=== PATIENT | female | born 1955 | race Caucasian/White ===

== ENCOUNTER 2017-07-19 15:47 | Emergency (ER) | payer MEDICAID, SELFPAY ==
[2017-07-19 15:48] VITALS: BP 143/95; PULSE 117; RESP 24; TEMP 36.4; O2SAT 97; BMI 37.5
--- NOTE | 2017-07-19 16:24 | ED.VISSUMM ---
- ER Visit Summary Date of Service: 07/19/17 Chief Complaint: Nausea and vomiting History of Present Illness: The patient is a 62 F patient presents with nausea vomiting ?1 while visiting a friend upstairs in the hospital. Denies abdominal pain. No chest pains. Symptoms of nausea is resolved. No urinary symptoms. Normal bowel movements. No fever, chills, sweats. Nursing report notes for times of vomiting however she only states once. Nurse reports that she is short of breath for 2 weeks, she states she is only at times short of breath however not currently. States she called her PCP, was told to go ED for evaluation of dehydration versus strokes symptoms. Patient does not present with any stroke symptoms. History of TIA, she feels herself. Physical Examination: General: Alert and oriented ?3, no acute distress. Mild slowness on speech however normal per patient. HEENT: Normocephalic, atraumatic. Moist mucosa membranes Neck: supple, nontender. Cardiovascular: Regular rate 84 and rhythm, no murmurs Respiratory: Normal breath sounds, symmetric, no distress Abdomen: Soft, nontender, nondistended Extremities: Nontender, no edema, pulses intact ?4 Neuro: no focal neurological deficits. Test Results: [] Emergency Department Course and Treatment: Patient with no current complaints. Heart rate in triage 117, is 118 on my evaluation. She has no clinical signs of dehydration. She has no clinical new stroke symptoms. Patient oral challenge and no difficulties. Discharge with outpatient follow-up. Treatment Plan: [] Disposition: Discharge Impression: 1. Nausea vomiting resolved This note was generated with [employer] dictation software. It may contain incorrect words, spelling, and punctuation that were not noted in review of the chart prior to signing ED Disposition - Plan for ED Patient: Disposition: Home or Assisted Living Chief Complaint: Weakness Diagnosis: Nausea and vomiting in adult Referrals: Cedric Mcnally DO [Primary Care Provider] - 3-5 Days
[2017-07-19 16:39] VITALS: BP 156/74; PULSE 103; RESP 18; O2SAT 98
== END 2017-07-19 16:43 | disposition home or self-care (01) ==
PROVIDERS: Emergency Provider Emergency Medicine; Family Provider Family Medicine; PCP Family Medicine
DX: R11.2 Nausea with vomiting, unspecified (principal); Z86.73 Personal history of transient ischemic attack (TIA), and cerebral infarction without residual deficits; Z79.82 Long term (current) use of aspirin; Z79.899 Other long term (current) drug therapy
CPT/HCPCS: 99282

== ENCOUNTER 2017-12-20 22:42 | Observation (INO) | payer MEDICAID, SELFPAY ==
[2017-12-20 22:49] VITALS: BP 130/54; PULSE 59; RESP 18; TEMP 36.8; BMI 31.4
[2017-12-20 22:56] VITALS: BP 130/54; PULSE 60; RESP 22; O2SAT 95
--- NOTE | 2017-12-20 23:06 | EKG12_ITS ---
Test Reason : CONFUSION Blood Pressure : / mmHG Vent. Rate : 055 BPM Atrial Rate : 055 BPM P-R Int : 156 ms QRS Dur : 084 ms QT Int : 404 ms P-R-T Axes : 040 001 -18 degrees QTc Int : 386 ms Sinus bradycardia Nonspecific T wave abnormality Abnormal ECG Confirmed by MORGAN DOUGLAS, REGINE ([id number]), editor managing newspaper SCOOTER MANZANARES ([id number]) on 12/24/2017 2:28:01 PM Referred By: LAY Confirmed By:REGINE MORA MD
--- NOTE | 2017-12-20 23:08 | ED.VISSUMM ---
- ER Visit Summary Date of Service: 12/20/17 Chief Complaint: [] Nausea and vomiting History of Present Illness: The patient is a 62 F planing of nausea vomiting since yesterday. Gradual onset. She had 5 episodes of nonbloody emesis yesterday and twice today. She is decreased oral intake today. She is here with her neighbor. Patient states she has been feeling disoriented at times especially over the last couple days since the vomiting started. She says sometimes it is hard to think. She did bowel prep yesterday for colonoscopy but only took 2 small sips before the vomiting started. She has been getting intermittent headaches for last few days. Frontal aching in nature. Denies any other symptoms. No headache currently. EMS called. Blood sugar was normal. She does have a history of reported stroke and TIA. Physical Examination: [] Vital signs reviewed General: Well-nourished well-developed and slow to respond but answers appropriately. Head: Normocephalic atraumatic Eyes: Pupils equal round and reactive to light extraocular movements intact ENT: TMs clear no hemotympanum no trauma Neck: Nontender full range of motion Cardiovascular: Regular rate rhythm no murmurs normal S1-S2 Respiratory: No distress clear to auscultation bilaterally chest nontender Abdomen: Soft nontender nondistended normal bowel sounds no masses Back: Nontender no CVA tenderness Extremities: Nontender active range of motion ?4 extremities no trauma Skin: Normal color no trauma Neuro alert oriented cranial nerves II through XII intact normal strength sensation reflexes. NIH 0. Test Results: [] Emergency Department Course and Treatment: [] She given IV fluids and Zofran. Lab work and EKG obtained. CT head obtained. CT head showed nothing acute. Lab work shows a complicated urinary tract infection. Troponins negative. [place] better after treatment. Ambulated to the restroom. Given IV ceftriaxone for her UTI. EKG showed nothing acute. Patient will be admitted Treatment Plan: [] Disposition: [] Impression: [] Complicated urinary tract infection Nausea and vomiting This note was generated with [employer] dictation software. It may contain incorrect words, spelling, and punctuation that were not noted in review of the chart prior to signing ED Disposition - Plan for ED Patient: Chief Complaint: Confusion Referrals: Cedric Mcnally DO [Primary Care Provider] -
--- NOTE | 2017-12-20 23:09 | ED.RN ---
NO OLD EKG'S IN MUSE
[2017-12-21 00:03] LABS: ALB/GLOB Ratio 1.2 RATIO (0.9-2.4); AST(SGOT) 12 U/L (15-37); Alanine Aminotransfer ALT/SGPT 16 U/L (13-56); Albumin, Serum 3.6 g/dL (3.2-5.0); Alkaline Phosphatase 74 U/L (45-117); Anion Gap 6 (5-15); BUN 11 mg/dL (7-18); BUN/Creat Ratio 13.8 RATIO (10-20); Calcium,Total 8.9 mg/dL (8.5-10.1); Chloride 113 mmol/L (98-107); EST Glomerular Filtration Rate 78 mL/min (>60); Est Glom Filt Rate - Afr Amer 95 mL/min (>60); Estimated Creatinine Clearance 72.72 ml/min; Glucose 106 mg/dL (74-106); Potassium 3.4 mmol/L (3.5-5.1); Protein, Total 6.6 g/dL (6.4-8.2); Sodium Level 144 mmol/L (136-145)
[2017-12-21] MEDS: Ondansetron 4 MG/2 ML Vial IV (00:10)
[2017-12-21] MEDS: 0.9% Normal Saline 1,000 ML 1000 ML IV (00:10)
[2017-12-21 00:28] LABS: Absolute Lymphocyte Count 2.34 X10^3/ul (0.83-4.51); Absolute Neutrophil Count 5.4 X10^3/uL (2.0-7.7); Basophil# 0.02 X10^3/uL; Basophil% 0.2 % (0-1); Eosinophil# 0.02 X10^3/uL; Eosinophils% 0.2 % (0-5); Hematocrit 38.5 % (37-47); Hemoglobin 12.4 g/dl (12.0-15.0); Lymphocyte # 2.34 X10^3/ul (4.0); Lymphocyte % 28.2 % (19-41); Mean Corp Hgb Conc 32.2 g/gl (32-36); Mean Corpuscular Hgb 28.9 pg (27.0-32.0); Mean Corpuscular Volume 89.7 fL (81-99); Mean Platelet Vol. 10.7 fl (6.2-12.0); Monocyte# 0.56 X10^3/uL; Monocyte% 6.7 % (0-10); Neutrophil # 5.35 X10^3/uL (2.7-7.7); Neutrophil % 64.5 % (47-70); Platelet Count 217 K/mm3 (150-450); RBC Distribution Width CV 13.2 % (11.6-14.6); RBC Distribution Width SD 42.9 fl (35.1-43.9); Red Blood Count 4.29 M/mm3 (4.2-5.4); White Blood Count 8.3 K/mm3 (4.4-11.0)
[2017-12-21 00:29] LABS: POSITIVE COUNT NO; POSITIVE DIFFERENTIAL NO; POSITIVE MORPHOLOGY NO
[2017-12-21 00:54] LABS: Mucous, Urine 0 SEEN /hpf (<or=2+)
[2017-12-21 00:57] LABS: Color, Urine Yellow (Yellow); Glucose, Dipstick Normal (Normal); Ketone-Dipstick Negative (Negative); Leukocyte Esterase-Dipstick 500 /ul (Negative); Nitrite-Dipstick Negative (Negative); Occult Blood-Urine 10 /ul (Negative); Protein-Dipstick 15 mg/dl (Negative); Urine Bilirubin Dipstick Negative (Negative); Urine Clarity Sl. Cloudy (Clear); Urine Urobilinogen Normal (Normal); Urine pH 6.5 (5.0 - 8.0)
[2017-12-21 01:04] LABS: Bacteria 3+ /hpf (None Seen); Red Blood Cells-Urine 0-5 SEEN /hpf (0-5); Squamous Epithelial Cells - UA 0-5 SEEN /hpf (5-10); White Blood Cells 50-100 SEEN /hpf (0-5)
[2017-12-21 02:00] VITALS: BP 115/58; PULSE 64; RESP 20; O2SAT 91
--- NOTE | 2017-12-21 02:03 | PCM.HP.STD ---
Problem List (1) Encephalopathy Status: Acute (2) UTI (urinary tract infection) Status: Acute Qualifiers: Urinary tract infection type: site unspecified Hematuria presence: without hematuria Qualified Code(s): N39.0 - Urinary tract infection, site not specified (3) GERD (gastroesophageal reflux disease) Status: Chronic Qualifiers: Esophagitis presence: esophagitis presence not specified Qualified Code(s): K21.9 - Gastro-esophageal reflux disease without esophagitis (4) HLD (hyperlipidemia) Status: Chronic Qualifiers: Hyperlipidemia type: unspecified Qualified Code(s): E78.5 - Hyperlipidemia, unspecified (5) Anxiety and depression Status: Chronic (6) Obesity (BMI 30.0-34.9) Status: Chronic (7) History of CVA (cerebrovascular accident) Status: Chronic History of Present Illness Date of Admission: 12/21/17 Chief Complaint: Nausea, emesis, confusion The patient is a 62 y/o F w/ PMHx: Hx CVA although Suspect TIA, Migraines including Complex history, HLD, GERD, HLD, Anxiety and Depression, Obesity who presents to the [facility] ED on 12/21/17 with history of onset nausea and emesis over the last 24 hours with progressively worsened weakness, malaise and onset confusion per her neighbors report as well as fontal headache intermittently but this is noted to have currently resolved. In the ED work-up included T 98.2, heart rate 64, BP 150/58, respiratory rate 20, 95% on room air, unremarkable CBC, CMP with potassium 3.4 chloride 113, troponin less than 0.015, urinalysis concerning for UTI pending urine culture per ED, CT head with no acute findings. In the ED patient administered normal saline, Zofran and requested patient to be administered IV Rocephin prior to admission. Past Medical History Past Medical History (Chronic Problems): Chronic Problems GERD (gastroesophageal reflux disease) (Chronic) HLD (hyperlipidemia) (Chronic) Anxiety and depression (Chronic) Obesity (BMI 30.0-34.9) (Chronic) History of CVA (cerebrovascular accident) (Chronic) Allergies No Known Allergies Allergy (Verified 12/20/17 23:25) Home Medications: Ambulatory Orders Medication Instructions Recorded Aspirin 1 tab PO DAILY 07/19/17 Atorvastatin Calcium 80 mg PO QHS 07/19/17 Escitalopram Oxalate [Lexapro] 10 mg PO DAILY 07/19/17 Topiramate [Topamax] 50 mg PO BID 07/19/17 Ergocalciferol [Vitamin D] 50,000 unit PO QWEEK 12/20/17 Omeprazole [Omeprazole] 40 mg PO DAILY 12/20/17 Surgical History: - - Right ankle surgery. 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 Denies: Chills, Fever, Weight Change HEENT: Reports: Head Aches. Denies: Sinus Congestion, Sinus Drainage Cardiovascular: Denies: Chest Pain, Palpitations Respiratory: Denies: Cough, Shortness of breath at rest, Sputum production Gastrointestinal: Reports: Nausea. Denies: Abdominal Pain, Vomiting Genitourinary: Reports: Dysuria Musculoskeletal: Denies: Joint Pain, Joint Tenderness Skin: Denies: Rash, Wounds Neurological: Reports: Confusion. Denies: Focal weakness, Numbness, Tingling Psychiatric: Reports: Anxiety, Depression. Denies: Homicidal Ideations, Suicidal Ideations Hematologic/ Lymphatic: Denies: Easy Bruising, Easy Bleeding VTE Information - Inpt Only VTE Present on Admission: No VTE Mechan Device Prophylaxis: SCD's VTE Pharm Prophylaxis ordered?: Yes Patient Problems: Active and Suspected Problems Encephalopathy (Acute) UTI (urinary tract infection) (Acute) Subjective: Patient seated upright in the ED bed, no acute distress, mildly odd affect in discussion which neighbors note is baseline. Objective: Physical Examination: General: awake, alert, oriented x 3 including person, place, recent events, cooperative, seated upright in the ED bed in no apparent distress. Skin: normal color, turgor, no icterus, cyanosis. HEENT: AT/NC, EOMI, PERRLA, dry MM, no carotid bruits or JVD noted. Lungs: CTA bilaterally, moderate effort, mild decrease BL bases, no rales, ronchi or wheezing. Heart: Regular rate and rhythm; no gallop, rub audible. Abdomen: soft, obese, mild suprapubic TTP otherwise NTTP, ND, normal BS, no HSM; although difficult given habitus. Extremities: no cyanosis, clubbing, or edema. Neurological: patient awake, alert, oriented x 3; cognitive function decreased from baseline, odd affect which is baseline; pupils equally reactive to light and accomodation; cranial nerves II-XII grossly normal, moving all 4 extremities, strength moderately globally decreased. Psychiatric: affect appears flat, slow responses, no acute evidence of depressive or anxiety feelings. - Physical Exam Vital Signs Temp Pulse Resp BP Pulse Ox 98.2 F 64 20 H 115/58 L 91 12/20/17 22:49 12/21/17 02:00 12/21/17 02:00 12/21/17 02:00 12/21/17 02:00 Oxygen Delivery Method Room Air Weight: 200 lb 6.403 oz Body Mass Index (BMI) 31.4 Laboratory Tests Past 24 Hrs 12/20/17 12/20/17 12/21/17 23:38 23:38 00:43 WBC 8.3 RBC 4.29 Hgb 12.4 Hct 38.5 MCV 89.7 MCH 28.9 MCHC 32.2 RDW 13.2 RDW Differential 42.9 Plt Count 217 MPV 10.7 Immature Gran % (Auto) 0.200 Neut % (Auto) 64.5 Lymph % (Auto) 28.2 [place] % (Auto) 6.7 Eos % (Auto) 0.2 Baso % (Auto) 0.2 Absolute Neuts (auto) 5.4 Absolute Lymphs (auto) 2.34 Total Counted Not Reportable Sodium 144 Potassium 3.4 L Chloride 113 H Carbon Dioxide 25.0 Anion Gap 6 BUN 11 Creatinine 0.80 Estim Creat Clear Calc 72.72 Est GFR (MDRD) Af Amer 95 Est GFR (MDRD) Non-Af 78 BUN/Creatinine Ratio 13.8 Glucose 106 Calcium 8.9 Total Bilirubin 0.50 AST 12 L ALT 16 Alkaline Phosphatase 74 Troponin I < 0.015 Total Protein 6.6 Albumin 3.6 Globulin 3.0 Albumin/Globulin Ratio 1.2 Urine Color Yellow Urine Clarity Sl. Cloudy Urine pH 6.5 Ur Specific [place] 1.010 Urine Protein 15 H Urine Glucose (UA) Normal Urine Ketones Negative Urine Occult Blood 10 H Urine Nitrite Negative Urine Bilirubin Negative Urine Urobilinogen Normal Ur Leukocyte Esterase 500 H Urine RBC 0-5 SEEN Urine WBC 50-100 SEEN Ur Squamous Epith Cells 0-5 SEEN Urine Bacteria 3+ Urine Mucus 0 SEEN Assessment/Plan All Active Problems Encephalopathy (Acute) UTI (urinary tract infection) (Acute) The patient is a 62 y/o F w/ PMHx: Hx CVA although Suspect TIA, Migraines including Complex history, HLD, GERD, HLD, Anxiety and Depression, Obesity who presents to the [facility] ED on 12/21/17 with history of onset nausea and emesis over the last 24 hours with progressively worsened weakness, malaise and onset confusion per her neighbors report as well as fontal headache intermittently but this is noted to have currently resolved. (1) Acute Encephalopathy secondary to Acute urinary Tract Infection: Will admit to [facility] upon ED evaluation remarkable, continue IVFs, monitor I/Os, continue IV Rocephin w/ transition as able pending sensitivities and speciation. Bld cx x 2 obtained in the ED. (2) Hypokalemia: Admission K+ 3.4, supplementation given, repeat level in AM. (3) Hx CVA: Maintain on asa, statin, not on BP regimen, BP appropriate upon ED presentation. (4) Hyperlipidemia: Continue home statin regimen. (5) Anxiety and depression: Continue home lexapro regimen. (6) Obesity: Weight loss and lifestyle changes encouraged. (7) Migraine Headaches: Noted chronic history of migraines, per her report history of complex as well noted during admission for CVA evaluation, maintain on home topamax regimen. (8) GERD: Famotidine. (9) DVT Prophylaxis: SCDs, lovenox. Code Visit Inpatient E&M: 59163 Init Hosp L3
--- NOTE | 2017-12-21 02:19 | HP.PCM_ITS ---
Problem List (1) Encephalopathy Status: Acute (2) UTI (urinary tract infection) Status: Acute Qualifiers: Urinary tract infection type: site unspecified Hematuria presence: without hematuria Qualified Code(s): N39.0 - Urinary tract infection, site not specified (3) GERD (gastroesophageal reflux disease) Status: Chronic Qualifiers: Esophagitis presence: esophagitis presence not specified Qualified Code(s) : K21.9 - Gastro-esophageal reflux disease without esophagitis (4) HLD (hyperlipidemia) Status: Chronic Qualifiers: Hyperlipidemia type: unspecified Qualified Code(s): E78.5 - Hyperlipidemia , unspecified (5) Anxiety and depression Status: Chronic (6) Obesity (BMI 30.0-34.9) Status: Chronic (7) History of CVA (cerebrovascular accident) Status: Chronic History of Present Illness Date of Admission: 12/21/17 Chief Complaint: Nausea, emesis, confusion The patient is a 62 y/o F w/ PMHx: Hx CVA although Suspect TIA, Migraines including Complex history, HLD, GERD, HLD, Anxiety and Depression, Obesity who presents to the [facility] ED on 12/21/17 with history of onset nausea and emesis over the last 24 hours with progressively worsened weakness, malaise and onset confusion per her neighbors report as well as fontal headache intermittently but this is noted to have currently resolved. In the ED work-up included T 98.2 , heart rate 64, BP 150/58, respiratory rate 20, 95% on room air, unremarkable CBC, CMP with potassium 3.4 chloride 113, troponin less than 0.015, urinalysis concerning for UTI pending urine culture per ED, CT head with no acute findings. In the ED patient administered normal saline, Zofran and requested patient to be administered IV Rocephin prior to admission. Past Medical History Past Medical History (Chronic Problems): Chronic Problems GERD (gastroesophageal reflux disease) (Chronic) HLD (hyperlipidemia) (Chronic) Anxiety and depression (Chronic) Obesity (BMI 30.0-34.9) (Chronic) History of CVA (cerebrovascular accident) (Chronic) Allergies No Known Allergies Allergy (Verified 12/20/17 23:25) Home Medications: Ambulatory Orders Medication Instructions Recorded Aspirin 1 tab PO DAILY 07/19/17 Atorvastatin Calcium 80 mg PO QHS 07/19/17 Escitalopram Oxalate [Lexapro] 10 mg PO DAILY 07/19/17 Topiramate [Topamax] 50 mg PO BID 07/19/17 Ergocalciferol [Vitamin D] 50,000 unit PO QWEEK 12/20/17 Omeprazole [Omeprazole] 40 mg PO DAILY 12/20/17 Surgical History: - - Right ankle surgery. 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 Denies: Chills, Fever, Weight Change HEENT: Reports: Head Aches. Denies: Sinus Congestion, Sinus Drainage Cardiovascular: Denies: Chest Pain, Palpitations Respiratory: Denies: Cough, Shortness of breath at rest, Sputum production Gastrointestinal: Reports: Nausea. Denies: Abdominal Pain, Vomiting Genitourinary: Reports: Dysuria Musculoskeletal: Denies: Joint Pain, Joint Tenderness Skin: Denies: Rash, Wounds Neurological: Reports: Confusion. Denies: Focal weakness, Numbness, Tingling Psychiatric: Reports: Anxiety, Depression. Denies: Homicidal Ideations, Suicidal Ideations Hematologic/ Lymphatic: Denies: Easy Bruising, Easy Bleeding VTE Information - Inpt Only VTE Present on Admission: No VTE Mechan Device Prophylaxis: SCD's VTE Pharm Prophylaxis ordered?: Yes Patient Problems: Active and Suspected Problems Encephalopathy (Acute) UTI (urinary tract infection) (Acute) Subjective: Patient seated upright in the ED bed, no acute distress, mildly odd affect in discussion which neighbors note is baseline. Objective: Physical Examination: General: awake, alert, oriented x 3 including person, place, recent events, cooperative, seated upright in the ED bed in no apparent distress. Skin: normal color, turgor, no icterus, cyanosis. HEENT: AT/NC, EOMI, PERRLA, dry MM, no carotid bruits or JVD noted. Lungs: CTA bilaterally, moderate effort, mild decrease BL bases, no rales, ronchi or wheezing. Heart: Regular rate and rhythm; no gallop, rub audible. Abdomen: soft, obese, mild suprapubic TTP otherwise NTTP, ND, normal BS, no HSM ; although difficult given habitus. Extremities: no cyanosis, clubbing, or edema. Neurological: patient awake, alert, oriented x 3; cognitive function decreased from baseline, odd affect which is baseline; pupils equally reactive to light and accomodation; cranial nerves II-XII grossly normal, moving all 4 extremities , strength moderately globally decreased. Psychiatric: affect appears flat, slow responses, no acute evidence of depressive or anxiety feelings. - Physical Exam Vital Signs Temp Pulse Resp BP Pulse Ox 98.2 F 64 20 H 115/58 L 91 12/20/17 22:49 12/21/17 02:00 12/21/17 02:00 12/21/17 02:00 12/21/17 02:00 Oxygen Delivery Method Room Air Weight: 200 lb 6.403 oz Body Mass Index (BMI) 31.4 Laboratory Tests Past 24 Hrs 12/20/17 12/20/17 12/21/17 23:38 23:38 00:43 WBC 8.3 RBC 4.29 Hgb 12.4 Hct 38.5 MCV 89.7 MCH 28.9 MCHC 32.2 RDW 13.2 RDW Differential 42.9 Plt Count 217 MPV 10.7 Immature Gran % (Auto) 0.200 Neut % (Auto) 64.5 Lymph % (Auto) 28.2 [place] % (Auto) 6.7 Eos % (Auto) 0.2 Baso % (Auto) 0.2 Absolute Neuts (auto) 5.4 Absolute Lymphs (auto) 2.34 Total Counted Not Reportable Sodium 144 Potassium 3.4 L Chloride 113 H Carbon Dioxide 25.0 Anion Gap 6 BUN 11 Creatinine 0.80 Estim Creat Clear Calc 72.72 Est GFR (MDRD) Af Amer 95 Est GFR (MDRD) Non-Af 78 BUN/Creatinine Ratio 13.8 Glucose 106 Calcium 8.9 Total Bilirubin 0.50 AST 12 L ALT 16 Alkaline Phosphatase 74 Troponin I < 0.015 Total Protein 6.6 Albumin 3.6 Globulin 3.0 Albumin/Globulin Ratio 1.2 Urine Color Yellow Urine Clarity Sl. Cloudy Urine pH 6.5 Ur Specific [place] 1.010 Urine Protein 15 H Urine Glucose (UA) Normal Urine Ketones Negative Urine Occult Blood 10 H Urine Nitrite Negative Urine Bilirubin Negative Urine Urobilinogen Normal Ur Leukocyte Esterase 500 H Urine RBC 0-5 SEEN Urine WBC 50-100 SEEN Ur Squamous Epith Cells 0-5 SEEN Urine Bacteria 3+ Urine Mucus 0 SEEN Assessment/Plan All Active Problems Encephalopathy (Acute) UTI (urinary tract infection) (Acute) The patient is a 62 y/o F w/ PMHx: Hx CVA although Suspect TIA, Migraines including Complex history, HLD, GERD, HLD, Anxiety and Depression, Obesity who presents to the [facility] ED on 12/21/17 with history of onset nausea and emesis over the last 24 hours with progressively worsened weakness, malaise and onset confusion per her neighbors report as well as fontal headache intermittently but this is noted to have currently resolved. (1) Acute Encephalopathy secondary to Acute urinary Tract Infection: Will admit to [facility] upon ED evaluation remarkable, continue IVFs, monitor I/Os, continue IV Rocephin w/ transition as able pending sensitivities and speciation. Bld cx x 2 obtained in the ED. (2) Hypokalemia: Admission K+ 3.4, supplementation given, repeat level in AM. (3) Hx CVA: Maintain on asa, statin, not on BP regimen, BP appropriate upon ED presentation. (4) Hyperlipidemia: Continue home statin regimen. (5) Anxiety and depression: Continue home lexapro regimen. (6) Obesity: Weight loss and lifestyle changes encouraged. (7) Migraine Headaches: Noted chronic history of migraines, per her report history of complex as well noted during admission for CVA evaluation, maintain on home topamax regimen. (8) GERD: Famotidine. (9) DVT Prophylaxis: SCDs, lovenox. Code Visit Inpatient E&M: 86829 Init Hosp L3
[2017-12-21] MEDS: Ceftriaxone 1 GM/50 ML BAG IV (02:40)
[2017-12-21 03:03] VITALS: BP 120/58; PULSE 68; RESP 20; TEMP 36.9; O2SAT 95
[2017-12-21 03:04] VITALS: BMI 31.1
[2017-12-21 03:16] VITALS: BMI 31.1
[2017-12-21] MEDS: 0.9% Normal Saline 1,000 ML 100 ML IV ×2 (03:20→14:14)
[2017-12-21 04:15] LABS: Magnesium 2.1 mg/dL (1.6-2.6)
[2017-12-21 06:07] LABS: Absolute Lymphocyte Count 1.99 X10^3/ul (0.83-4.51); Absolute Neutrophil Count 4.4 X10^3/uL (2.0-7.7); Basophil# 0.02 X10^3/uL; Basophil% 0.3 % (0-1); Eosinophil# 0.02 X10^3/uL; Eosinophils% 0.3 % (0-5); Hematocrit 37.2 % (37-47); Hemoglobin 11.7 g/dl (12.0-15.0); Lymphocyte # 1.99 X10^3/ul (4.0); Lymphocyte % 28.5 % (19-41); Mean Corp Hgb Conc 31.5 g/gl (32-36); Mean Corpuscular Hgb 28.7 pg (27.0-32.0); Mean Corpuscular Volume 91.2 fL (81-99); Mean Platelet Vol. 10.5 fl (6.2-12.0); Monocyte# 0.53 X10^3/uL; Monocyte% 7.6 % (0-10); Neutrophil # 4.41 X10^3/uL (2.7-7.7); Neutrophil % 63.2 % (47-70); Platelet Count 200 K/mm3 (150-450); RBC Distribution Width CV 13.3 % (11.6-14.6); Red Blood Count 4.08 M/mm3 (4.2-5.4)
[2017-12-21 06:08] LABS: POSITIVE COUNT NO; POSITIVE DIFFERENTIAL NO; POSITIVE MORPHOLOGY NO
[2017-12-21 06:31] LABS: Anion Gap 9 (5-15); BUN 11 mg/dL (7-18); BUN/Creat Ratio 14.7 RATIO (10-20); Calcium,Total 8.6 mg/dL (8.5-10.1); Chloride 115 mmol/L (98-107); Creatinine, Serum 0.75 mg/dL (0.55-1.02); EST Glomerular Filtration Rate 84 mL/min (>60); Est Glom Filt Rate - Afr Amer 101 mL/min (>60); Estimated Creatinine Clearance 77.57 ml/min; Glucose 103 mg/dL (74-106); Potassium 3.7 mmol/L (3.5-5.1); Sodium Level 149 mmol/L (136-145)
[2017-12-21 07:20] VITALS: O2SAT 96
[2017-12-21 07:42] VITALS: BP 122/56; PULSE 68; RESP 16; TEMP 36.9; O2SAT 95
[2017-12-21] MEDS: Escitalopram Oxalate 10 MG Tablet PO (09:42)
[2017-12-21] MEDS: Aspirin 81 MG TAB.CHEW PO (09:42)
[2017-12-21] MEDS: Enoxaparin 40 MG/0.4 ML Syringe SC (09:42)
[2017-12-21] MEDS: Famotidine 20 MG Tablet PO ×2 (09:42→20:48)
[2017-12-21] MEDS: Topiramate 25 MG Tablet 50 MG PO ×2 (09:42→20:48)
--- NOTE | 2017-12-21 11:27 | CASEMGMT ---
TALAT CASH Face to Face with patient for initial transition planning/care coordination assessment. TALAT CASH introduced self and role at [facility]. Patient lying in bed, alert and oriented. Patient willing to participate in assessment and is able to answer all questions appropriately. Care providers, pharmacy, and demographics verified. See link attached. Patient wishes to discharge home, denies need for home health at this time. TALAT CASH advised patient that should she reconsider HHC after discharge, she can follow-up with PCP. Patient states she has no further needs or concerns at this time. CM to follow for discharge planning needs that may arise. Disposition Plan: Patient to discharge home with follow-up plans in place.
[2017-12-21 13:45] VITALS: BP 135/74; PULSE 72; RESP 18; TEMP 36.8; O2SAT 94
--- NOTE | 2017-12-21 19:05 | PCM.HOSP.N ---
Hospitalist Note Patient seen and examined today briefly, she does not appear to be unwell, she appears to be alert and responds appropriately to questions. I will stop her IV fluids, I will leave her on Rocephin for now, it appears she is medically stable, if this is the case tomorrow, I feel she may be discharged home.
[2017-12-21 20:00] VITALS: BP 129/47; PULSE 74; RESP 18; TEMP 37.2; O2SAT 95
[2017-12-21] MEDS: Atorvastatin Calcium 80 MG Tablet PO (20:48)
--- NOTE | 2017-12-21 23:05 | CT_ITS ---
STUDY: CT BRAIN WITHOUT CONTRAST REASON FOR EXAM: Female, 62 years old. [place] X 2 DAYS, CONFUSION PER NEIGHBORS RADIATION DOSAGE (If Supplied By Facility): CTDIvol = ( 44.99 ) mGy, DLP = ( 796.11 ) mGycm TECHNIQUE: Transaxial CT imaging of the brain was performed without administration of intravenous contrast material. Individualized dose optimization techniques were used for this CT. COMPARISON: None. FINDINGS: Normal soft tissue structures. Normal calvarium. Normal size ventricles and extra-axial spaces for the patient's age. Normal white matter tracts of the cerebral hemispheres. Normal basal ganglia and thalami. Normal brainstem. Normal cerebellum. There is no intracranial hemorrhage. There are no findings of an acute ischemic infarction. Normal visualized paranasal sinuses. CT/Brain/Head without Contrast IMPRESSION: Normal unenhanced CT scan of the brain. Electronically Signed: Saira Iverson MD at 0:35 EDT Tel , Service support ,
[2017-12-22 02:00] VITALS: BP 126/72; PULSE 70; RESP 16; TEMP 37; O2SAT 96
[2017-12-22] MEDS: Acetaminophen 325 MG Tablet 650 MG PO (02:44)
[2017-12-22] MEDS: Ceftriaxone 1 GM/50 ML BAG IV (06:22)
[2017-12-22 06:55] VITALS: O2SAT 96
[2017-12-22 07:26] LABS: Anion Gap 7 (5-15); BUN 9 mg/dL (7-18); BUN/Creat Ratio 12.6 RATIO (10-20); Calcium,Total 8.5 mg/dL (8.5-10.1); Chloride 114 mmol/L (98-107); Creatinine, Serum 0.71 mg/dL (0.55-1.02); EST Glomerular Filtration Rate 89 mL/min (>60); Est Glom Filt Rate - Afr Amer 107 mL/min (>60); Estimated Creatinine Clearance 81.94 ml/min; Glucose 97 mg/dL (74-106); Potassium 3.7 mmol/L (3.5-5.1); Sodium Level 148 mmol/L (136-145)
[2017-12-22 07:51] VITALS: BP 157/84; PULSE 68; RESP 16; TEMP 36.8; O2SAT 95
[2017-12-22] MEDS: Aspirin 81 MG TAB.CHEW PO (08:00)
[2017-12-22] MEDS: Escitalopram Oxalate 10 MG Tablet PO (09:46)
[2017-12-22] MEDS: Topiramate 25 MG Tablet 50 MG PO (09:46)
[2017-12-22] MEDS: Famotidine 20 MG Tablet PO (09:46)
[2017-12-22] MEDS: Enoxaparin 40 MG/0.4 ML Syringe SC (09:46)
--- NOTE | 2017-12-22 09:48 | PN_ITS ---
Patient Problems: Active and Suspected Problems Encephalopathy (Acute) UTI (urinary tract infection) (Acute) Subjective: feeling good. no complaints. Vitals/I&O's: Vital Signs Temp Pulse Resp BP Pulse Ox 36.8 C 68 16 157/84 H 95 12/22/17 07:51 12/22/17 07:51 12/22/17 07:51 12/22/17 07:51 12/22/17 07:51 Oxygen Delivery Method Room Air Weight: 90 kg Body Mass Index (BMI) 31.1 Intake and Output for Last 24 Hours 12/20/17 12/21/17 12/22/17 23:59 23:59 23:59 Intake Total 2069 / 2069 1000 / 1000 Output Total 850 / 850 1000 / 1000 Balance 1219 / 1219 0 / 0 General: Alert, Oriented x3, Cooperative, No apparent distress HEENT: Atraumatic, Normocephalic Oral: Moist Mucosa, No Gingival or Mucosal Lesions/ Ulcerations Laboratory Results 12/22/17 06:11: Sodium 148 H, Potassium 3.7, Chloride 114 H, Carbon Dioxide 27.0 , Anion Gap 7, BUN 9, Creatinine 0.71, Estim Creat Clear Calc 81.94, Est GFR ( MDRD) Af Amer 107, Est GFR (MDRD) Non-Af 89, BUN/Creatinine Ratio 12.6, Glucose 97, Calcium 8.5 Current Medications Acetaminophen (Tylenol) 650 mg PO Q6H PRN PRN PRN Reason: Mild Pain (scale 0-3)/T>100.7 Last Admin: 12/22/17 02:44 Dose: 650 mg Al Hydroxide/Mg Hydroxide (Mylanta Ii) 30 ml PO Q6H PRN PRN PRN Reason: Gastric burning [facility] Last Admin: 12/22/17 08:00 Dose: 81 mg Atorvastatin Calcium (Lipitor) 80 mg PO QHS [facility] Last Admin: 12/21/17 20:48 Dose: 80 mg Enoxaparin Sodium (Lovenox) 40 mg SC DAILY@1000 [facility] Last Admin: 12/21/17 09:42 Dose: 40 mg Escitalopram Oxalate (Lexapro) 10 mg PO DAILY [facility] Last Admin: 12/21/17 09:42 Dose: 10 mg Famotidine (Pepcid) 20 mg PO BID [facility] Last Admin: 12/21/17 20:48 Dose: 20 mg Ceftriaxone Sodium (Rocephin) 1 gm in 50 mls @ 100 mls/hr IV Q24 [facility] Last Admin: 12/22/17 06:22 Dose: 100 mls/hr Sodium Chloride () 250 mls @ 15 mls/hr IV .[id number] PRN PRN Reason: SALINE FLUSH Magnesium Hydroxide (Milk Of Magnesia) 30 ml PO DAILY PRN PRN PRN Reason: Constipation Ondansetron HCl (Zofran) 4 mg IV Q8H PRN PRN PRN Reason: NAUSEA Promethazine HCl (Phenergan) 12.5 mg IV Q6H PRN PRN PRN Reason: NAUSEA/VOMITING Sodium Chloride () 5 - 30 ml IV UD PRN PRN Reason: SALINE FLUSH Topiramate (Topamax) 50 mg PO BID [facility] Last Admin: 12/21/17 20:48 Dose: 50 mg Medical Necessity - Tobacco Use Smoking Status: Never smoker Tobacco Use: Non-smoker Assessment/Plan All Active Problems Encephalopathy (Acute) UTI (urinary tract infection) (Acute) 1. UTI: * on CTX, change to Cipro and treat through 12/28 * UCx has no results so far 2. Metabolic encephalopathy * 2/2 UTI * resolved 3. Lactic acidosis * Severe sepsis ruled out. * resolved. 4. Disposition: to home.
--- NOTE | 2017-12-22 09:51 | DCINST_ITS ---
- Discharge Diagnoses Current Active Problems: Current Active and Chronic Problems Encephalopathy (Acute) UTI (urinary tract infection) (Acute) GERD (gastroesophageal reflux disease) (Chronic) HLD (hyperlipidemia) (Chronic) Anxiety and depression (Chronic) Obesity (BMI 30.0-34.9) (Chronic) History of CVA (cerebrovascular accident) (Chronic) You will use the following diet at home:: No restrictions Your food should be the consistency of: Regular Your liquids should be the consistency of: Regular/Thin Discharge Activity: Return to Normal Activity Call your doctor if you observe: Fever of 101 or Higher, Inability to urinate Allergies/Adverse Reactions: Allergies No Known Allergies Allergy (Verified 12/20/17 23:25) Medications to take at Discharge Aspirin 1 tab PO QHS 07/19/17 Atorvastatin Calcium 80 mg PO QHS 07/19/17 Escitalopram Oxalate [Lexapro] 10 mg PO QHS 07/19/17 Topiramate [Topamax] 50 mg PO BID 07/19/17 Ergocalciferol [Vitamin D] 50,000 unit PO QWEEK 12/20/17 Omeprazole 40 mg PO QHS 12/20/17 Ciprofloxacin [Cipro] 500 mg PO BID #12 tab 12/22/17 The following prescriptions were given: Ciprofloxacin [Cipro] 500 mg PO BID #12 tab Primary Care Physician: Cedric Mcnally DO [Primary Care Provider] - Within 2 Weeks Test Results: Test results from this visit will be discussed in further detail at your follow- up appointment, if applicable. Proposed Discharge Date: 12/22/17
--- NOTE | 2017-12-22 09:54 | DS.PCM_ITS ---
Discharge Date and Diagnosis - Problem List Patient Problems: Active and Suspected Problems Encephalopathy (Acute) UTI (urinary tract infection) (Acute) Date of Admission: 12/21/17 Date of Discharge: 12/22/17 - Primary Discharge Diagnosis Active and Suspected Problems Encephalopathy (Acute) UTI (urinary tract infection) (Acute) - Secondary Discharge Diagnosis Chronic Problems GERD (gastroesophageal reflux disease) (Chronic) HLD (hyperlipidemia) (Chronic) Anxiety and depression (Chronic) Obesity (BMI 30.0-34.9) (Chronic) History of CVA (cerebrovascular accident) (Chronic) Hospital Course and Treatment Imaging Results: Clinical Impression(s) from Imaging Studies Brain CT 12/21/17 23:05 IMPRESSION: Normal unenhanced CT scan of the brain. Electronically Signed: Saira Iverson MD at 0:35 EDT Tel , Service support , Operations: None Procedures: None Summary of Care Provided: The patient is a 62 year old F presents with confusion. Patient was found to have a urinary tract infection. Patient encephalopathy was metabolic encephalopathy due to the urinary tract infection and has since resolved. Patient did have elevated lactic acid of 2.2 upon arrival. Patient was never clinically septic so severe sepsis was ruled out. Patient is otherwise doing well and will be discharged with course of ciprofloxacin to complete a seven- day course of antibiotics. Urine culture is still pending at the time of this dictation. Patient will be discharged to home. [] Discharge Diet: No Restrictions Discharge Activity: Return to Normal Activity Call your doctor if you observe: Fever of 101 or Higher, Inability to urinate Home Medications: Medications to take at Discharge Aspirin 1 tab PO QHS 07/19/17 Atorvastatin Calcium 80 mg PO QHS 07/19/17 Escitalopram Oxalate [Lexapro] 10 mg PO QHS 07/19/17 Topiramate [Topamax] 50 mg PO BID 07/19/17 Ergocalciferol [Vitamin D] 50,000 unit PO QWEEK 12/20/17 Omeprazole 40 mg PO QHS 12/20/17 Ciprofloxacin [Cipro] 500 mg PO BID #12 tab 12/22/17 Following Prescrptions Were Given to Patient: Ciprofloxacin [Cipro] 500 mg PO BID #12 tab Primary Care Physician: Cedric Mcnally DO [Primary Care Provider] - Within 2 Weeks Disposition: Home Minutes spent on discharge:: 32 Patient Condition:: Good Medical Necessity - Tobacco Use Smoking Status: Never smoker Tobacco Use: Non-smoker Meaningful Use Info Meaningful Use Diagnoses (Choose all that apply): None applicable Code Visit Inpatient E&M: 11052 Disch Hosp
== END 2017-12-22 12:15 | disposition home or self-care (01) | DRG 320 ==
LOC: ED 23:17 → MS3 12-21 02:34
PROVIDERS: Internal Medicine; Admitting Provider Family Medicine; Emergency Provider Emergency Medicine; Family Provider Family Medicine; PCP Family Medicine
DX: N39.0 Urinary tract infection, site not specified (principal); G93.41 Metabolic encephalopathy; E78.5 Hyperlipidemia, unspecified; E87.2 Acidosis; F41.9 Anxiety disorder, unspecified; F32.9 Major depressive disorder, single episode, unspecified; K21.9 Gastro-esophageal reflux disease without esophagitis; E87.6 Hypokalemia; G43.909 Migraine, unspecified, not intractable, without status migrainosus; E66.9 Obesity, unspecified; Z68.31 Body mass index [BMI] 31.0-31.9, adult; Z86.73 Personal history of transient ischemic attack (TIA), and cerebral infarction without residual deficits; Z79.82 Long term (current) use of aspirin; Z79.899 Other long term (current) drug therapy
CPT/HCPCS: 36415; 70450; 80048; 80053; 81001; 83735; 84484; 85025; 87086; 87088; 87186; 93005; 97802; 99218; 99285; J7030; A4216; G0378; J2405

== ENCOUNTER 2018-01-16 16:55 | Observation (INO) | payer MEDICAID, SELFPAY ==
[2018-01-16] VITALS (7 sets, daily range): BP systolic 97–125; BP diastolic 52–80; PULSE 55–74; RESP 14–18; TEMP 36.7–36.9; O2SAT 96–98; BMI 33.7; BMI 30.9
[2018-01-16 18:02] LABS: Absolute Lymphocyte Count 1.99 X10^3/ul (0.83-4.51); Absolute Neutrophil Count 3.7 X10^3/uL (2.0-7.7); Basophil# 0.03 X10^3/uL; Basophil% 0.5 % (0-1); Eosinophil# 0.06 X10^3/uL; Hematocrit 38.1 % (37-47); Hemoglobin 12.1 g/dl (12.0-15.0); Lymphocyte # 1.99 X10^3/ul (4.0); Lymphocyte % 31.9 % (19-41); Mean Corp Hgb Conc 31.8 g/gl (32-36); Mean Corpuscular Hgb 28.9 pg (27.0-32.0); Mean Corpuscular Volume 90.9 fL (81-99); Mean Platelet Vol. 10.4 fl (6.2-12.0); Monocyte# 0.41 X10^3/uL; Monocyte% 6.6 % (0-10); Neutrophil # 3.74 X10^3/uL (2.7-7.7); Neutrophil % 59.8 % (47-70); Platelet Count 210 K/mm3 (150-450); RBC Distribution Width CV 13.1 % (11.6-14.6); RBC Distribution Width SD 43.2 fl (35.1-43.9); Red Blood Count 4.19 M/mm3 (4.2-5.4); White Blood Count 6.2 K/mm3 (4.4-11.0)
[2018-01-16 18:03] LABS: POSITIVE COUNT NO; POSITIVE DIFFERENTIAL NO; POSITIVE MORPHOLOGY NO
[2018-01-16 18:18] LABS: Anion Gap 8 (5-15); BUN 13 mg/dL (7-18); BUN/Creat Ratio 14.7 RATIO (10-20); Calcium,Total 8.7 mg/dL (8.5-10.1); Chloride 113 mmol/L (98-107); Creatinine, Serum 0.89 mg/dL (0.55-1.02); EST Glomerular Filtration Rate 69 mL/min (>60); Est Glom Filt Rate - Afr Amer 83 mL/min (>60); Estimated Creatinine Clearance 60.49 ml/min; Glucose 96 mg/dL (74-106); Potassium 3.8 mmol/L (3.5-5.1); Sodium Level 147 mmol/L (136-145)
[2018-01-16 18:20] LABS: Bacteria 0 SEEN /hpf (None Seen); Mucous, Urine 0 SEEN /hpf (<or=2+); Red Blood Cells-Urine 0 SEEN /hpf (0-5); Squamous Epithelial Cells - UA 0 SEEN /hpf (5-10)
[2018-01-16 18:21] LABS: Lactic Acid 1.3 mmol/L (0.4-2.0)
[2018-01-16 18:30] LABS: Color, Urine Yellow (Yellow); Glucose, Dipstick Normal (Normal); Ketone-Dipstick Negative (Negative); Nitrite-Dipstick Negative (Negative); Occult Blood-Urine Negative /ul (Negative); Protein-Dipstick Negative (Negative); Specific Gravity, Urine 1.005 (1.002-1.030); Urine Bilirubin Dipstick Negative (Negative); Urine Clarity Clear (Clear); Urine Urobilinogen Normal (Normal)
[2018-01-16 18:51] LABS: Leukocyte Esterase-Dipstick 500 /ul (Negative)
[2018-01-16 19:03] LABS: White Blood Cells 0-5 SEEN /hpf (0-5)
--- NOTE | 2018-01-16 20:25 | PCM.HP.STD ---
Problem List (1) TIA (transient ischemic attack) Status: Acute (2) Encephalopathy Status: Acute (3) GERD (gastroesophageal reflux disease) Status: Chronic Qualifiers: Esophagitis presence: esophagitis presence not specified Qualified Code(s): K21.9 - Gastro-esophageal reflux disease without esophagitis (4) HLD (hyperlipidemia) Status: Chronic Qualifiers: Hyperlipidemia type: unspecified Qualified Code(s): E78.5 - Hyperlipidemia, unspecified (5) Anxiety and depression Status: Chronic (6) Obesity (BMI 30.0-34.9) Status: Chronic (7) History of CVA (cerebrovascular accident) Status: Chronic History of Present Illness Date of Admission: 01/16/18 Chief Complaint: Ongoing confusion noted per neighbors 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 Only currently complaint per patient is frontal mild occasional throbbing headache BL with no associated photophobia or phonophobia. She is slow to respond which family notes is nearly baseline, perhaps mild worse than normal. In the ED work-up includes T 98.0, heart rate 55, BP 121/70, respiratory rate 14, 96% on room air, remarkable CBC, unremarkable BMP aside sodium 147, chloride 113, normal lactic acid 1.3, unremarkable urinalysis, EKG with no acute evidence of ischemia, CT head with no acute findings, chest x-ray unremarkable. Past Medical History Past Medical History (Chronic Problems): Chronic Problems GERD (gastroesophageal reflux disease) (Chronic) HLD (hyperlipidemia) (Chronic) Anxiety and depression (Chronic) Obesity (BMI 30.0-34.9) (Chronic) History of CVA (cerebrovascular accident) (Chronic) Allergies No Known Allergies Allergy (Verified 12/20/17 23:25) Home Medications: Ambulatory Orders Medication Instructions Recorded Aspirin 1 tab PO QHS 07/19/17 Atorvastatin Calcium 80 mg PO QHS 07/19/17 Escitalopram Oxalate [Lexapro] 10 mg PO QHS 07/19/17 Topiramate [Topamax] 50 mg PO BID 07/19/17 Ergocalciferol [Vitamin D] 50,000 unit PO QWEEK 12/20/17 Omeprazole 40 mg PO QHS 12/20/17 Surgical History: - - Right ankle surgery. Psychiatric History: Anxiety, Depression [employer] History: No pertinent [employer] history Lives: Alone Smoking Status: Never smoker Tobacco Use: Non-smoker Alcohol: None Drugs: None - *Family History Maternal History Items: Stroke Paternal History Items: Stroke Review of Systems Constitutional: Reports: Fatigue. Denies: Chills, Fever, Weight Change HEENT: Reports: Head Aches. Denies: Sinus Congestion, Sinus Drainage Cardiovascular: Denies: Chest Pain, Palpitations Respiratory: Denies: Cough, Shortness of breath at rest, Sputum production Gastrointestinal: Denies: Abdominal Pain, Nausea, Vomiting Genitourinary: Denies: Dysuria Musculoskeletal: Reports: Back Pain. Denies: Joint Pain, Joint Tenderness Skin: Denies: Rash, Wounds Neurological: Reports: Confusion. Denies: Focal weakness, Numbness, Tingling Psychiatric: Reports: Anxiety, Depression. Denies: Homicidal Ideations, Suicidal Ideations Hematologic/ Lymphatic: Denies: Easy Bruising, Easy Bleeding VTE Information - Inpt Only VTE Present on Admission: No VTE Mechan Device Prophylaxis: SCD's VTE Pharm Prophylaxis ordered?: Yes Patient Problems: Active and Suspected Problems TIA (transient ischemic attack) (Acute) Subjective: Patient seated upright in the ED bed, similar to prior presentation with mildly odd affect but appropriate otherwise. Family and neighbor state that she is near her baseline. Objective: Physical Examination: General: awake, alert, oriented x 3 including person, place, recent events, but notes year as 1986 instead of correct date, cooperative, seated upright in the ED bed in no apparent distress. Skin: normal color, turgor, no icterus, cyanosis. HEENT: AT/NC, EOMI, PERRLA, MMM, no carotid bruits or JVD noted. Lungs: CTA bilaterally, moderate effort, mild decrease BL bases, no rales, ronchi or wheezing. Heart: Regular rate and rhythm; no gallop, rub audible. Abdomen: soft, obese, NTTP, ND, normal BS, no HSM; although difficult given habitus. Extremities: no cyanosis, clubbing, or edema. Neurological: patient awake, alert, oriented x 3; cognitive function decreased from baseline, odd affect which is baseline; pupils equally reactive to light and accomodation; cranial nerves II-XII grossly normal, moving all 4 extremities, strength mildly globally decreased. Psychiatric: affect appears flat, slow responses which family confirms as near baseline, no acute evidence of depressive or anxiety feelings. - Physical Exam Vital Signs Temp Pulse Resp BP Pulse Ox 98.0 F 59 L 14 125/52 H 98 01/16/18 16:57 01/16/18 19:57 01/16/18 16:57 01/16/18 19:57 01/16/18 16:57 Oxygen Delivery Method Room Air Weight: 202 lb 9.677 oz Body Mass Index (BMI) 33.7 Laboratory Tests Past 24 Hrs 01/16/18 01/16/18 01/16/18 17:36 17:36 17:36 WBC 6.2 RBC 4.19 L Hgb 12.1 Hct 38.1 MCV 90.9 MCH 28.9 MCHC 31.8 L RDW 13.1 RDW Differential 43.2 Plt Count 210 MPV 10.4 Immature Gran % (Auto) 0.200 Neut % (Auto) 59.8 Lymph % (Auto) 31.9 [place] % (Auto) 6.6 Eos % (Auto) 1.0 Baso % (Auto) 0.5 Absolute Neuts (auto) 3.7 Absolute Lymphs (auto) 1.99 Total Counted Not Reportable Sodium 147 H Potassium 3.8 Chloride 113 H Carbon Dioxide 26.0 Anion Gap 8 BUN 13 Creatinine 0.89 Estim Creat Clear Calc 60.49 Est GFR (MDRD) Af Amer 83 Est GFR (MDRD) Non-Af 69 BUN/Creatinine Ratio 14.7 Glucose 96 Lactic Acid 1.3 Calcium 8.7 Urine Color Urine Clarity Urine pH Ur Specific [place] Urine Protein Urine Glucose (UA) Urine Ketones Urine Occult Blood Urine Nitrite Urine Bilirubin Urine Urobilinogen Ur Leukocyte Esterase Urine RBC Urine WBC Ur Squamous Epith Cells Urine Bacteria Urine Mucus 01/16/18 18:15 WBC RBC Hgb Hct MCV MCH MCHC RDW RDW Differential Plt Count MPV Immature Gran % (Auto) Neut % (Auto) Lymph % (Auto) [place] % (Auto) Eos % (Auto) Baso % (Auto) Absolute Neuts (auto) Absolute Lymphs (auto) Total Counted Sodium Potassium Chloride Carbon Dioxide Anion Gap BUN Creatinine Estim Creat Clear Calc Est GFR (MDRD) Af Amer Est GFR (MDRD) Non-Af BUN/Creatinine Ratio Glucose Lactic Acid Calcium Urine Color Yellow Urine Clarity Clear Urine pH 7.0 Ur Specific [place] 1.005 Urine Protein Negative Urine Glucose (UA) Normal Urine Ketones Negative Urine Occult Blood Negative Urine Nitrite Negative Urine Bilirubin Negative Urine Urobilinogen Normal Ur Leukocyte Esterase 500 H Urine RBC 0 SEEN Urine WBC 0-5 SEEN Ur Squamous Epith Cells 0 SEEN Urine Bacteria 0 SEEN Urine Mucus 0 SEEN Assessment/Plan All Active Problems Encephalopathy (Acute) UTI (urinary tract infection) (Acute) TIA (transient ischemic attack) (Acute) 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 (1) ? Acute Encephalopathy versus Progressive Decline secondary to Dementia, Unclear Type versus TIA/CVA: Suspect given history and noted ongoing progressive confusion with slow decline, worse after recent illness and admission that patient has underlying dementia. In the ED work-up includes T 98.0, heart rate 55, BP 121/70, respiratory rate 14, 96% on room air, remarkable CBC, unremarkable BMP aside sodium 147, chloride 113, normal lactic acid 1.3, unremarkable urinalysis, EKG with no acute evidence of ischemia, CT head with no acute findings, chest x-ray unremarkable. Will admit to PCU, will obtain MRI Brain, MRA Head and Neck, ECHO, PT/OT/Speech/Nutrition evaluation per protocol. Will consult Neurology for evaluation. Will maintain on asa, add plavix, continue home statin w/ AM FLP, fall precautions. Pending Mag, TSH, Vitamin B12 , folic acid, vitamin Dlevels. (2) Hx TIA, ? Prior CVA: Maintain on asa, addition plavix for presentation #1 as noted, continue home statin, not on BP regimen, BP appropriate upon ED presentation. (3) Hyperlipidemia: Continue home statin regimen, FLP in AM. (4) Anxiety and depression: Continue home lexapro regimen. Possibly contributing to her presentation. (5) Obesity: Weight loss and lifestyle changes encouraged. (6) Migraine Headaches: Noted chronic history of migraines, per her report history of complex as well noted during admission for CVA evaluation, maintain on home topamax regimen. Current presentation with headache not consistent with migraine, continue work-up as noted #1. (7) GERD: Famotidine. (8) DVT Prophylaxis: SCDs, lovenox. (9) CODE status: Discussed status with family, brother present. They do not live near the patient per their report. She lives alone. Discussed need especially given possible Dx Dementia with decline and need for assisted living, set-up of living will and HCPOA. Family understands this need and agrees. Patient currently will remain FULL code following discussions. Advanced Care Planning Face to Face Time: 18 minutes. Code Visit OBSV E&M: 68552 Initial observation care L3 Procedures: 18981 Advncd Care Plan 30 Min
--- NOTE | 2018-01-16 20:36 | ED.VISSUMM ---
- ER Visit Summary Date of Service: 01/16/18 Chief Complaint: Confusion History of Present Illness: The patient is a [address] Mcnally. She is a poor informant. Patient's neighbor reports the patient seems more confused than usual today. States this is similar to when she was admitted earlier this month with a UTI. Neighbor does report the patient has had gradually increasing confusion over quite some time. Patient's only complaint is that she has a headache that is improving. When asked the severity she reports it is a little better now. She is unable to place a number on this. Review of systems: General: No fever, chills, cold sweats. Cardiovascular: No chest pain, palpitations. Respiratory: No cough, shortness of breath, dyspnea on exertion. Gastrointestinal: No abdominal pain, nausea, vomiting, diarrhea, melena, or hematochezia. Genitourinary: No dysuria, frequency, hematuria. Skin: No rash. Neuro: No numbness, weakness. Physical Examination: Vitals: Stable. Afebrile. General: Well-nourished and well-developed. Head: Normocephalic atraumatic. Neck: Supple, no lymphadenopathy. No JVD. Nontender. Cardiovascular: Regular rate and rhythm. No murmurs. Respiratory: No respiratory distress. Clear to auscultation bilaterally. Abdominal: Soft, nontender, nondistended, normal bowel sounds. No guarding, rebound, or peritoneal signs. Back: Nontender. Extremities: Nontender, no edema. Skin: Normal color, no rash. Neurologic: Alert and oriented ?2 (she believes it is 1987). Cranial nerves II through XII are intact. Normal strength and sensation. Psych: Normal affect. Test Results: CBC is normal. Chem-7 is marked for sodium 147 chloride of 113. Lactic acid is 1.3. UA is negative. Chest x-ray is normal. CT brain is negative. Emergency Department Course and Treatment: Patient lives by herself and has siblings that live in [place], but not near here and are not involved in her care. Treatment Plan: I do not feel the patient is safe for discharge home. I did discuss thoroughly with this being her second presentation to the hospital within a month with confusion that she may need to be in assisted living. She was discussed with Dr. Busby. She will be admitted to the hospital for further evaluation and treatment. Disposition: Admitted in stable condition. Impression: 1. Confusion. This note was generated with [employer] dictation software. It may contain incorrect words, spelling, and punctuation that were not noted in review of the chart prior to signing ED Disposition - Plan for ED Patient: Chief Complaint: Alt LOC Referrals: Cedric Mcnally DO [Primary Care Provider] -
[2018-01-16] MEDS: 0.9% NaCl Peripheral Flush Adult/Peds IV (22:08)
[2018-01-16] MEDS: 0.9% Normal Saline 1,000 ML 100 ML IV (22:08)
[2018-01-16] MEDS: Topiramate 25 MG Tablet 50 MG PO (22:37)
[2018-01-16] MEDS: Aspirin 81 MG TAB.CHEW PO (22:37)
[2018-01-16] MEDS: Pantoprazole Sodium 40 MG Tablet PO (22:37)
[2018-01-16] MEDS: Famotidine 20 MG Tablet PO (22:37)
[2018-01-16 22:38] LABS: Vitamin B12 187 pg/mL (211-911)
[2018-01-16] MEDS: Escitalopram Oxalate 10 MG Tablet PO (22:39)
[2018-01-16] MEDS: Atorvastatin Calcium 80 MG Tablet PO (22:39)
[2018-01-16 22:42] LABS: Magnesium 2.4 mg/dL (1.6-2.6); Thyroid Stim Hormone (TSH) 1.94 uIU/mL (0.358-3.74)
[2018-01-17] VITALS (8 sets, daily range): BP systolic 106–142; BP diastolic 41–69; PULSE 59–71; RESP 14–18; TEMP 36.1–37; O2SAT 94–96
[2018-01-17 04:18] LABS: Cholesterol 107 mg/dL (200); High Density Lipoprotein 42 mg/dL; Triglycerides 103 mg/dL; Very Low Density Lipoprotein 21 mg/dL (5-40)
[2018-01-17] MEDS: Enoxaparin 40 MG/0.4 ML Syringe SC (09:58)
[2018-01-17] MEDS: Famotidine 20 MG Tablet PO (09:58)
[2018-01-17] MEDS: Topiramate 25 MG Tablet 50 MG PO (09:59)
[2018-01-17] MEDS: Clopidogrel Bisulfate 75 MG Tablet PO (09:59)
--- NOTE | 2018-01-17 10:15 | NURSING ---
VSA taken late due to pt off floor for testing
--- NOTE | 2018-01-17 11:57 | CASEMGMT ---
Addendum entered by Blaire Shankar 01/17/18 12:00: SW left voice mail for patient's sister. Blaire CRISOSTOMO Original Note: SOCORRO reviewed chart. SW met with patient, introduced self and role at [facility]. She was up eating her lunch. She feels she is doing okay at home. She said she feels her confusion is from her headache. SW asked her the year, president, and where she is and she answered all 3 appropriately. She gave SW permission to call her sister. Blaire CRISOSTOMO
--- NOTE | 2018-01-17 13:27 | PCM.CONS.GEN ---
Problem List (1) Encephalopathy Status: Acute Reason for Consult Date of Consultation: 01/17/18 Reason for Consultation: Confusion History of Present Illness: The patient is a 62 year old CF with PMH HTN, HLD, ?H/O TIA/CVA, Migraine, anxiety/depression admitted with BARLOW and confusion. Per patient she has BARLOW off and on, is on Topamax for migraines, denies any photophobia but feels is affected by heat, also had some confusion, for which was admitted yesterday (01/16/18) and per patient she feels she is at baseline at present. Denies any visual disturbances, speech disturbances, focal motor weakness or sensory loss. Patient was recently admitted to [facility] with encephalopathy secondary to UTI on 12/21/17/. Per patient she lives alone, denies any falls, does not use cane or walker to ambulate and does not need any assistance for her ADLs. MRI brain done on admission reported nothing acute. MRA head/neck reported to show 2.2x1.6 mm aneurysm at P1-P2 junction of the right [employer]. Labs reviewed- UA shows 500 LE, Na-147, Vitamin B12 level 187 and Vitamin D level 20, TSH-1.94. [] Past Medical History Past Medical History (Chronic Problems): Chronic Problems GERD (gastroesophageal reflux disease) (Chronic) HLD (hyperlipidemia) (Chronic) Anxiety and depression (Chronic) Obesity (BMI 30.0-34.9) (Chronic) History of CVA (cerebrovascular accident) (Chronic) Allergies No Known Allergies Allergy (Verified 12/20/17 23:25) Home Medications: Ambulatory Orders Medication Instructions Recorded Aspirin 1 tab PO QHS 07/19/17 Atorvastatin Calcium 80 mg PO QHS 07/19/17 Escitalopram Oxalate [Lexapro] 10 mg PO QHS 07/19/17 Topiramate [Topamax] 50 mg PO BID 07/19/17 Ergocalciferol [Vitamin D] 50,000 unit PO QWEEK 12/20/17 Omeprazole 40 mg PO QHS 12/20/17 Surgical History: - - Right ankle surgery. 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 Lives: Alone Smoking Status: Never smoker Tobacco Use: Non-smoker Alcohol: None Drugs: None - *Family History Maternal History Items: Stroke Paternal History Items: Stroke Review of Systems Constitutional: Reports: - - complete ROS negative except as documented in HPI Patient Problems: Active and Suspected Problems TIA (transient ischemic attack) (Acute) - Physical Exam General: Alert HEENT: Normocephalic Neck: Supple Lungs: Normal air movement Cardiovascular: Normal S1, Normal S2 Abdomen: Bowel Sounds Present Extremities: No cyanosis Musculoskeletal: No Tenderness to Palpation of Joints or Extremities Neurological: - - consious, alert, AoAx3, CN 2-12 grossly intact, power 5/5 all 4 extremities, no sensory loss, no cerebellar signs, Reflexes + B/L B/S/T/K/A, gait deferred Psych/Mental Status: Normal Affect Vital Signs Temp Pulse Resp BP Pulse Ox 98.3 F 65 16 123/41 H 96 01/17/18 09:37 01/17/18 11:27 01/17/18 09:37 01/17/18 09:37 01/17/18 09:37 Oxygen Delivery Method Room Air Weight: 89.6 kg Body Mass Index (BMI) 30.9 Intake and Output for Last 24 Hours 01/15/18 01/16/18 01/17/18 23:59 23:59 23:59 Intake Total 240 / 240 1417 / 1417 Output Total 1999 Balance 240 / 240 -583 / -583 Laboratory Tests Past 24 Hrs 01/16/18 01/17/18 01/17/18 22:17 01:50 03:48 Troponin I < 0.015 < 0.015 Triglycerides 103 Cholesterol 107 LDL Cholesterol 44 VLDL Cholesterol 21 HDL Cholesterol 42 01/17/18 03:48 Troponin I < 0.015 Triglycerides Cholesterol LDL Cholesterol VLDL Cholesterol HDL Cholesterol Assessment/Plan All Active Problems Encephalopathy (Acute) UTI (urinary tract infection) (Acute) TIA (transient ischemic attack) (Acute) The patient is a 62 year old CF with PMH HTN, HLD, ?H/O TIA/CVA, Migraine, anxiety/depression admitted with BARLOW and confusion. Per patient she has BARLOW off and on, is on Topamax for migraines, denies any photophobia but feels is affected by heat, also had some confusion, for which was admitted yesterday (01/16/18) and per patient she feels she is at baseline at present. Denies any visual disturbances, speech disturbances, focal motor weakness or sensory loss. Patient was recently admitted to [facility] with encephalopathy secondary to UTI on 12/21/17/. Per patient she lives alone, denies any falls, does not use cane or walker to ambulate and does not need any assistance for her ADLs. MRI brain done on admission reported nothing acute. MRA head/neck reported to show 2.2x1.6 mm aneurysm at P1-P2 junction of the right [employer]. Labs reviewed- UA shows 500 LE, Na-147, Vitamin B12 level 187 and Vitamin D level 20, TSH-1.94. Impression Metabolic Encephalopathy Vitamin B12 deficiency Vitamin D deficiency Right [employer] aneurysm Plan -ON ASA -Change Lipitor to 20 mg PO q hs -MRI brain and MRA head/neck reviewed -Recommend Neurosurgery referral for right [employer] aneurysm -Recommend starting Vitamin B12 1000 mcg PO once daily and Vitamin D 6000 units once daily for 8 weeks then 1000 units BID to continue. -On Topamax 50 mg PO BID for BARLOW. Probably started by PCP. Patient is not sure. -Labs reviewed -PT/OT -GI/DVT prophylaxis -Fall precautions -Further medical management per primary team -Can follow up with her neurologist as outpatient. -Please call with questions if any -Thank you for allowing us to participate in patient's care and management I spent 60 minutes taking history, doing physical examination, reviewing medical records, coordinating care and counseling the patient. Code Visit Inpatient E&M: 34933 Init Hosp L3
--- NOTE | 2018-01-17 13:31 | CON.PCM_ITS ---
Problem List (1) Encephalopathy Status: Acute Reason for Consult Date of Consultation: 01/17/18 Reason for Consultation: Confusion History of Present Illness: The patient is a 62 year old CF with PMH HTN, HLD, ?H/O TIA/CVA, Migraine, anxiety/depression admitted with BARLOW and confusion. Per patient she has BARLOW off and on, is on Topamax for migraines, denies any photophobia but feels is affected by heat, also had some confusion, for which was admitted yesterday () and per patient she feels she is at baseline at present. Denies any visual disturbances, speech disturbances, focal motor weakness or sensory loss. Patient was recently admitted to [facility] with encephalopathy secondary to UTI on 12/21/. Per patient she lives alone, denies any falls, does not use cane or walker to ambulate and does not need any assistance for her ADLs. MRI brain done on admission reported nothing acute. MRA head/neck reported to show 2.2x1.6 mm aneurysm at P1-P2 junction of the right MATHEMATICIAN. Labs reviewed- UA shows 500 LE, Na-147, Vitamin B12 level 187 and Vitamin D level 20, TSH-1.94. [] Past Medical History Past Medical History (Chronic Problems): Chronic Problems GERD (gastroesophageal reflux disease) (Chronic) HLD (hyperlipidemia) (Chronic) Anxiety and depression (Chronic) Obesity (BMI 30.0-34.9) (Chronic) History of CVA (cerebrovascular accident) (Chronic) Allergies No Known Allergies Allergy (Verified 12/20/17 23:25) Home Medications: Ambulatory Orders Medication Instructions Recorded Aspirin 1 tab PO QHS 07/19/17 Atorvastatin Calcium 80 mg PO QHS 07/19/17 Escitalopram Oxalate [Lexapro] 10 mg PO QHS 07/19/17 Topiramate [Topamax] 50 mg PO BID 07/19/17 Ergocalciferol [Vitamin D] 50,000 unit PO QWEEK 12/20/17 Omeprazole 40 mg PO QHS 12/20/17 Surgical History: - - Right ankle surgery. 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 Lives: Alone Smoking Status: Never smoker Tobacco Use: Non-smoker Alcohol: None Drugs: None - *Family History Maternal History Items: Stroke Paternal History Items: Stroke Review of Systems Constitutional: Reports: - - complete ROS negative except as documented in HPI Patient Problems: Active and Suspected Problems TIA (transient ischemic attack) (Acute) - Physical Exam General: Alert HEENT: Normocephalic Neck: Supple Lungs: Normal air movement Cardiovascular: Normal S1, Normal S2 Abdomen: Bowel Sounds Present Extremities: No cyanosis Musculoskeletal: No Tenderness to Palpation of Joints or Extremities Neurological: - - consious, alert, AoAx3, CN 2-12 grossly intact, power 5/5 all 4 extremities, no sensory loss, no cerebellar signs, Reflexes + B/L B/S/T/K/A, gait deferred Psych/Mental Status: Normal Affect Vital Signs Temp Pulse Resp BP Pulse Ox 98.3 F 65 16 123/41 H 96 01/17/18 09:37 01/17/18 11:27 01/17/18 09:37 01/17/18 09:37 01/17/18 09:37 Oxygen Delivery Method Room Air Weight: 89.6 kg Body Mass Index (BMI) 30.9 Intake and Output for Last 24 Hours 01/15/18 01/16/18 01/17/18 23:59 23:59 23:59 Intake Total 240 / 240 1417 / 1417 Output Total 1999 Balance 240 / 240 -583 / -583 Laboratory Tests Past 24 Hrs 01/16/18 01/17/18 01/17/18 22:17 01:50 03:48 Troponin I < 0.015 < 0.015 Triglycerides 103 Cholesterol 107 LDL Cholesterol 44 VLDL Cholesterol 21 HDL Cholesterol 42 01/17/18 03:48 Troponin I < 0.015 Triglycerides Cholesterol LDL Cholesterol VLDL Cholesterol HDL Cholesterol Assessment/Plan All Active Problems Encephalopathy (Acute) UTI (urinary tract infection) (Acute) TIA (transient ischemic attack) (Acute) The patient is a 62 year old CF with PMH HTN, HLD, ?H/O TIA/CVA, Migraine, anxiety/depression admitted with BARLOW and confusion. Per patient she has BARLOW off and on, is on Topamax for migraines, denies any photophobia but feels is affected by heat, also had some confusion, for which was admitted yesterday () and per patient she feels she is at baseline at present. Denies any visual disturbances, speech disturbances, focal motor weakness or sensory loss. Patient was recently admitted to [facility] with encephalopathy secondary to UTI on 12/21/. Per patient she lives alone, denies any falls, does not use cane or walker to ambulate and does not need any assistance for her ADLs. MRI brain done on admission reported nothing acute. MRA head/neck reported to show 2.2x1.6 mm aneurysm at P1-P2 junction of the right MATHEMATICIAN. Labs reviewed- UA shows 500 LE, Na-147, Vitamin B12 level 187 and Vitamin D level 20, TSH-1.94. Impression Metabolic Encephalopathy Vitamin B12 deficiency Vitamin D deficiency Right MATHEMATICIAN aneurysm Plan -ON ASA -Change Lipitor to 20 mg PO q hs -MRI brain and MRA head/neck reviewed -Recommend Neurosurgery referral for right MATHEMATICIAN aneurysm -Recommend starting Vitamin B12 1000 mcg PO once daily and Vitamin D 6000 units once daily for 8 weeks then 1000 units BID to continue. -On Topamax 50 mg PO BID for BARLOW. Probably started by PCP. Patient is not sure. -Labs reviewed -PT/OT -GI/DVT prophylaxis -Fall precautions -Further medical management per primary team -Can follow up with her neurologist as outpatient. -Please call with questions if any -Thank you for allowing us to participate in patient's care and management I spent 60 minutes taking history, doing physical examination, reviewing medical records, coordinating care and counseling the patient. Code Visit Inpatient E&M: 27153 Init Hosp L3
--- NOTE | 2018-01-17 13:39 | PCM.DC ---
- Discharge Diagnoses Current Active Problems: Current Active and Chronic Problems You will use the following diet at home:: No restrictions Discharge Activity: Return to Normal Activity Call your doctor if you observe: Shortness of breath, Dizziness, Fainting spells, Chest pain Allergies/Adverse Reactions: Allergies No Known Allergies Allergy (Verified 12/20/17 23:25) Medications to take at Discharge Aspirin 1 tab PO QHS 07/19/17 Atorvastatin Calcium 80 mg PO QHS 07/19/17 Escitalopram Oxalate [Lexapro] 10 mg PO QHS 07/19/17 Topiramate [Topamax] 50 mg PO BID 07/19/17 Ergocalciferol [Vitamin D] 50,000 unit PO QWEEK 12/20/17 Omeprazole 40 mg PO QHS 12/20/17 Primary Care Physician: Cedric Mcnally DO [Primary Care Provider] - Please follow up with your Primary Care Physician in: 3-5 days Test Results: Test results from this visit will be discussed in further detail at your follow-up appointment, if applicable. Please Follow Up With: Fabi Bay MD When: 1 Week Proposed Discharge Date: 01/17/18
--- NOTE | 2018-01-17 13:43 | DCINST_ITS ---
- Discharge Diagnoses Current Active Problems: Current Active and Chronic Problems You will use the following diet at home:: No restrictions Discharge Activity: Return to Normal Activity Call your doctor if you observe: Shortness of breath, Dizziness, Fainting spells , Chest pain Allergies/Adverse Reactions: Allergies No Known Allergies Allergy (Verified 12/20/17 23:25) Medications to take at Discharge Aspirin 1 tab PO QHS 07/19/17 Atorvastatin Calcium 80 mg PO QHS 07/19/17 Escitalopram Oxalate [Lexapro] 10 mg PO QHS 07/19/17 Topiramate [Topamax] 50 mg PO BID 07/19/17 Ergocalciferol [Vitamin D] 50,000 unit PO QWEEK 12/20/17 Omeprazole 40 mg PO QHS 12/20/17 Primary Care Physician: Cedric Mcnally DO [Primary Care Provider] - Please follow up with your Primary Care Physician in: 3-5 days Test Results: Test results from this visit will be discussed in further detail at your follow- up appointment, if applicable. Please Follow Up With: Fabi Bay MD When: 1 Week Proposed Discharge Date: 01/17/18
--- NOTE | 2018-01-17 13:49 | CASEMGMT ---
SOCORRO called patient's sister again and she was not available. SOCORRO called Tiffany at [facility] and asked her to call SW back. SOCORRO is going to see if they can do a wellness visit to patient next week. MACHINE ROOM OPERATOR, Heather called patient's neighbor with patient's permission to obtain a little more of a background. There are a lot of neighbors that check on patient to make sure she is safe. Her one neighbor, Donita is more than willing to go to her appts with her. Blaire RUST MSW
--- NOTE | 2018-01-17 13:54 | PCM.DC.SUM ---
<Heather Martin - Last Filed: 01/17/18 14:11> Discharge Date and Diagnosis Date of Admission: 01/16/18 Date of Discharge: 01/17/18 - Primary Discharge Diagnosis Active and Suspected Problems 1. Metabolic encephalopathy versus progressive dementia 2. Vitamin B12 deficiency, vitamin D deficiency 3. 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 Electronically Signed: Familia Jamil MD at 18:06 EDT , Service support , Brain MRI 01/17/18 07:05 IMPRESSION: Involutional changes of the brain, as described above. There is mild small vessel ischemic white matter disease. Electronically Signed: Kimber Mooney MD at 13:18 EDT cf, Service support , Head MRA 01/17/18 07:05 IMPRESSION: Suspicious 2.2 x 1.6 mm saccular aneurysm at the P1 P2 junction of the right posterior cerebral artery. The aneurysm neck is 2.2 mm wide. Electronically Signed: Toño Montenegro MD at 10:24 EDT , Service support , Neck MRA 01/17/18 07:05 IMPRESSION: Normal bilateral cervical carotid and vertebral arteries. Electronically Signed: Toño Montenegro MD at 10:25 EDT , Service support , Dr. Bay- Neurology Operations: None Summary of Care Provided: The patient is a 62 year old F admitted [id number] due to ongoing confusion. Patient has a past medical history of complex migraines, hyperlipidemia, GERD, anxiety, depression, obesity, history of CVA. Patient recently admitted earlier in December 2017 for encephalopathy which was suspected secondary to UTI. Patient and neighbors reports ongoing confusion which has been more noticeable in the past several months although patient reports forgetfulness/confusion for years. Does not follow with neurology. Metabolic encephalopathy versus progressive dementia. Recommend further evaluation by neurology. Neurology consulted during admission. Recommend decreasing Lipitor to 20 mg p.o. nightly. Continue aspirin regimen. MRI of brain negative for acute stroke. Neck MRA with normal cervical carotid and vertebral arteries. MRA of head showed suspicious aneurysm right posterior cerebral artery. Recommend referral to neurosurgeon as outpatient. Patient noted to have vitamin B12 and vitamin D deficiency. She is already on vitamin D supplementation at home. Patient started on vitamin B12 supplement. 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 Instructed on no driving until further evaluated by primary care physician given ongoing confusion. Patient alert and oriented on assessment. Recommend follow-up with primary care physician in 3-5 days and neurology in 1 week. Urinalysis unremarkable. Urine culture with low colony GNR. Discussed patient with her neighbor given patient's permission. Neighbor states patient is frequently checked on at home and denies concern for patient's safety. Patient wishes to return home at discharge. Physical Examination: General: awake, alert, oriented x 3 including person, place, time. Skin: normal color, turgor, no icterus, cyanosis. HEENT: EOMI, PERRLA, MMM, no carotid bruits Lungs: Clear to auscultation Heart: Regular rate and rhythm; no murmur Abdomen: soft, obese, nontender Extremities: no cyanosis, clubbing, or edema. Neurological: Neuro grossly intact Psychiatric: Flat affect, patient's baseline Patient seen exam prior to discharge. Physical assessment as noted above. Patient stable for discharge home with the follow-up recommendations as noted above. This patient was seen by TONIA Negron under the supervision of Dr. Nunez. Discharge Diet: No Restrictions Discharge Activity: Return to Normal Activity, May Not Drive - Until evaluated by PCP and/or neurology Call your doctor if you observe: Shortness of breath, Dizziness, Fainting spells, Chest pain Home Medications: Medications to take at Discharge Aspirin 1 tab PO QHS 07/19/17 Escitalopram Oxalate [Lexapro] 10 mg PO QHS 07/19/17 Topiramate [Topamax] 50 mg PO BID 07/19/17 Ergocalciferol [Vitamin D] 50,000 unit PO QWEEK 12/20/17 Omeprazole 40 mg PO QHS 12/20/17 Atorvastatin Calcium 20 mg PO QHS #30 tab 01/17/18 Cyanocobalamin [Vitamin B12] 1,000 mcg PO DAILY@0800 #60 tab 01/17/18 Following Prescrptions Were Given to Patient: Atorvastatin Calcium 20 mg PO QHS #30 tab Cyanocobalamin [Vitamin B12] 1,000 mcg PO DAILY@0800 #60 tab Primary Care Physician: Cedric Mcnally DO [Primary Care Provider] - Please follow up with your Primary Care Physician in: 3-5 days Please Follow Up With: Fabi Bay MD When: 1 Week Please Follow Up With: Neurosurgery When: 1-2 Weeks Disposition: Home Minutes spent on discharge:: 35 Patient Condition:: Stable Medical Necessity - Tobacco Use Smoking Status: Never smoker Tobacco Use: Non-smoker Meaningful Use Info Meaningful Use Diagnoses (Choose all that apply): None applicable <[email or web address] E - Last Filed: 01/17/18 14:34> Discharge Date and Diagnosis - Secondary Discharge Diagnosis Chronic Problems GERD (gastroesophageal reflux disease) (Chronic) HLD (hyperlipidemia) (Chronic) Anxiety and depression (Chronic) Obesity (BMI 30.0-34.9) (Chronic) History of CVA (cerebrovascular accident) (Chronic) Hospital Course and Treatment Imaging Results: 01/17/18 07:05 Brain without Contrast [MRI] Stat MRA Head ONLY without Contrast [MRI] Stat MRA Neck without Contrast [MRI] Stat Summary of Care Provided: Hospitalist note: Discharge summary above reviewed as well as physical examination and I agree with above discharge plan. Patient was admitted for confusion and there was a concern of possible TIA versus acute stroke. She underwent full stroke workup. She has no focal symptoms and no focal deficit on physical examination. CT scan brain without contrast revealed no acute findings, no hemorrhage or infarction. MRI brain showed no evidence of acute infarction or hemorrhage as well. MRA of the neck was normal without evidence of hemodynamically significant vascular disease or stenosis. MRA of the head revealed possible small saccular aneurysm of the P1 P2 junction of the right posterior cerebral artery. Her vital signs were stable throughout admission. Her routine blood work was unremarkable. Troponin was negative. EKG revealed normal sinus rhythm without evidence of acute ischemic changes or cardiac arrhythmias. TSH was normal. Vitamin D 25 hydroxy cholecalciferol and B12 came back low. Lipid profile was normal. Urine analysis revealed cloudy urine, negative for nitrite, only 0-5 WBCs and no bacteria seen. Chest x-ray showed no acute findings. Infectious process ruled out. Her symptoms attributed to probably worsening dementia. During this admission, we raised our concern about her confusion and being alone at home and patient wanted to go back home and she is stated that she cannot take care of herself. Patient discharged home in a stable medical condition, discharged on B12 and vitamin D supplements, discharged on aspirin and statins, continued on Topamax and PPI as well as Lexapro, recommended follow-up with PCP in 3-5 days, follow-up with neurology in 1 week. - Physical Exam General: Alert, Oriented x2, disoriented to time and date, cooperative, No apparent distress. HEENT: Atraumatic, PERRLA, EOMI. Neck: Supple, No JVD, Negative Carotid Bruits, Trachea Midline, Thyroid Normal. Lungs: Clear to auscultation, Normal air movement, No rhonchi, No wheeze, No rales. Cardiovascular: Regular rate, Regular Rhythm, Normal S1, Normal S2, PMI Normal. Abdomen: Bowel Sounds Present, Soft, Non Tender, Non-Distended, No Hepato-splenomegaly. Extremities: No clubbing, No cyanosis, No edema Skin: No rashes, No breakdown Neurological: Neuro grossly intact, no focal deficit, cranial nerves are intact. Vital Signs are stable. This note was generated with [employer] dictation software. It may contain incorrect words, spelling, and punctuation that were not noted in checking the note before signing. Minutes spent on discharge:: 28 Patient Condition:: Stable Meaningful Use Info Meaningful Use Diagnoses (Choose all that apply): None applicable Code Visit OBSV E&M: 16341 Observation care discharge
--- NOTE | 2018-01-18 09:09 | CASEMGMT ---
SW received a phone call from patient's sister. SW discussed some of the concerns with patient and her confusion. She verbalized understanding. She said that the hospital lowered her dose of her cholesterol medication. They did some research and noted that this particular medication can cause confusion. They plan on talking with her primary care doctor about this. She wanted to make sure SW knows she is not in denial, but they want to explore all possible causes. She said patient's neighbors and the family all keep an eye on her. She thanked SW for contacting her with the concerns. Blaire RUST MSW
== END 2018-01-17 13:45 | disposition home or self-care (01) ==
LOC: ED 18:13 → PCU 20:53
PROVIDERS: Admitting Provider Family Medicine; Emergency Provider Emergency Medicine; Family Provider Family Medicine; PCP Family Medicine; Visit Provider Hospitalist
DX: R41.0 Disorientation, unspecified (principal); E53.8 Deficiency of other specified B group vitamins; E55.9 Vitamin D deficiency, unspecified; K21.9 Gastro-esophageal reflux disease without esophagitis; E78.5 Hyperlipidemia, unspecified; E66.9 Obesity, unspecified; F41.9 Anxiety disorder, unspecified; F32.9 Major depressive disorder, single episode, unspecified; I67.1 Cerebral aneurysm, nonruptured; Z79.899 Other long term (current) drug therapy; Z79.82 Long term (current) use of aspirin; Z86.73 Personal history of transient ischemic attack (TIA), and cerebral infarction without residual deficits; Z68.30 Body mass index [BMI] 30.0-30.9, adult; Z71.3 Dietary counseling and surveillance; G43.109 Migraine with aura, not intractable, without status migrainosus; Z87.440 Personal history of urinary (tract) infections
CPT/HCPCS: 36415; 70450; 70544; 70547; 70551; 71045; 80048; 80061; 81001; 82306; 82607; 82746; 83605; 83735; 84443; 84484; 85025; 87077; 87086; 87088; 87186; 92523; 93005; 93306; 96360; 96361; 96372; 97162; 97166; 97802; 99218; 99285; J7030; A4216; G0378

== ENCOUNTER 2018-04-23 19:05 | Emergency (ER) | payer MEDICAID, SELFPAY ==
[2018-04-23 19:05] VITALS: BP 143/60; PULSE 69; RESP 16; TEMP 36.4; O2SAT 97; BMI 32.9
[2018-04-23] MEDS: Ondansetron ODT 4 MG Tablet PO (19:38)
[2018-04-23] MEDS: Acetaminophen 325 MG Tablet 650 MG PO (20:44)
[2018-04-23 21:39] VITALS: BP 144/70; PULSE 67; RESP 16; O2SAT 92
--- NOTE | 2018-04-23 22:04 | ED.DCSUM_ITS ---
- ER Visit Summary Date of Service: 04/23/18 Chief Complaint: Bifrontal head pain that started early Sunday morning. She reports 2 episodes of vomiting prior to arrival. History of Present Illness: The patient is a 63 F who presents with 2 episodes of vomiting. She complains of mild bifrontal head discomfort that started this morning. Denies double vision, blurred vision loss of vision. Denies ringing or ears, ear pain or decreased hearing. She denies trouble with speech or swallowing. Denies neck pain. She denies light sensitivity. Denies chest pain, shortness of breath or difficulty breathing. She denies cough. She denies hematemesis. She denies black or maroon stool. She denies dysuria, frequency, urgency or hematuria. No skin lesions. She has a history of TIA, hypercholesterolemia, UTI and GERD. She also has history of depression anxiety. Only surgery was for a fractured ankle. Physical Examination: Vital signs noted and remarkable and elevated blood pressure. BMI is elevated at 32.9. Head is atraumatic normocephalic. There is mild discomfort with palpation over the frontal sinuses. Pupils are equal round reactive. Extraocular muscles are intact. Funduscopic exam reveals normal cup-to-disc ratio with no papilledema or photophobia. TMs are pearly white with landmarks noted. Nares patent with no drainage. Posterior pharynx without erythema or exudate. Uvula is midline. There is no dysphonia or dysphasia. Trachea is midline. There is no stridor with auscultation of the neck. Neck is supple. Heart is regular without murmur, gallop or rub. S1 and S2 are normal. Lungs are clear to auscultation with good movement of air bilaterally. Abdomen soft nontender bowel sounds present normal. Patient is alert and oriented ?3. Motor is 5 over 5. Sensory is intact. DTRs are symmetric with no clonus or Babinski sign. Cranial 2 through 12 are intact. Cerebellar testing is normal. Affect is flat. Test Results: None were obtained Emergency Department Course and Treatment: Since patient has moist mucosa is only vomited twice she was treated with Zofran. She was reassessed at 2030. She passed p.o. challenge. She did receive Tylenol for her frontal head disco mfort which resolved. Treatment Plan: Symptomatic Disposition: Discharged home in stable improved condition Impression: 1. Nausea and vomiting x2 2. Bifrontal head discomfort Hypertension in nonhypertensive patient This note was generated with [employer] dictation software. It may contain incorrect words, spelling, and punctuation that were not noted in review of the chart prior to signing ED Disposition - Plan for ED Patient: Disposition: Home or Assisted Living Chief Complaint: Nausea/Vomiting Instructions: ED Nausea Vomiting Referrals: Cedric Mcnally DO [Primary Care Provider] - 3-5 Days if not improving
== END 2018-04-23 22:18 | disposition home or self-care (01) ==
PROVIDERS: Emergency Provider Emergency Medicine; Family Provider Family Medicine; PCP Family Medicine
DX: R51 Headache (principal); R11.2 Nausea with vomiting, unspecified; R03.0 Elevated blood-pressure reading, without diagnosis of hypertension; E66.9 Obesity, unspecified; Z68.32 Body mass index [BMI] 32.0-32.9, adult; E78.00 Pure hypercholesterolemia, unspecified; F41.9 Anxiety disorder, unspecified; K21.9 Gastro-esophageal reflux disease without esophagitis; Z86.73 Personal history of transient ischemic attack (TIA), and cerebral infarction without residual deficits; Z87.440 Personal history of urinary (tract) infections; Z79.82 Long term (current) use of aspirin; Z79.899 Other long term (current) drug therapy
CPT/HCPCS: 99285; A4216

== ENCOUNTER 2019-04-05 14:21 | Inpatient (IN) | payer MEDICAID, SELFPAY ==
[2019-04-05 14:23] VITALS: BP 165/84; PULSE 101; RESP 18; TEMP 37; O2SAT 96; BMI 35.1
--- NOTE | 2019-04-05 14:36 | RAD_ITS ---
STUDY: X-RAY CHEST REASON FOR EXAM: Female, 64 years old. Altered mental status TECHNIQUE: Single AP portable view of the chest. COMPARISON: 01/16/2018. FINDINGS: Relatively low lung volumes. However no infiltrates or effusions. No evidence for congestive failure. Normal size heart. Normal mediastinum and emma. Normal visualized pulmonary arteries. Normal visualized aortic arch and descending thoracic aorta. Normal visualized thoracic spine. Normal visualized ribs, clavicles, and shoulders. There is no demonstrated abnormality of the visualized soft tissue structures of the upper abdomen. RAD/Chest 1 View (Portable) IMPRESSION: Incomplete expansion of the lungs. No evidence for acute chest disease. Electronically Signed: Reinaldo Boyle MD at 15:31 EST , Service support ,
--- NOTE | 2019-04-05 14:36 | CT_ITS ---
STUDY: CT BRAIN WITHOUT CONTRAST REASON FOR EXAM: Female, 64 years old. Altered mental status RADIATION DOSAGE (If Supplied By Facility): CTDIvol = ( 44.99 ) mGy, DLP = ( 812.98 ) mGycm TECHNIQUE: Transaxial CT imaging of the brain was performed without administration of intravenous contrast material. Individualized dose optimization techniques were used for this CT. COMPARISON: 01/16/2018 FINDINGS: Normal soft tissue structures. Normal calvarium. Normal size ventricles and extra-axial spaces for the patient's age. Normal white matter tracts of the cerebral hemispheres. Small lacunar infarcts seen of the right basal ganglia, which was not present previously, otherwise normal basal ganglia and thalami. Normal brainstem. Normal cerebellum. There is no intracranial hemorrhage. There are no findings of an acute ischemic infarction. Normal visualized paranasal sinuses. CT/Brain/Head without Contrast IMPRESSION: No definite acute abnormality. Small lacunar infarct of the right basal ganglia was not present previously, but is not acute. No other significant findings. Electronically Signed: Reinaldo Boyle MD at 15:21 EST , Service support ,
--- NOTE | 2019-04-05 14:38 | EKG12_ITS ---
Test Reason : CVA Blood Pressure : / mmHG Vent. Rate : 095 BPM Atrial Rate : 095 BPM P-R Int : 154 ms QRS Dur : 078 ms QT Int : 358 ms P-R-T Axes : 037 003 001 degrees QTc Int : 449 ms Normal sinus rhythm ST & T wave abnormality Abnormal ECG Confirmed by CHESTER DOUGLAS, AGNIESZKA ([id number]), advertising editor SCOOTER MANZANARES ([id number]) on 04/08/2019 11:40:14 AM Referred By: Deuce Jenkins Confirmed By:AGNIESZKA BRIGGS MD
[2019-04-05 14:41] LABS: Bedside Glucose 123 mg/dL (70-110)
[2019-04-05 14:50] LABS: Absolute Lymphocyte Count 1.57 X10^3/uL (0.83-4.51); Absolute Neutrophil Count 15.7 X10^3/uL (2.0-7.7); Basophil# 0.04 X10^3/uL; Basophil% 0.2 % (0-1); Hemoglobin 13.7 g/dL (12.0-15.0); Lymphocyte # 1.57 X10^3/ul (4.0); Lymphocyte % 8.6 % (19-41); Mean Corp Hgb Conc 31.9 g/dL (32-36); Mean Corpuscular Hgb 28.4 pg (27.0-32.0); Mean Corpuscular Volume 89.2 fL (81-99); Mean Platelet Vol. 9.9 fl (6.2-12.0); Monocyte# 0.77 X10^3/uL; Monocyte% 4.2 % (0-10); NRBC Flagged by Analyzer 0 % (0-5); Neutrophil # 15.73 X10^3/uL (2.7-7.7); Neutrophil % 86.7 % (47-70); Platelet Count 260 K/mm3 (150-450); RBC Distribution Width SD 42.4 fl (35.1-43.9); Red Blood Count 4.82 M/mm3 (4.2-5.4); White Blood Count 18.2 K/mm3 (4.4-11.0)
--- NOTE | 2019-04-05 15:01 | ED.DCSUM_ITS ---
History of Present Illness Chief Complaint: Alt LOC Informant: Patient, Family Narrative: 64-year-old female with a history of complex migraines, UTI, delirium, hypertension on aspirin presents with altered mental status. Family states the last talk to her approximately 26 hours ago. States that healthcare worker came to evaluate patient and stated that she seemed altered. Patient sister went to see her and said that she was stumbling in her house, repeating words. Unable to obtain history from patient. Past Medical History - Allergies and Home Meds Allergies/Adverse Reactions: Allergies No Known Allergies Allergy (Verified 12/20/17 23:25) Primary Care Physician: Cedric Mcnally DO [Primary Care Provider] - Past Medical History: - - Complex migraines, hypertension, UTI, encephalopathy, migraines Surgical History: - - Right ankle surgery. Smoking Status: Never smoker - Family History Maternal Family History: Reports: Stroke Paternal Family History: Reports: Stroke Review of Systems ROS: Unable to Obtain - Altered Mental status Physical Exam Vital Signs/Narrative: Vital Signs Temp Pulse Resp BP Pulse Ox 04/05/19 14:23 98.6 F 101 H 18 165/84 H 96 Inital Vital Signs reviewed: Yes General: Well nourished, Well developed Head: Normocephalic, Atraumatic Eyes: Perrl, EOMI ENT: Moist mucous membranes Neck: Supple Cardiovascular: Regular rate, Regular rhythm Respiratory: No distress, CTA bilaterally Abdomen: Soft, Nontender Back: Nontender, Normal Inspection Extremities: - - Abrasions over knees bilaterally Neurological: Alert, - - She is alert, looking around the room. She appears to be in no acute distress Focal neuro limited secondary to patient's altered mental status and not following commands. Patient is able to move all 4 extremities. Face symmetric. No nuchal rigidity Diagnostic/Tx/Re-eval Clinical Impression(s) from Imaging Studies Brain CT 04/05/19 14:36 IMPRESSION: No definite acute abnormality. Small lacunar infarct of the right basal ganglia was not present previously, but is not acute. No other significant findings. Electronically Signed: Reinaldo Boyle MD at 15:21 EST , Service support , Chest X-Ray 04/05/19 14:36 IMPRESSION: Incomplete expansion of the lungs. No evidence for acute chest disease. Electronically Signed: Reinaldo Boyle MD at 15:31 EST , Service support , Laboratory Data 04/05/19 04/05/19 04/05/19 14:25 14:25 14:31 WBC 18.2 H RBC 4.82 Hgb 13.7 Hct 43.0 MCV 89.2 MCH 28.4 MCHC 31.9 L RDW Std Deviation 42.4 RDW Coeff of Crissy 13.0 Plt Count 260 MPV 9.9 Immature Gran % (Auto) 0.300 Neut % (Auto) 86.7 H Lymph % (Auto) 8.[address] [place] % (Auto) 4.2 Eos % (Auto) 0.0 Baso % (Auto) 0.2 Absolute Neuts (auto) 15.7 H Absolute Lymphs (auto) 1.57 Nucleated RBC % 0 Sodium Potassium Chloride Carbon Dioxide Anion Gap BUN Creatinine Estim Creat Clear Calc Est GFR (MDRD) Af Amer Est GFR (MDRD) Non-Af BUN/Creatinine Ratio Glucose Calcium Total Bilirubin AST ALT Alkaline Phosphatase Troponin I < 0.015 Total Protein Albumin Globulin Albumin/Globulin Ratio Urine Color Urine Clarity Urine pH Ur Specific [place] Urine Protein Urine Glucose (UA) Urine Ketones Urine Occult Blood Urine Nitrite Urine Bilirubin Urine Urobilinogen Ur Leukocyte Esterase Urine RBC Urine WBC Ur Squamous Epith Cells Urine Bacteria Urine Mucus POC Glucose 123 H 04/05/19 04/05/19 14:42 15:05 WBC RBC Hgb Hct MCV MCH MCHC RDW Std Deviation RDW Coeff of Crissy Plt Count MPV Immature Gran % (Auto) Neut % (Auto) Lymph % (Auto) [place] % (Auto) Eos % (Auto) Baso % (Auto) Absolute Neuts (auto) Absolute Lymphs (auto) Nucleated RBC % Sodium 144 Potassium 3.9 Chloride 113 H Carbon Dioxide 20.0 L Anion Gap 11 BUN 19 H Creatinine 1.08 H Estim Creat Clear Calc 48.60 Est GFR (MDRD) Af Amer 66 Est GFR (MDRD) Non-Af 55 L BUN/Creatinine Ratio 17.6 Glucose 130 H Calcium 9.6 Total Bilirubin 0.60 AST 12 L ALT 21 Alkaline Phosphatase 76 Troponin I Total Protein 7.6 Albumin 4.0 Globulin 3.6 Albumin/Globulin Ratio 1.1 Urine Color Yellow Urine Clarity Clear Urine pH 7.0 Ur Specific [place] 1.010 Urine Protein Negative Urine Glucose (UA) Normal Urine Ketones Negative Urine Occult Blood Negative Urine Nitrite Negative Urine Bilirubin Negative Urine Urobilinogen Normal Ur Leukocyte Esterase Negative Urine RBC 0 SEEN Urine WBC 0 SEEN Ur Squamous Epith Cells 0 SEEN Urine Bacteria 0 SEEN Urine Mucus 0 SEEN POC Glucose - Rhythm Strip Rhythm Strip: Sinus Rhythm - Sinus rhythm at 95 bpm. VT interval 54, QRS 70, QTc 449, normal axis. Artifact at baseline. No ST elevation ST depression. No ischemic changes appreciated. - Medical Decision Making Evaluated for altered mental status. She appears nontoxic. However does appear altered. No focal findings on examination. Work-up was initiated to assess for possible metabolic cause or possible head injury. Patient symptoms are greater than 24 hours at this time. On exam she has no focal deficits. I do not suspect stroke at this time. I suspect that she likely has a metabolic cause of her symptoms. Chest x-ray and CT brain were negative. Patient did have a leukocytosis of 18. Normal renal function. Urinalysis was negative for infection. EKG was unremarkable. Normal troponin. Because of patient's altered mental status is unclear. However, I do feel that admission is warranted. Symptoms could be secondary to encephalopathy. Ammonia level was ordered. This is pending. Patient also has a history of complex migraines. Dr. Jenkins data the patient for admission. Impression: 1. Encephalopathy, unclear etiology 2. Altered mental status 3. Leukocytosis 4. History of migraines ED Disposition - Plan for ED Patient: Referrals: Cedric Mcnally DO [Primary Care Provider] -
[2019-04-05 15:09] LABS: Bacteria 0 SEEN /hpf (None Seen); Mucous, Urine 0 SEEN /hpf (<or=2+); Red Blood Cells-Urine 0 SEEN /hpf (0-5); Squamous Epithelial Cells - UA 0 SEEN /hpf (5-10); White Blood Cells 0 SEEN /hpf (0-5)
[2019-04-05 15:14] LABS: Color, Urine Yellow (Yellow); Glucose, Dipstick Normal (Normal); Ketone-Dipstick Negative (Negative); Leukocyte Esterase-Dipstick Negative /ul (Negative); Nitrite-Dipstick Negative (Negative); Occult Blood-Urine Negative /ul (Negative); Protein-Dipstick Negative (Negative); Urine Bilirubin Dipstick Negative (Negative); Urine Clarity Clear (Clear); Urine Urobilinogen Normal (Normal)
[2019-04-05] MEDS: 0.9% Normal Saline 1,000 ML 1000 ML IV (15:18)
[2019-04-05 16:03] LABS: ALB/GLOB Ratio 1.1 RATIO (0.9-2.4); AST(SGOT) 12 U/L (15-37); Alanine Aminotransfer ALT/SGPT 21 U/L (13-56); Alkaline Phosphatase 76 U/L (45-117); Anion Gap 11 (5-15); BUN 19 mg/dL (7-18); BUN/Creat Ratio 17.6 RATIO (10-20); Calcium,Total 9.6 mg/dL (8.5-10.1); Chloride 113 mmol/L (98-107); Creatinine, Serum 1.08 mg/dL (0.55-1.02); EST Glomerular Filtration Rate 55 mL/min (>60); Est Glom Filt Rate - Afr Amer 66 mL/min (>60); Globulin 3.6 g/dL (2.2-4.2); Glucose 130 mg/dL (74-106); Potassium 3.9 mmol/L (3.5-5.1); Protein, Total 7.6 g/dL (6.4-8.2); Sodium Level 144 mmol/L (136-145)
[2019-04-05 16:35] VITALS: BP 143/62; PULSE 95; RESP 18; O2SAT 97
--- NOTE | 2019-04-05 16:43 | ED.VISSUMM ---
- ER Visit Summary Date of Service: 04/05/19 Chief Complaint: [Mental status change] History of Present Illness: The patient is a 64 F [the emergency department with a mental status change that was noted by family today. Patient was last seen well by family member yesterday. Last evening family member talk to her and she seemed to be her normal self. 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 Patient has history of encephalopathy related to complex migraine. She has had admission for similar type presentation about a year ago per family. Patient apparently did have a fall today as what she told her sister. Patient continues to repeat the same things over and over again. She denies recent illness. She denies any chest pain or abdominal pain.] Physical Examination: [HEENT-PERRLA, EOMI. Cranial nerves II through XII grossly intact. TMs clear. Mucous membranes moist. No adenopathy. No facial droop noted. Cardiovascular-regular rate and rhythm without murmur or ectopy Lungs-clear to auscultation, chest wall stable without crepitus or subcu emphysema Abdomen-normoactive bowel sounds, soft, nontender, no rebound or rigidity, no peritoneal signs. Neuro mrox-[id number]-vakp unremarkable. No focal weakness noted on exam. Has normal sensation. Extremities-intact ?4, normal range of motion, normal pulses, atraumatic] Test Results: [CBC with differential obtained showed an elevated white blood cell count of 18,000. Chemistries unremarkable. Urinalysis was normal. Chest x-ray was unremarkable. CT scan of the brain without contrast showed a lacunar infarct that appears to be old otherwise nothing acute. LFTs were unremarkable. Ammonia level was ordered and pending. Toxicology screen ordered and pending.] Emergency Department Course and Treatment: [Was placed on mantel craftsman. Patient was given normal saline. Patient is not a TPA candidate as I feel she is more encephalopathic and do not feel her presentation and symptoms consistent with stroke. Patient also with symptoms potentially since yesterday.] Treatment Plan: [Admit for further work-up and treatment] Disposition: [Admit] Impression: [Mental status change/encephalopathy] This note was generated with [employer] software. It may contain incorrect words, spelling, and punctuation that were not noted in review of the chart prior to signing ED Disposition - Plan for ED Patient: Referrals: Cedric Mcnally DO [Primary Care Provider] -
--- NOTE | 2019-04-05 16:43 | PCM.HP.STD ---
Problem List (1) ADAM (acute kidney injury) Status: Acute (2) Anxiety and depression Status: Chronic (3) GERD (gastroesophageal reflux disease) Status: Chronic Qualifiers: Esophagitis presence: esophagitis presence not specified Qualified Code(s): K21.9 - Gastro-esophageal reflux disease without esophagitis (4) HLD (hyperlipidemia) Status: Chronic Qualifiers: Hyperlipidemia type: unspecified Qualified Code(s): E78.5 - Hyperlipidemia, unspecified (5) History of CVA (cerebrovascular accident) Status: Chronic (6) Obesity (BMI 30.0-34.9) Status: Chronic (7) Encephalopathy Status: Resolved (8) UTI (urinary tract infection) Status: Resolved Qualifiers: Urinary tract infection type: site unspecified Hematuria presence: without hematuria Qualified Code(s): N39.0 - Urinary tract infection, site not specified History of Present Illness Date of Admission: 04/05/19 Chief Complaint: confusion The patient is a 64 year old F with pmhx of CVA, encephalopathy, b12 deficiency, Right INDUSTRIAL PAINTER aneurysm, GERD, HLD, obesity, anxiety and depression who presented to the ER with c/o confusion. Her daughter is providing the hx as the patient is very confused and unable to answer questions appropriately. The daughter went to check on her today and the patient fell trying to get to the door. The patient said she fell twice. She has bruises on her knees likely from falling, and says ow when they are pushed on. She is somewhat tremulous. She normally lives alone and manages her ADLs. There is a questionable hx of dementia in her chart and the family denies that she has dementia. She has no nuchal rigidity and negative kernig's sign. She is afebrile, and CXR and UA are negative, belly is soft and nontender, but WBC count is 18k. [] Past Medical History Past Medical History (Chronic Problems): Chronic Problems GERD (gastroesophageal reflux disease) (Chronic) HLD (hyperlipidemia) (Chronic) Anxiety and depression (Chronic) Obesity (BMI 30.0-34.9) (Chronic) History of CVA (cerebrovascular accident) (Chronic) Allergies No Known Allergies Allergy (Verified 12/20/17 23:25) Home Medications: Ambulatory Orders Medication Instructions Recorded Aspirin 1 tab PO QHS 07/19/17 Escitalopram Oxalate [Lexapro] 10 mg PO QHS 07/19/17 Topiramate [Topamax] 100 mg PO BID 07/19/17 Ergocalciferol [Vitamin D] 50,000 unit PO QWEEK 12/20/17 Omeprazole 40 mg PO QHS 12/20/17 Cyanocobalamin [Vitamin B12] 1,000 mcg PO DAILY@0800 #60 tab 01/17/18 Surgical History: - - Right ankle surgery. Psychiatric History: Anxiety, Depression DIRECTOR OF COMMUNITY SERVICES History: No pertinent DIRECTOR OF COMM[employer]ITY SERVICES history Lives: Alone Smoking Status: Never smoker Tobacco Use: Non-smoker Alcohol: None Drugs: None - *Family History Maternal History Items: Stroke Paternal History Items: Stroke Review of Systems Constitutional: Denies: Chills, Fever, Weight Change HEENT: Denies: Head Aches, Sinus Congestion, Sinus Drainage Cardiovascular: Denies: Chest Pain, Palpitations Respiratory: Denies: Cough, Shortness of breath at rest, Sputum production Gastrointestinal: Denies: Abdominal Pain, Nausea, Vomiting Genitourinary: Denies: Dysuria Musculoskeletal: Reports: - - falls, knee bruising. Denies: Joint Pain, Joint Tenderness Skin: Denies: Rash, Wounds Neurological: Denies: Numbness, Tingling, Focal weakness Psychiatric: Denies: Anxiety, Depression, Homicidal Ideations, Suicidal Ideations Hematologic/ Lymphatic: Denies: Easy Bruising, Easy Bleeding Unable to obtain accurate/complete ROS d/t: pt confused VTE Information - Inpt Only VTE Present on Admission: No VTE Mechan Device Prophylaxis: None VTE Pharm Prophylaxis ordered?: Yes Patient Problems: Active and Suspected Problems ADAM (acute kidney injury) (Acute) - Physical Exam Vitals/I&O's: Vital Signs Temp Pulse Resp BP Pulse Ox 98.6 F 95 18 143/62 H 97 04/05/19 14:23 04/05/19 16:35 04/05/19 16:35 04/05/19 16:35 04/05/19 16:35 Oxygen Delivery Method Room Air Weight: 210 lb 15.718 oz Body Mass Index (BMI) 35.1 Finger Stick Blood Glucose 123 Intake and Output for Last 24 Hours 04/03/19 04/04/19 04/05/19 23:59 23:59 23:59 Intake Total 1000 / 1000 Balance 1000 / 1000 General: Alert, Cooperative, Confused, Disoriented HEENT: Atraumatic, PERRLA, EOMI, Normocephalic Neck: Supple, No JVD, Negative Carotid Bruits Lungs: Clear to auscultation, Normal air movement Cardiovascular: Regular rate, No murmurs Abdomen: Bowel Sounds Present, Soft, Non Tender Extremities: No edema, Capillary Refill Less than 3 Seconds Skin: No rashes, No breakdown Musculoskeletal: No Tenderness to Palpation of Joints or Extremities Neurological: Cranial nerves II-XII grossly intact Psych/Mental Status: - - confused Laboratory Results 04/05/19 14:25: WBC 18.2 H, RBC 4.82, Hgb 13.7, Hct 43.0, MCV 89.2, MCH 28.4, MCHC 31.9 L, RDW Std Deviation 42.4, RDW Coeff of Crissy 13.0, Plt Count 260, MPV 9.9, Immature Gran % (Auto) 0.300, Neut % (Auto) 86.7 H, Lymph % (Auto) 8.6 L, [place] % (Auto) 4.2, Eos % (Auto) 0.0, Baso % (Auto) 0.2, Absolute Neuts (auto) 15.7 H, Absolute Lymphs (auto) 1.57, Nucleated RBC % 0 04/05/19 14:25: Troponin I < 0.015 04/05/19 14:31: POC Glucose 123 H 04/05/19 14:42: Sodium 144, Potassium 3.9, Chloride 113 H, Carbon Dioxide 20.0 L, Anion Gap 11, BUN 19 H, Creatinine 1.08 H, Estim Creat Clear Calc 48.60, Est GFR (MDRD) Af Amer 66, Est GFR (MDRD) Non-Af 55 L, BUN/Creatinine Ratio 17.6, Glucose 130 H, Calcium 9.6, Total Bilirubin 0.60, AST 12 L, ALT 21, Alkaline Phosphatase 76, Total Protein 7.6, Albumin 4.0, Globulin 3.6, Albumin/Globulin Ratio 1.1 04/05/19 15:05: Urine Color Yellow, Urine Clarity Clear, Urine pH 7.0, Ur Specific [place] 1.010, Urine Protein Negative, Urine Glucose (UA) Normal, Urine Ketones Negative, Urine Occult Blood Negative, Urine Nitrite Negative, Urine Bilirubin Negative, Urine Urobilinogen Normal, Ur Leukocyte Esterase Negative, Urine RBC 0 SEEN, Urine WBC 0 SEEN, Ur Squamous Epith Cells 0 SEEN, Urine Bacteria 0 SEEN, Urine Mucus 0 SEEN 04/05/19 16:25: Ammonia Pending Assessment/Plan All Active Problems ADAM (acute kidney injury) (Acute) Encephalopathy (Resolved) UTI (urinary tract infection) (Resolved) TIA (transient ischemic attack) (Resolved) 1. Encephalopathy - unclear etiology. Possibly UTI, hx UTIs, and significantly elevated WBC count and mildly tachycardic. UA negative tho. CXR negative, no apparent cellulitis, abdomen is nontender. CT brain negative. No nuchal rigidity and negative kernigs sign. Check blood cultures. Check urine culture. Start rocephin. Ammonia is pending. Tox screen is pending. If no improvement consider MRI brain. Check tsh/b12. 2. AADM - likely dehydration - IV fluids 3. Hx CVA, hx Right INDUSTRIAL PAINTER aneurysm - continue aspirin. Not on statin for unclear reasons. 4. Anxiety/Depression - lexapro 5. GERD - contineu ppi 6. Hx complex migraine - continue topamax 7. Hx B12 def, vit D def - continue supplements DVT ppx: heparin DC planning: PTOT This patient was seen by Raphael Subramanian PA-C under the supervision of Dr. Jenkins.
[2019-04-05 17:10] LABS: Ammonia < 10.0 umol/L (11-32)
[2019-04-05 17:11] LABS: Amphetamine Urine VISTA NEGATIVE (<1000 ng/mL); Barbiturate Urine VISTA NEGATIVE (< 200 ng/mL); Benzodiazepine Urine VISTA NEGATIVE (< 200 ng/mL); Cocaine Urine VISTA NEGATIVE (< 300 ng/mL); Ecstacy Urine VISTA NEGATIVE (< 500 ng/mL); Methadone Urine VISTA NEGATIVE (< 300 ng/mL); PCP Urine VISTA NEGATIVE (< 25 ng/mL); THC Urine VISTA NEGATIVE (< 50 ng/mL); Vista UDS pH Range 6
[2019-04-05 18:17] VITALS: BMI 34.2; BMI 34.3
[2019-04-05] MEDS: 0.9% Normal Saline 1,000 ML 125 ML IV (19:01)
[2019-04-05 19:04] VITALS: BP 150/69; PULSE 74; RESP 16; TEMP 37.4; O2SAT 95
[2019-04-05] MEDS: Ceftriaxone 1 GM/50 ML BAG IV (19:20)
[2019-04-05] MEDS: Heparin Injection (Vial) 5,000 UNIT/ML VIAL 5000 UNIT SC (22:01)
[2019-04-05 23:00] VITALS: BP 141/92; PULSE 74; RESP 18; TEMP 37.3; O2SAT 98
[2019-04-06] VITALS (7 sets, daily range): BP systolic 133–153; BP diastolic 54–80; PULSE 66–96; RESP 15–18; TEMP 36.2–37.6; O2SAT 94–98
[2019-04-06] MEDS: 0.9% Normal Saline 1,000 ML 125 ML IV ×3 (03:56→18:50)
--- NOTE | 2019-04-06 06:15 | NURSING ---
Contacted Dr. Carvalho for order to treat patient's headache. Patient is NPO, Dr. Carvalho ordered Tylenol to be given orally or rectally q6h PRN for pain. Two separate orders entered, per MD telephone read back.
[2019-04-06 06:30] LABS: Absolute Lymphocyte Count 1.66 X10^3/uL (0.83-4.51); Absolute Neutrophil Count 10.4 X10^3/uL (2.0-7.7); Basophil# 0.05 X10^3/uL; Basophil% 0.4 % (0-1); Hematocrit 39.8 % (37-47); Hemoglobin 12.6 g/dL (12.0-15.0); Lymphocyte # 1.66 X10^3/ul (4.0); Lymphocyte % 12.8 % (19-41); Mean Corp Hgb Conc 31.7 g/dL (32-36); Mean Corpuscular Hgb 28.6 pg (27.0-32.0); Mean Corpuscular Volume 90.2 fL (81-99); Mean Platelet Vol. 10.4 fl (6.2-12.0); Monocyte# 0.85 X10^3/uL; Monocyte% 6.5 % (0-10); NRBC Flagged by Analyzer 0 % (0-5); Neutrophil % 79.9 % (47-70); Platelet Count 227 K/mm3 (150-450); RBC Distribution Width CV 13.3 % (11.6-14.6); Red Blood Count 4.41 M/mm3 (4.2-5.4)
[2019-04-06] MEDS: Acetaminophen 650 MG Suppository RECTAL (06:52)
[2019-04-06] MEDS: Nystatin Powder 15gm Bottle 1 APPLIC TOPICAL ×3 (06:53→22:50)
[2019-04-06 06:55] LABS: Anion Gap 7 (5-15); BUN 15 mg/dL (7-18); BUN/Creat Ratio 18.3 RATIO (10-20); Calcium,Total 8.6 mg/dL (8.5-10.1); Chloride 114 mmol/L (98-107); Creatinine, Serum 0.82 mg/dL (0.55-1.02); EST Glomerular Filtration Rate 75 mL/min (>60); Est Glom Filt Rate - Afr Amer 91 mL/min (>60); Estimated Creatinine Clearance 61.43 ml/min; Glucose 100 mg/dL (74-106); Potassium 3.6 mmol/L (3.5-5.1); Sodium Level 145 mmol/L (136-145)
--- NOTE | 2019-04-06 08:02 | PCM.PN.HOSP ---
Patient Problems: Active and Suspected Problems ADAM (acute kidney injury) (Acute) Subjective: Follow-up on acute metabolic encephalopathy: Patient was seen and examined. She remains confused. Her brother was at the bedside. He last saw the patient week ago and patient was alert oriented x3. No issues with memory. He believes that it was noticed that she was confused on . 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 Patient is alert but not oriented to person place or time. She is mostly nonverbal. She responds to some commands. Objective: Physical exam: Vitals/I&O's: Vital Signs Temp Pulse Resp BP Pulse Ox 98.5 F 72 18 149/72 H 98 04/06/19 05:00 04/06/19 05:00 04/06/19 05:00 04/06/19 05:00 04/06/19 05:00 Oxygen Delivery Method Room Air Weight: 93.4 kg Body Mass Index (BMI) 34.2 Finger Stick Blood Glucose 123 Intake and Output for Last 24 Hours 04/04/19 04/05/19 04/06/19 23:59 23:59 23:59 Intake Total 1054.17 / 1054.17 995.83 / 995.83 Output Total 450 / 450 Balance 1054.17 / 1054.17 545.83 / 545.83 General: Alert, Confused, - - obese HEENT: Atraumatic, PERRLA, EOMI, Normocephalic Oral: Moist Mucosa Neck: Supple Lungs: Clear to auscultation, Normal air movement Cardiovascular: Regular rate, Regular Rhythm, Normal S1, Normal S2, No murmurs Abdomen: Bowel Sounds Present, Soft, Non Tender, Non-Distended, No Hepato-splenomegaly Extremities: No edema Skin: No rashes, No breakdown Musculoskeletal: No Tenderness to Palpation of Joints or Extremities Lymphatic: No Cervical, Supraclavicular, or Inguinal Adenopathy Neurological: Cranial nerves II-XII grossly intact, Neuro grossly intact Psych/Mental Status: Normal Affect, Appropriate Laboratory Results 04/05/19 14:25: WBC 18.2 H, RBC 4.82, Hgb 13.7, Hct 43.0, MCV 89.2, MCH 28.4, MCHC 31.9 L, RDW Std Deviation 42.4, RDW Coeff of Crissy 13.0, Plt Count 260, MPV 9.9, Immature Gran % (Auto) 0.300, Neut % (Auto) 86.7 H, Lymph % (Auto) 8.6 L, Morgan % (Auto) 4.2, Eos % (Auto) 0.0, Baso % (Auto) 0.2, Absolute Neuts (auto) 15.7 H, Absolute Lymphs (auto) 1.57, Nucleated RBC % 0 04/05/19 14:25: Troponin I < 0.015 04/05/19 14:31: POC Glucose 123 H 04/05/19 14:42: Sodium 144, Potassium 3.9, Chloride 113 H, Carbon Dioxide 20.0 L, Anion Gap 11, BUN 19 H, Creatinine 1.08 H, Estim Creat Clear Calc 48.60, Est GFR (MDRD) Af Amer 66, Est GFR (MDRD) Non-Af 55 L, BUN/Creatinine Ratio 17.6, Glucose 130 H, Calcium 9.6, Total Bilirubin 0.60, AST 12 L, ALT 21, Alkaline Phosphatase 76, Total Protein 7.6, Albumin 4.0, Globulin 3.6, Albumin/Globulin Ratio 1.1 04/05/19 15:05: Urine Color Yellow, Urine Clarity Clear, Urine pH 7.0, Ur Specific [place] 1.010, Urine Protein Negative, Urine Glucose (UA) Normal, Urine Ketones Negative, Urine Occult Blood Negative, Urine Nitrite Negative, Urine Bilirubin Negative, Urine Urobilinogen Normal, Ur Leukocyte Esterase Negative, Urine RBC 0 SEEN, Urine WBC 0 SEEN, Ur Squamous Epith Cells 0 SEEN, Urine Bacteria 0 SEEN, Urine Mucus 0 SEEN 04/05/19 16:25: Ammonia < 10.0 L 04/05/19 16:45: Urine Opiates Screen NEGATIVE, Urine Methadone Screen NEGATIVE, Ur Barbiturates Screen NEGATIVE, Ur Phencyclidine Scrn NEGATIVE, Ur Amphetamines Screen NEGATIVE, U Methamphetamin-MDMA NEGATIVE, U Benzodiazepines Scrn NEGATIVE, Urine Cocaine Screen NEGATIVE, U Cannabinoids Screen NEGATIVE, Ur Drug Screen Comment 04/06/19 05:13: WBC 13.0 H, RBC 4.41, Hgb 12.6, Hct 39.8, MCV 90.2, MCH 28.6, MCHC 31.7 L, RDW Std Deviation 44.0 H, RDW Coeff of Crissy 13.3, Plt Count 227, MPV 10.4, Immature Gran % (Auto) 0.400, Neut % (Auto) 79.9 H, Lymph % (Auto) 12.8 L, Morgan % (Auto) 6.5, Eos % (Auto) 0.0, Baso % (Auto) 0.4, Absolute Neuts (auto) 10.4 H, Absolute Lymphs (auto) 1.66, Nucleated RBC % 0 04/06/19 05:13: Sodium 145, Potassium 3.6, Chloride 114 H, Carbon Dioxide 24.0, Anion Gap 7, BUN 15, Creatinine 0.82, Estim Creat Clear Calc 61.43, Est GFR (MDRD) Af Amer 91, Est GFR (MDRD) Non-Af 75, BUN/Creatinine Ratio 18.3, Glucose 100, Calcium 8.6 Current Medications Acetaminophen (Tylenol) 500 mg PO Q6H PRN PRN PRN Reason: Pain Score 1-10/10 Acetaminophen (Tylenol) 650 mg RECTAL Q6H PRN PRN PRN Reason: Pain Score 1-10/10 Last Admin: 04/06/19 06:52 Dose: 650 mg Documented by: Aspirin (Aspirin, Baby) 81 mg PO QHS [facility] Last Admin: 04/05/19 22:03 Dose: Not Given Documented by: Escitalopram Oxalate (Lexapro) 10 mg PO QHS [facility] Last Admin: 04/05/19 22:03 Dose: Not Given Documented by: Heparin Sodium (Porcine) (Heparin Na) 5,000 unit SC Q12 [facility] Last Admin: 04/05/19 22:01 Dose: 5,000 unit Documented by: Sodium Chloride () 1,000 mls @ 125 mls/hr IV .Q8H [facility] Last Admin: 04/06/19 03:56 Dose: 125 mls/hr Documented by: Ceftriaxone Sodium (Rocephin) 1 gm in 50 mls @ 100 mls/hr IV Q24 [facility] Last Infusion: 04/05/19 20:11 Dose: Infused Documented by: Sodium Chloride () 250 mls @ 15 mls/hr IV .[id number] PRN PRN Reason: Saline Flush Nystatin (Mycostatin Powder) 1 applic TOPICAL BID [facility]; Protocol Last Admin: 04/06/19 06:53 Dose: 1 applicatio Documented by: Pantoprazole Sodium (Protonix) 40 mg PO QHS [facility] Last Admin: 04/05/19 22:03 Dose: Not Given Documented by: Sodium Chloride () 10 - 40 ml IV UD PRN PRN Reason: SALINE FLUSH Topiramate (Topamax) 100 mg PO BID [facility] Last Admin: 04/05/19 22:03 Dose: Not Given Documented by: STROKE Vital Signs/Narrative: Vital Signs Temp Pulse Resp BP Pulse Ox 04/06/19 05:00 98.5 F 72 18 149/72 H 98 Medical Necessity - Tobacco Use Smoking Status: Never smoker Tobacco Use: Non-smoker Assessment/Plan All Active Problems ADAM (acute kidney injury) (Acute) Encephalopathy (Resolved) UTI (urinary tract infection) (Resolved) TIA (transient ischemic attack) (Resolved) 1. Acute metabolic encephalopathy, multifactorial factorial in etiology, Likely secondary to newly diagnosed CVA(not acute per CT scan report), ADAM Confusion is persistent. Patient is not oriented to person place or time. She is responsive to some commands Urine tox is negative. 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 Check vitamin B12, vitamin D levels MRI of the brain, MRA of the head and neck, 2D echo, lipid profile, HbA1c, Neurology consult We will not monitor with NIHSS as it is not an acute stroke; no need to transfer patient to PCU Continue on IV antibiotics, urine culture, follow-up on blood cultures Seen on aspirin, statin, check lipid profile 2. Acute kidney injury, prerenal secondary dehydration, improving Cr down from 1.08-0.82, continue on IV fluids 3. Acute cystitis ruled out with negative UA, 4. Leucocytosis, likely reactive, less likely from UTI, Will trend in a.m. 5. Complex migraine, not in acute exacerbation, on Topamax 6. GERD, on PPI 7. Anxiety/depression, on Lexapro 8. DVT PPx- Heparin SC Code Visit Inpatient E&M: 27043 Subs Hosp L2
--- NOTE | 2019-04-06 08:40 | MRI_ITS ---
STUDY: MRA NECK WITH AND WITHOUT CONTRAST REASON FOR EXAM: Female, 64 years old. CVA. Altered mental status. TECHNIQUE: 3-D [id number] (TOF) imaging was performed in an 1.5 T MRI scanner. IV Dotarem 18 was administered for the contrast enhanced images. COMPARISON: 01/17/2018. FINDINGS: RIGHT CAROTID ARTERIES: Normal right common carotid artery (CCA). Normal right internal carotid bulb. Normal origin of the right internal carotid (ICA) artery without a hemodynamically significant stenosis. Normal visualized cervical portion of the right internal carotid artery. Normal origin of the right external carotid artery (ECA). LEFT CAROTID ARTERIES: Normal left common carotid artery (CCA). Normal left internal carotid bulb. Normal origin of the left internal carotid (ICA) artery without a hemodynamically significant stenosis. Normal visualized cervical portion of the left internal carotid artery. Normal origin of the left external carotid artery (ECA). VERTEBRAL ARTERIES: Normal antegrade flow within the bilateral vertebral artery without a hemodynamically significant stenosis. MRI/MRA Neck WITH and W/O Contrast IMPRESSION: Normal bilateral cervical carotid and vertebral arteries and unchanged since 01/17/2018. Electronically Signed: Toño Montenegro MD at 11:00 EST , Service support ,
--- NOTE | 2019-04-06 08:40 | MRI_ITS ---
STUDY: MRI BRAIN WITHOUT CONTRAST REASON FOR EXAM: Female, 64 years old. CVA. Altered mental status. TECHNIQUE: Standardized multiplanar fat and water weighted pulse sequences were obtained. COMPARISON: 01/17/2018. CT head without contrast 04/05/2019. FINDINGS: No restricted diffusion to suspect acute or subacute ischemic infarct. Normal size of the ventricles and extra-axial spaces for the patient's age. Few small T2 FLAIR hyperintensity foci in the white matter of both cerebral hemispheres. They are presumably chronic white matter ischemic changes. They were present previously and are unchanged. Normal bilateral basal ganglia. Normal thalami. There is no extra-axial fluid accumulation. Normal flow voids within the major intracranial circulation suggesting patency by spin echo criteria. Normal sella turcica, pituitary gland, infundibular stalk, optic chiasm and hypothalamus. Normal tectal plate and pineal gland. Normal midbrain, tony and medulla. Normal cerebellum. Normal basal cisterns. Normal bilateral temporal bones. Normal bilateral internal auditory canals. No demonstrated orbital abnormality, within the constraints of a routine brain study. Normal visualized paranasal sinuses. Normal calvarium and skull base. Normal visualized soft tissue structures. Normal visualized upper cervical spine. MRI/Brain without Contrast IMPRESSION: 1. No MRI evidence of acute or subacute ischemic infarct. 2. Few chronic white matter ischemic changes in the convexity of both cerebral hemispheres. 3. No interval changes when compared to 01/17/2018. Electronically Signed: Toño Montenegro MD at 10:41 EST , Service support ,
--- NOTE | 2019-04-06 08:41 | MRI_ITS ---
STUDY: MRA OF THE HEAD WITHOUT CONTRAST REASON FOR EXAM: Female, 64 years old. CVA. Altered mental status. TECHNIQUE: 3-D [id number] (TOF) imaging was performed with MIPs. The study was performed unenhanced. COMPARISON: 01/17/2018. FINDINGS: Normal bilateral petrous carotid arteries. Normal right cavernous carotid artery with a normal supraclinoid bifurcation. Normal left cavernous carotid artery with a normal supraclinoid bifurcation. Normal right A1 segment of the anterior cerebral artery. Normal left A1 segment of the anterior cerebral artery. Normal intact anterior communicating artery (ACOM). Normal bilateral A2 segments of the anterior cerebral arteries. Normal right M1 and M2 segments of the middle cerebral arteries, with a normal M1 bifurcation. Normal left M1 and M2 segments of the middle cerebral arteries, with a normal M1 bifurcation. Normal right posterior communicating artery (PCOM). Normal left posterior communicating artery (PCOM). Normal bilateral vertebral arteries. 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 The lower pair of the superior cerebellar arteries arise cysts off the distal basilar artery. There is a tortuous right P1 P2 junction rather than saccular aneurysm. This is a developmental variation of normal. The visualized 2 pairs of bilateral superior cerebellar (SCA) arteries are normal. Normal bilateral P1, P2 and visualized P3 segments of the posterior cerebral arteries. There is no demonstrated aneurysm of the [place]. There is no major vessel occlusion or hemodynamically significant stenosis. OPINION: 1. No suspicious saccular aneurysm of the right P1 P2 junction that was mentioned previously on 01/17/2018. 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 This accounts for the upper pair of superior cerebellar arteries arising off their respective P1 segments. There is also a tortuous loop of the right P2 segment rather than saccular aneurysm of the right P1 P2 junction. 2. No significant interval change when compared to 01/17/2018. RECOMMENDATION: CTA of the head with 3-D reconstructions will be very helpful to confirm the absence of saccular aneurysm of the right P1 P2 junction. Electronically Signed: Toño Montenegro MD at 10:58 EST , Service support , MRI/MRA Head ONLY without Contrast
--- NOTE | 2019-04-06 08:41 | ECHOCS_ITS ---
Reason For Study: CVA Procedure This was a 2D Doppler, Color Flow transthoracic echocardiogram. Contrast injection was performed. Pt confused and not able to hold breath to optimize imaging. The study was technically difficult. Exam performed portable in patient room. Left Ventricle Normal LV size. Left ventricular systolic function is normal. The estimated ejection fraction is 55 %. Stage 1 diastolic dysfunction. No regional wall motion abnormalities noted. Right Ventricle Normal RV size. Normal systolic function. Atria Normal left atrium. Normal right atrium. Mitral Valve Normal mitral valve. Tricuspid Valve Normal tricuspid valve. Aortic Valve Trisinus/trileaflet aortic valve. Mild focal aortic valve calcification. Pulmonic Valve Normal pulmonic valve. Great Vessels Normal aortic root. The pulmonary artery is normal size. Normal inferior vena cava. Pericardium/Pleural No pericardial effusion. Medication Diluted definity 3.0ml given slow IV push to enhance endocardial definition. MMode/2D Measurements & Calculations LVIDd: 4.7 cm IVSd: 0.91 cm Ao root diam: 3.7 cm LVIDs: 3.0 cm LVPWd: 1.0 cm RVDd: 4.0 cm FS: 35.7 % LAV(MOD-bp): 59.9 ml LA A4 area: 16.7 cm2 LA dimension(2D): 4.1 cm LAV(MOD-bp) Indexed: 30.0 ml/m2 LAV(MOD-sp2): 71.7 ml LAV(MOD-sp4): 45.7 ml RA A4 area: 13.3 cm2 Time Measurements MV dec time: 0.24 sec Doppler Measurements & Calculations MV E max hunter: 72.5 cm/sec Lat Peak E' Hunter: 8.3 cm/sec Med Peak E' Hunter: 6.7 cm/sec MV A max hunter: 98.2 cm/sec E/E' lat: 8.7 E/E' med: 10.8 MV E/A: 0.74 Ao V2 max: 174.9 cm/sec LV V1 max: 97.3 cm/sec Ao max P.2 mmHg LV V1 max P.8 mmHg Interpretation Summary Normal LV size. Left ventricular systolic function is normal. The estimated ejection fraction is 55 %. Stage 1 diastolic dysfunction. Contrast injection was performed. The study was technically difficult. The study was technically limited. Ordering Physician: Aster Oliva Referring Physician: DIANNA DAVIS Performed By: Divya Salazar, ERIK, RVT
[2019-04-06 09:23] LABS: Thyroid Stim Hormone (TSH) 1.74 uIU/mL (0.358-3.74)
[2019-04-06] MEDS: Heparin Injection (Vial) 5,000 UNIT/ML VIAL 5000 UNIT SC ×2 (10:24→21:13)
[2019-04-06 19:23] LABS: Hemoglobin A1c 5.3 % (4.2-6.3)
[2019-04-06] MEDS: Atorvastatin Calcium 40 MG Tablet PO (22:50)
[2019-04-06] MEDS: Escitalopram Oxalate 10 MG Tablet PO (22:50)
[2019-04-06] MEDS: Pantoprazole Sodium 40 MG Tablet PO (22:50)
[2019-04-06] MEDS: Topiramate 100 MG Tablet PO (22:51)
[2019-04-06] MEDS: Aspirin 81 MG TAB.CHEW PO (22:54)
[2019-04-06 23:26] LABS: Bedside Glucose 88 mg/dL (70-110)
[2019-04-07] VITALS (12 sets, daily range): BP systolic 126–147; BP diastolic 49–64; PULSE 62–88; RESP 15–18; TEMP 36.7–37.3; O2SAT 93–96
[2019-04-07] MEDS: 0.9% Normal Saline 1,000 ML 125 ML IV ×3 (02:30→22:38)
[2019-04-07 06:17] LABS: Absolute Lymphocyte Count 2.15 X10^3/uL (0.83-4.51); Absolute Neutrophil Count 5.1 X10^3/uL (2.0-7.7); Basophil# 0.08 X10^3/uL; Eosinophil# 0.03 X10^3/uL; Eosinophils% 0.4 % (0-5); Hematocrit 37.3 % (37-47); Hemoglobin 11.7 g/dL (12.0-15.0); Lymphocyte # 2.15 X10^3/ul (4.0); Lymphocyte % 26.4 % (19-41); Mean Corp Hgb Conc 31.4 g/dL (32-36); Mean Corpuscular Hgb 28.4 pg (27.0-32.0); Mean Corpuscular Volume 90.5 fL (81-99); Mean Platelet Vol. 10.2 fl (6.2-12.0); Monocyte# 0.73 X10^3/uL; NRBC Flagged by Analyzer 0 % (0-5); Neutrophil # 5.11 X10^3/uL (2.7-7.7); Neutrophil % 62.7 % (47-70); Platelet Count 205 K/mm3 (150-450); RBC Distribution Width CV 13.1 % (11.6-14.6); RBC Distribution Width SD 43.3 fl (35.1-43.9); Red Blood Count 4.12 M/mm3 (4.2-5.4); White Blood Count 8.1 K/mm3 (4.4-11.0)
[2019-04-07 06:36] LABS: AST(SGOT) 55 U/L (15-37); Alanine Aminotransfer ALT/SGPT 66 U/L (13-56); Albumin, Serum 2.9 g/dL (3.2-5.0); Alkaline Phosphatase 70 U/L (45-117); Anion Gap 8 (5-15); BUN 13 mg/dL (7-18); BUN/Creat Ratio 18.1 RATIO (10-20); Calcium,Total 8.1 mg/dL (8.5-10.1); Chloride 116 mmol/L (98-107); Cholesterol 175 mg/dL (200); Creatinine, Serum 0.72 mg/dL (0.55-1.02); EST Glomerular Filtration Rate 88 mL/min (>60); Est Glom Filt Rate - Afr Amer 106 mL/min (>60); Glucose 90 mg/dL (74-106); High Density Lipoprotein 48 mg/dL; Potassium 3.4 mmol/L (3.5-5.1); Protein, Total 5.9 g/dL (6.4-8.2); Sodium Level 147 mmol/L (136-145); Triglycerides 120 mg/dL; Very Low Density Lipoprotein 24 mg/dL (5-40)
--- NOTE | 2019-04-07 08:34 | NURSING ---
pt to mri
--- NOTE | 2019-04-07 09:18 | NURSING ---
called Dr. Bay office - left voicemail at [phone] for them to call unit back.
[2019-04-07] MEDS: Heparin Injection (Vial) 5,000 UNIT/ML VIAL 5000 UNIT SC ×2 (10:22→22:28)
[2019-04-07] MEDS: Nystatin Powder 15gm Bottle 1 APPLIC TOPICAL ×2 (10:22→22:28)
[2019-04-07] MEDS: Topiramate 100 MG Tablet PO (10:23)
--- NOTE | 2019-04-07 11:10 | CASEMGMT ---
RN CM Face to Face with patient for initial transition planning/care coordination assessment. RN CM introduced self and role at [facility]. Patient lying in bed, alert and oriented, sister at bedside. Patient willing to participate in assessment and is able to answer all questions appropriately. Care providers, pharmacy, and demographics verified. Patient wishes to discharge home but is willing to go to SNF if needed. Patient states she has no further needs or concerns at this time. SW updated regarding possible SNF at discharge. CM to follow for discharge planning needs that may arise. PCP: Uli Specialists: none Preferred Pharmacy: [facility] Insurance: [facility] Prescription Benefit: yes Living Will/HPOA: none LNOK: sister Living Arrangements: Patient lives alone in 1st floor apartment with no steps to enter the home. Patient was independent at home. Transportation: self/sister DME/HHC: Patient has cane, denies other DME. No previous HHC or SNF. Patient willing to go to SNF if recommended. Patient is currently 2assist with transfers. Disposition Plan: Patient to discharge to SNF pending how she does with therapy. Adrienne KEARNEYN, RN, CM
[2019-04-07 11:30] LABS: Vitamin B12 292 pg/mL (211-911)
--- NOTE | 2019-04-07 11:49 | CASEMGMT ---
Social Work Per Adrienne GILLILAND CM, pt family requesting information on SNF options. SW met with pt sister and provided written list of in network facilities. Sister would prefer [facility] which is not on the list. Phone call to [facility] and they confirm that they are not in network with pt insurance. Sister notified and would like either [facility] or [facility]. At this time sister is uncertain if pt will need SNF. SW will follow and assist with SNF placement if needed. Plan: Possible SNF placement, pending testing and therapy. EYAD Araya
--- NOTE | 2019-04-07 11:52 | NURSING ---
recalled Dr. Bay for consult left voicemail.
--- NOTE | 2019-04-07 12:01 | PN_ITS ---
<Raphael Subramanian - Last Filed: 04/07/19 12:01> Patient Problems: Active and Suspected Problems ADAM (acute kidney injury) (Acute) Migraine (Acute) Subjective: Pt somewhat more lucid today. She is still very slow to answer questions and follow commands. She denies recent illness / infection. She has no N/V, no SOB/cough, no diarrhea, no open sores, no dysuria, no fever/chills. She has mild left hip pain. She has some RUQ/RL rib tenderness. Family is concerned about mold exposure however she has no allergic or sinus issues, again no cough or SOB. Advised environmental clean up. - Physical Exam Vitals/I&O's: Vital Signs Temp Pulse Resp BP Pulse Ox 98.6 F 64 16 126/54 H 95 04/07/19 11:43 04/07/19 11:43 04/07/19 11:43 04/07/19 11:43 04/07/19 11:43 Oxygen Delivery Method Room Air Weight: 205 lb 14.588 oz Body Mass Index (BMI) 34.2 Finger Stick Blood Glucose 123 Intake and Output for Last 24 Hours 04/05/19 04/06/19 04/07/19 23:59 23:59 23:59 Intake Total 1054.17 / 1054.17 2858.33 / 3858.33 3710.24 / 3710.24 Output Total 1150 / 1950 1625 / 1625 Balance 1054.17 / 1054.17 1708.33 / 1908.33 2085.24 / 2085.24 General: Alert, Cooperative, - - oriented x 2 HEENT: Atraumatic, PERRLA, EOMI, Normocephalic Neck: Supple, No JVD, Negative Carotid Bruits Lungs: Clear to auscultation, Normal air movement Cardiovascular: Regular rate, No murmurs Abdomen: Bowel Sounds Present, Soft, Non Tender Extremities: No edema, Capillary Refill Less than 3 Seconds Skin: No rashes, No breakdown Musculoskeletal: No Tenderness to Palpation of Joints or Extremities Neurological: Cranial nerves II-XII grossly intact Psych/Mental Status: Normal Affect, Appropriate Laboratory Results 04/06/19 05:13: Vitamin B12 292 04/06/19 05:13: Hemoglobin A1c 5.3 04/06/19 23:02: POC Glucose 88 04/07/19 05:22: Sodium 147 H, Potassium 3.4 L, Chloride 116 H, Carbon Dioxide 23.0, Anion Gap 8, BUN 13, Creatinine 0.72, Estim Creat Clear Calc 72.90, Est GFR (MDRD) Af Amer 106, Est GFR (MDRD) Non-Af 88, BUN/Creatinine Ratio 18.1, Glucose 90, Calcium 8.1 L, Total Bilirubin 0.80, AST 55 H, ALT 66 H, Alkaline Phosphatase 70, Total Protein 5.9 L, Albumin 2.9 L, Globulin 3.0, Albumin/Globulin Ratio 1.0, Triglycerides 120, Cholesterol 175, LDL Cholesterol 103, VLDL Cholesterol 24, HDL Cholesterol 48 04/07/19 05:22: Vit D 1,25-Dihydroxy Pending 04/07/19 05:22: WBC 8.1, RBC 4.12 L, Hgb 11.7 L, Hct 37.3, MCV 90.5, MCH 28.4, MCHC 31.4 L, RDW Std Deviation 43.3, RDW Coeff of Crissy 13.1, Plt Count 205, MPV 10.2, Immature Gran % (Auto) 0.500, Neut % (Auto) 62.7, Lymph % (Auto) 26.4, Graves % (Auto) 9.0, Eos % (Auto) 0.4, Baso % (Auto) 1.0, Absolute Neuts (auto) 5.1, Absolute Lymphs (auto) 2.15, Nucleated RBC % 0 Current Medications Acetaminophen (Tylenol) 500 mg PO Q6H PRN PRN PRN Reason: Pain Score 1-10/10 Acetaminophen (Tylenol) 650 mg RECTAL Q6H PRN PRN PRN Reason: Pain Score 1-10/10 Last Admin: 04/06/19 06:52 Dose: 650 mg Documented by: Aspirin (Aspirin, Baby) 81 mg PO QHS [facility] Last Admin: 04/06/19 22:54 Dose: 81 mg Documented by: Atorvastatin Calcium (Lipitor) 40 mg PO QHS [facility] Last Admin: 04/06/19 22:50 Dose: 40 mg Documented by: Escitalopram Oxalate (Lexapro) 10 mg PO QHS [facility] Last Admin: 04/06/19 22:50 Dose: 10 mg Documented by: Heparin Sodium (Porcine) (Heparin Na) 5,000 unit SC Q12 [facility] Last Admin: 04/07/19 10:22 Dose: 5,000 unit Documented by: Sodium Chloride () 1,000 mls @ 125 mls/hr IV .Q8H [facility] Last Admin: 04/07/19 11:42 Dose: 125 mls/hr Documented by: Sodium Chloride () 250 mls @ 15 mls/hr IV .[id number] PRN PRN Reason: Saline Flush Nystatin (Mycostatin Powder) 1 applic TOPICAL BID [facility]; Protocol Last Admin: 04/07/19 10:22 Dose: 1 applicatio Documented by: Pantoprazole Sodium (Protonix) 40 mg PO QHS [facility] Last Admin: 04/06/19 22:50 Dose: 40 mg Documented by: Sodium Chloride () 10 - 40 ml IV UD PRN PRN Reason: SALINE FLUSH Topiramate (Topamax) 100 mg PO BID [facility] Last Admin: 04/07/19 10:23 Dose: 100 mg Documented by: Medical Necessity - Tobacco Use Smoking Status: Never smoker Tobacco Use: Non-smoker Assessment/Plan All Active Problems ADAM (acute kidney injury) (Acute) Migraine (Acute) Encephalopathy (Acute) UTI (urinary tract infection) (Resolved) TIA (transient ischemic attack) (Resolved) 1. Encephalopathy - unclear etiology. no acute infectious etiology identified. On empiric rocephin. WBC is improving and she is somewhat more lucid than admission. No fever. - MRI brain/MRA head and neck are negative for acute changes. -Neuro consult. - Ammonia negative. TSH and b12 levels are normal. Tox screen negative. -CXR/UA negative. 2. ADAM - likely dehydration - resolved. 3. Hx CVA, hx Right MANAGER PRODUCT aneurysm - continue aspirin. Not on statin for unclear reasons. 4. Anxiety/Depression - lexapro 5. GERD - continue ppi 6. Hx complex migraine - continue topamax 7. Hx B12 def, vit D def - continue supplements DVT ppx: heparin DC planning: PTOT This patient was seen by Raphael Subramanian PA-C under the supervision of Dr. Godfrey. <Munir Godfrey - Last Filed: 04/07/19 17:46> Subjective: Patient does not have cough, cold, runny nose, postnasal drip or sore throat. Patient's daughter has concern for exposure to mold at home. Chest x-ray reviewed and reported no evidence of acute disease. Patient has mild forgetfulness, disoriented to time but overall rates improving. - Physical Exam Vitals/I&O's: Vital Signs Temp Pulse Resp BP Pulse Ox 98.3 F 71 16 134/56 H 96 04/07/19 15:30 04/07/19 15:30 04/07/19 15:30 04/07/19 15:30 04/07/19 15:30 Oxygen Delivery Method Room Air Weight: 205 lb 14.588 oz Body Mass Index (BMI) 34.2 Finger Stick Blood Glucose 123 Intake and Output for Last 24 Hours 04/05/19 04/06/19 04/07/19 23:59 23:59 23:59 Intake Total 1054.17 / 1054.17 2858.33 / 3858.33 3710.24 / 3710.24 Output Total 1150 / 1950 1625 / 1625 Balance 1054.17 / 1054.17 1708.33 / 1908.33 2085.24 / 2085.24 General: Alert, Cooperative, - - oriented x [address], person, and situation but not to time. HEENT: Atraumatic, PERRLA, EOMI, Normocephalic Neck: Supple, No JVD, Negative Carotid Bruits Lungs: Clear to auscultation, Normal air movement, No rhonchi, No wheeze, No rales Cardiovascular: Regular rate, Regular Rhythm, Normal S1, Normal S2, No murmurs Abdomen: Bowel Sounds Present, Soft, Non Tender Extremities: No edema, Capillary Refill Less than 3 Seconds Skin: No rashes, No breakdown Neurological: Cranial nerves II-XII grossly intact, Deep Tendon Reflexes 2+/4 and Symmetrical, Neuro grossly intact Laboratory Results 04/06/19 05:13: Vitamin B12 292 04/06/19 05:13: Hemoglobin A1c 5.3 04/06/19 23:02: POC Glucose 88 04/07/19 05:22: Sodium 147 H, Potassium 3.4 L, Chloride 116 H, Carbon Dioxide 23.0, Anion Gap 8, BUN 13, Creatinine 0.72, Estim Creat Clear Calc 72.90, Est GFR (MDRD) Af Amer 106, Est GFR (MDRD) Non-Af 88, BUN/Creatinine Ratio 18.1, Glucose 90, Calcium 8.1 L, Total Bilirubin 0.80, AST 55 H, ALT 66 H, Alkaline Phosphatase 70, Total Protein 5.9 L, Albumin 2.9 L, Globulin 3.0, Albumin/Globulin Ratio 1.0, Triglycerides 120, Cholesterol 175, LDL Cholesterol 103, VLDL Cholesterol 24, HDL Cholesterol 48 04/07/19 05:22: Vit D 1,25-Dihydroxy Pending 04/07/19 05:22: WBC 8.1, RBC 4.12 L, Hgb 11.7 L, Hct 37.3, MCV 90.5, MCH 28.4, MCHC 31.4 L, RDW Std Deviation 43.3, RDW Coeff of Crissy 13.1, Plt Count 205, MPV 10.2, Immature Gran % (Auto) 0.500, Neut % (Auto) 62.7, Lymph % (Auto) 26.4, Graves % (Auto) 9.0, Eos % (Auto) 0.4, Baso % (Auto) 1.0, Absolute Neuts (auto) 5.1, Absolute Lymphs (auto) 2.15, Nucleated RBC % 0 04/07/19 05:22: ESR 14 Current Medications Acetaminophen (Tylenol) 500 mg PO Q6H PRN PRN PRN Reason: Pain Score 1-10/10 Acetaminophen (Tylenol) 650 mg RECTAL Q6H PRN PRN PRN Reason: Pain Score 1-10/10 Last Admin: 04/06/19 06:52 Dose: 650 mg Documented by: Aspirin (Aspirin, Baby) 81 mg PO QHS [facility] Last Admin: 04/06/19 22:54 Dose: 81 mg Documented by: Atorvastatin Calcium (Lipitor) 40 mg PO QHS [facility] Last Admin: 04/06/19 22:50 Dose: 40 mg Documented by: Escitalopram Oxalate (Lexapro) 10 mg PO QHS [facility] Last Admin: 04/06/19 22:50 Dose: 10 mg Documented by: Heparin Sodium (Porcine) (Heparin Na) 5,000 unit SC Q12 [facility] Last Admin: 04/07/19 10:22 Dose: 5,000 unit Documented by: Sodium Chloride () 1,000 mls @ 125 mls/hr IV .Q8H [facility] Last Admin: 04/07/19 11:42 Dose: 125 mls/hr Documented by: Sodium Chloride () 250 mls @ 15 mls/hr IV .[id number] PRN PRN Reason: Saline Flush Valproic Acid 500 mg/ Dextrose 55 mls @ 50 mls/hr IV Q8 [facility] Magnesium Sulfate 2 gm/ Sodium (Chloride) 104 mls @ 52 mls/hr IV X1 ONE Stop: 04/07/19 19:03 Nystatin (Mycostatin Powder) 1 applic TOPICAL BID [facility]; Protocol Last Admin: 04/07/19 10:22 Dose: 1 applicatio Documented by: Pantoprazole Sodium (Protonix) 40 mg PO QHS [facility] Last Admin: 04/06/19 22:50 Dose: 40 mg Documented by: Sodium Chloride () 10 - 40 ml IV UD PRN PRN Reason: SALINE FLUSH Topiramate (Topamax) 50 mg PO BID [facility]; Taper Stop: 04/16/19 21:59 Assessment/Plan This patient was seen in conjunction with Raphael CANAS. I have independently interviewed and examined the patient and reviewed pertinent history, examination findings, laboratory and plan of management. I have reviewed the note and agree with the documented findings with the few additional points. In brief, patient is admitted for altered mental status, weakness and confusion. MRI brain and MRA head and neck are negative for acute change. Seen by neurologist. Discussed with him. Advised to bring down Topamax from 100 mg twice daily to 50 mill grams twice daily for 3 days, 25 mg twice daily for 3 days and then 25 mg once daily for 3 days then stop. Valproate 500 mg IV every 8 hourly for 2 days. TSH and B12 are negative. Tox screen negative. Patient's daughter has concern for exposure to mold. Currently patient does not have respiratory symptoms and chest x-ray normal. I told her I do not recommend testing for fungal antibodies or exposure as it is not recommended. ADAM resolved. Patient also fell forward. She complained of pain over right lower chest. X- rays were done. Normal x-ray of ribs and abdomen and pelvis. I have discussed my assessment with Raphael CANAS and orders have been reviewed. Code Visit Inpatient E&M: 57793 Subs Hosp L2
--- NOTE | 2019-04-07 13:56 | NURSING ---
pt down for x ray
--- NOTE | 2019-04-07 14:00 | RAD_ITS ---
STUDY: X-RAY - ABDOMEN/PELVIS REASON FOR EXAM: Female, 64 years old. Pain. TECHNIQUE: AP supine view. COMPARISON: None. FINDINGS: The lung bases are not included. There is an unremarkable bowel gas pattern. There is no demonstrated free abdominal air. The visualized liver, spleen and kidneys are grossly normal in size and morphology. Normal soft tissue structures. Normal visualized osseous structures. RAD/Abdomen Single View IMPRESSION: Normal x-ray examination of the abdomen and pelvis. Electronically Signed: Toño Montenegro MD at 14:44 EST , Service support ,
--- NOTE | 2019-04-07 14:00 | RAD_ITS ---
STUDY: X-RAY - BILATERAL RIBS REASON FOR EXAM: Female, 64 years old. Pain. Unable to communicate exactly where her pain is at. TECHNIQUE: 4 view(s) of the ribs. COMPARISON: None. FINDINGS: Normal visualized ribs without a demonstrated fracture. The visualized lungs are clear and expanded. Normal heart, mediastinum and pulmonary emma. RAD/Ribs Bilat 3V No CXR IMPRESSION: Normal x-ray examination of the bilateral ribs. Electronically Signed: Toño Montenegro MD at 14:47 EST , Service support ,
--- NOTE | 2019-04-07 14:33 | CON.PCM_ITS ---
Problem List (1) Migraine Status: Acute (2) Encephalopathy Status: Acute Reason for Consult Date of Consultation: 04/07/19 Reason for Consultation: AMS History of Present Illness: The patient is a 64 year old F with PMH HTN, HLD, H/O TIA/CVA, Migraine, anxiety/depression, vitamin B12 and vitamin D deficiency admitted with AMS. Story obtained from patient as well as patient's sister, and medical records. 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 No documentation of witnessed seizures. Per patient she did have headaches, has history of migraine and is on Topamax 100 mg p.o. twice daily, at present per the nurse taking care of the patient as well as family members patient's mental status has improved, but continues to have clear but slow speech, no focal motor weakness, denies any sensory loss, denies any visual disturbances dizziness. 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 On admission her blood pressure was 165/84 mmHg, WBC 18.2, NA 144, K 3.9, creatinine 1.08, AST/ALT 12/21, ammonia <10, vitamin B12 292, TSH?1.74, UDS negative, UA?WBC 0, nitrate negative, LE negative, bacteria 0. CT head reported to show old small lacunar infarct of the right basal ganglia. MRI brain did not show anything acute, MRA head/neck not reported to show any hemodynamically significant stenosis or occlusion and per radiology there was no aneurysm. Past Medical History Past Medical History (Chronic Problems): Chronic Problems GERD (gastroesophageal reflux disease) (Chronic) HLD (hyperlipidemia) (Chronic) Anxiety and depression (Chronic) Obesity (BMI 30.0-34.9) (Chronic) History of CVA (cerebrovascular accident) (Chronic) Allergies No Known Allergies Allergy (Verified 12/20/17 23:25) Home Medications: Ambulatory Orders Medication Instructions Recorded Aspirin 1 tab PO QHS 07/19/17 Escitalopram Oxalate [Lexapro] 10 mg PO QHS 07/19/17 Topiramate [Topamax] 100 mg PO BID 07/19/17 Ergocalciferol [Vitamin D] 50,000 unit PO QWEEK 12/20/17 Omeprazole 40 mg PO QHS 12/20/17 Cyanocobalamin [Vitamin B12] 1,000 mcg PO DAILY@0800 #60 tab 01/17/18 Surgical History: - - Right ankle surgery. Psychiatric History: Anxiety, Depression TRAINING AND DEVELOPMENT COORDINATOR History: No pertinent TRAINING AND DEVELOPMENT COORDINATOR history Lives: Alone Smoking Status: Never smoker Tobacco Use: Non-smoker Alcohol: None Drugs: None - *Family History Maternal History Items: Stroke Paternal History Items: Stroke Review of Systems Constitutional: Reports: - - Complete ROS negative except as documented in HPI Patient Problems: Active and Suspected Problems ADAM (acute kidney injury) (Acute) Migraine (Acute) - Physical Exam Vitals/I&O's: Vital Signs Temp Pulse Resp BP Pulse Ox 98.6 F 77 16 126/54 H 95 04/07/19 11:43 04/07/19 12:50 04/07/19 11:43 04/07/19 11:43 04/07/19 11:43 Oxygen Delivery Method Room Air Weight: 93.4 kg Body Mass Index (BMI) 34.2 Finger Stick Blood Glucose 123 Intake and Output for Last 24 Hours 04/05/19 04/06/19 04/07/19 23:59 23:59 23:59 Intake Total 1054.17 / 1054.17 2858.33 / 3858.33 3710.24 / 3710.24 Output Total 1150 / 1950 1625 / 1625 Balance 1054.17 / 1054.17 1708.33 / 1908.33 2085.24 / 2085.24 General: - - Conscious, awake, AOA x2 HEENT: Normocephalic Neck: Supple Lungs: Clear to auscultation Cardiovascular: Normal S1, Normal S2 Abdomen: Bowel Sounds Present Extremities: No cyanosis Neurological: - - Conscious, alert, AOA x2, CN II to XII grossly intact, power 5/5 both upper and lower extremities but is slow in following commands, plantars B/L mute, no pronator drift, no sensory loss, no cerebellar signs, gait deferred, reflexes + B/L B/S/T/K/A, No NR, fundus not visualized, speech is clear but slow. Psych/Mental Status: Normal Affect Laboratory Results 04/06/19 05:13: Vitamin B12 292 04/06/19 05:13: Hemoglobin A1c 5.3 04/06/19 23:02: POC Glucose 88 04/07/19 05:22: Sodium 147 H, Potassium 3.4 L, Chloride 116 H, Carbon Dioxide 23.0, Anion Gap 8, BUN 13, Creatinine 0.72, Estim Creat Clear Calc 72.90, Est GFR (MDRD) Af Amer 106, Est GFR (MDRD) Non-Af 88, BUN/Creatinine Ratio 18.1, Glucose 90, Calcium 8.1 L, Total Bilirubin 0.80, AST 55 H, ALT 66 H, Alkaline Phosphatase 70, Total Protein 5.9 L, Albumin 2.9 L, Globulin 3.0, Albumin/Globulin Ratio 1.0, Triglycerides 120, Cholesterol 175, LDL Cholesterol 103, VLDL Cholesterol 24, HDL Cholesterol 48 04/07/19 05:22: Vit D 1,25-Dihydroxy Pending 04/07/19 05:22: WBC 8.1, RBC 4.12 L, Hgb 11.7 L, Hct 37.3, MCV 90.5, MCH 28.4, MCHC 31.4 L, RDW Std Deviation 43.3, RDW Coeff of Crissy 13.1, Plt Count 205, MPV 10.2, Immature Gran % (Auto) 0.500, Neut % (Auto) 62.7, Lymph % (Auto) 26.4, Martin % (Auto) 9.0, Eos % (Auto) 0.4, Baso % (Auto) 1.0, Absolute Neuts (auto) 5.1, Absolute Lymphs (auto) 2.15, Nucleated RBC % 0 Current Medications Acetaminophen (Tylenol) 500 mg PO Q6H PRN PRN PRN Reason: Pain Score 1-10/10 Acetaminophen (Tylenol) 650 mg RECTAL Q6H PRN PRN PRN Reason: Pain Score 1-10/10 Last Admin: 04/06/19 06:52 Dose: 650 mg Documented by: Aspirin (Aspirin, Baby) 81 mg PO QHS [facility] Last Admin: 04/06/19 22:54 Dose: 81 mg Documented by: Atorvastatin Calcium (Lipitor) 40 mg PO QHS [facility] Last Admin: 04/06/19 22:50 Dose: 40 mg Documented by: Escitalopram Oxalate (Lexapro) 10 mg PO QHS [facility] Last Admin: 04/06/19 22:50 Dose: 10 mg Documented by: Heparin Sodium (Porcine) (Heparin Na) 5,000 unit SC Q12 [facility] Last Admin: 04/07/19 10:22 Dose: 5,000 unit Documented by: Sodium Chloride () 1,000 mls @ 125 mls/hr IV .Q8H [facility] Last Admin: 04/07/19 11:42 Dose: 125 mls/hr Documented by: Sodium Chloride () 250 mls @ 15 mls/hr IV .[id number] PRN PRN Reason: Saline Flush Nystatin (Mycostatin Powder) 1 applic TOPICAL BID [facility]; Protocol Last Admin: 04/07/19 10:22 Dose: 1 applicatio Documented by: Pantoprazole Sodium (Protonix) 40 mg PO QHS [facility] Last Admin: 04/06/19 22:50 Dose: 40 mg Documented by: Sodium Chloride () 10 - 40 ml IV UD PRN PRN Reason: SALINE FLUSH Topiramate (Topamax) 100 mg PO BID [facility] Last Admin: 04/07/19 10:23 Dose: 100 mg Documented by: Assessment/Plan All Active Problems ADAM (acute kidney injury) (Acute) Migraine (Acute) Encephalopathy (Acute) UTI (urinary tract infection) (Resolved) TIA (transient ischemic attack) (Resolved) The patient is a 64 year old F with PMH HTN, HLD, H/O TIA/CVA, Migraine, anxiety/depression, vitamin B12 and vitamin D deficiency admitted with AMS. Story obtained from patient as well as patient's sister, and medical records. 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 No documentation of witnessed seizures. Per patient she did have headaches, has history of migraine and is on Topamax 100 mg p.o. twice daily, at present per the nurse taking care of the patient as well as family members patient's mental status has improved, but continues to have clear but slow speech, no focal motor weakness, denies any sensory loss, denies any visual disturbances dizziness. 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 On admission her blood pressure was 165/84 mmHg, WBC 18.2, NA 144, K 3.9, creatinine 1.08, AST/ALT 12/, ammonia <10, vitamin B12 292, TSH?1.74, UDS negative, UA?WBC 0, nitrate negative, LE negative, bacteria 0. CT head reported to show old small lacunar infarct of the right basal ganglia. MRI brain did not show anything acute, MRA head/neck not reported to show any hemodynamically significant stenosis or occlusion and per radiology there was no aneurysm. Impression AMS?possible metabolic encephalopathy Possible confusional migraine versus medication induced secondary to Topamax Vitamin B12 and vitamin D deficiency Plan -MRI brain and MRA head/neck reviewed?nothing acute, no aneurysm per radiology -EEG -Labs reviewed, check ESR -On aspirin and statin at baseline -Wean off Topamax to 50 mg p.o. twice daily for 3 days, then decrease to 25 mg p.o. twice daily for 3 days then decrease to 25 mg p.o. once daily for 3 days and then stop -Trial of Depacon 500 mg IV every 8 hourly for 24 to 48 hours and then stop -Magnesium sulfate 2 g IV once -Vitamin B12 1000 mcg p.o. once daily -On vitamin D -PT/OT/ST -GI/DVT prophylaxis -Fall precautions -Further medical management per hospitalist team -Please call with questions if any -Follow-up with neurology in 4 weeks -Thank you for allowing us to participate in patient's care and management This note has been generated using [employer] software. It may contain incorrect words, spellings and punctuation that were not noted in the review of the note prior to signing Code Visit Inpatient E&M: 06721 Init Hosp L3
[2019-04-07 15:02] LABS: Erythrocyte Sedimentation Rate 14 mm/hr (0-30)
[2019-04-07] MEDS: Cyanocobalamin 500 MCG Tablet 1000 MCG PO (18:04)
[2019-04-07] MEDS: Topiramate 50 MG Tablet PO (22:27)
[2019-04-07] MEDS: Pantoprazole Sodium 40 MG Tablet PO (22:27)
[2019-04-07] MEDS: Escitalopram Oxalate 10 MG Tablet PO (22:28)
[2019-04-07] MEDS: Atorvastatin Calcium 40 MG Tablet PO (22:28)
[2019-04-07] MEDS: Aspirin 81 MG TAB.CHEW PO (22:28)
[2019-04-08] VITALS (7 sets, daily range): BP systolic 134–162; BP diastolic 55–69; PULSE 63–81; RESP 16–18; TEMP 36.4–36.9; O2SAT 95–98
[2019-04-08 06:53] LABS: Anion Gap 3 (5-15); BUN 15 mg/dL (7-18); BUN/Creat Ratio 21.7 RATIO (10-20); Calcium,Total 8.2 mg/dL (8.5-10.1); Chloride 112 mmol/L (98-107); Creatinine, Serum 0.69 mg/dL (0.55-1.02); EST Glomerular Filtration Rate 92 mL/min (>60); Est Glom Filt Rate - Afr Amer 111 mL/min (>60); Estimated Creatinine Clearance 76.07 ml/min; Glucose 95 mg/dL (74-106); Potassium 4.9 mmol/L (3.5-5.1); Sodium Level 137 mmol/L (136-145)
--- NOTE | 2019-04-08 08:41 | NURSING ---
Addendum entered by Shakila Mancia 04/08/19 08:45: Sarah, BOW STRING MAKER notified that breakfast is at nurses' station- verbalized understanding. Original Note: Respiratory states she will be up to complete EEG at 0915- Sarah, BOW STRING MAKER notified to be sure pt has eaten and used bathroom. Pt has purewick and still waiting on breakfast.
[2019-04-08] MEDS: 0.9% Normal Saline 1,000 ML 125 ML IV (09:07)
[2019-04-08] MEDS: Heparin Injection (Vial) 5,000 UNIT/ML VIAL 5000 UNIT SC ×2 (09:14→20:59)
[2019-04-08] MEDS: Cyanocobalamin 500 MCG Tablet 1000 MCG PO (09:14)
[2019-04-08] MEDS: Nystatin Powder 15gm Bottle 1 APPLIC TOPICAL ×2 (09:15→20:59)
[2019-04-08] MEDS: Topiramate 50 MG Tablet PO ×2 (09:15→20:59)
--- NOTE | 2019-04-08 11:36 | EEG ---
- Electroencephalogram Date of service 04/08/2019 History EEG is being done in this 64 yr F to rule out seizures EEG Description: This is an 18 channel EEG with 10-20 lead placement system. Bipolar montages, and Referential montages were reviewed. Photic stimulation and Hyperventilation were performed. The posterior dominant rhythm is 7 HZ synchronous, symmetric, reacting to eye opening and closing. Photo stimulation did not elicit normal driving response or any abnormal photoparoxysmal response, Hyperventilation did not elicit any abnormal photoparoxysmal response. Sleep was identified. There is abnormal background slowing in the theta frequency range noted. There was no epileptiform discharges or electrographic seizures noted during this recording. EEG Interpretation This is an abnormal EEG due to mild to moderate generalized slowing. This may be seen with generalized cerebral dysfunction like metabolic/toxic encephalopathy. Clinical correlation is advised. There is no epileptiform discharges or electrographic seizures noted during the record.
--- NOTE | 2019-04-08 11:38 | CASEMGMT ---
Social Work attempted to meet with pt x2 but pt unavailable. Met with pt sister and reviewed therapy notes. Pt requiring min Ax2 and fatigues quickly. Pt sister agreeable to need for SNF. Reviewed list of in network facilities and Medicare Star Rating scale. Sister wants to talk with pt brother to make final decision and will get back with SW shortly. EYAD Araya
[2019-04-08 11:40] LABS: Bedside Glucose 104 mg/dL (70-110)
--- NOTE | 2019-04-08 12:47 | PN.NEURO_ITS ---
Patient Problems: Active and Suspected Problems ADAM (acute kidney injury) (Acute) Migraine (Acute) Subjective: No issues overnight. Care discussed with the hospitalist staff. Patient denies any headache at present, continues to have slow speech but improving, is AOA x2 at present - Physical Exam Vitals/I&O's: Vital Signs Temp Pulse Resp BP Pulse Ox 97.6 F L 78 18 162/69 H 98 04/08/19 08:13 04/08/19 10:00 04/08/19 08:13 04/08/19 08:13 04/08/19 08:13 Oxygen Delivery Method Room Air Weight: 93.4 kg Body Mass Index (BMI) 34.2 Finger Stick Blood Glucose 123 Intake and Output for Last 24 Hours 04/06/19 04/07/19 04/08/19 23:59 23:59 23:59 Intake Total 2858.33 / 3858.33 4746.32 / 4986.32 1774.17 / 1774.17 Output Total 1150 / 1950 2425 / 3125 2400 / 2400 Balance 1708.33 / 1908.33 2321.32 / 1861.32 -625.83 / -625.83 General: Alert HEENT: Normocephalic Neck: Supple Lungs: Normal air movement Cardiovascular: Normal S1, Normal S2 Abdomen: Bowel Sounds Present Extremities: No cyanosis Neurological: - - Conscious, alert, AOA x2, CN II to XII grossly intact, power 5/5 both upper and lower extremities but is slow in following commands, plantars B/L flexor, no pronator drift, no sensory loss, no cerebellar signs, gait deferred, reflexes + B/L B/S/T/K/A, No NR, fundus not visualized, speech is clear but slow. Psych/Mental Status: Normal Affect Microbiology Past 72 Hours 04/05/19 19:20 Blood Culture (Wb) - No Site/Description Given Blood Culture - Preliminary No growth in 48 hours. 04/05/19 18:55 Blood Culture (Wb) - Left Hand Blood Culture - Preliminary No growth in 48 hours. Laboratory Results 04/07/19 05:22: ESR 14 04/08/19 05:34: Sodium 137, Potassium 4.9, Chloride 112 H, Carbon Dioxide 22.0, Anion Gap 3 L, BUN 15, Creatinine 0.69, Estim Creat Clear Calc 76.07, Est GFR (MDRD) Af Amer 111, Est GFR (MDRD) Non-Af 92, BUN/Creatinine Ratio 21.7 H, Glucose 95, Calcium 8.2 L 04/08/19 11:29: POC Glucose 104 Current Medications Acetaminophen (Tylenol) 500 mg PO Q6H PRN PRN PRN Reason: Pain Score 1-10/10 Acetaminophen (Tylenol) 650 mg RECTAL Q6H PRN PRN PRN Reason: Pain Score 1-10/10 Last Admin: 04/06/19 06:52 Dose: 650 mg Documented by: Aspirin (Aspirin, Baby) 81 mg PO QHS [facility] Last Admin: 04/07/19 22:28 Dose: 81 mg Documented by: Atorvastatin Calcium (Lipitor) 40 mg PO QHS [facility] Last Admin: 04/07/19 22:28 Dose: 40 mg Documented by: Cyanocobalamin (Vitamin B12) 1,000 mcg PO DAILY@0800 [facility] Last Admin: 04/08/19 09:14 Dose: 1,000 mcg Documented by: Escitalopram Oxalate (Lexapro) 10 mg PO QHS [facility] Last Admin: 04/07/19 22:28 Dose: 10 mg Documented by: Heparin Sodium (Porcine) (Heparin Na) 5,000 unit SC Q12 [facility] Last Admin: 04/08/19 09:14 Dose: 5,000 unit Documented by: Sodium Chloride () 1,000 mls @ 125 mls/hr IV .Q8H [facility] Last Admin: 04/08/19 12:01 Dose: Not Given Documented by: Sodium Chloride () 250 mls @ 15 mls/hr IV .[id number] PRN PRN Reason: Saline Flush Valproic Acid 500 mg/ Dextrose 55 mls @ 50 mls/hr IV Q8 [facility] Last Infusion: 04/08/19 06:57 Dose: Infused Documented by: Nystatin (Mycostatin Powder) 1 applic TOPICAL BID [facility]; Protocol Last Admin: 04/08/19 09:15 Dose: 1 applicatio Documented by: Pantoprazole Sodium (Protonix) 40 mg PO QHS [facility] Last Admin: 04/07/19 22:27 Dose: 40 mg Documented by: Sodium Chloride () 10 - 40 ml IV UD PRN PRN Reason: SALINE FLUSH Topiramate (Topamax) 50 mg PO BID [facility]; Taper Stop: 04/16/19 21:59 Last Admin: 04/08/19 09:15 Dose: 50 mg Documented by: STROKE Vital Signs/Narrative: Vital Signs Pulse 04/08/19 10:00 78 Diagnostic/Tx/Re-eval - Rhythm Strip Rhythm Strip: Sinus Rhythm - Sinus rhythm at 95 bpm. RI interval 54, QRS 70, QTc 449, normal axis. Artifact at baseline. No ST elevation ST depression. No ischemic changes appreciated. Medical Necessity - Tobacco Use Smoking Status: Never smoker Tobacco Use: Non-smoker Assessment/Plan All Active Problems ADAM (acute kidney injury) (Acute) Migraine (Acute) Encephalopathy (Acute) UTI (urinary tract infection) (Resolved) TIA (transient ischemic attack) (Resolved) The patient is a 64 year old F with PMH HTN, HLD, H/O TIA/CVA, Migraine, anxiety/depression, vitamin B12 and vitamin D deficiency admitted with AMS. Story obtained from patient as well as patient's sister, and medical records. 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 No documentation of witnessed seizures. Per patient she did have headaches, has history of migraine and is on Topamax 100 mg p.o. twice daily, at present per the nurse taking care of the patient as well as family members patient's mental status has improved, but continues to have clear but slow speech, no focal motor weakness, denies any sensory loss, denies any visual disturbances dizziness. Per sister she lives alone, denies any frequent falls, does not use cane or walker to ambulate, does not need any assistance for ADLs and does drive [place] people. On admission her blood pressure was 165/84 mmHg, WBC 18.2, NA 144, K 3.9, creatinine 1.08, AST/ALT 12/21, ammonia <10, vitamin B12 292, TSH?1.74, UDS negative, UA?WBC 0, nitrate negative, LE negative, bacteria 0. CT head reported to show old small lacunar infarct of the right basal ganglia. MRI brain did not show anything acute, MRA head/neck not reported to show any hemodynamically significant stenosis or occlusion and per radiology there was no aneurysm. Impression AMS?possible metabolic encephalopathy Possible confusional migraine versus medication induced secondary to Topamax Vitamin B12 and vitamin D deficiency Plan -MRI brain and MRA head/neck reviewed?nothing acute, no aneurysm per radiology -EEG-reviewed, mild slowing, nothing epileptiform, no seizure activity -Labs reviewed, ESR-14 -On aspirin and statin at baseline -Wean off Topamax to 50 mg p.o. twice daily for 3 days, then decrease to 25 mg p.o. twice daily for 3 days then decrease to 25 mg p.o. once daily for 3 days and then stop. Discussed with the hospitalist -Trial of Depacon 500 mg IV every 8 hourly for 24 to 48 hours and then stop -Magnesium sulfate 2 g IV once -Vitamin B12 1000 mcg p.o. once daily -Better BP control, goal < 130/80 mmHg, defer to hospitalist -On vitamin D -PT/OT/ST -GI/DVT prophylaxis -Fall precautions -Further medical management per hospitalist team -Please call with questions if any -Follow-up with neurology in 4 weeks -Thank you for allowing us to participate in patient's care and management This note has been generated using [employer] dictation software. It may contain incorrect words, spellings and punctuation that were not noted in the review of the note prior to signing
--- NOTE | 2019-04-08 12:59 | CASEMGMT ---
Addendum entered by Adrienne Rodriguez 04/08/19 14:47: SOCORRO placed a call to Linda at [facility]. Linda confirms she received referral and they are reviewing referral. Original Note: Social Work Note SW met with pt and pt's sister Isha. SW introduced self and role at [facility]. Isha states her choice in SNF is [facility] and pt states she is agreeable. SW explained referral process and that pre-cert will need to be obtained. SOCORRO placed a call to Linda at [facility] and provided referral. SW faxed referral. Plan: [facility] pending acceptance and pre-cert Adrienne Rodriguez ACCOUNT DEVELOPMENT REPRESENTATIVE, [employer] PIPING DESIGNER
--- NOTE | 2019-04-08 13:08 | PN_ITS ---
<Raphael Subramanian - Last Filed: 04/08/19 13:08> Patient Problems: Active and Suspected Problems ADAM (acute kidney injury) (Acute) Migraine (Acute) Subjective: Pt more alert and talkative today. She is up in a chair and responding to all questions. Sister is present and agrees she seems to be doing better. Pt had some mild abdominal discomfort yesterday but this is gone after having a BM. Pt does not follow with a neurologist as an outpatient, discussed options and importance of follow up. No BARLOW/dizziness/LH. No N/V. No Fever/Chills. - Physical Exam Vitals/I&O's: Vital Signs Temp Pulse Resp BP Pulse Ox 97.6 F L 78 18 162/69 H 98 04/08/19 08:13 04/08/19 10:00 04/08/19 08:13 04/08/19 08:13 04/08/19 08:13 Oxygen Delivery Method Room Air Weight: 205 lb 14.588 oz Body Mass Index (BMI) 34.2 Finger Stick Blood Glucose 123 Intake and Output for Last 24 Hours 04/06/19 04/07/19 04/08/19 23:59 23:59 23:59 Intake Total 2858.33 / 3858.33 4746.32 / 4986.32 1774.17 / 1774.17 Output Total 1150 / 1950 2425 / 3125 2400 / 2400 Balance 1708.33 / 1908.33 2321.32 / 1861.32 -625.83 / -625.83 General: Alert, Oriented x3, Cooperative HEENT: Atraumatic, PERRLA, EOMI, Normocephalic Neck: Supple, No JVD, Negative Carotid Bruits Lungs: Clear to auscultation, Normal air movement Cardiovascular: Regular rate, No murmurs Abdomen: Bowel Sounds Present, Soft, Non Tender Extremities: No edema, Capillary Refill Less than 3 Seconds Skin: No rashes, No breakdown Musculoskeletal: No Tenderness to Palpation of Joints or Extremities Neurological: Cranial nerves II-XII grossly intact Psych/Mental Status: Normal Affect, Appropriate, Alert and oriented to time, place, person, mood and affect Microbiology Past 72 Hours 04/05/19 19:20 Blood Culture (Wb) - No Site/Description Given Blood Culture - Preliminary No growth in 48 hours. 04/05/19 18:55 Blood Culture (Wb) - Left Hand Blood Culture - Preliminary No growth in 48 hours. Laboratory Results 04/07/19 05:22: ESR 14 04/08/19 05:34: Sodium 137, Potassium 4.9, Chloride 112 H, Carbon Dioxide 22.0, Anion Gap 3 L, BUN 15, Creatinine 0.69, Estim Creat Clear Calc 76.07, Est GFR (MDRD) Af Amer 111, Est GFR (MDRD) Non-Af 92, BUN/Creatinine Ratio 21.7 H, Glucose 95, Calcium 8.2 L 04/08/19 11:29: POC Glucose 104 Current Medications Acetaminophen (Tylenol) 500 mg PO Q6H PRN PRN PRN Reason: Pain Score 1-1010 Acetaminophen (Tylenol) 650 mg RECTAL Q6H PRN PRN PRN Reason: Pain Score 1-1010 Last Admin: 04/06/19 06:52 Dose: 650 mg Documented by: Aspirin (Aspirin, Baby) 81 mg PO QHS [facility] Last Admin: 04/07/19 22:28 Dose: 81 mg Documented by: Atorvastatin Calcium (Lipitor) 40 mg PO QHS [facility] Last Admin: 04/07/19 22:28 Dose: 40 mg Documented by: Cyanocobalamin (Vitamin B12) 1,000 mcg PO DAILY@0800 [facility] Last Admin: 04/08/19 09:14 Dose: 1,000 mcg Documented by: Escitalopram Oxalate (Lexapro) 10 mg PO QHS [facility] Last Admin: 04/07/19 22:28 Dose: 10 mg Documented by: Heparin Sodium (Porcine) (Heparin Na) 5,000 unit SC Q12 [facility] Last Admin: 04/08/19 09:14 Dose: 5,000 unit Documented by: Sodium Chloride () 1,000 mls @ 125 mls/hr IV .Q8H [facility] Last Admin: 04/08/19 12:01 Dose: Not Given Documented by: Sodium Chloride () 250 mls @ 15 mls/hr IV .[id number] PRN PRN Reason: Saline Flush Valproic Acid 500 mg/ Dextrose 55 mls @ 50 mls/hr IV Q8 [facility] Last Infusion: 04/08/19 06:57 Dose: Infused Documented by: Nystatin (Mycostatin Powder) 1 applic TOPICAL BID [facility]; Protocol Last Admin: 04/08/19 09:15 Dose: 1 applicatio Documented by: Pantoprazole Sodium (Protonix) 40 mg PO QHS [facility] Last Admin: 04/07/19 22:27 Dose: 40 mg Documented by: Sodium Chloride () 10 - 40 ml IV UD PRN PRN Reason: SALINE FLUSH Topiramate (Topamax) 50 mg PO BID [facility]; Taper Stop: 04/16/19 21:59 Last Admin: 04/08/19 09:15 Dose: 50 mg Documented by: Medical Necessity - Tobacco Use Smoking Status: Never smoker Tobacco Use: Non-smoker Assessment/Plan All Active Problems ADAM (acute kidney injury) (Acute) Migraine (Acute) Encephalopathy (Acute) UTI (urinary tract infection) (Resolved) TIA (transient ischemic attack) (Resolved) 1. Encephalopathy - metabolic vs toxic. Possibly complex migraine. Possibly partially due to dehydration/ADAM. Seems to be improving with weaned topamax and after starting mag and depacon. - MRI brain/MRA head and neck are negative for acute changes. -EEG shows generalized mild to moderate slowing c/w metabolic/toxic encephalopathy -Neuro following. -Ammonia negative. TSH and b12 levels are normal. Tox screen negative. -CXR/UA negative. 2. ADAM - likely dehydration - resolved. 3. Hx CVA, hx Right PUBLIC HEALTH NUTRITIONIST aneurysm - continue aspirin. started on statin while here - Rx at dc. 4. Anxiety/Depression - lexapro 5. GERD - continue ppi 6. Hx complex migraine - as per #1. Wean topamax. continue depacon. 7. Hx B12 def, vit D def - continue supplements DVT ppx: heparin DC planning: PTOT. Very weak may need placement. This patient was seen by Raphael Subramanian PA-C under the supervision of Dr. Godfrey. <Munir Godfrey - Last Filed: 04/08/19 14:04> Subjective: Patient is more awake and alert. She is more more oriented to the timing of the day. Complain of mild abdominal discomfort might be from constipation or soft tissue pain from fall. - Physical Exam Vitals/I&O's: Vital Signs Temp Pulse Resp BP Pulse Ox 97.6 F L 78 18 162/69 H 98 04/08/19 08:13 04/08/19 10:00 04/08/19 08:13 04/08/19 08:13 04/08/19 08:13 Oxygen Delivery Method Room Air Weight: 205 lb 14.588 oz Body Mass Index (BMI) 34.2 Finger Stick Blood Glucose 123 Intake and Output for Last 24 Hours 04/06/19 04/07/19 04/08/19 23:59 23:59 23:59 Intake Total 2858.33 / 3858.33 4746.32 / 4986.32 1774.17 / 1774.17 Output Total 1150 / 1950 2425 / 3125 2400 / 2400 Balance 1708.33 / 1908.33 2321.32 / 1861.32 -625.83 / -625.83 General: Alert, Oriented x3, Cooperative HEENT: Atraumatic, PERRLA, EOMI, Normocephalic Neck: Supple, No JVD, Negative Carotid Bruits Lungs: Clear to auscultation, Normal air movement Cardiovascular: Regular rate, Regular Rhythm, Normal S1, Normal S2, No murmurs Abdomen: Bowel Sounds Present, Soft, Non Tender, Non-Distended Extremities: No edema, Capillary Refill Less than 3 Seconds Skin: No rashes, No breakdown Musculoskeletal: No Tenderness to Palpation of Joints or Extremities, Arthritic Changes Neurological: Cranial nerves II-XII grossly intact, Deep Tendon Reflexes 2+/4 and Symmetrical, Neuro grossly intact Psych/Mental Status: Normal Affect, Appropriate Microbiology Past 72 Hours 04/05/19 19:20 Blood Culture (Wb) - No Site/Description Given Blood Culture - Preliminary No growth in 48 hours. 04/05/19 18:55 Blood Culture (Wb) - Left Hand Blood Culture - Preliminary No growth in 48 hours. Laboratory Results 04/07/19 05:22: ESR 14 04/08/19 05:34: Sodium 137, Potassium 4.9, Chloride 112 H, Carbon Dioxide 22.0, Anion Gap 3 L, BUN 15, Creatinine 0.69, Estim Creat Clear Calc 76.07, Est GFR (MDRD) Af Amer 111, Est GFR (MDRD) Non-Af 92, BUN/Creatinine Ratio 21.7 H, Glucose 95, Calcium 8.2 L 04/08/19 11:29: POC Glucose 104 Current Medications Acetaminophen (Tylenol) 500 mg PO Q6H PRN PRN PRN Reason: Pain Score 1-10/10 Acetaminophen (Tylenol) 650 mg RECTAL Q6H PRN PRN PRN Reason: Pain Score 1-10 Last Admin: 04/06/19 06:52 Dose: 650 mg Documented by: Aspirin (Aspirin, Baby) 81 mg PO QHS [facility] Last Admin: 04/07/19 22:28 Dose: 81 mg Documented by: Atorvastatin Calcium (Lipitor) 40 mg PO QHS [facility] Last Admin: 04/07/19 22:28 Dose: 40 mg Documented by: Cyanocobalamin (Vitamin B12) 1,000 mcg PO DAILY@0800 [facility] Last Admin: 04/08/19 09:14 Dose: 1,000 mcg Documented by: Escitalopram Oxalate (Lexapro) 10 mg PO QHS [facility] Last Admin: 04/07/19 22:28 Dose: 10 mg Documented by: Heparin Sodium (Porcine) (Heparin Na) 5,000 unit SC Q12 [facility] Last Admin: 04/08/19 09:14 Dose: 5,000 unit Documented by: Sodium Chloride () 1,000 mls @ 125 mls/hr IV .Q8H [facility] Last Admin: 04/08/19 12:01 Dose: Not Given Documented by: Sodium Chloride () 250 mls @ 15 mls/hr IV .[id number] PRN PRN Reason: Saline Flush Valproic Acid 500 mg/ Dextrose 55 mls @ 50 mls/hr IV Q8 [facility] Last Infusion: 04/08/19 06:57 Dose: Infused Documented by: Nystatin (Mycostatin Powder) 1 applic TOPICAL BID [facility]; Protocol Last Admin: 04/08/19 09:15 Dose: 1 applicatio Documented by: Pantoprazole Sodium (Protonix) 40 mg PO QHS [facility] Last Admin: 04/07/19 22:27 Dose: 40 mg Documented by: Sodium Chloride () 10 - 40 ml IV UD PRN PRN Reason: SALINE FLUSH Topiramate (Topamax) 50 mg PO BID [facility]; Taper Stop: 04/16/19 21:59 Last Admin: 04/08/19 09:15 Dose: 50 mg Documented by: Assessment/Plan This patient was seen in conjunction with Raphael CANAS. I have independently interviewed and examined the patient and reviewed pertinent history, examination findings, laboratory and plan of management. I have reviewed the note and agree with the documented findings with the few additional points. In brief, patient is admitted for altered mental status, weakness and confusion. MRI brain and MRA head and neck are negative for acute change. Seen by neurologist. On tapering regimen of Topamax from 100 mg twice daily to 50 mill grams twice daily for 3 days, 25 mg twice daily for 3 days and then 25 mg once daily for 3 days then stop. Valproate 500 mg IV every 8 hourly for 2 days. TSH and B12 are negative. Tox screen negative. Patient's daughter has concern for exposure to mold. Currently patient does not have respiratory symptoms and chest x-ray normal. I told her I do not recommend testing for fungal antibodies or exposure as it is not recommended. Discussed with the metal products viewer and he agreed with same. ADAM resolved. Patient also fell forward. She complained of pain over right lower chest. X- rays were done. Normal x-ray of ribs and abdomen and pelvis. Echo done shows EF 55% with stage I diastolic dysfunction. Normal RV size systolic function. Normal right and left atria I have discussed my assessment with Raphael CANAS and orders have been reviewed. Code Visit Inpatient E&M: 37042 Subs Hosp L2
[2019-04-08] MEDS: Pantoprazole Sodium 40 MG Tablet PO (20:58)
[2019-04-08] MEDS: Aspirin 81 MG TAB.CHEW PO (20:59)
[2019-04-08] MEDS: Atorvastatin Calcium 40 MG Tablet PO (20:59)
[2019-04-08] MEDS: Escitalopram Oxalate 10 MG Tablet PO (20:59)
[2019-04-09 02:00] VITALS: BP 141/57; PULSE 54; RESP 16; TEMP 36.8; O2SAT 94
[2019-04-09 08:00] VITALS: BP 128/54; PULSE 59; RESP 18; TEMP 36.6; O2SAT 92
--- NOTE | 2019-04-09 09:07 | CASEMGMT ---
Addendum entered by Adrienne Rodriguez 04/09/19 13:56: SOCORRO updated pt's sister that [facility] is able to accept pt pending pre-cert. Addendum entered by Adrienne Rodriguez 04/09/19 10:35: SOCORRO received call from Linda at [facility] stating they are able to accept pt and will submit for approval but will need a PAS/RR. SOCORRO updated Linda that pt will need pre-cert has pt has [facility] medicaid and not a LOC which is only needed if a pt has [facility] Medicaid. SOCORRO updated Linda that pt is in inpatient and will be coming for short term rehabilitation so only a convalescent 7000 is needed and not PAS/RR. Linda states understanding. Plan: [facility] pending pre-cert Original Note: Social Work Note SW has not heard back yet from [facility] regarding referral. SOCORRO placed a call to Linda in admissions and left her a message regarding referral. SOCORRO informed Linda that pt should be medically cleared for discharge today if pre-cert can be obtained. SOCORRO waiting for call back. Plan: [facility] pending acceptance and pre-cert Adrienne Rodriguez LEARNING TECHNOLOGIES SPECIALIST, BOOM WORKER
[2019-04-09] MEDS: Nystatin Powder 15gm Bottle 1 APPLIC TOPICAL ×2 (09:22→22:29)
[2019-04-09] MEDS: Cyanocobalamin 500 MCG Tablet 1000 MCG PO (09:22)
[2019-04-09] MEDS: Heparin Injection (Vial) 5,000 UNIT/ML VIAL 5000 UNIT SC ×2 (09:23→22:29)
[2019-04-09] MEDS: Topiramate 50 MG Tablet PO ×2 (09:29→22:28)
--- NOTE | 2019-04-09 12:02 | PCM.PN.NEU ---
Patient Problems: Active and Suspected Problems ADAM (acute kidney injury) (Acute) Migraine (Acute) Subjective: No issues overnight. Care discussed with the nursing staff. Patient more alert today, is AOA x3 at present. Denies any headache. - Physical Exam Vitals/I&O's: Vital Signs Temp Pulse Resp BP Pulse Ox 97.8 F 59 L 18 128/54 H 92 04/09/19 08:00 04/09/19 08:00 04/09/19 08:00 04/09/19 08:00 04/09/19 08:00 Oxygen Delivery Method Room Air Weight: 93.4 kg Body Mass Index (BMI) 34.2 Finger Stick Blood Glucose 123 Intake and Output for Last 24 Hours 04/07/19 04/08/19 04/09/19 23:59 23:59 23:59 Intake Total 4746.32 / 4986.32 3244.17 / 3544.17 605 / 605 Output Total 2425 / 3125 2400 / 2700 1000 / 1000 Balance 2321.32 / 1861.32 844.17 / 844.17 -395 / -395 General: Alert HEENT: Normocephalic Neck: Supple Lungs: Normal air movement Cardiovascular: Normal S1, Normal S2 Abdomen: Bowel Sounds Present Extremities: No cyanosis Neurological: - - Conscious, alert, AOA x3, CN II to XII grossly intact, power 5/5 both upper and lower extremities but is slow in following commands, plantars B/L flexor, no pronator drift, no sensory loss, no cerebellar signs, gait deferred, reflexes + B/L B/S/T/K/A, No NR, fundus not visualized, speech is clear but slow. Psych/Mental Status: Normal Affect Microbiology Past 72 Hours 04/05/19 19:20 Blood Culture (Wb) - No Site/Description Given Blood Culture - Preliminary No growth in 48 hours. 04/05/19 18:55 Blood Culture (Wb) - Left Hand Blood Culture - Preliminary No growth in 48 hours. Current Medications Acetaminophen (Tylenol) 500 mg PO Q6H PRN PRN PRN Reason: Pain Score 1-10/10 Acetaminophen (Tylenol) 650 mg RECTAL Q6H PRN PRN PRN Reason: Pain Score 1-10/10 Last Admin: 04/06/19 06:52 Dose: 650 mg Documented by: Aspirin (Aspirin, Baby) 81 mg PO QHS [facility] Last Admin: 04/08/19 20:59 Dose: 81 mg Documented by: Atorvastatin Calcium (Lipitor) 40 mg PO QHS [facility] Last Admin: 04/08/19 20:59 Dose: 40 mg Documented by: Cyanocobalamin (Vitamin B12) 1,000 mcg PO DAILY@0800 [facility] Last Admin: 04/09/19 09:22 Dose: 1,000 mcg Documented by: Escitalopram Oxalate (Lexapro) 10 mg PO QHS [facility] Last Admin: 04/08/19 20:59 Dose: 10 mg Documented by: Heparin Sodium (Porcine) (Heparin Na) 5,000 unit SC Q12 [facility] Last Admin: 04/09/19 09:23 Dose: 5,000 unit Documented by: Sodium Chloride () 250 mls @ 15 mls/hr IV .[id number] PRN PRN Reason: Saline Flush Valproic Acid 500 mg/ Dextrose 55 mls @ 50 mls/hr IV Q8 [facility] Last Infusion: 04/09/19 06:33 Dose: Infused Documented by: Nystatin (Mycostatin Powder) 1 applic TOPICAL BID [facility]; Protocol Last Admin: 04/09/19 09:22 Dose: 1 applicatio Documented by: Pantoprazole Sodium (Protonix) 40 mg PO QHS [facility] Last Admin: 04/08/19 20:58 Dose: 40 mg Documented by: Sodium Chloride () 10 - 40 ml IV UD PRN PRN Reason: SALINE FLUSH Topiramate (Topamax) 50 mg PO BID [facility]; Taper Stop: 04/16/19 21:59 Last Admin: 04/09/19 09:29 Dose: 50 mg Documented by: Diagnostic/Tx/Re-eval - Rhythm Strip Rhythm Strip: Sinus Rhythm - Sinus rhythm at 95 bpm. NJ interval 54, QRS 70, QTc 449, normal axis. Artifact at baseline. No ST elevation ST depression. No ischemic changes appreciated. Medical Necessity - Tobacco Use Smoking Status: Never smoker Tobacco Use: Non-smoker Assessment/Plan All Active Problems ADAM (acute kidney injury) (Acute) Migraine (Acute) Encephalopathy (Acute) UTI (urinary tract infection) (Resolved) TIA (transient ischemic attack) (Resolved) The patient is a 64 year old F with PMH HTN, HLD, H/O TIA/CVA, Migraine, anxiety/depression, vitamin B12 and vitamin D deficiency admitted with AMS. Story obtained from patient as well as patient's sister, and medical records. 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 No documentation of witnessed seizures. Per patient she did have headaches, has history of migraine and is on Topamax 100 mg p.o. twice daily, at present per the nurse taking care of the patient as well as family members patient's mental status has improved, but continues to have clear but slow speech, no focal motor weakness, denies any sensory loss, denies any visual disturbances dizziness. Per sister she lives alone, denies any frequent falls, does not use cane or walker to ambulate, does not need any assistance for ADLs and does drive [place] people. On admission her blood pressure was 165/84 mmHg, WBC 18.2, NA 144, K 3.9, creatinine 1.08, AST/ALT /, ammonia <10, vitamin B12 292, TSH?1.74, UDS negative, UA?WBC 0, nitrate negative, LE negative, bacteria 0. CT head reported to show old small lacunar infarct of the right basal ganglia. MRI brain did not show anything acute, MRA head/neck not reported to show any hemodynamically significant stenosis or occlusion and per radiology there was no aneurysm. Impression AMS?possible metabolic encephalopathy Possible confusional migraine versus medication induced secondary to Topamax Vitamin B12 and vitamin D deficiency Plan -MRI brain and MRA head/neck reviewed?nothing acute, no aneurysm per radiology -EEG-reviewed, mild slowing, nothing epileptiform, no seizure activity -Labs reviewed, ESR-14 -On aspirin and statin at baseline -Wean off Topamax to 50 mg p.o. twice daily for 3 days, then decrease to 25 mg p.o. twice daily for 3 days then decrease to 25 mg p.o. once daily for 3 days and then stop. Discussed with the hospitalist -Trial of Depacon 500 mg IV every 8 hourly for 24 to 48 hours and then stop- complete today -Vitamin B12 1000 mcg p.o. once daily -Better BP control, goal < 130/80 mmHg, defer to hospitalist -On vitamin D -PT/OT/ST -GI/DVT prophylaxis -Fall precautions -Further medical management per hospitalist team -Please call with questions if any -Follow-up with neurology in 4 weeks -Thank you for allowing us to participate in patient's care and management This note has been generated using [employer] dictation software. It may contain incorrect words, spellings and punctuation that were not noted in the review of the note prior to signing
--- NOTE | 2019-04-09 13:18 | PCM.PROGNOTE ---
<Raphael Subramanian - Last Filed: 04/09/19 13:18> Patient Problems: Active and Suspected Problems ADAM (acute kidney injury) (Acute) Migraine (Acute) Subjective: Pt resting comfortably in bed, NAD, A/Ox3. Somewhat slow to respond. No pain, nausea/vomiting, fever/chills. Waiting for placement. - Physical Exam Vitals/I&O's: Vital Signs Temp Pulse Resp BP Pulse Ox 97.8 F 59 L 18 128/54 H 92 04/09/19 08:00 04/09/19 08:00 04/09/19 08:00 04/09/19 08:00 04/09/19 08:00 Oxygen Delivery Method Room Air Weight: 205 lb 14.588 oz Body Mass Index (BMI) 34.2 Finger Stick Blood Glucose 123 Intake and Output for Last 24 Hours 04/07/19 04/08/19 04/09/19 23:59 23:59 23:59 Intake Total 4746.32 / 4986.32 3244.17 / 3544.17 605 / 605 Output Total 2425 / 3125 2400 / 2700 1000 / 1000 Balance 2321.32 / 1861.32 844.17 / 844.17 -395 / -395 General: Alert, Oriented x3, Cooperative HEENT: Atraumatic, PERRLA, EOMI, Normocephalic Neck: Supple, No JVD, Negative Carotid Bruits Lungs: Clear to auscultation, Normal air movement Cardiovascular: Regular rate, No murmurs Abdomen: Bowel Sounds Present, Soft, Non Tender Extremities: No edema, Capillary Refill Less than 3 Seconds Skin: No rashes, No breakdown Musculoskeletal: No Tenderness to Palpation of Joints or Extremities Neurological: Cranial nerves II-XII grossly intact Psych/Mental Status: Normal Affect, Appropriate, Alert and oriented to time, place, person, mood and affect Microbiology Past 72 Hours 04/05/19 19:20 Blood Culture (Wb) - No Site/Description Given Blood Culture - Preliminary No growth in 48 hours. 04/05/19 18:55 Blood Culture (Wb) - Left Hand Blood Culture - Preliminary No growth in 48 hours. Current Medications Acetaminophen (Tylenol) 500 mg PO Q6H PRN PRN PRN Reason: Pain Score 1-10/10 Acetaminophen (Tylenol) 650 mg RECTAL Q6H PRN PRN PRN Reason: Pain Score 1-1010 Last Admin: 04/06/19 06:52 Dose: 650 mg Documented by: Aspirin (Aspirin, Baby) 81 mg PO QHS [facility] Last Admin: 04/08/19 20:59 Dose: 81 mg Documented by: Atorvastatin Calcium (Lipitor) 40 mg PO QHS [facility] Last Admin: 04/08/19 20:59 Dose: 40 mg Documented by: Cyanocobalamin (Vitamin B12) 1,000 mcg PO DAILY@0800 [facility] Last Admin: 04/09/19 09:22 Dose: 1,000 mcg Documented by: Escitalopram Oxalate (Lexapro) 10 mg PO QHS [facility] Last Admin: 04/08/19 20:59 Dose: 10 mg Documented by: Heparin Sodium (Porcine) (Heparin Na) 5,000 unit SC Q12 [facility] Last Admin: 04/09/19 09:23 Dose: 5,000 unit Documented by: Sodium Chloride () 250 mls @ 15 mls/hr IV .[id number] PRN PRN Reason: Saline Flush Valproic Acid 500 mg/ Dextrose 55 mls @ 50 mls/hr IV Q8 [facility] Last Infusion: 04/09/19 06:33 Dose: Infused Documented by: Nystatin (Mycostatin Powder) 1 applic TOPICAL BID [facility]; Protocol Last Admin: 04/09/19 09:22 Dose: 1 applicatio Documented by: Pantoprazole Sodium (Protonix) 40 mg PO QHS [facility] Last Admin: 04/08/19 20:58 Dose: 40 mg Documented by: Sodium Chloride () 10 - 40 ml IV UD PRN PRN Reason: SALINE FLUSH Topiramate (Topamax) 50 mg PO BID [facility]; Taper Stop: 04/16/19 21:59 Last Admin: 04/09/19 09:29 Dose: 50 mg Documented by: Medical Necessity - Tobacco Use Smoking Status: Never smoker Tobacco Use: Non-smoker Assessment/Plan All Active Problems ADAM (acute kidney injury) (Acute) Migraine (Acute) Encephalopathy (Acute) UTI (urinary tract infection) (Resolved) TIA (transient ischemic attack) (Resolved) 1. Encephalopathy - metabolic vs toxic. Possibly complex migraine. Possibly partially due to dehydration/ADAM. Seems to be improving with weaned topamax and after starting mag and depacon. - MRI brain/MRA head and neck are negative for acute changes. -EEG shows generalized mild to moderate slowing c/w metabolic/toxic encephalopathy -Neuro following. -Ammonia negative. TSH and b12 levels are normal. Tox screen negative. -CXR/UA negative. -Received 4 of 6 doses 50 bid topamax, then 25 BID x 6 doses, then 25 qd x 3 doses. 2. ADAM - likely dehydration - resolved. 3. 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 started on statin while here - Rx at dc. 4. Anxiety/Depression - lexapro 5. GERD - continue ppi 6. Hx complex migraine - as per #1. Wean topamax. continue depacon. 7. Hx B12 def, vit D def - continue supplements DVT ppx: heparin DC planning: Precert pending. This patient was seen by Raphael Subramanian PA-C under the supervision of Dr. Godfrey. <Munir Godfrey - Last Filed: 04/09/19 15:15> Subjective: CC: Follow-up for altered mental status/encephalopathy: Gradually improving. No fever or chills. Chest pain and abdominal pain much better. - Physical Exam Vitals/I&O's: Vital Signs Temp Pulse Resp BP Pulse Ox 98.2 F 62 18 133/59 H 98 04/09/19 14:00 04/09/19 14:00 04/09/19 14:00 04/09/19 14:00 04/09/19 14:00 Oxygen Delivery Method Room Air Weight: 205 lb 14.588 oz Body Mass Index (BMI) 34.2 Finger Stick Blood Glucose 123 Intake and Output for Last 24 Hours 04/07/19 04/08/19 04/09/19 23:59 23:59 23:59 Intake Total 4746.32 / 4986.32 3244.17 / 3544.17 1285 / 1285 Output Total 2425 / 3125 2400 / 2700 1950 / 1950 Balance 2321.32 / 1861.32 844.17 / 844.17 -665 / -665 General: Alert, Oriented x3, Cooperative HEENT: Atraumatic, PERRLA, EOMI, Normocephalic Neck: Supple, No JVD, Negative Carotid Bruits Lungs: Clear to auscultation, Normal air movement, No rhonchi, No wheeze Cardiovascular: Regular rate, Regular Rhythm, Normal S1, Normal S2, No murmurs Abdomen: Bowel Sounds Present, Soft, Non Tender, Non-Distended Extremities: No edema, Capillary Refill Less than 3 Seconds Skin: No rashes, No breakdown Musculoskeletal: No Tenderness to Palpation of Joints or Extremities Neurological: Cranial nerves II-XII grossly intact, Deep Tendon Reflexes 2+/4 and Symmetrical, Neuro grossly intact Psych/Mental Status: Normal Affect, Appropriate Microbiology Past 72 Hours 04/05/19 19:20 Blood Culture (Wb) - No Site/Description Given Blood Culture - Preliminary No growth in 48 hours. 04/05/19 18:55 Blood Culture (Wb) - Left Hand Blood Culture - Preliminary No growth in 48 hours. Current Medications Acetaminophen (Tylenol) 500 mg PO Q6H PRN PRN PRN Reason: Pain Score 1-10/10 Acetaminophen (Tylenol) 650 mg RECTAL Q6H PRN PRN PRN Reason: Pain Score 1-10/10 Last Admin: 04/06/19 06:52 Dose: 650 mg Documented by: Aspirin (Aspirin, Baby) 81 mg PO QHS [facility] Last Admin: 04/08/19 20:59 Dose: 81 mg Documented by: Atorvastatin Calcium (Lipitor) 40 mg PO QHS [facility] Last Admin: 04/08/19 20:59 Dose: 40 mg Documented by: Cyanocobalamin (Vitamin B12) 1,000 mcg PO DAILY@0800 [facility] Last Admin: 04/09/19 09:22 Dose: 1,000 mcg Documented by: Escitalopram Oxalate (Lexapro) 10 mg PO QHS [facility] Last Admin: 04/08/19 20:59 Dose: 10 mg Documented by: Heparin Sodium (Porcine) (Heparin Na) 5,000 unit SC Q12 [facility] Last Admin: 04/09/19 09:23 Dose: 5,000 unit Documented by: Sodium Chloride () 250 mls @ 15 mls/hr IV .[id number] PRN PRN Reason: Saline Flush Valproic Acid 500 mg/ Dextrose 55 mls @ 50 mls/hr IV Q8 [facility] Last Admin: 04/09/19 14:20 Dose: 50 mls/hr Documented by: Nystatin (Mycostatin Powder) 1 applic TOPICAL BID [facility]; Protocol Last Admin: 04/09/19 09:22 Dose: 1 applicatio Documented by: Pantoprazole Sodium (Protonix) 40 mg PO QHS [facility] Last Admin: 04/08/19 20:58 Dose: 40 mg Documented by: Sodium Chloride () 10 - 40 ml IV UD PRN PRN Reason: SALINE FLUSH Last Admin: 04/09/19 14:17 Dose: 10 ml Documented by: Topiramate (Topamax) 50 mg PO BID [facility]; Taper Stop: 04/16/19 21:59 Last Admin: 04/09/19 09:29 Dose: 50 mg Documented by: Assessment/Plan This patient was seen in conjunction with Raphael CANAS. I have independently interviewed and examined the patient and reviewed pertinent history, examination findings, laboratory and plan of management. I have reviewed the note and agree with the documented findings with the few additional points. In brief, patient is admitted for altered mental status, weakness and confusion. MRI brain and MRA head and neck are negative for acute change. Seen by neurologist. On tapering regimen of Topamax from 100 mg twice daily to 50 mill grams twice daily for 3 days, 25 mg twice daily for 3 days and then 25 mg once daily for 3 days then stop. Valproate 500 mg IV every 8 hourly for 2 days. TSH and B12 are negative. Tox screen negative. Patient's daughter has concern for exposure to mold. Currently patient does not have respiratory symptoms and chest x-ray normal. I told her I do not recommend testing for fungal antibodies or exposure as it is not recommended. Discussed with the dance teacher and he agreed with same. ADAM resolved. Patient also fell forward. She complained of pain over right lower chest. X-rays were done. Normal x-ray of ribs and abdomen and pelvis. Echo done shows EF 55% with stage I diastolic dysfunction. Normal RV size systolic function. Normal right and left atria 04/09: Patient chest pain and abdominal pain have improved. Patient mental status improved. On tapering dose of Topamax and valproic acid. I have discussed my assessment with Raphael CANAS and orders have been reviewed. Code Visit Inpatient E&M: 52520 Subs Hosp L2
[2019-04-09 14:00] VITALS: BP 133/59; PULSE 62; RESP 18; TEMP 36.8; O2SAT 98
[2019-04-09] MEDS: 0.9% Saline Lock 10 ML Syringe IV (14:17)
[2019-04-09 16:51] LABS: Vitamin D 1,25-Dihydroxy 73.7 pg/mL (19.9-79.3)
[2019-04-09 20:11] VITALS: BP 133/76; PULSE 63; RESP 20; TEMP 37.4; O2SAT 98
[2019-04-09] MEDS: Escitalopram Oxalate 10 MG Tablet PO (22:29)
[2019-04-09] MEDS: Atorvastatin Calcium 40 MG Tablet PO (22:29)
[2019-04-09] MEDS: Aspirin 81 MG TAB.CHEW PO (22:29)
[2019-04-09] MEDS: Pantoprazole Sodium 40 MG Tablet PO (22:29)
[2019-04-10 02:17] VITALS: BP 145/75; PULSE 66; RESP 18; TEMP 36.6; O2SAT 96
[2019-04-10 07:48] VITALS: BP 142/76; PULSE 58; RESP 16; TEMP 36.6; O2SAT 96
[2019-04-10 08:00] VITALS: BP 129/99; PULSE 88; RESP 16; TEMP 36.9; O2SAT 95
--- NOTE | 2019-04-10 09:26 | CASEMGMT ---
Addendum entered by Adrienne Rodriguez 04/10/19 13:07: SOCORRO spoke with Kat at [facility] stating pre-cert has been obtained and pt is able to discharge today. SOCORRO faxed completed discharge paperwork to [email or web address] including transfer to extended care facility, signed medication list and any scripts. Original in SNF folder and copy on pt's chart. SOCORRO completed [facility] in [facility]. Original in SNF folder and copy on pt's chart. SOCORRO updated pt and pt's sister on approval and discharge. SOCORRO placed a call to [facility] and arranged transportation via cot for 4:00pm. Transportation form completed and placed on SNF folder and copy on pt's chart. SOCORRO updated pt and pt's sister on transportation time. SOCORRO placed a call to [email or web address] and updated Kat on transportation time. RN updated on transportation time. Plan: [facility] skilled today with [facility] transporting via cot at 4:00pm [facility] Original Note: Social Work Note SOCORRO faxed updated clinicals to [facility]. Plan: [facility] pending pre-cert [facility]
--- NOTE | 2019-04-10 10:18 | PCM.TXEXTCAR ---
- Diet 04/09/19 08:53 Diet: Regular Diet Food consistency:: Regular Liquid Consistency:: Regular/Thin Is pt able to select menu?: No Diet Comments: no straws - Routine Orders/Code Status Suppository Type: Dulcolax 10mg Suppository Frequency: Daily PRN - Wound(s) Left Knee Wound Type: Abrasion - Therapies Weight Bearing: Weight bearing as tolerated Extremity Affected:: Bilateral Lower Physical Therapy: Eval and Treat Occupational Therapy: Eval and Treat Speech Therapy: Eval and Treat - Allergies/Procedures Done in Hospital Allergies/Adverse Reactions: Allergies No Known Allergies Allergy (Verified 12/20/17 23:25) - Type of Care/Length of Stay Estimated LOS: Convalescent Care Less Than 30 days Type of Care Needed: Skilled Rehab Potential: Good Prognosis: Good - Additional Orders/Day of Discharge Day of Discharge: 04/10/19 - Dietary and Speech Recommendations Dietitian Recommendations/Changes: Continue regular diet, texture/consistency per PHOTO FINISH PHOTOGRAPHER. As PO intake at meals improves, recommend cardiac/low cholesterol diet. - Follow Up Care Primary Care Physician: Cedric Mcnally DO [Primary Care Provider] - Please follow up with your Primary Care Physician in: in 2 weeks Please Follow Up With: Fabi Bay MD When: in 2-4 weeks
--- NOTE | 2019-04-10 10:21 | DS.PCM_ITS ---
Discharge Date and Diagnosis - Problem List Patient Problems: Active and Suspected Problems ADAM (acute kidney injury) (Acute) Migraine (Acute) Date of Admission: 04/05/19 Date of Discharge: 04/10/19 - Primary Discharge Diagnosis Active and Suspected Problems ADAM (acute kidney injury) (Acute) Migraine (Acute) - Secondary Discharge Diagnosis Chronic Problems GERD (gastroesophageal reflux disease) (Chronic) HLD (hyperlipidemia) (Chronic) Anxiety and depression (Chronic) Obesity (BMI 30.0-34.9) (Chronic) History of CVA (cerebrovascular accident) (Chronic) Hospital Course and Treatment Operations: None Summary of Care Provided: The patient is a 64 year old F admitted for altered mental status, weakness and confusion. MRI brain and MRA head and neck are negative for acute change. Seen by neurologist. On tapering regimen of Topamax from 100 mg twice daily to 50 mill grams twice daily for 3 days, 25 mg twice daily for 3 days and then 25 mg once daily for 3 days then stop. Valproate 500 mg IV every 8 hourly for 2 days. TSH and B12 are negative. Tox screen negative. Patient's daughter has concern for exposure to mold. Currently patient does not have respiratory symptoms and chest x-ray normal. I told her I do not recommend testing for fungal antibodies or exposure as it is not recommended. Discussed with the assistant project manager and he agreed with same. ADAM resolved. Treat with IV fluid. Patient also fell forward. She complained of pain over right lower chest. X- rays were done. Normal x-ray of ribs and abdomen and pelvis. Echo done shows EF 55% with stage I diastolic dysfunction. Normal RV size systolic function. Normal right and left atria 04/09: Patient chest pain and abdominal pain have improved. Patient mental status improved. On tapering dose of Topamax and valproic acid. 04/10: Discharge medication reconciliation done. Discharge follow-up instru ctions completed. Discharge process discussed with the patient and all questions were answered to patient's satisfaction. Follow-up with a neurologist Con Lang in 2 weeks. Patient will need medication for migraine prophylaxis possible Depakote. Is been discharged to SNF. Total time spent, exact 35 minutes on discharge meds reconciliation, examination, review of imaging and blood test and discussion with the patient on follow-up instructions. Patient Problems: Active and Suspected Problems ADAM (acute kidney injury) (Acute) Migraine (Acute) Subjective: The patient is on baseline. Patient's family had a question regarding the neuro follow-up. The patient's daughter wants to follow-up with a neurologist in [place], Dr. Cain Denies abdominal pain. Objective: General: Alert, Oriented x3, Cooperative HEENT: Atraumatic, PERRLA, EOMI, Normocephalic Neck: Supple, No JVD, Negative Carotid Bruits Lungs: Clear to auscultation, Normal air movement, No rhonchi, No wheeze Cardiovascular: Regular rate, Regular Rhythm, Normal S1, Normal S2, No murmurs Abdomen: Bowel Sounds Present, Soft, Non Tender, Non-Distended Extremities: No edema, Capillary Refill Less than 3 Seconds Skin: No rashes, No breakdown Musculoskeletal: No Tenderness to Palpation of Joints or Extremities Neurological: Cranial nerves II-XII grossly intact, Deep Tendon Reflexes 2+/4 and Symmetrical, Neuro grossly intact Psych/Mental Status: Normal Affect, Appropriate - Physical Exam Vitals/I&O's: Vital Signs Temp Pulse Resp BP Pulse Ox 97.9 F 58 L 16 142/76 H 96 04/10/19 07:48 04/10/19 07:48 04/10/19 07:48 04/10/19 07:48 04/10/19 07:48 Oxygen Delivery Method Room Air Weight: 205 lb 14.588 oz Body Mass Index (BMI) 34.2 Finger Stick Blood Glucose 123 Intake and Output for Last 24 Hours 04/08/19 04/09/19 04/10/19 23:59 23:59 23:59 Intake Total 3244.17 / 3544.17 1715 / 1715 355 / 355 Output Total 2400 / 2700 1950 / 1950 Balance 844.17 / 844.17 -235 / -235 355 / 355 Microbiology Past 72 Hours 04/05/19 19:20 Blood Culture (Wb) - No Site/Description Given Blood Culture - Preliminary No growth in 48 hours. 04/05/19 18:55 Blood Culture (Wb) - Left Hand Blood Culture - Preliminary No growth in 48 hours. Laboratory Results 04/07/19 05:22: Vit D 1,25-Dihydroxy 73.7 Current Medications Acetaminophen (Tylenol) 500 mg PO Q6H PRN PRN PRN Reason: Pain Score 1-10/10 Acetaminophen (Tylenol) 650 mg RECTAL Q6H PRN PRN PRN Reason: Pain Score 1-1010 Last Admin: 04/06/19 06:52 Dose: 650 mg Documented by: Aspirin (Aspirin, Baby) 81 mg PO QHS [facility] Last Admin: 04/09/19 22:29 Dose: 81 mg Documented by: Atorvastatin Calcium (Lipitor) 40 mg PO QHS [facility] Last Admin: 04/09/19 22:29 Dose: 40 mg Documented by: Cyanocobalamin (Vitamin B12) 1,000 mcg PO DAILY@0800 [facility] Last Admin: 04/09/19 09:22 Dose: 1,000 mcg Documented by: Escitalopram Oxalate (Lexapro) 10 mg PO QHS [facility] Last Admin: 04/09/19 22:29 Dose: 10 mg Documented by: Heparin Sodium (Porcine) (Heparin Na) 5,000 unit SC Q12 [facility] Last Admin: 04/09/19 22:29 Dose: 5,000 unit Documented by: Sodium Chloride () 250 mls @ 15 mls/hr IV .[id number] PRN PRN Reason: Saline Flush Valproic Acid 500 mg/ Dextrose 55 mls @ 50 mls/hr IV Q8 [facility] Last Infusion: 04/10/19 06:31 Dose: Infused Documented by: Nystatin (Mycostatin Powder) 1 applic TOPICAL BID [facility]; Protocol Last Admin: 04/09/19 22:29 Dose: 1 applicatio Documented by: Pantoprazole Sodium (Protonix) 40 mg PO QHS [facility] Last Admin: 04/09/19 22:29 Dose: 40 mg Documented by: Sodium Chloride () 10 - 40 ml IV UD PRN PRN Reason: SALINE FLUSH Last Admin: 04/09/19 14:17 Dose: 10 ml Documented by: Topiramate (Topamax) 50 mg PO BID [facility]; Taper Stop: 04/16/19 21:59 Last Admin: 04/09/19 22:28 Dose: 50 mg Documented by: Home Medications: Medications to take at Discharge Aspirin 1 tab PO QHS 07/19/17 Escitalopram Oxalate [Lexapro] 10 mg PO QHS 07/19/17 Ergocalciferol [Vitamin D] 50,000 unit PO QWEEK 12/20/17 Omeprazole 40 mg PO QHS 08/02/18 Cyanocobalamin [Vitamin B12] 1,000 mcg PO DAILY@0800 #60 tab 01/17/18 Atorvastatin Calcium [Lipitor] 20 mg PO QHS tab 04/10/19 Nystatin Powder [Mycostatin Powder] 1 applic TOPICAL BID bottle 04/10/19 Topiramate [Topamax] 50 mg PO BID tab 04/10/19 Primary Care Physician: Cedric Mcnally DO [Primary Care Provider] - Please follow up with your Primary Care Physician in: in 2 weeks Please Follow Up With: Fabi Bay MD When: in 2-4 weeks Medical Necessity - Tobacco Use Smoking Status: Never smoker Tobacco Use: Non-smoker Meaningful Use Info Meaningful Use Diagnoses (Choose all that apply): None applicable Code Visit Inpatient E&M: 81963 Disch Hosp
[2019-04-10] MEDS: Nystatin Powder 15gm Bottle 1 APPLIC TOPICAL (10:28)
[2019-04-10] MEDS: Topiramate 50 MG Tablet PO (10:28)
[2019-04-10] MEDS: Heparin Injection (Vial) 5,000 UNIT/ML VIAL 5000 UNIT SC (10:30)
[2019-04-10] MEDS: Cyanocobalamin 500 MCG Tablet 1000 MCG PO (10:30)
[2019-04-10 13:25] VITALS: BP 155/74; PULSE 73; RESP 18; TEMP 36.4; O2SAT 95
--- NOTE | 2019-04-10 15:29 | CASEMGMT ---
Social Work Note [place] updated this worker that Ronnell called and will be at [facility] around 6:00pm now instead of 4:00pm. RN updated. SW placed a call to [facility] [employer] [facility] and updated staff that transportation is now at 6:00pm. SW placed a call to pt's sister Isha and updated her on transportation time. SW updated pt on transportation time. Adrienne Rodriguez [employer], GAME MODERATOR
[2019-04-10 16:00] VITALS: BP 158/70; PULSE 72; RESP 16; TEMP 36.6; O2SAT 94
--- NOTE | 2019-04-10 18:12 | NURSING ---
pt left via ambulance for alf.
== END 2019-04-10 18:17 | disposition skilled nursing facility (03) | DRG 52 ==
LOC: ED 14:54 → MS3 18:25
PROVIDERS: Emergency Medicine; Internal Medicine; Physician Assistant; Psychiatry & Neurology Neurology; Admitting Provider Internal Medicine; Emergency Provider Emergency Medicine; Family Provider Family Medicine; PCP Family Medicine; Referring Provider Internal Medicine; Visit Provider Internal Medicine
DX: G92 Toxic encephalopathy (principal); T42.6X5A Adverse effect of other antiepileptic and sedative-hypnotic drugs, initial encounter; N17.9 Acute kidney failure, unspecified; E55.9 Vitamin D deficiency, unspecified; K21.9 Gastro-esophageal reflux disease without esophagitis; E53.8 Deficiency of other specified B group vitamins; F32.9 Major depressive disorder, single episode, unspecified; F41.9 Anxiety disorder, unspecified; E66.9 Obesity, unspecified; E78.5 Hyperlipidemia, unspecified; G43.909 Migraine, unspecified, not intractable, without status migrainosus; Z68.34 Body mass index [BMI] 34.0-34.9, adult; Z86.73 Personal history of transient ischemic attack (TIA), and cerebral infarction without residual deficits; Z79.82 Long term (current) use of aspirin
CPT/HCPCS: 36415; 70450; 70544; 70549; 70551; 71045; 71110; 74018; 80048; 80053; 80061; 80307; 81001; 82140; 82607; 82652; 82962; 83036; 84443; 84484; 85025; 85652; 87040; 92507; 92526; 92610; 93005; 93306; 95819; 97116; 97162; 97166; 97530; 97535; 97802; 97803; 99285; A9585; J7030; J7040; P9612; Q9957; 90686; A4216; C8929

== ENCOUNTER 2020-09-27 18:05 | Inpatient (IN) | payer MEDICAID, SELFPAY ==
[2019-04-05 18:17] VITALS: BMI 34.2
[2020-09-27] VITALS (9 sets, daily range): BP systolic 163–174; BP diastolic 86–105; PULSE 98–110; RESP 15–25; TEMP 36.4–37; O2SAT 90–96; BMI 39.9; BMI 41.4
--- NOTE | 2020-09-27 18:07 | RAD_ITS ---
INDICATION: Neuro deficit, acute, stroke suspected EXAMINATION/TECHNIQUE: X-RAY - XR Chest 1 View COMPARISON: 04/07/2019. FINDINGS: Low lung volumes. The cardiomediastinal silhouette is unremarkable. No pleural effusion or pneumothorax. No acute osseous abnormalities. RAD/Chest 1 View IMPRESSION: No acute radiographic abnormalities. Low lung volumes. Electronically Signed: Sahil Dong MD at 19:51 EDT Tel , Service support ,
--- NOTE | 2020-09-27 18:07 | EKG12_ITS ---
Test Reason : STROKE Blood Pressure : / mmHG Vent. Rate : 106 BPM Atrial Rate : 106 BPM P-R Int : 164 ms QRS Dur : 144 ms QT Int : 386 ms P-R-T Axes : 057 -21 054 degrees QTc Int : 512 ms Sinus tachycardia Left bundle branch block Abnormal ECG Confirmed by MORGAN DOUGLAS, REGINE ([id number]), assistant editor PK TAPIA ([id number]) on 09/29/2020 9:09:00 AM Referred By: MP Confirmed By:REGINE MORA MD
--- NOTE | 2020-09-27 18:07 | CT_ITS ---
EXAMINATION : Head CT w/out contrast HISTORY : Neuro deficit, acute, stroke suspected COMPARISON : None. TECHNIQUE : Multiple contiguous axial images were obtained from the skull base to the vertex without intravenous contrast. A radiation dose optimization technique was used for this scan. FINDINGS : There is no evidence for acute intracranial hemorrhage, mass effect, or midline shift. There is no extra-axial fluid collection. There are periventricular white matter changes consistent with chronic microvascular ischemic disease. There is normal gee-white differentiation, without CT evidence of acute ischemia or infarct. The skull base and calvarium are unremarkable. The orbits are unremarkable. The paranasal sinuses are clear. The mastoid air cells are well-aerated. The soft tissues are unremarkable. CT/STROKE Brain/Head without Cont IMPRESSION: No acute intracranial abnormality. Chronic ischemic changes of the brain. N.B. : The above information has been verbally conveyed by Sahil Dong MD to Edvin Chambers MD, on 09/27/2020 18:34:45 (ET). Electronically Signed: Sahil Dong MD at 18:35 EDT Tel , Service support ,
--- NOTE | 2020-09-27 18:08 | EX.ED.DYSGE1 ---
HPI History of Present Illness Chief Complaint: Neuro S/Sx Informant: patient and EMS Onset/Context/Timing Onset: Today Context: Gradual Onset Timing: Continuous Current Severity: Moderate Maximum Severity: Moderate Narrative Narrative: The patient presents with confusion. Apparently, the patient does have history of prior stroke and TIA. 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 Apparently, the patient did have a mechanical fall today. Her sister stated that she was not acting normal afterwards. She would follow commands. She denies any current symptoms. She has been in her otherwise normal state of health. She does stay at an assisted living. She is not on anticoagulants. Her last known well was sometime before 3 PM today. Prior similar symptoms: Yes Recent Illness/Hospitalization: No PFSH PFSH Home Medications aspirin 1 tab PO QHS 07/19/17 [History Last Taken 09/26/20] ergocalciferol (vitamin D2) [Vitamin D2] 50,000 unit PO FR 12/20/17 [History Last Taken 09/24/20] nortriptyline 75 mg PO DINNER 09/27/20 [History Last Taken 09/26/20] omeprazole 20 mg PO DAILY 09/27/20 [History Last Taken 09/26/20] sumatriptan succinate 25 mg PO DAILY PRN PRN 09/27/20 [History Last Taken 09/27/20 16:10] Allergy/AdvReac Type Severity Reaction Status Date / Time No Known Allergies Allergy Verified 12/20/17 23:25 no significant family history Social History Smoking Status: Never smoker ROS ROS ED Constitutional Constitutional ED: Denies chills or fever(s) Eyes Eyes: Denies blurry vision or change in vision ENT ENT ED: Denies ear pain or sore throat Cardiovascular Cardiovascular: Denies chest pain or palpitations Respiratory/Chest Respiratory/Chest: Denies cough, dyspnea or dyspnea on exertion Gastrointestinal Gastrointestinal: Denies abdominal pain, nausea or vomiting Genitourinary Genitourinary ED: Denies dysuria or urinary frequency Musculoskeletal Musculoskeletal: Denies arthralgias or myalgias Integumentary Denies rash Neurologic Neurologic: Denies headache(s) or paresthesias Psychiatric Psychiatric: Denies anxiety or depression Endocrine Endocrinology: Denies polydipsia or polyuria Allergic/Immunologic Allergic/Immunologic ED: Denies urticaria EXAM Physical Exam Const Vital Signs: 09/27/20 18:07 09/27/20 18:37 09/27/20 18:45 Temperature 98.6 F Temperature Source Temporal Pulse Rate 107 H 105 H Respiratory Rate 25 H 15 Blood Pressure 164/92 H 169/95 H Blood Pressure Mean 116 119 Pulse Ox 93 93 93 Oxygen Delivery Method Room Air Room Air Room Air 09/27/20 19:45 09/27/20 20:10 09/27/20 20:41 Temperature 98 F Temperature Source Temporal Pulse Rate 106 H 103 H 109 H Respiratory Rate 21 H 20 H 20 H Blood Pressure 165/100 H 171/86 H 168/105 H Blood Pressure Mean 121 114 126 Pulse Ox 93 93 95 Oxygen Delivery Method Room Air Room Air Room Air Positive well nourished and well developed General Appearance ED: well developed HEENT Reports normocephalic, head/scalp atraumatic and moist mucous membranes Eyes PERRL and EOMs intact bilaterally Neck no lymphadenopathy and supple General: Negative for tenderness Chest Wall inspection of chest normal Resp normal respiratory effort and clear to auscultation bilaterally Cardio regular rate, regular rhythm and no murmurs GI normal to inspection, nondistended, normoactive bowel sounds Palpation: Negative for tender, guarding or rebound tenderness present Back/Spine no CVA tenderness Cervical Spine: Negative for cervical spine tenderness Thoracic Spine / Upper Back: Negative for thoracic spinal tenderness Extremity normal to inspection General Extremety ED: Negative for tenderness Neuro oriented x3 and CN's II-XII intact bilaterally Neuro Narrative: No focal deficits appreciated. NIH completed and is 0. Sensorium / Orientation: alert Psych mental status grossly normal Skin no rashes or lesions noted, no wounds and skin turgor normal MDM MDM MDM Narrative Medical decision making narrative: Stroke team was activated prehospital he. However, on arrival, the patient has an NIH of 0. She was sent immediately for a noncontrast head CT. This was negative for acute process. Screening labs were unremarkable. Urine shows evidence of infection. Patient is still mildly hypertensive. When she walks, she does have a shuffling gait and some mild ataxia. I do feel that this is more of a global issue. However, given her risk factors I do feel that she would benefit from observation for MRI. Patient was discussed with the hospitalist who agrees with plan of care. Impression 1. Ataxia Lab Data Attestation: I reviewed the patient's lab results. Labs: Laboratory Results - last 24 hr 09/27/20 09/27/20 09/27/20 18:07 18:13 18:13 WBC 9.1 RBC 5.00 Hgb 13.6 Hct 45.7 MCV 91.4 MCH 27.2 MCHC 29.8 L RDW Std Deviation 43.0 RDW Coeff of Crissy 12.9 Plt Count TNP MPV 9.3 Immature Gran % (Auto) 0.400 Neut % (Auto) 75.3 H Lymph % (Auto) 17.1 L Bland % (Auto) 4.9 Eos % (Auto) 0.9 Baso % (Auto) 1.4 H Absolute Neuts (auto) 6.8 Absolute Lymphs (auto) 1.55 Nucleated RBC % 0 Differential Comment SCANNED Platelet Estimate ADEQUATE PT Cancelled INR Cancelled APTT Cancelled Sodium Potassium Chloride Carbon Dioxide Anion Gap BUN Creatinine Estim Creat Clear Calc Est GFR (MDRD) Af Amer Est GFR (MDRD) Non-Af BUN/Creatinine Ratio Glucose Calcium Troponin I Urine Color Urine Clarity Urine pH Ur Specific [place] Urine Protein Urine Glucose (UA) Urine Ketones Urine Occult Blood Urine Nitrite Urine Bilirubin Urine Urobilinogen Ur Leukocyte Esterase Urine RBC Urine WBC Ur Squamous Epith Cells Urine Bacteria Urine Mucus POC Glucose 133 H 09/27/20 09/27/20 09/27/20 18:13 19:18 19:50 WBC RBC Hgb Hct MCV MCH MCHC RDW Std Deviation RDW Coeff of Crissy Plt Count MPV Immature Gran % (Auto) Neut % (Auto) Lymph % (Auto) Bland % (Auto) Eos % (Auto) Baso % (Auto) Absolute Neuts (auto) Absolute Lymphs (auto) Nucleated RBC % Differential Comment Platelet Estimate PT Cancelled INR Cancelled APTT Cancelled Sodium 138 Potassium 4.8 Chloride 106 Carbon Dioxide 29.0 Anion Gap 3 L BUN 18 Creatinine 1.07 H Estim Creat Clear Calc 52.33 Est GFR (MDRD) Af Amer 67 Est GFR (MDRD) Non-Af 55 L BUN/Creatinine Ratio 16.8 Glucose 120 H Calcium 9.3 Troponin I < 0.015 Urine Color Yellow Urine Clarity Clear Urine pH 6.5 Ur Specific [place] 1.010 Urine Protein Negative Urine Glucose (UA) Normal Urine Ketones Negative Urine Occult Blood Negative Urine Nitrite Negative Urine Bilirubin Negative Urine Urobilinogen Normal Ur Leukocyte Esterase Negative Urine RBC 0 SEEN Urine WBC 0 SEEN Ur Squamous Epith Cells 0 SEEN Urine Bacteria 0 SEEN Urine Mucus 0 SEEN POC Glucose 09/27/20 20:25 WBC RBC Hgb Hct MCV MCH MCHC RDW Std Deviation RDW Coeff of Crissy Plt Count MPV Immature Gran % (Auto) Neut % (Auto) Lymph % (Auto) Bland % (Auto) Eos % (Auto) Baso % (Auto) Absolute Neuts (auto) Absolute Lymphs (auto) Nucleated RBC % Differential Comment Platelet Estimate PT Cancelled INR Cancelled APTT Cancelled Sodium Potassium Chloride Carbon Dioxide Anion Gap BUN Creatinine Estim Creat Clear Calc Est GFR (MDRD) Af Amer Est GFR (MDRD) Non-Af BUN/Creatinine Ratio Glucose Calcium Troponin I Urine Color Urine Clarity Urine pH Ur Specific [place] Urine Protein Urine Glucose (UA) Urine Ketones Urine Occult Blood Urine Nitrite Urine Bilirubin Urine Urobilinogen Ur Leukocyte Esterase Urine RBC Urine WBC Ur Squamous Epith Cells Urine Bacteria Urine Mucus POC Glucose Radiography Diagnostic Testing: Radiology Impression Brain CT 09/27/20 18:07 IMPRESSION: No acute intracranial abnormality. Chronic ischemic changes of the brain. N.B. : The above information has been verbally conveyed by Sahil Dong MD to Edvin Chambers MD, on 09/27/2020 18:34:45 (ET). Electronically Signed: Sahil Dong MD at 18:35 EDT Tel , Service support , ADDENDUM: 09/27/20 1842 IMPRESSION: No acute intracranial abnormality. Chronic ischemic changes of the brain. N.B. : The above information has been verbally conveyed by Sahil Dong MD to Edvin Chambers MD, on 09/27/2020 18:34:45 (ET). Electronically Signed: Sahil Dong MD at 18:35 EDT Tel , Service support , Chest X-Ray 09/27/20 18:07 IMPRESSION: No acute radiographic abnormalities. Low lung volumes. Electronically Signed: Sahil Dong MD at 19:51 EDT Tel , Service support , Discharge Plan Triage Chief Complaint: Neuro S/Sx ED Provider: Edvin Chambers Dx/Rx/DC Orders Prescriptions: No Action aspirin 81 MG tablet,chewable 1 tab PO QHS RF: 0 ergocalciferol (vitamin D2) [Vitamin D2] 50,000 UNIT capsule 50,000 unit PO FR RF: 0 sumatriptan succinate 25 mg tablet 25 mg PO DAILY PRN PRN (Reason: Migraine Headache) RF: 0 nortriptyline 75 mg capsule 75 mg PO DINNER RF: 0 omeprazole 20 mg capsule,delayed release(DR/EC) 20 mg PO DAILY RF: 0 Primary Care Provider: Cedric Mcnally
[2020-09-27 18:39] LABS: Absolute Lymphocyte Count 1.55 X10^3/uL (0.83-4.51); Absolute Neutrophil Count 6.8 X10^3/uL (2.0-7.7); Basophil# 0.13 X10^3/uL; Basophil% 1.4 % (0-1); Eosinophil# 0.08 X10^3/uL; Eosinophils% 0.9 % (0-5); Hematocrit 45.7 % (37-47); Hemoglobin 13.6 g/dL (12.0-15.0); Lymphocyte # 1.55 X10^3/ul (0.83-4.51); Lymphocyte % 17.1 % (19-41); Mean Corp Hgb Conc 29.8 g/dL (32-36); Mean Corpuscular Hgb 27.2 pg (27.0-32.0); Mean Corpuscular Volume 91.4 fL (81-99); Mean Platelet Vol. 9.3 fl (6.2-12.0); Monocyte# 0.44 X10^3/uL; Monocyte% 4.9 % (0-10); NRBC Flagged by Analyzer 0 % (0-5); Neutrophil # 6.83 X10^3/uL (2.7-7.7); Neutrophil % 75.3 % (47-70); POSITIVE COUNT YES; RBC Distribution Width CV 12.9 % (11.6-14.6); White Blood Count 9.1 K/mm3 (4.4-11.0)
[2020-09-27 18:41] LABS: Differential Indicated SCAN CRITERIA MET
[2020-09-27] MEDS: 0.9% Normal Saline 1,000 ML 100 ML IV (18:53)
[2020-09-27 18:58] LABS: Differential Comment SCANNED
--- NOTE | 2020-09-27 18:58 | ED.RN ---
PT WITH UNKOWN LKW AND NIH OF ZERO, PER DR. PROCTOR NO [facility] OR [facility]OT.
[2020-09-27 18:59] LABS: Anion Gap 3 (5-15); BUN 18 mg/dL (7-18); BUN/Creat Ratio 16.8 RATIO (10-20); Calcium,Total 9.3 mg/dL (8.5-10.1); Chloride 106 mmol/L (98-107); Creatinine, Serum 1.07 mg/dL (0.55-1.02); EST Glomerular Filtration Rate 55 mL/min (>60); Est Glom Filt Rate - Afr Amer 67 mL/min (>60); Estimated Creatinine Clearance 52.33 ml/min; Glucose 120 mg/dL (74-106); Platelet Estimate ADEQUATE (ADEQ); Potassium 4.8 mmol/L (3.5-5.1); Sodium Level 138 mmol/L (136-145)
--- NOTE | 2020-09-27 19:16 | NURSING ---
dr ladd d/c neuro checks
[2020-09-27 19:24] LABS: Bacteria 0 SEEN /hpf (None Seen); Mucous, Urine 0 SEEN /hpf (<or=2+); Red Blood Cells-Urine 0 SEEN /hpf (0-5); Squamous Epithelial Cells - UA 0 SEEN /hpf (5-10); White Blood Cells 0 SEEN /hpf (0-5)
[2020-09-27 19:27] LABS: Color, Urine Yellow (Yellow); Glucose, Dipstick Normal (Normal); Ketone-Dipstick Negative (Negative); Leukocyte Esterase-Dipstick Negative /ul (Negative); Nitrite-Dipstick Negative (Negative); Occult Blood-Urine Negative /ul (Negative); Protein-Dipstick Negative (Negative); Urine Bilirubin Dipstick Negative (Negative); Urine Clarity Clear (Clear); Urine Urobilinogen Normal (Normal); Urine pH 6.5 (5.0 - 8.0)
[2020-09-27 19:46] LABS: Bedside Glucose 133 mg/dL (70-110)
--- NOTE | 2020-09-27 21:02 | HP.PCM_ITS ---
HPI - General General Date of Admission: 09/27/20 HPI Narrative JANEY DE OLIVEIRA, is a 65 F who presents to the ER with a history of fall earlier in the day and presents with confusion. The patient has a significant past medical history of TIA and/or stroke/and encephalopathy when she gets sick. Her last known time well was prior to 3 PM this afternoon. Laboratory studies are relatively unremarkable with the negative CT scan of the brain. The patient appears to be neurologically intact ,however, she still has some feeling of wobbliness on her feet while walking. Admission for observation was requested and patient will get MRI in the morning. Patient denies any dysuria no chest pain shortness of breath fevers or chills or other complaints at this time. [facility] Home Medications aspirin 1 tab PO QHS 07/19/17 [History Last Taken 09/26/20] ergocalciferol (vitamin D2) [Vitamin D2] 50,000 unit PO FR 12/20/17 [History Last Taken 09/24/20] nortriptyline 75 mg PO DINNER 09/27/20 [History Last Taken 09/26/20] omeprazole 20 mg PO DAILY 09/27/20 [History Last Taken 09/26/20] sumatriptan succinate 25 mg PO DAILY PRN PRN 09/27/20 [History Last Taken 09/27/20 16:10] Allergy/AdvReac Type Severity Reaction Status Date / Time No Known Allergies Allergy Verified 12/20/17 23:25 Social History Smoking Status: Never smoker ROS Constitutional Constitutional: Reports fatigue and weakness; Denies fever(s) Eyes Eyes: Denies blurry vision or change in vision ENT HEENT: Denies abnormal hearing Cardiovascular Cardiovascular: Denies chest pain Respiratory/Chest Respiratory/Chest: Denies cough or shortness of breath at rest Gastrointestinal Gastrointestinal: Denies abdominal pain Genitourinary Genitourinary: Denies dysuria Musculoskeletal Musculoskeletal: Denies back pain Integumentary Integumentary: Denies dry skin Neurologic Neurologic: Reports abnormal gait and confusion Psychiatric Psychiatric: Denies anxiety Hematologic/Lymphatic Hematologic/Lymphatic: Denies easy bleeding Vital Signs Vital Signs Vital Signs: 09/27/20 18:07 09/27/20 18:37 09/27/20 18:45 Temperature 98.6 F Temperature Source Temporal Pulse Rate 107 H 105 H Respiratory Rate 25 H 15 Blood Pressure 164/92 H 169/95 H Blood Pressure Mean 116 119 Pulse Ox 93 93 93 Oxygen Delivery Method Room Air Room Air Room Air 09/27/20 19:45 09/27/20 20:10 09/27/20 20:41 Temperature 98 F Temperature Source Temporal Pulse Rate 106 H 103 H 109 H Respiratory Rate 21 H 20 H 20 H Blood Pressure 165/100 H 171/86 H 168/105 H Blood Pressure Mean 121 114 126 Pulse Ox 93 93 95 Oxygen Delivery Method Room Air Room Air Room Air Physical Exam Const oriented x3, no apparent distress and well nourished General Appearance: cooperative and well developed HEENT normocephalic, head/scalp atraumatic and moist oral mucous membranes Eyes PERRL and EOMs intact bilaterally Neck supple Lymph Lymphatic: no lymphadenopathy noted Resp normal respiratory effort and clear to auscultation bilaterally Cardio regular rate, regular rhythm, S1 normal heart sound, S2 normal heart sound and no murmurs GI normal to inspection, nondistended, normoactive bowel sounds Extremity normal capillary refill Skin General Skin Exam: turgor normal Neuro CN's II-XII intact bilaterally Psych affect normal Appearance: appropriate Lab / Micro Data Result Diagrams: 09/27/20 18:13 09/27/20 18:13 Labs: Laboratory Results - last 24 hr 09/27/20 09/27/20 09/27/20 18:07 18:13 18:13 WBC 9.1 RBC 5.00 Hgb 13.6 Hct 45.7 MCV 91.4 MCH 27.2 MCHC 29.8 L RDW Std Deviation 43.0 RDW Coeff of Crissy 12.9 Plt Count TNP MPV 9.3 Immature Gran % (Auto) 0.400 Neut % (Auto) 75.3 H Lymph % (Auto) 17.1 L Hanson % (Auto) 4.9 Eos % (Auto) 0.9 Baso % (Auto) 1.4 H Absolute Neuts (auto) 6.8 Absolute Lymphs (auto) 1.55 Nucleated RBC % 0 Differential Comment SCANNED Platelet Estimate ADEQUATE PT Cancelled INR Cancelled APTT Cancelled Sodium Potassium Chloride Carbon Dioxide Anion Gap BUN Creatinine Estim Creat Clear Calc Est GFR (MDRD) Af Amer Est GFR (MDRD) Non-Af BUN/Creatinine Ratio Glucose Calcium Troponin I Urine Color Urine Clarity Urine pH Ur Specific [place] Urine Protein Urine Glucose (UA) Urine Ketones Urine Occult Blood Urine Nitrite Urine Bilirubin Urine Urobilinogen Ur Leukocyte Esterase Urine RBC Urine WBC Ur Squamous Epith Cells Urine Bacteria Urine Mucus POC Glucose 133 H 09/27/20 09/27/20 09/27/20 18:13 19:18 19:50 WBC RBC Hgb Hct MCV MCH MCHC RDW Std Deviation RDW Coeff of Crissy Plt Count MPV Immature Gran % (Auto) Neut % (Auto) Lymph % (Auto) Hans[place] % (Auto) Eos % (Auto) Baso % (Auto) Absolute Neuts (auto) Absolute Lymphs (auto) Nucleated RBC % Differential Comment Platelet Estimate PT Cancelled INR Cancelled APTT Cancelled Sodium 138 Potassium 4.8 Chloride 106 Carbon Dioxide 29.0 Anion Gap 3 L BUN 18 Creatinine 1.07 H Estim Creat Clear Calc 52.33 Est GFR (MDRD) Af Amer 67 Est GFR (MDRD) Non-Af 55 L BUN/Creatinine Ratio 16.8 Glucose 120 H Calcium 9.3 Troponin I < 0.015 Urine Color Yellow Urine Clarity Clear Urine pH 6.5 Ur Specific [place] 1.010 Urine Protein Negative Urine Glucose (UA) Normal Urine Ketones Negative Urine Occult Blood Negative Urine Nitrite Negative Urine Bilirubin Negative Urine Urobilinogen Normal Ur Leukocyte Esterase Negative Urine RBC 0 SEEN Urine WBC 0 SEEN Ur Squamous Epith Cells 0 SEEN Urine Bacteria 0 SEEN Urine Mucus 0 SEEN POC Glucose 09/27/20 20:25 WBC RBC Hgb Hct MCV MCH MCHC RDW Std Deviation RDW Coeff of Crissy Plt Count MPV Immature Gran % (Auto) Neut % (Auto) Lymph % (Auto) Hans[place] % (Auto) Eos % (Auto) Baso % (Auto) Absolute Neuts (auto) Absolute Lymphs (auto) Nucleated RBC % Differential Comment Platelet Estimate PT Cancelled INR Cancelled APTT Cancelled Sodium Potassium Chloride Carbon Dioxide Anion Gap BUN Creatinine Estim Creat Clear Calc Est GFR (MDRD) Af Amer Est GFR (MDRD) Non-Af BUN/Creatinine Ratio Glucose Calcium Troponin I Urine Color Urine Clarity Urine pH Ur Specific [place] Urine Protein Urine Glucose (UA) Urine Ketones Urine Occult Blood Urine Nitrite Urine Bilirubin Urine Urobilinogen Ur Leukocyte Esterase Urine RBC Urine WBC Ur Squamous Epith Cells Urine Bacteria Urine Mucus POC Glucose Radiology Impression Brain CT 09/27/20 18:07 IMPRESSION: No acute intracranial abnormality. Chronic ischemic changes of the brain. N.B. : The above information has been verbally conveyed by Sahil Dong MD to Edvin Chambers MD, on 09/27/2020 18:34:45 (ET). Electronically Signed: Sahil Dong MD at 18:35 EDT Tel , Service support , ADDENDUM: 09/27/20 1842 IMPRESSION: No acute intracranial abnormality. Chronic ischemic changes of the brain. N.B. : The above information has been verbally conveyed by Sahil Dong MD to Edvin Chambers MD, on 09/27/2020 18:34:45 (ET). Electronically Signed: Sahil Dong MD at 18:35 EDT Tel , Service support , Chest X-Ray 09/27/20 18:07 IMPRESSION: No acute radiographic abnormalities. Low lung volumes. Electronically Signed: Sahil Dong MD at 19:51 EDT Tel , Service support , Assessment & Plan Assessment/Plan (1) TIA (transient ischemic attack): (2) History of CVA (cerebrovascular accident): (3) Obesity (BMI 30.0-34.9): (4) Anxiety and depression: (5) HLD (hyperlipidemia): QUALIFIERS: Hyperlipidemia type: unspecified Qualified Code(s): E78.5 - Hyperlipidemia, unspecified (6) GERD (gastroesophageal reflux disease): QUALIFIERS: Esophagitis presence: esophagitis presence not specified Qualified Code(s): K21.9 - Gastro-esophageal reflux disease without esophagitis PLAN: Plan 1. TIA?admit patient to progressive care unit for observation, routine neuro logical assessments, MRI of brain in the morning. We will start patient on routine aspirin. 2. Anxiety depression?continue home medications 3. Hyperlipidemia?continue statin medication 4. GERD?continue proton pump inhibitor 5. DVT prophylaxis?low molecular weight heparin Visit Charges OBSV E&M: 50546 Initial observation care L2
[2020-09-27 21:22] LABS: International Normalized Ratio 1.1; Prothrombin Time (Protime)PT. 13.3 SECONDS (11.7-14.9)
[2020-09-27 21:23] LABS: Partial Thromboplast Time 25.8 Seconds (24.1-36.2)
[2020-09-27] MEDS: Aspirin 81 MG TAB.CHEW PO (22:26)
[2020-09-28] VITALS (15 sets, daily range): BP systolic 128–172; BP diastolic 57–89; PULSE 99–109; RESP 18; TEMP 36.6–37.1; O2SAT 91–98; BMI 41.4
[2020-09-28] MEDS: Acetaminophen 325 MG Tablet 650 MG PO ×3 (03:10→22:15)
[2020-09-28 06:49] LABS: Absolute Lymphocyte Count 1.99 X10^3/uL (0.83-4.51); Eosinophil# 0.15 X10^3/uL; Eosinophils% 1.5 % (0-5); Hematocrit 40.4 % (37-47); Hemoglobin 12.5 g/dL (12.0-15.0); Lymphocyte # 1.99 X10^3/ul (0.83-4.51); Lymphocyte % 20.1 % (19-41); Mean Corp Hgb Conc 30.9 g/dL (32-36); Mean Corpuscular Hgb 28.3 pg (27.0-32.0); Mean Corpuscular Volume 91.4 fL (81-99); Monocyte# 0.64 X10^3/uL; Monocyte% 6.5 % (0-10); NRBC Flagged by Analyzer 0 % (0-5); Neutrophil # 7.01 X10^3/uL (2.7-7.7); Neutrophil % 70.6 % (47-70); Platelet Count 341 K/mm3 (150-450); RBC Distribution Width CV 12.8 % (11.6-14.6); Red Blood Count 4.42 M/mm3 (4.2-5.4); White Blood Count 9.9 K/mm3 (4.4-11.0)
[2020-09-28 07:18] LABS: Anion Gap 2 (5-15); BUN 14 mg/dL (7-18); BUN/Creat Ratio 15.4 RATIO (10-20); Calcium,Total 8.6 mg/dL (8.5-10.1); Chloride 113 mmol/L (98-107); Cholesterol 161 mg/dL (200); Creatinine, Serum 0.91 mg/dL (0.55-1.02); EST Glomerular Filtration Rate 66 mL/min (>60); Est Glom Filt Rate - Afr Amer 80 mL/min (>60); Estimated Creatinine Clearance 56.94 ml/min; Glucose 109 mg/dL (74-106); High Density Lipoprotein 57 mg/dL; Potassium 4.4 mmol/L (3.5-5.1); Sodium Level 138 mmol/L (136-145); Triglycerides 101 mg/dL; Very Low Density Lipoprotein 20 mg/dL (5-40)
--- NOTE | 2020-09-28 09:00 | MRI_ITS ---
STUDY: MRI BRAIN WITHOUT CONTRAST REASON FOR EXAM: Female, 65 years old. TIA TECHNIQUE: Standardized multiplanar fat and water weighted pulse sequences were obtained. COMPARISON: CT 09/27/2020, MRI 04/07/2019 FINDINGS: There is mild cerebral atrophy with widening of the extra-axial spaces and ventricular dilatation. There are a limited number of small white matter hyperintensities, distributed throughout the deep white matter tracts of the cerebral hemispheres, consistent with mild chronic white matter ischemic changes. There is no evidence for recent intracranial ischemia or other cause of cytotoxic edema on diffusion weighted imaging (DWI). Normal T2* images of the brain without demonstrated susceptibility artifact. There is no demonstrated hemosiderin stain. Normal bilateral basal ganglia. Normal thalami. There is no extra-axial fluid accumulation. Normal flow voids within the major intracranial circulation suggesting patency by spin echo criteria. Normal sella turcica, pituitary gland, infundibular stalk, optic chiasm and hypothalamus. Normal tectal plate and pineal gland. Normal midbrain, tony and medulla. Normal cerebellum. Normal basal cisterns. Normal bilateral temporal bones. Normal bilateral internal auditory canals. No demonstrated orbital abnormality, within the constraints of a routine brain study. Normal visualized paranasal sinuses. Normal calvarium and skull base. Normal visualized soft tissue structures. Normal visualized upper cervical spine. MRI/Brain without Contrast IMPRESSION: Involutional changes of the brain, as described above. No acute infarct. Electronically Signed: Rufus Malhotra MD at 9:59 EDT Tel , Service support ,
[2020-09-28] MEDS: Enoxaparin 40 MG/0.4 ML Syringe SC (10:16)
[2020-09-28] MEDS: Pantoprazole Sodium 20 MG Tablet PO (10:16)
--- NOTE | 2020-09-28 12:48 | PN.HOSP_ITS ---
Documented by User: Heather Martin NP, RATER ASSOCIATE-C 09/28/20 13:08 Subjective Subjective Patient seen and examined. Drowsy during assessment. Remains confused. MRI negative for acute stroke. Objective Data Objective Data Vital Signs: Vital Signs Temp Pulse Resp BP Pulse Ox 98.6 F 109 H 18 172/83 H 92 09/28/20 10:00 09/28/20 11:00 09/28/20 10:00 09/28/20 10:00 09/28/20 10:00 Oxygen Flow Rate (L/min) 2 Oxygen Delivery Method Room Air Weight: 249 lb 1.957 oz Body Mass Index (BMI) 41.4 Finger Stick Blood Glucose 122 Intake & Output: Intake and Output for Last 24 Hours 09/26/20 09/27/20 09/28/20 23:59 23:59 23:59 Intake Total 241.67 / 241.67 520 / 520 Balance 241.67 / 241.67 520 / 520 Lab / Micro Data Result Diagrams: 09/28/20 06:38 09/28/20 06:38 Labs: Laboratory Results - last 24 hr 09/27/20 09/27/20 09/27/20 18:07 18:13 18:13 WBC 9.1 RBC 5.00 Hgb 13.6 Hct 45.7 MCV 91.4 MCH 27.2 MCHC 29.8 L RDW Std Deviation 43.0 RDW Coeff of Crissy 12.9 Plt Count TNP MPV 9.3 Immature Gran % (Auto) 0.400 Neut % (Auto) 75.3 H Lymph % (Auto) 17.1 L Crow[place] % (Auto) 4.9 Eos % (Auto) 0.9 Baso % (Auto) 1.4 H Absolute Neuts (auto) 6.8 Absolute Lymphs (auto) 1.55 Nucleated RBC % 0 Differential Comment SCANNED Platelet Estimate ADEQUATE PT Cancelled INR Cancelled APTT Cancelled Sodium Potassium Chloride Carbon Dioxide Anion Gap BUN Creatinine Estim Creat Clear Calc Est GFR (MDRD) Af Amer Est GFR (MDRD) Non-Af BUN/Creatinine Ratio Glucose Calcium Troponin I Triglycerides Cholesterol LDL Cholesterol VLDL Cholesterol HDL Cholesterol Urine Color Urine Clarity Urine pH Ur Specific [place] Urine Protein Urine Glucose (UA) Urine Ketones Urine Occult Blood Urine Nitrite Urine Bilirubin Urine Urobilinogen Ur Leukocyte Esterase Urine RBC Urine WBC Ur Squamous Epith Cells Urine Bacteria Urine Mucus POC Glucose 133 H 09/27/20 09/27/20 09/27/20 18:13 19:18 19:50 WBC RBC Hgb Hct MCV MCH MCHC RDW Std Deviation RDW Coeff of Crissy Plt Count MPV Immature Gran % (Auto) Neut % (Auto) Lymph % (Auto) [place] % (Auto) Eos % (Auto) Baso % (Auto) Absolute Neuts (auto) Absolute Lymphs (auto) Nucleated RBC % Differential Comment Platelet Estimate PT Cancelled INR Cancelled APTT Cancelled Sodium 138 Potassium 4.8 Chloride 106 Carbon Dioxide 29.0 Anion Gap 3 L BUN 18 Creatinine 1.07 H Estim Creat Clear Calc 52.33 Est GFR (MDRD) Af Amer 67 Est GFR (MDRD) Non-Af 55 L BUN/Creatinine Ratio 16.8 Glucose 120 H Calcium 9.3 Troponin I < 0.015 Triglycerides Cholesterol LDL Cholesterol VLDL Cholesterol HDL Cholesterol Urine Color Yellow Urine Clarity Clear Urine pH 6.5 Ur Specific [place] 1.010 Urine Protein Negative Urine Glucose (UA) Normal Urine Ketones Negative Urine Occult Blood Negative Urine Nitrite Negative Urine Bilirubin Negative Urine Urobilinogen Normal Ur Leukocyte Esterase Negative Urine RBC 0 SEEN Urine WBC 0 SEEN Ur Squamous Epith Cells 0 SEEN Urine Bacteria 0 SEEN Urine Mucus 0 SEEN POC Glucose 09/27/20 09/27/20 09/28/20 20:25 21:03 06:38 WBC 9.9 RBC 4.42 Hgb 12.5 Hct 40.4 MCV 91.4 MCH 28.3 MCHC 30.9 L RDW Std Deviation 43.0 RDW Coeff of Crissy 12.8 Plt Count 341 MPV 9.0 Immature Gran % (Auto) 0.300 Neut % (Auto) 70.6 H Lymph % (Auto) 20.1 Crow[place] % (Auto) 6.5 Eos % (Auto) 1.5 Baso % (Auto) 1.0 Absolute Neuts (auto) 7.0 Absolute Lymphs (auto) 1.99 Nucleated RBC % 0 Differential Comment Platelet Estimate PT Cancelled 13.3 INR Cancelled 1.1 APTT Cancelled 25.8 Sodium Potassium Chloride Carbon Dioxide Anion Gap BUN Creatinine Estim Creat Clear Calc Est GFR (MDRD) Af Amer Est GFR (MDRD) Non-Af BUN/Creatinine Ratio Glucose Calcium Troponin I Triglycerides Cholesterol LDL Cholesterol VLDL Cholesterol HDL Cholesterol Urine Color Urine Clarity Urine pH Ur Specific [place] Urine Protein Urine Glucose (UA) Urine Ketones Urine Occult Blood Urine Nitrite Urine Bilirubin Urine Urobilinogen Ur Leukocyte Esterase Urine RBC Urine WBC Ur Squamous Epith Cells Urine Bacteria Urine Mucus POC Glucose 09/28/20 06:38 WBC RBC Hgb Hct MCV MCH MCHC RDW Std Deviation RDW Coeff of Crissy Plt Count MPV Immature Gran % (Auto) Neut % (Auto) Lymph % (Auto) [place] % (Auto) Eos % (Auto) Baso % (Auto) Absolute Neuts (auto) Absolute Lymphs (auto) Nucleated RBC % Differential Comment Platelet Estimate PT INR APTT Sodium 138 Potassium 4.4 Chloride 113 H Carbon Dioxide 23.0 Anion Gap 2 L BUN 14 Creatinine 0.91 Estim Creat Clear Calc 56.94 Est GFR (MDRD) Af Amer 80 Est GFR (MDRD) Non-Af 66 BUN/Creatinine Ratio 15.4 Glucose 109 H Calcium 8.6 Troponin I Triglycerides 101 Cholesterol 161 LDL Cholesterol 84 VLDL Cholesterol 20 HDL Cholesterol 57 Urine Color Urine Clarity Urine pH Ur Specific [place] Urine Protein Urine Glucose (UA) Urine Ketones Urine Occult Blood Urine Nitrite Urine Bilirubin Urine Urobilinogen Ur Leukocyte Esterase Urine RBC Urine WBC Ur Squamous Epith Cells Urine Bacteria Urine Mucus POC Glucose Radiography Diagnostic Testing: Radiology Impression Brain CT 09/27/20 18:07 IMPRESSION: No acute intracranial abnormality. Chronic ischemic changes of the brain. N.B. : The above information has been verbally conveyed by Sahil Dong MD to Edvin Chambers MD, on 09/27/2020 18:34:45 (ET). Electronically Signed: Sahil Dong MD at 18:35 EDT Tel , Service support , ADDENDUM: 09/27/20 1842 IMPRESSION: No acute intracranial abnormality. Chronic ischemic changes of the brain. N.B. : The above information has been verbally conveyed by Sahil Dong MD to Edvin Chambers MD, on 09/27/2020 18:34:45 (ET). Electronically Signed: Sahil Dong MD at 18:35 EDT Tel , Service support , Chest X-Ray 09/27/20 18:07 IMPRESSION: No acute radiographic abnormalities. Low lung volumes. Electronically Signed: Sahil Dong MD at 19:51 EDT Tel , Service support , Brain MRI 09/28/20 09:00 IMPRESSION: Involutional changes of the brain, as described above. No acute infarct. Electronically Signed: Rufus Malhotra MD at 9:59 EDT Tel , Service support , Physical Exam Const Orientation / Consciousness: confused and other Other Details: Drowsy Exam Limitations: altered mental status HEENT moist oral mucous membranes Head and Scalp: normocephalic Eyes PERRL, EOMs intact bilaterally and conjunctivae normal Neck no lymphadenopathy Resp normal respiratory effort Cardio regular rhythm and no murmurs Rhythm: regular rhythm Peripheral Pulses: pulses 2+ throughout GI normal to inspection, nondistended, normoactive bowel sounds Extremity normal to inspection, full ROM and no clubbing, cyanosis or edema Peripheral Pulses: Yes pulses 2+ throughout Skin no rashes or lesions noted Neuro CN's II-XII intact bilaterally, no focal motor deficits and no sensory deficits noted Sensorium / Orientation: confused Psych Psych Narrative: Flat affect, delayed response Assessment & Plan Assessment/Plan (1) Encephalopathy: PLAN: 1. Acute encephalopathy-TIA/CVA ruled out. MRI without acute stroke. UA and chest x-ray unremarkable. Afebrile. Obtain urine tox screen. Obtain EEG. Pending EEG, consider [facility] neurology consult. Unclear etiology for encephalopathy at this point. Obtain ABGs. 2. Elevated blood pressure without history of hypertension- begin Lisinopril 10mg daily. As needed hydralazine for systolic blood pressure greater than 160. Adjust medications pending further blood pressure monitoring. 3. Mild dehydration-no acute kidney injury. Creatinine normal following IV fluids. 4. History of TIA/CVA-on aspirin. Not on statin. Begin low-dose statin. 5. Anxiety/depression-on nortriptyline. 6. Hyperlipidemia-initiated on low-dose statin. 7. GERD- PPI. 8. History of migraines-on as needed sumatriptan. 9. Obesity-diet and lifestyle modifications, dietitian consult. DVT prophylaxis- Heparin sc This patient was seen by TONIA Negron under the supervision of Dr. Carvalho. Documented by User: Dr. Aroldo Carvalho DO 09/28/20 17:12 Objective Data Lab / Micro Data Attestation: I reviewed the patient's lab results. Result Diagrams: 09/28/20 06:38 09/28/20 06:38 Physical Exam Const alert Constitutional Narrative: perseverating at times. oriented to self and place Orientation / Consciousness: confused HEENT Head and Scalp: normocephalic Eyes PERRL Resp normal respiratory effort, no retractions and no use of accessory muscles Cardio regular rate, regular rhythm, S1 normal heart sound and S2 normal heart sound GI normal to inspection, nondistended, normoactive bowel sounds, non-tender and non-distended Neuro Sensorium / Orientation: awake and alert Assessment & Plan Assessment/Plan (1) Encephalopathy: PLAN: Patient seen and examined independently. Data reviewed. I agree with the above note by the nurse practitioner. Encephalopathy: MRI negative for stroke. Concern for metabolic process. EEG ordered with neurology consultation. Avoid potentiating medications. Visit Charges Inpatient E&M: 73064 Subs Hosp L2
[2020-09-28] MEDS: 0.9% Saline Lock 10 ML Syringe IV ×2 (13:12→17:18)
[2020-09-28] MEDS: Lisinopril 10 MG Tablet PO (13:12)
[2020-09-28] MEDS: Ondansetron 4 MG/2 ML Vial IV (13:12)
[2020-09-28 13:15] LABS: Amphetamine Urine VISTA NEGATIVE (<1000 ng/mL); Barbiturate Urine VISTA NEGATIVE (< 200 ng/mL); Benzodiazepine Urine VISTA NEGATIVE (< 200 ng/mL); Cocaine Urine VISTA NEGATIVE (< 300 ng/mL); Ecstacy Urine VISTA NEGATIVE (< 500 ng/mL); Methadone Urine VISTA NEGATIVE (< 300 ng/mL); PCP Urine VISTA NEGATIVE (< 25 ng/mL); THC Urine VISTA NEGATIVE (< 50 ng/mL); Vista UDS pH Range 6
--- NOTE | 2020-09-28 14:35 | TELEMED_ITS ---
[facility] Telemed has confirmed receipt of a request for visit. This document confirms receipt of the order initiating the consult. To find the results of the consultation, please view the patient's reports for the scanned Telemed Consult.
[2020-09-28 15:30] LABS: Blood Gas Specimen Type VEN; O2 Delivery Device Cannula; SITE L Radial; VBG BASE EXCESS 1 mmol/L (-1.0-3.5); VBG Bicarbonate 27 mmol/L (22-26); VBG PO2 39 mmHg (25-40); VBG SO2 68 % (50-70); VBG TCO2 28 mmol/L (23-33); VBG pCO2 52.2 mmHg (41-51); VBG pH 7.32 (7.32-7.42)
[2020-09-28] MEDS: Nortriptyline 25 MG Capsule 75 MG PO (17:13)
[2020-09-28] MEDS: hydrALAZINE 20 MG/ML Vial 10 MG IV (17:18)
[2020-09-28] MEDS: Atorvastatin Calcium 10 MG Tablet PO (22:15)
[2020-09-28] MEDS: Aspirin 81 MG TAB.CHEW PO (22:15)
[2020-09-29] VITALS (13 sets, daily range): BP systolic 129–158; BP diastolic 62–88; PULSE 93–113; RESP 16–20; TEMP 36.1–36.9; O2SAT 92–98; BMI 41.4
[2020-09-29 06:59] LABS: Absolute Neutrophil Count 8.6 X10^3/uL (2.0-7.7); Basophil% 0.9 % (0-1); Eosinophil# 0.01 X10^3/uL; Eosinophils% 0.1 % (0-5); Hematocrit 44.4 % (37-47); Hemoglobin 13.1 g/dL (12.0-15.0); Lymphocyte % 12.3 % (19-41); Mean Corp Hgb Conc 29.5 g/dL (32-36); Mean Corpuscular Volume 91.4 fL (81-99); Mean Platelet Vol. 8.8 fl (6.2-12.0); Monocyte# 0.49 X10^3/uL; Monocyte% 4.6 % (0-10); NRBC Flagged by Analyzer 0 % (0-5); Neutrophil # 8.64 X10^3/uL (2.7-7.7); Neutrophil % 81.7 % (47-70); Platelet Count 386 K/mm3 (150-450); RBC Distribution Width CV 13.1 % (11.6-14.6); RBC Distribution Width SD 44.2 fl (35.1-43.9); Red Blood Count 4.86 M/mm3 (4.2-5.4); White Blood Count 10.6 K/mm3 (4.4-11.0)
[2020-09-29 07:35] LABS: Anion Gap 6 (5-15); BUN 16 mg/dL (7-18); BUN/Creat Ratio 19.1 RATIO (10-20); Calcium,Total 9.4 mg/dL (8.5-10.1); Chloride 105 mmol/L (98-107); Creatinine, Serum 0.84 mg/dL (0.55-1.02); EST Glomerular Filtration Rate 73 mL/min (>60); Est Glom Filt Rate - Afr Amer 88 mL/min (>60); Estimated Creatinine Clearance 61.68 ml/min; Glucose 122 mg/dL (74-106); Potassium 4.3 mmol/L (3.5-5.1); Sodium Level 139 mmol/L (136-145); Thyroid Stim Hormone (TSH) 0.79 uIU/mL (0.358-3.74)
[2020-09-29] MEDS: Pantoprazole Sodium 20 MG Tablet PO (09:30)
[2020-09-29] MEDS: Enoxaparin 40 MG/0.4 ML Syringe SC (09:31)
[2020-09-29] MEDS: Lisinopril 10 MG Tablet PO (09:31)
--- NOTE | 2020-09-29 10:13 | CASEMGMT ---
Patient continues to be lethargic and not very responsive. SW called patient's sister, Isha introduced self and role at [facility]. SW explained to her that patient is going to need [place] go [place] [facility] for rehab. SW explained she is not ready yet, as they are still trying to figure out what is wrong. However, SW needs to get started with a plan. SW mentioned it looks like she has been to [facility] before. She said she thinks she liked it there. She said she is going to be coming in in a little bit. SW told her to see if she can talk with patient about a plan if patient is able to talk with her. SW told her SW sits on the unit so she can ask for SW if she would like. Blaire RUST
--- NOTE | 2020-09-29 11:19 | CASEMGMT ---
SOCORRO spoke with patient's sister (Isha) when she arrived at [facility]. She asked if it would be possible for patient to go home with family and get home health. SOCORRO told her at this point patient is too weak for home. SOCORRO told her she requires 2 people to help her transfer. She agreed SNF would be best right now. She said she did well at [facility] so she would be okay with her going there again. She asked about visitation. SOCORRO told her that last SW was aware patients that have not had their COVID shots have to quarantine for 14 days with no visitors. This was upsetting to her. SOCORRO told her SW will call [facility] and ask about visitation. SOCORRO called Linda at [facility] regarding referral. She said that patient's have to quarantine for 7 days now and they allow visits during that time. SOCORRO told her SW will send down the referral. SOCORRO spoke with Isha and let her know about visitation. She was very pleased. SOCORRO did tell her if patient's condition changes were it is felt she would be okay for home with family with home health we can re-visit her d/c plan. Plan: [facility] pending acceptance and pre-cert. Blaire Shankar PUBLIC RELATIONS COORDINATOR YOCASTA
--- NOTE | 2020-09-29 13:51 | PCM.PN.HOSP ---
Documented by User: Heather Martin STREET LIGHT REPAIRER, STREET LIGHT REPAIRER-C 09/29/20 13:58 Subjective Subjective Patient seen and examined. Remains drowsy, confused. Able to follow some commands however not responding verbally. Objective Data Objective Data Vital Signs: Vital Signs Temp Pulse Resp BP Pulse Ox 97 F L 98 16 129/72 H 98 09/29/20 13:13 09/29/20 13:13 09/29/20 13:13 09/29/20 13:13 09/29/20 13:13 Oxygen Flow Rate (L/min) 2 Oxygen Delivery Method Room Air Weight: 249 lb 1.957 oz Body Mass Index (BMI) 41.4 Finger Stick Blood Glucose 122 Intake & Output: Intake and Output for Last 24 Hours 09/27/20 09/28/20 09/29/20 23:59 23:59 23:59 Intake Total 241.67 / 241.67 1060 / 1060 50 / 50 Output Total 400 / 400 Balance 241.67 / 241.67 1060 / 1060 -350 / -350 Lab / Micro Data Result Diagrams: 09/29/20 06:50 09/29/20 06:50 Labs: Laboratory Results - last 24 hr 09/28/20 09/29/20 09/29/20 13:28 06:50 06:50 WBC 10.6 RBC 4.86 Hgb 13.1 Hct 44.4 MCV 91.4 MCH 27.0 MCHC 29.5 L RDW Std Deviation 44.2 H RDW Coeff of Crissy 13.1 Plt Count 386 MPV 8.8 Immature Gran % (Auto) 0.400 Neut % (Auto) 81.7 H Lymph % (Auto) 12.3 L [place] % (Auto) 4.6 Eos % (Auto) 0.1 Baso % (Auto) 0.9 Absolute Neuts (auto) 8.6 H Absolute Lymphs (auto) 1.30 Nucleated RBC % 0 Sodium 139 Potassium 4.3 Chloride 105 Carbon Dioxide 28.0 Anion Gap 6 BUN 16 Creatinine 0.84 Estim Creat Clear Calc 61.68 Est GFR (MDRD) Af Amer 88 Est GFR (MDRD) Non-Af 73 BUN/Creatinine Ratio 19.1 Glucose 122 H Calcium 9.4 Ammonia 11.0 TSH 0.79 ABG Data ABG results: ABG 09/28/20 15:26 Specimen Type LUIS E Sample Site L Radial VBG pH 7.32 VBG pO2 39 VBG HCO3 27 H VBG Total CO2 28 VBG O2 Sat (Calc) 68 VBG Base Excess 1 POC Mix VBG pCO2 Pt Tmp 52.2 H O2 Delivery Device Cannula Liter Flow 2.0 Physical Exam Const Constitutional Narrative: Drowsy, slow to respond Orientation / Consciousness: confused and disoriented HEENT normocephalic and moist oral mucous membranes Eyes PERRL, EOMs intact bilaterally and conjunctivae normal Neck no lymphadenopathy Resp normal respiratory effort and clear to auscultation bilaterally Cardio regular rate, regular rhythm and no murmurs Peripheral Pulses: pulses 2+ throughout GI normal to inspection, nondistended, normoactive bowel sounds, non-tender and non-distended Extremity normal to inspection Skin no rashes or lesions noted Lesions: no lesions Rashes: no rashes Trauma: no lacerations or abrasions Neuro CN's II-XII intact bilaterally and no focal motor deficits Psych Mood & Affect: flat affect Assessment & Plan Assessment/Plan (1) Encephalopathy: PLAN: 1. Acute encephalopathy-TIA/CVA ruled out. MRI without acute stroke. UA and chest x-ray unremarkable. Afebrile. Urine tox screen negative. ABGs unremarkable. EEG demonstrates moderate diffuse encephalopathy without epileptiform discharges or seizure patterns. [facility] neurology consult. Unclear etiology for encephalopathy at this point. Consider lumbar puncture however we will consult with neurology first. PT/OT. 2. Elevated blood pressure without history of hypertension-continue lisinopril 10mg daily. As needed hydralazine for systolic blood pressure greater than 160. Blood pressure improved. 3. Mild dehydration-no acute kidney injury. Creatinine normal following IV fluids. 4. History of TIA/CVA-on aspirin. Not on statin. Initiated on a low-dose statin. 5. Anxiety/depression-on nortriptyline. 6. Hyperlipidemia-initiated on low-dose statin. 7. GERD- PPI. 8. History of migraines-on as needed sumatriptan. 9. Obesity-diet and lifestyle modifications, dietitian consult. DVT prophylaxis- Heparin sc This patient was seen by TONIA Negron under the supervision of Dr. Carvalho. Documented by User: Dr. Aroldo Carvalho DO 09/29/20 15:47 Objective Data Lab / Micro Data Result Diagrams: 09/29/20 06:50 09/29/20 06:50 Physical Exam Const Constitutional Narrative: perseverating at home. Orientation / Consciousness: confused HEENT Head and Scalp: normocephalic Eyes PERRL Resp normal respiratory effort Cardio regular rate, regular rhythm, S1 normal heart sound and S2 normal heart sound GI normal to inspection, nondistended, normoactive bowel sounds, non-tender and non-distended Assessment & Plan Assessment/Plan (1) Encephalopathy: PLAN: Patient seen and examined independently. Data reviewed. I agree with the above note by the nurse practitioner. One. Encephalopathy: Discussed with the patient's sister who spoke with the patient on Sunday said that she was fine at that time. Patient is normally very interactive and independent. Patient sister states that the patient drives sure around. But this is obviously an acute change for her. MRI was negative. EEG showed encephalopathy without epileptiform discharges. Neurology consult underway. Consider lumbar puncture given acute change. Visit Charges Inpatient E&M: 31636 Subs Hosp L2
[2020-09-29] MEDS: Aspirin 81 MG TAB.CHEW PO (22:42)
[2020-09-29] MEDS: Atorvastatin Calcium 10 MG Tablet PO (22:42)
[2020-09-30] VITALS (10 sets, daily range): BP systolic 135–160; BP diastolic 65–91; PULSE 98–109; RESP 16–18; TEMP 36.1–36.8; O2SAT 93–96; BMI 41.4
--- NOTE | 2020-09-30 | RAD_ITS ---
PROCEDURE: Fluoroscopic guided Lumbar Puncture. DATE: 09/30/2020 CLINICAL INDICATION: Encephalopathy PHYSICIAN: Juni Herrera M.D. MEDICATIONS: 1% lidocaine administered subcutaneously for local anesthesia. ACCESS SITE: Lower posterior back. NEEDLE: 22-gauge spinal needle. SPECIMEN: Approximately 8 mL]CSF fluid. FLUOROSCOPY TIME (if supplied): (1:47) minutes/seconds COMPLICATIONS: None immediate. The risks, benefits, and alternatives to the procedure were explained to the patient. The specific risks of bleeding, infection, and neurovascular injury were detailed and accepted. Witnessed informed consent was obtained. The patient was placed on the fluoroscopic table in the prone position. The level for needle entry was determined and marked. The overlying skin was cleaned and prepped in the usual sterile fashion. 2% lidocaine was administered subcutaneously for local anesthesia. Under fluoroscopic guidance a 22-gauge spinal needle was advanced. The thecal sac was entered at the L3- L4 vertebral level. The inner stylet was removed. There was spontaneous flow of CSF fluid. The patient was placed in a reversed Trendelenburg position. Approximately 8 mL of cerebrospinal fluid was collected using gravity. The specimen was collected and submitted to the laboratory for further evaluation. The needle was withdrawn,. Hemostasis was achieved and a sterile dressing placed. The patient tolerated the procedure well without any immediate complications. The patient was placed supine with head elevated and returned to the floor in stable condition. RAD/Fluoro Guided Lumbar Puncture IMPRESSION: Successful fluoroscopic-guided lumbar puncture. Electronically Signed: Juni Herrera MD at 10:54 EDT , Service support ,
[2020-09-30] MEDS: Acetaminophen 325 MG Tablet 650 MG PO ×3 (04:58→20:57)
--- NOTE | 2020-09-30 08:52 | CYSPIN_PTH ---
PATIENT: JANEY DE OLIVEIRA LOC: MS3 U#:[id number] AGE/SX: 65/F ROOM: [facility] RE09/30/[address]: Dr. Magdiel Frausto MD : 1955 BED: 1 DIS: 10/05/2020 SPEC #: [id number] RECD: 09/30/20 10:17 STATUS: KETURAH RELarissa #: [id number] JIMI: 09/30/20 08:[address]: Aroldo Carvalho DEPT: CYTOLOGY RECD BY: Shima Davidson ENTERED: 09/30/20 10:18 SP TYPE: CYSPIN FL OTHR DR: MD Dr. Cedric Rosas, DO Tissues: Cerebrospinal Fluid Procedures: Pap Stain (control) Special Stain Group II Cytospin Fluid HEADER OPERATION: Not noted PRE-OP DIAGNOSIS: TIA TISSUE SUBMITTED: Cerebrospinal fluid for cytology DIAGNOSIS CYTOLOGY Cerebrospinal fluid for cytology (cytospin): Negative for malignant cells. Bloody specimen. :olivia 10/01/2020 CYTOLOGY STUDY Slides are reviewed. CYTOLOGY GROSS Received is 1 ml of light pink cloudy fluid labeled with the patient's name and and designated per the requisition as CSF. Submitted for cytology preparation. / olivia 09/30/2020 TC:5 CPT: 69434
[2020-09-30 09:02] LABS: Cytology, Body Fluid / CSF SEE PATHOLOGY REPORT
[2020-09-30] MEDS: 0.9% Saline Lock 10 ML Syringe IV (09:12)
[2020-09-30] MEDS: Enoxaparin 40 MG/0.4 ML Syringe SC (09:16)
[2020-09-30] MEDS: Lisinopril 10 MG Tablet PO (09:16)
[2020-09-30] MEDS: Pantoprazole Sodium 20 MG Tablet PO (09:16)
[2020-09-30 09:34] LABS: Glucose Spinal Fluid 66 mg/dL (40-75)
[2020-09-30 09:46] LABS: Appearance CSF (character) CLEAR (Clear); CSF Color PINK (Colorless); Tested Tube # 3
--- NOTE | 2020-09-30 10:05 | CASEMGMT ---
Physician indicated patient will likely be here until next week as we will have to wait on results of test etc. SW called Linda at [facility] and let her know this information. Plan: [facility] pending patient being medically ready and insurance approval. Blaire Shankar HONING MACHINE OPERATOR PRODUCTIONSharifa RUST
[2020-09-30 10:11] LABS: RBC Count, Spinal Fluid 2376 /mm-3 (None seen); White Count, CSF 18 /mm-3 (0 - 5)
[2020-09-30 10:27] LABS: Body Fluid QC Type(s) BF1Q; Lymphocytes,CSF 65 % (40 - 80); Monocytes,CSF 10 % (15 - 45); Neutrophils,CSF 25 % (0 - 6)
--- NOTE | 2020-09-30 10:33 | CASEMGMT ---
SW did not complete a PHQ 9 as patient did not have a Stroke or TIA. Blaire RUST
--- NOTE | 2020-09-30 15:03 | CHAPLAIN ---
Type of Pastoral Visit _x__ Initial Visit ___ Follow-up Visit ___ On-call Visit ___ General Patient Visit ___ Spiritual Assessment ___ Family Conference ___ Bereavement ___ Rapid Response ___ Code Blue ___ Other (describe below) Pastoral Care Referral From _x__ Patient ___ Family ___ Nurse ___ Physician ___ Copy Editor ___ Qa Tester ___ Other (describe below) Sacrament/Intervention _x__ Active listening ___ Anointing ___ Samaritan ___ Bereavement ___ Communion ___ Dacia exploration ___ ___ Life review _x__ Prayer ___ Reconciliation ___ Sacrament of Sick _x__ Supportive presence ___ Wedding ___ Other (describe below) Pastoral Comments
--- NOTE | 2020-09-30 17:30 | PN.HOSP_ITS ---
Subjective Subjective still confused Objective Data Objective Data Vital Signs: Vital Signs Temp Pulse Resp BP Pulse Ox 36.6 C 109 H 18 137/65 H 95 09/30/20 14:40 09/30/20 15:55 09/30/20 14:40 09/30/20 14:40 09/30/20 14:40 Oxygen Flow Rate (L/min) 2 Oxygen Delivery Method Room Air Weight: 113 kg Body Mass Index (BMI) 41.4 Intake & Output: Intake and Output for Last 24 Hours 09/28/20 09/29/20 09/30/20 23:59 23:59 23:59 Intake Total 1060 / 1060 220 / 220 942.8 / 942.8 Output Total 400 / 400 750 / 750 Balance 1060 / 1060 -180 / -180 192.8 / 192.8 Lab / Micro Data Result Diagrams: 09/29/20 06:50 09/29/20 06:50 Labs: Laboratory Results - last 24 hr 09/30/20 09/30/20 08:48 08:48 CSF Appearance CLEAR CSF Color PINK H CSF WBC 18 H CSF RBC 2376 H CSF Cell Count Tube # 3 CSF Total Cell Counted TNP CSF Neutrophils 25 H CSF Lymphocytes 65 CSF Monocytes 10 L CSF Comment May follow CSF Glucose 66 CSF Total Protein 53.0 H Micro: Microbiology 09/30/20 08:48 Csf, Spinal Fluid Gram Stain - Final Radiography Diagnostic Testing: Radiology Impression Lumbar Puncture Fluoroscopy 09/30/20 00:00 IMPRESSION: Successful fluoroscopic-guided lumbar puncture. Electronically Signed: Juni Herrera MD at 10:54 EDT , Service support , Physical Exam Const Constitutional Narrative: still perseverating Orientation / Consciousness: confused HEENT Head and Scalp: normocephalic Eyes PERRL Resp normal respiratory effort and clear to auscultation bilaterally Cardio regular rate, regular rhythm, S1 normal heart sound and S2 normal heart sound GI normal to inspection, nondistended, normoactive bowel sounds, non-tender and non-distended Extremity normal to inspection Neuro Sensorium / Orientation: awake Psych Mood & Affect: anxious Assessment & Plan Assessment/Plan (1) Encephalopathy: PLAN: 1. Encephalopathy: * Work-up thus far has been unremarkable. MRI negative. EEG showing encephalopathy without epileptiform discharges. * Patient was seen by [facility] teleneurology who recommends LP. * Lumbar performed today and showed 18 white blood cells, is appear to be a traumatic tap with 2376, 25% neutrophils 10% monocytes and 65% lymphocytes which is normal. Protein was 53. * LP culture, VZV, West Nile, enterovirus, HSV currently pending * Today, patient was already started on acyclovir but given the neutrophils and still really unclear etiology of her confusion, will consult infectious disease for evaluation. Additionally we will start the patient on ampicillin, ceftriaxone and vancomycin and also IV dexamethasone. * Other possibilities though more likely would be paraneoplastic syndrome versus prion disease such as Creutzfeldt Ramirez. Patient continues to worsen despite this treatment may be consideration to transfer the patient to a tertiary facility with onsite neurology and or neurosurgery were potential brain biopsy could be performed if concern for prion disease is more highly suspected. 2. Hypertension 3. History of TIA and stroke * No evidence of stroke year. She started on low-dose statin. 4. VTE prophylaxis with enoxaparin. Visit Charges Inpatient E&M: 44096 Subs Hosp L3
[2020-09-30] MEDS: dexAMETHasone 4 MG/ML Vial 16 MG IV (19:25)
[2020-09-30] MEDS: Atorvastatin Calcium 10 MG Tablet PO (20:54)
[2020-09-30] MEDS: Aspirin 81 MG TAB.CHEW PO (20:54)
--- NOTE | 2020-09-30 23:31 | PCM.RX.CS ---
Consult Pharmacy has been consulted to manage selected antiobiotic: Vancomycin Type of Consult: New start Suspected Infection: Other Prior Doses of Antibiotics Received/Current Regimen: Medications Vancomycin HCl 1,500 mg/ (Sodium Chloride) 530 mls @ 250 mls/hr IV Q12H HAYLIE Discontinued Medications Vancomycin HCl 2,000 mg/ (Sodium Chloride) 540 mls @ 250 mls/hr IV X1 ONE Stop: 09/30/20 21:09 Last Admin: 09/30/20 22:25 Dose: 250 mls/hr Labs: Sodium 139 mmol/L (136-145) 09/29/20 06:50 Potassium 4.3 mmol/L (3.5-5.1) 09/29/20 06:50 Chloride 105 mmol/L (98-107) 09/29/20 06:50 Carbon Dioxide 28.0 mmol/L (21.0-32.0) 09/29/20 06:50 Anion Gap 6 (5-15) 09/29/20 06:50 BUN 16 mg/dL (7-18) 09/29/20 06:50 Creatinine 0.84 mg/dL (0.55-1.02) 09/29/20 06:50 Est GFR (MDRD) Af Amer 88 mL/min (>60) 09/29/20 06:50 Est GFR (MDRD) Non-Af 73 mL/min (>60) 09/29/20 06:50 BUN/Creatinine Ratio 19.1 RATIO (10-20) 09/29/20 06:50 Glucose 122 mg/dL (74-106) H 09/29/20 06:50 Microbiology: Microbiology 09/30/20 08:48 Csf, Spinal Fluid Gram Stain - Final Weight used for dosin kg Estimated Creatinine Clearance: 62 Goal Trough: 15-20 mcg/mL Pharmacy Plan for Drug Dosing: Pharmacy Service will continue to monitor and adjust dosing as required. Follow-Up Labs: Trough Vancomycin Labs to be done on [date and time ordered]: 10/02/20 @1000
[2020-10-01] VITALS (14 sets, daily range): BP systolic 136–145; BP diastolic 73–79; PULSE 100–116; RESP 16–20; TEMP 36.6–36.9; O2SAT 95–99; BMI 41.4
[2020-10-01] MEDS: dexAMETHasone 4 MG/ML Vial 16 MG IV ×2 (01:14→06:24)
[2020-10-01] MEDS: Acetaminophen 325 MG Tablet 650 MG PO ×2 (06:19→20:49)
[2020-10-01 06:42] LABS: Absolute Lymphocyte Count 0.64 X10^3/uL (0.83-4.51); Absolute Neutrophil Count 5.8 X10^3/uL (2.0-7.7); Basophil# 0.02 X10^3/uL; Basophil% 0.3 % (0-1); Hematocrit 43.6 % (37-47); Hemoglobin 13.4 g/dL (12.0-15.0); Lymphocyte # 0.64 X10^3/ul (0.83-4.51); Lymphocyte % 9.9 % (19-41); Mean Corp Hgb Conc 30.7 g/dL (32-36); Mean Corpuscular Hgb 27.6 pg (27.0-32.0); Mean Corpuscular Volume 89.9 fL (81-99); Mean Platelet Vol. 9.1 fl (6.2-12.0); Monocyte# 0.03 X10^3/uL; Monocyte% 0.5 % (0-10); NRBC Flagged by Analyzer 0 % (0-5); Neutrophil # 5.76 X10^3/uL (2.7-7.7); Neutrophil % 88.8 % (47-70); Platelet Count 352 K/mm3 (150-450); RBC Distribution Width CV 12.7 % (11.6-14.6); Red Blood Count 4.85 M/mm3 (4.2-5.4); White Blood Count 6.5 K/mm3 (4.4-11.0)
[2020-10-01 07:17] LABS: Anion Gap 4 (5-15); BUN 16 mg/dL (7-18); BUN/Creat Ratio 19.6 RATIO (10-20); Calcium,Total 8.9 mg/dL (8.5-10.1); Chloride 108 mmol/L (98-107); Creatinine, Serum 0.82 mg/dL (0.55-1.02); EST Glomerular Filtration Rate 75 mL/min (>60); Est Glom Filt Rate - Afr Amer 91 mL/min (>60); Estimated Creatinine Clearance 63.19 ml/min; Glucose 131 mg/dL (74-106); Potassium 4.6 mmol/L (3.5-5.1); Sodium Level 141 mmol/L (136-145)
[2020-10-01] MEDS: Lisinopril 10 MG Tablet PO (09:34)
[2020-10-01] MEDS: Pantoprazole Sodium 20 MG Tablet PO (09:34)
[2020-10-01] MEDS: Enoxaparin 40 MG/0.4 ML Syringe SC (09:34)
--- NOTE | 2020-10-01 13:00 | CON.PCM.ID_ITS ---
Assessment & Plan Assessment/Plan (1) Encephalopathy: PLAN: Encephalopathy with headache - LP showed mild rise in wbc (out of proportion to the rbcs present) with lymphocyte predominance. No fever, no neck pain, no leukocytosis. Stable/improving condition since admit 09/27. Very low suspicion for bacterial meningitis. Will stop vanc/amp/ceftriaxone. Cont acyclovir while CSF hsv and vzv are pending. Will check covid pcr. Recommend covid vaccine after discharge, but she is not interested. Will follow, thank you HPI Consult Data Date of Consult: 10/01/20 HPI Narrative HPI Narrative: JANEY DE OLIVEIRA, is a 65 F who presented 09/27 to the ED with weakness, headache, and fall. Had been having some aches, headache, muscle spasms for about a week or so. No fever, no neck pain, no vision changes, no cough or SOB, no change in taste or smell, no abd pain, no diarrhea. Mild nausea. No sick contacts, has not been vaccinated for covid. Additional history obtained from her family member Isha. Came to ED, admitted, MRI done, neuro consulted, started on iv acyclovir, LP done, vanc/amp/ceftriaxone started. Full ROS performed and neg except as noted above. PFSH Home Medications aspirin 1 tab PO QHS 07/19/17 [History Last Taken 09/26/20] ergocalciferol (vitamin D2) [Vitamin D2] 50,000 unit PO FR 12/20/17 [History Last Taken 09/24/20] nortriptyline 75 mg PO DINNER 09/27/20 [History Last Taken 09/26/20] omeprazole 20 mg PO DAILY 09/27/20 [History Last Taken 09/26/20] sumatriptan succinate 25 mg PO DAILY PRN PRN 09/27/20 [History Last Taken 09/27/20 16:10] Allergy/AdvReac Type Severity Reaction Status Date / Time No Known Allergies Allergy Verified 12/20/17 23:25 Social History Smoking Status: Never smoker Physical Exam Const Constitutional Narrative: slow to respond to questions General Appearance: cooperative HEENT normocephalic and head/scalp atraumatic Eyes PERRL and EOMs intact bilaterally Neck supple and No nodes Resp normal air movement and clear to auscultation bilaterally Cardio regular rate and regular rhythm GI normal to inspection, nondistended, normoactive bowel sounds Extremity no clubbing, cyanosis or edema Skin no rashes or lesions noted Neuro CN's II-XII intact bilaterally Lab / Micro Data Result Diagrams: 10/01/20 06:20 10/01/20 06:20 Labs: Laboratory Results - last 24 hr 10/01/20 10/01/20 10/01/20 06:20 06:20 12:24 WBC 6.5 RBC 4.85 Hgb 13.4 Hct 43.6 MCV 89.9 MCH 27.6 MCHC 30.7 L RDW Std Deviation 42.0 RDW Coeff of Crissy 12.7 Plt Count 352 MPV 9.1 Immature Gran % (Auto) 0.500 Neut % (Auto) 88.8 H Lymph % (Auto) 9.9 L [place] % (Auto) 0.5 Eos % (Auto) 0.0 Baso % (Auto) 0.3 Absolute Neuts (auto) 5.8 Absolute Lymphs (auto) 0.64 L Nucleated RBC % 0 Sodium 141 Potassium 4.6 Chloride 108 H Carbon Dioxide 29.0 Anion Gap 4 L BUN 16 Creatinine 0.82 Estim Creat Clear Calc 63.19 Est GFR (MDRD) Af Amer 91 Est GFR (MDRD) Non-Af 75 BUN/Creatinine Ratio 19.6 Glucose 131 H Calcium 8.9 COVID-19 (TINO) Cancelled Micro: Microbiology 09/30/20 08:48 Gram Stain - Final Csf, Spinal Fluid CSF Culture - Preliminary No growth in 24 hours. Final to follow.
[2020-10-01] MEDS: 0.9% Saline Lock 10 ML Syringe IV (13:12)
[2020-10-01] MEDS: dexAMETHasone 10 MG/ML Vial 16 MG IV (13:12)
--- NOTE | 2020-10-01 13:30 | PN.HOSP_ITS ---
Subjective Subjective Still confused. DW pt's sister, who states the pt appears better, but not at baseline. Objective Data Objective Data Vital Signs: Vital Signs Temp Pulse Resp BP Pulse Ox 36.6 C 109 H 20 H 145/76 H 99 10/01/20 08:50 10/01/20 12:00 10/01/20 08:50 10/01/20 08:50 10/01/20 08:50 Oxygen Flow Rate (L/min) 4 Oxygen Delivery Method Nasal Cannula Weight: 113 kg Body Mass Index (BMI) 41.4 Intake & Output: Intake and Output for Last 24 Hours 09/29/20 09/30/20 10/01/20 23:59 23:59 23:59 Intake Total 220 / 220 1192.8 / 1242.8 1822.8 / 1822.8 Output Total 400 / 400 1050 / 1050 500 / 500 Balance -180 / -180 142.8 / 192.8 1322.8 / 1322.8 Lab / Micro Data Result Diagrams: 10/01/20 06:20 10/01/20 06:20 Labs: Laboratory Results - last 24 hr 10/01/20 10/01/20 10/01/20 06:20 06:20 12:24 WBC 6.5 RBC 4.85 Hgb 13.4 Hct 43.6 MCV 89.9 MCH 27.6 MCHC 30.7 L RDW Std Deviation 42.0 RDW Coeff of Crissy 12.7 Plt Count 352 MPV 9.1 Immature Gran % (Auto) 0.500 Neut % (Auto) 88.8 H Lymph % (Auto) 9.9 L [place] % (Auto) 0.5 Eos % (Auto) 0.0 Baso % (Auto) 0.3 Absolute Neuts (auto) 5.8 Absolute Lymphs (auto) 0.64 L Nucleated RBC % 0 Sodium 141 Potassium 4.6 Chloride 108 H Carbon Dioxide 29.0 Anion Gap 4 L BUN 16 Creatinine 0.82 Estim Creat Clear Calc 63.19 Est GFR (MDRD) Af Amer 91 Est GFR (MDRD) Non-Af 75 BUN/Creatinine Ratio 19.6 Glucose 131 H Calcium 8.9 COVID-19 (TINO) Cancelled Micro: Microbiology 09/30/20 08:48 Csf, Spinal Fluid Gram Stain - Final 09/30/20 08:48 Csf, Spinal Fluid CSF Culture - Preliminary No growth in 24 hours. Final to follow. Physical Exam Const alert Constitutional Narrative: oriented to self and place. Still perseverating. Orientation / Consciousness: confused Exam Limitations: no limitations Eyes PERRL Resp normal respiratory effort and clear to auscultation bilaterally Cardio regular rate, regular rhythm, S1 normal heart sound and S2 normal heart sound GI normal to inspection, nondistended, normoactive bowel sounds, non-tender and non-distended Assessment & Plan Assessment/Plan (1) Encephalopathy: PLAN: 1. Encephalopathy: * Work-up thus far has been unremarkable. MRI negative. EEG showing encephalopathy without epileptiform discharges. * Patient was seen by [facility] teleneurology who recommends LP. * Lumbar performed 09/30 and showed 18 white blood cells, is appear to be a traumatic tap with 2376, 25% neutrophils 10% monocytes and 65% lymphocytes which is normal. Protein was 53. * LP culture, VZV, West Nile, enterovirus, HSV currently pending * 09/30, patient was already started on acyclovir but given the neutrophils and still really unclear etiology of her confusion, will consult infectious disease for evaluation. Additionally we will start the patient on ampicillin, ceftriaxone and vancomycin and also IV dexamethasone. * 10/01: seen by ID who dc'd abx and continue antivirals * Other possibilities though more likely would be paraneoplastic syndrome versus prion disease such as Creutzfeldt Ramirez. Patient continues to worsen despite this treatment may be consideration to transfer the patient to a tertiary facility with onsite neurology and or neurosurgery were potential brain biopsy could be performed if concern for prion disease is more highly suspected. 2. Hypertension 3. History of TIA and stroke * No evidence of stroke year. She started on low-dose statin. 4. VTE prophylaxis with enoxaparin. Visit Charges Inpatient E&M: 29006 Subs Hosp L2
[2020-10-01 13:59] LABS: Pathologist Review Reviewed
--- NOTE | 2020-10-01 13:59 | CASEMGMT ---
SOCORRO faxed updates to [facility]. SOCORRO will follow up with Linda at [facility] on Sunday if patient is still here. Blaire Shankar FOOTWEAR SALES REPRESENTATIVE YOCASTA
--- NOTE | 2020-10-01 15:57 | CASEMGMT ---
According to [facility] website, the following tertiary facilities are in network: [facility], [place], [facility], [facility], [facility], [facility] and .
--- NOTE | 2020-10-01 18:17 | RAD_ITS ---
INDICATION: picc placement EXAMINATION/TECHNIQUE: X-RAY - XR Chest 1 View COMPARISON: 09/27/2020. FINDINGS: Interval placement of right-sided PICC with tip in the mid SVC. Low lung volumes. The lungs are otherwise clear. Tortuous and calcified thoracic aorta. The heart is not enlarged. No pleural effusion or pneumothorax. No acute osseous abnormalities. Degenerative changes of the thoracic spine. RAD/CXR for Line Placement IMPRESSION: Interval placement of right-sided PICC with tip in the mid SVC. Otherwise, stable exam. Electronically Signed: Sahil Dong MD at 18:35 EDT Tel , Service support ,
[2020-10-01] MEDS: Aspirin 81 MG TAB.CHEW PO (20:54)
[2020-10-01] MEDS: Atorvastatin Calcium 10 MG Tablet PO (20:54)
[2020-10-02] VITALS (13 sets, daily range): BP systolic 107–138; BP diastolic 51–75; PULSE 70–111; RESP 17–18; TEMP 36.3–36.7; O2SAT 93–98; BMI 41.4
[2020-10-02] MEDS: Acetaminophen 325 MG Tablet 650 MG PO (04:54)
[2020-10-02] MEDS: 0.9% Saline Lock 10 ML Syringe IV ×2 (05:05→18:15)
[2020-10-02] MEDS: Pantoprazole Sodium 20 MG Tablet PO (08:33)
[2020-10-02] MEDS: Enoxaparin 40 MG/0.4 ML Syringe SC (08:33)
[2020-10-02] MEDS: Lisinopril 10 MG Tablet PO (08:34)
[2020-10-02 10:18] LABS: Absolute Lymphocyte Count 1.07 X10^3/uL (0.83-4.51); Absolute Neutrophil Count 15.6 X10^3/uL (2.0-7.7); Basophil# 0.03 X10^3/uL; Basophil% 0.2 % (0-1); Eosinophil# 0.01 X10^3/uL; Eosinophils% 0.1 % (0-5); Hematocrit 43.8 % (37-47); Hemoglobin 13.5 g/dL (12.0-15.0); Lymphocyte # 1.07 X10^3/ul (0.83-4.51); Mean Corp Hgb Conc 30.8 g/dL (32-36); Mean Corpuscular Hgb 27.9 pg (27.0-32.0); Mean Corpuscular Volume 90.5 fL (81-99); Mean Platelet Vol. 9.4 fl (6.2-12.0); Monocyte# 1.19 X10^3/uL; Monocyte% 6.6 % (0-10); NRBC Flagged by Analyzer 0 % (0-5); Neutrophil % 86.7 % (47-70); Platelet Count 395 K/mm3 (150-450); RBC Distribution Width CV 12.9 % (11.6-14.6); RBC Distribution Width SD 42.5 fl (35.1-43.9); Red Blood Count 4.84 M/mm3 (4.2-5.4)
[2020-10-02 10:25] LABS: Anion Gap 5 (5-15); BUN 20 mg/dL (7-18); BUN/Creat Ratio 20.7 RATIO (10-20); Calcium,Total 9.1 mg/dL (8.5-10.1); Chloride 105 mmol/L (98-107); Creatinine, Serum 0.96 mg/dL (0.55-1.02); EST Glomerular Filtration Rate 62 mL/min (>60); Est Glom Filt Rate - Afr Amer 75 mL/min (>60); Estimated Creatinine Clearance 53.97 ml/min; Glucose 125 mg/dL (74-106); Potassium 4.3 mmol/L (3.5-5.1); Sodium Level 141 mmol/L (136-145)
--- NOTE | 2020-10-02 14:46 | PN.HOSP_ITS ---
Subjective Subjective Patient more alert today and interactive. Objective Data Objective Data Vital Signs: Vital Signs Temp Pulse Resp BP Pulse Ox 36.3 C L 104 H 18 138/71 H 93 10/02/20 08:21 10/02/20 08:23 10/02/20 08:21 10/02/20 08:21 10/02/20 13:38 Oxygen Flow Rate (L/min) 2 Oxygen Delivery Method Room Air Weight: 113 kg Body Mass Index (BMI) 41.4 Intake & Output: Intake and Output for Last 24 Hours 09/30/20 10/01/20 10/02/20 23:59 23:59 23:59 Intake Total 1192.8 / 1242.8 3485.6 / 3485.6 611.4 / 611.4 Output Total 1050 / 1050 600 / 600 300 / 300 Balance 142.8 / 192.8 2885.6 / 2885.6 311.4 / 311.4 Lab / Micro Data Attestation: I reviewed the patient's lab results. Result Diagrams: 10/02/20 10:00 10/02/20 10:00 Labs: Laboratory Results - last 24 hr 10/01/20 10/01/20 10/01/20 13:08 18:48 20:15 WBC RBC Hgb Hct MCV MCH MCHC RDW Std Deviation RDW Coeff of Crissy Plt Count MPV Immature Gran % (Auto) Neut % (Auto) Lymph % (Auto) [place] % (Auto) Eos % (Auto) Baso % (Auto) Absolute Neuts (auto) Absolute Lymphs (auto) Nucleated RBC % Sodium Potassium Chloride Carbon Dioxide Anion Gap BUN Creatinine Estim Creat Clear Calc Est GFR (MDRD) Af Amer Est GFR (MDRD) Non-Af BUN/Creatinine Ratio Glucose Calcium Ammonia Cancelled 13.0 COVID-19 (TINO) Not Detected 10/02/20 10/02/20 10:00 10:00 WBC 18.0 H RBC 4.84 Hgb 13.5 Hct 43.8 MCV 90.5 MCH 27.9 MCHC 30.8 L RDW Std Deviation 42.5 RDW Coeff of Crissy 12.9 Plt Count 395 MPV 9.4 Immature Gran % (Auto) 0.400 Neut % (Auto) 86.7 H Lymph % (Auto) 6.0 L [place] % (Auto) 6.6 Eos % (Auto) 0.1 Baso % (Auto) 0.2 Absolute Neuts (auto) 15.6 H Absolute Lymphs (auto) 1.07 Nucleated RBC % 0 Sodium 141 Potassium 4.3 Chloride 105 Carbon Dioxide 31.0 Anion Gap 5 BUN 20 H Creatinine 0.96 Estim Creat Clear Calc 53.97 Est GFR (MDRD) Af Amer 75 Est GFR (MDRD) Non-Af 62 BUN/Creatinine Ratio 20.7 H Glucose 125 H Calcium 9.1 Ammonia COVID-19 (TINO) Micro: Microbiology 09/30/20 08:48 Csf, Spinal Fluid Gram Stain - Final 09/30/20 08:48 Csf, Spinal Fluid CSF Culture - Preliminary No growth in 24 hours. Final to follow. Radiography Diagnostic Testing: Radiology Impression Chest X-Ray 10/01/20 18:17 IMPRESSION: Interval placement of right-sided PICC with tip in the mid SVC. Otherwise, stable exam. Electronically Signed: Sahil Dong MD at 18:35 EDT Tel , Service support , Physical Exam Narrative Much more alert today. Interactive. Patient talking some on her phone and interacting with her phone. Patient recognizes her brother appropriately who is in the room. Const alert and oriented x3 Constitutional Narrative: Less perseveration. Understands why she is here understands what therapy was recommending for her. HEENT Head and Scalp: normocephalic Resp normal respiratory effort and clear to auscultation bilaterally Cardio regular rate, regular rhythm, S1 normal heart sound and S2 normal heart sound GI normal to inspection, nondistended, normoactive bowel sounds, non-tender and non-distended Skin no rashes or lesions noted Neuro Sensorium / Orientation: awake and alert Assessment & Plan Assessment/Plan (1) Encephalopathy: PLAN: 1. Encephalopathy: * Much improved today. Unclear if this is related with the acyclovir or not, therefore suggesting this may be a viral encephalitis. * Work-up thus far has been unremarkable. MRI negative. EEG showing encep halopathy without epileptiform discharges. * Patient was seen by [facility] teleneurology who recommends LP. * Lumbar performed 09/30 and showed 18 white blood cells, is appear to be a traumatic tap with 2376, 25% neutrophils 10% monocytes and 65% lymphocytes which is normal. Protein was 53. * LP culture, VZV, West Nile, enterovirus, HSV currently pending * 09/30, patient was already started on acyclovir but given the neutrophils and still really unclear etiology of her confusion, will consult infectious massimo cabral for evaluation. Additionally we will start the patient on ampicillin, ceftriaxone and vancomycin and also IV dexamethasone. * 10/01: seen by ID who dc'd abx and continue antivirals * Other possibilities though more likely would be paraneoplastic syndrome versus prion disease such as Creutzfeldt Ramirez. Patient continues to worsen despite this treatment may be consideration to transfer the patient to a tertiary facility with onsite neurology and or neurosurgery were potential brain biopsy could be performed if concern for prion disease is more highly suspected. 2. Hypertension 3. History of TIA and stroke * No evidence of stroke year. She started on low-dose statin. 4. VTE prophylaxis with enoxaparin. 5. Disposition: Plan is to monitor over the weekend to see what shows up with the viral studies from the CSF as well as see what additional infectious disease recommendations there are. Depending on the patient's clinical status she may be able to potentially be discharged as early as the . Discussed with the patient's brother at bedside. Visit Charges Inpatient E&M: 68803 Subs Hosp L2
[2020-10-02] MEDS: Aspirin 81 MG TAB.CHEW PO (21:25)
[2020-10-02] MEDS: Atorvastatin Calcium 10 MG Tablet PO (21:25)
[2020-10-03] VITALS (11 sets, daily range): BP systolic 108–142; BP diastolic 54–84; PULSE 78–110; RESP 18; TEMP 36.4–37; O2SAT 94–99
[2020-10-03] MEDS: Acetaminophen 325 MG Tablet 650 MG PO (03:20)
[2020-10-03] MEDS: Pantoprazole Sodium 20 MG Tablet PO (08:37)
[2020-10-03] MEDS: Lisinopril 10 MG Tablet PO (08:37)
[2020-10-03] MEDS: Enoxaparin 40 MG/0.4 ML Syringe SC (08:37)
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
[2020-10-03] MEDS: Atorvastatin Calcium 10 MG Tablet PO (21:39)
[2020-10-03] MEDS: Aspirin 81 MG TAB.CHEW PO (21:39)
[2020-10-04] VITALS (11 sets, daily range): BP systolic 116–159; BP diastolic 60–79; PULSE 92–112; RESP 18; TEMP 36.3–36.8; O2SAT 92–97
[2020-10-04 05:41] LABS: Absolute Lymphocyte Count 2.95 X10^3/uL (0.83-4.51); Absolute Neutrophil Count 5.1 X10^3/uL (2.0-7.7); Basophil# 0.03 X10^3/uL; Basophil% 0.3 % (0-1); Eosinophil# 0.08 X10^3/uL; Eosinophils% 0.9 % (0-5); Hematocrit 41.1 % (37-47); Hemoglobin 12.6 g/dL (12.0-15.0); Lymphocyte # 2.95 X10^3/ul (0.83-4.51); Lymphocyte % 32.5 % (19-41); Mean Corp Hgb Conc 30.7 g/dL (32-36); Mean Corpuscular Hgb 27.8 pg (27.0-32.0); Mean Corpuscular Volume 90.7 fL (81-99); Mean Platelet Vol. 9.3 fl (6.2-12.0); Monocyte# 0.88 X10^3/uL; Monocyte% 9.7 % (0-10); NRBC Flagged by Analyzer 0 % (0-5); Neutrophil # 5.09 X10^3/uL (2.7-7.7); Platelet Count 277 K/mm3 (150-450); RBC Distribution Width CV 13.2 % (11.6-14.6); RBC Distribution Width SD 43.9 fl (35.1-43.9); Red Blood Count 4.53 M/mm3 (4.2-5.4); White Blood Count 9.1 K/mm3 (4.4-11.0)
[2020-10-04 06:03] LABS: Anion Gap 5 (5-15); BUN 20 mg/dL (7-18); BUN/Creat Ratio 19.8 RATIO (10-20); Calcium,Total 8.6 mg/dL (8.5-10.1); Chloride 106 mmol/L (98-107); Creatinine, Serum 1.01 mg/dL (0.55-1.02); EST Glomerular Filtration Rate 59 mL/min (>60); Est Glom Filt Rate - Afr Amer 71 mL/min (>60); Glucose 110 mg/dL (74-106); Potassium 3.9 mmol/L (3.5-5.1); Sodium Level 140 mmol/L (136-145)
[2020-10-04] MEDS: Pantoprazole Sodium 20 MG Tablet PO (10:40)
[2020-10-04] MEDS: Enoxaparin 40 MG/0.4 ML Syringe SC (10:40)
[2020-10-04] MEDS: Lisinopril 10 MG Tablet PO (10:40)
--- NOTE | 2020-10-04 11:43 | CASEMGMT ---
Patient has improved with therapy. She has progressed well enough that she would be able to go home. SOCORRO met with patient and her sister. They were both in agreement with patient going home with home health. SOCORRO let them know someone will be in to talk with them about home health. SOCORRO notified TALAT Frances. SOCORRO also called Linda at [facility] and let her know patient is now going to go home at discharge. Blaire Shankar RELEASE ENGINEER YOCASTA
--- NOTE | 2020-10-04 12:07 | PN.HOSP_ITS ---
Subjective Subjective Patient is a 65-year-old presented with falls and generalized weakness. Patient was also found to be encephalopathic on admission patient has since been managed as a case of acute encephalitis following lumbar puncture. Viral cultures were sent results still pending. Objective Data Objective Data Vital Signs: Vital Signs Temp Pulse Resp BP Pulse Ox 98.0 F 112 H 18 116/60 95 10/04/20 08:25 10/04/20 11:00 10/04/20 08:25 10/04/20 08:25 10/04/20 08:25 Oxygen Flow Rate (L/min) 2 Oxygen Delivery Method Room Air Weight: 113 kg Body Mass Index (BMI) 41.4 Intake & Output: Intake and Output for Last 24 Hours 10/02/20 10/03/20 10/04/20 23:59 23:59 23:59 Intake Total 1904.2 / 1904.2 1794.2 / 1794.2 261.65 / 261.65 Output Total 1500 / 1500 1100 / 1100 1300 / 1300 Balance 404.2 / 404.2 694.2 / 694.2 -1038.35 / -1038.35 Lab / Micro Data Result Diagrams: 10/04/20 05:31 10/04/20 05:31 Labs: Laboratory Results - last 24 hr 09/30/20 10/04/20 10/04/20 08:48 05:31 05:31 WBC 9.1 RBC 4.53 Hgb 12.6 Hct 41.1 MCV 90.7 MCH 27.8 MCHC 30.7 L RDW Std Deviation 43.9 RDW Coeff of Crissy 13.2 Plt Count 277 MPV 9.3 Immature Gran % (Auto) 0.600 Neut % (Auto) 56.0 Lymph % (Auto) 32.5 [place] % (Auto) 9.7 Eos % (Auto) 0.9 Baso % (Auto) 0.3 Absolute Neuts (auto) 5.1 Absolute Lymphs (auto) 2.95 Nucleated RBC % 0 Sodium 140 Potassium 3.9 Chloride 106 Carbon Dioxide 29.0 Anion Gap 5 BUN 20 H Creatinine 1.01 Estim Creat Clear Calc 51.30 Est GFR (MDRD) Af Amer 71 Est GFR (MDRD) Non-Af 59 L BUN/Creatinine Ratio 19.8 Glucose 110 H Calcium 8.6 Miscellaneous Cytology SEE PATHOLOGY REPORT Micro: Microbiology 09/30/20 08:48 Csf, Spinal Fluid Gram Stain - Final 09/30/20 08:48 Csf, Spinal Fluid CSF Culture - Final No growth in 72 hours. Physical Exam Narrative GENERAL: cooperative HEENT: Atraumatic; EYES; Anicteric, Normal Conjunctiva NECK; supple, normal thyroid, RESPIRATORY: Diminished to auscultation CARDIOVASCULAR: Regular S1 S2, GI: soft, normoactive bowel sounds, : No Renal angle tenderness; EXTREMITIES: No edema, no clubbing, MUSCULOSKELETAL: no muscle waisting NEURO: Awake; no lateralizing signs. SKIN: No Rash PSYCH; Flat affect Assessment & Plan Assessment/Plan (1) Encephalitis: PLAN: Patient is a 65-year-old presented with falls and generalized weakness. Patient was also found to be encephalopathic on admission patient has since been managed as a case of acute encephalitis following lumbar puncture. Viral cultures were sent results still pending. 1. Acute infectious encephalopathy ?Secondary to suspected viral encephalitis. Patient underwent EEG without epileptiform discharges. Patient has since been managed with acyclovir. Patient underwent lumbar puncture following recommendations from [facility]y. Results of lumbar puncture reviewed. 2. Dyslipidemia -Patient is on statin therapy, continued at home dose 3. Hypertension - Blood pressure controlled, home medications continued with dose adjustment as needed 4. Morbid obesity - With a BMI of 41.5 patient was counseled on weight reduction 5. GERD ?On PPI 6. DVT prophylaxis - On enoxaparin Visit Charges Inpatient E&M: 15398 Subs Hosp L2
--- NOTE | 2020-10-04 12:38 | CASEMGMT ---
RN SHREYA in to pt room. Pt sister at bedside. Patient was provided a list of [facility] providers including quality and resource use data and consistent with the patient?s preferred geographic region, medical needs, and insurance network. The patient?s/ sister's preferred provider are 1. [facility] 2.[facility] 3.[facility]. TC to [facility] to make referral, left vm.
--- NOTE | 2020-10-04 14:47 | PCM.PN.ID ---
Physical Exam Narrative Feeling much better, no fever, no headache Resp normal air movement and clear to auscultation bilaterally Cardio regular rate and regular rhythm GI normal to inspection, nondistended, normoactive bowel sounds Extremity no clubbing, cyanosis or edema Skin no rashes or lesions noted ID ID: Route of nutrition/ use of supplements: [] Nutritional Intake: [] IV Site: [] Saxena Catheter: [] Assessment & Plan Assessment/Plan (1) Encephalopathy: PLAN: Encephalopathy with headache - LP showed mild rise in wbc (out of proportion to the rbcs present) with lymphocyte predominance. No fever, no neck pain, no leukocytosis. Stable/improving condition since admit 09/27. Cont acyclovir while CSF hsv and vzv are pending. Ok for home on one week po valtrex 1gm tid while those pcrs are pending. Recommended covid vaccine after discharge, but she is not interested. Will follow
[2020-10-04] MEDS: 0.9% Saline Lock 10 ML Syringe IV ×3 (15:04→21:55)
--- NOTE | 2020-10-04 16:31 | NURSING ---
Report called to TALAT Rg for pt transfer to [facility].
[2020-10-04] MEDS: Aspirin 81 MG TAB.CHEW PO (22:02)
[2020-10-04] MEDS: Atorvastatin Calcium 10 MG Tablet PO (22:02)
[2020-10-05] MEDS: 0.9% Saline Lock 10 ML Syringe IV ×2 (02:07→06:34)
[2020-10-05] MEDS: Acetaminophen 325 MG Tablet 650 MG PO ×2 (02:11→13:28)
[2020-10-05 02:12] VITALS: BP 149/74; PULSE 96; RESP 17; TEMP 36.6; O2SAT 92
[2020-10-05 06:42] LABS: Absolute Lymphocyte Count 2.65 X10^3/uL (0.83-4.51); Absolute Neutrophil Count 5.1 X10^3/uL (2.0-7.7); Basophil# 0.07 X10^3/uL; Basophil% 0.8 % (0-1); Eosinophil# 0.38 X10^3/uL; Eosinophils% 4.2 % (0-5); Hematocrit 38.6 % (37-47); Hemoglobin 11.6 g/dL (12.0-15.0); Lymphocyte # 2.65 X10^3/ul (0.83-4.51); Lymphocyte % 29.3 % (19-41); Mean Corp Hgb Conc 30.1 g/dL (32-36); Mean Corpuscular Hgb 27.6 pg (27.0-32.0); Mean Corpuscular Volume 91.7 fL (81-99); Mean Platelet Vol. 9.8 fl (6.2-12.0); Monocyte# 0.78 X10^3/uL; Monocyte% 8.6 % (0-10); NRBC Flagged by Analyzer 0 % (0-5); Neutrophil % 56.5 % (47-70); Platelet Count 228 K/mm3 (150-450); RBC Distribution Width CV 13.2 % (11.6-14.6); RBC Distribution Width SD 44.2 fl (35.1-43.9); Red Blood Count 4.21 M/mm3 (4.2-5.4)
[2020-10-05 07:03] LABS: Anion Gap 3 (5-15); BUN 15 mg/dL (7-18); Calcium,Total 8.5 mg/dL (8.5-10.1); Chloride 107 mmol/L (98-107); Creatinine, Serum 0.88 mg/dL (0.55-1.02); EST Glomerular Filtration Rate 69 mL/min (>60); Est Glom Filt Rate - Afr Amer 83 mL/min (>60); Estimated Creatinine Clearance 58.88 ml/min; Glucose 98 mg/dL (74-106); Magnesium 2.5 mg/dL (1.6-2.6); Potassium 4.4 mmol/L (3.5-5.1); Sodium Level 139 mmol/L (136-145)
--- NOTE | 2020-10-05 07:20 | PCM.PN.HOSP ---
Subjective Subjective Patient seen per nursing staff had episodic confusion however appears to be back to baseline. Notes from infectious disease reviewed. Patient will be discharged home on Valtrex pending CSF HSV and VZV result Objective Data Objective Data Vital Signs: Vital Signs Temp Pulse Resp BP Pulse Ox 97.8 F 96 17 149/74 H 92 10/05/20 02:12 10/05/20 02:12 10/05/20 02:12 10/05/20 02:12 10/05/20 02:12 Oxygen Flow Rate (L/min) 2 Oxygen Delivery Method Room Air Weight: 113 kg Body Mass Index (BMI) 41.4 Intake & Output: Intake and Output for Last 24 Hours 10/03/20 10/04/20 10/05/20 23:59 23:59 23:59 Intake Total 1794.2 / 1794.2 1026.70 / 1026.70 734 / 734 Output Total 1100 / 1100 1300 / 1300 Balance 694.2 / 694.2 -273.30 / -273.30 734 / 734 Lab / Micro Data Result Diagrams: 10/05/20 06:06 10/05/20 06:06 Labs: Laboratory Results - last 24 hr 09/30/20 10/05/20 10/05/20 08:48 06:06 06:06 WBC 9.0 RBC 4.21 Hgb 11.6 L Hct 38.6 MCV 91.7 MCH 27.6 MCHC 30.1 L RDW Std Deviation 44.2 H RDW Coeff of Crissy 13.2 Plt Count 228 MPV 9.8 Immature Gran % (Auto) 0.600 Neut % (Auto) 56.5 Lymph % (Auto) 29.3 [place] % (Auto) 8.6 Eos % (Auto) 4.2 Baso % (Auto) 0.8 Absolute Neuts (auto) 5.1 Absolute Lymphs (auto) 2.65 Nucleated RBC % 0 Sodium 139 Potassium 4.4 Chloride 107 Carbon Dioxide 29.0 Anion Gap 3 L BUN 15 Creatinine 0.88 Estim Creat Clear Calc 58.88 Est GFR (MDRD) Af Amer 83 Est GFR (MDRD) Non-Af 69 BUN/Creatinine Ratio 17.0 Glucose 98 Calcium 8.5 Magnesium 2.5 Miscellaneous Cytology SEE PATHOLOGY REPORT Micro: Microbiology 09/30/20 08:48 Csf, Spinal Fluid Gram Stain - Final 09/30/20 08:48 Csf, Spinal Fluid CSF Culture - Final No growth in 72 hours. Physical Exam Narrative GENERAL: cooperative HEENT: Atraumatic; EYES; Anicteric, Normal Conjunctiva NECK; supple, normal thyroid, RESPIRATORY: Diminished to auscultation CARDIOVASCULAR: Regular S1 S2, GI: soft, normoactive bowel sounds, : No Renal angle tenderness; EXTREMITIES: No edema, no clubbing, MUSCULOSKELETAL: no muscle waisting NEURO: Awake; no lateralizing signs. SKIN: No Rash PSYCH; Flat affect Const alert, oriented x3, no apparent distress and well nourished Constitutional Narrative: Less perseveration. Understands why she is here understands what therapy was recommending for her. General Appearance: cooperative and well developed Orientation / Consciousness: confused, disoriented and other Other Details: Drowsy Exam Limitations: no limitations and altered mental status HEENT normocephalic, head/scalp atraumatic and moist oral mucous membranes Eyes PERRL, EOMs intact bilaterally and conjunctivae normal Neck no lymphadenopathy and supple Lymph Lymphatic: no lymphadenopathy noted Resp normal respiratory effort, no retractions, no use of accessory muscles and clear to auscultation bilaterally Cardio regular rate, regular rhythm, S1 normal heart sound, S2 normal heart sound and no murmurs Rhythm: regular rhythm Peripheral Pulses: pulses 2+ throughout GI normal to inspection, nondistended, normoactive bowel sounds, non-tender and non-distended Extremity normal to inspection, full ROM, normal capillary refill and no clubbing, cyanosis or edema Skin no rashes or lesions noted General Skin Exam: turgor normal Lesions: no lesions Rashes: no rashes Trauma: no lacerations or abrasions Neuro CN's II-XII intact bilaterally, no focal motor deficits and no sensory deficits noted Sensorium / Orientation: awake, alert and confused Psych affect normal Psych Narrative: Flat affect, delayed response Appearance: appropriate Mood & Affect: anxious and flat affect Assessment & Plan Assessment/Plan (1) Encephalitis: PLAN: Patient is a 65-year-old presented with falls and generalized weakness. Patient was also found to be encephalopathic on admission patient has since been managed as a case of acute encephalitis following lumbar puncture. Viral cultures were sent results still pending. 1. Acute infectious encephalopathy ?Secondary to suspected viral encephalitis. Patient underwent EEG without epileptiform discharges. Patient has since been managed with acyclovir. Patient underwent lumbar puncture following recommendations from [facility] neurology. Results of lumbar puncture reviewed. - 10/05/2020; Patient seen per nursing staff had episodic confusion however appears to be back to baseline. Notes from infectious disease reviewed. Patient will be discharged home on Valtrex pending CSF HSV and VZV result 2. Dyslipidemia -Patient is on statin therapy, continued at home dose 3. Hypertension - Blood pressure controlled, home medications continued with dose adjustment as needed 4. Morbid obesity - With a BMI of 41.5 patient was counseled on weight reduction 5. GERD ?On PPI 6. DVT prophylaxis - On enoxaparin Visit Charges Inpatient E&M: 98921 Subs Hosp L2
[2020-10-05 07:32] VITALS: O2SAT 92
--- NOTE | 2020-10-05 08:02 | DCINST_ITS ---
Discharge Instructions Diet Discharge Diet: No restrictions Activity Discharge Activity: Return to Normal Activity Dressing / Incision Call your doctor if you observe: Fever of 101 or Higher, Shortness of breath, Fainting spells, Chest pain and Uncontrolled pain Follow Up Care Test Results: Test results from this visit will be discussed in further detail at your follow-up appointment, if applicable. Discharge Plan Admission Admit Date/Time: 09/30/20 11:59 Primary Reason for Your Visit: Acute metabolic encephalopathy secondary to suspected viral encephalitis Attending Provider: Magdiel Frausto Primary Care Provider: Cedric Mcnally Consulting Providers: Cedric Carr Instructions Patient Instructions: ED Encephalitis, Viral Discharge Orders/Prescriptions Prescriptions: New lisinopril 10 mg Tablet 10 mg PO DAILY Qty: 90 RF: 0 valacyclovir [Valtrex] 1 gram tablet 1,000 mg PO TID Qty: 20 RF: 0 Continued aspirin 81 MG tablet,chewable 1 tab PO QHS RF: 0 ergocalciferol (vitamin D2) [Vitamin D2] 50,000 UNIT capsule 50,000 unit PO FR RF: 0 sumatriptan succinate 25 mg tablet 25 mg PO DAILY PRN PRN (Reason: Migraine Headache) RF: 0 nortriptyline 75 mg capsule 75 mg PO DINNER RF: 0 omeprazole 20 mg capsule,delayed release(DR/EC) 20 mg PO DAILY RF: 0 Referrals / Follow Up: Cedric Carr MD [STAFF PHYSICIAN] - Within 2 Weeks Cedric Mcnally DO [Primary Care Provider] - In 1 Week Disposition Disposition (needs filled in before D/C Order can be placed): Home, self care
--- NOTE | 2020-10-05 08:04 | PCM.DC.SUM ---
Providers Date of Admission: 09/30/20 Primary Care Physician: Dr. Cedric Mcnally DO Consultations 09/30/20 17:25 Consult: Infectious Disease Routine Consulting Provider: Cedric Carr Reason for Consult: possible encephalitis/meningitis EMERGENT Consult: No MD Notified: Yes Date Notified:: 09/30/20 Time Notified: 17:29 Method of Notification: Answering Service Reason For Visit: TIA Diagnosis Discharge Diagnosis (1) Encephalitis: Status: Acute Code(s): G04.90 - Encephalitis and encephalomyelitis, unspecified Medications at Discharge Home Medications aspirin 1 tab PO QHS 07/19/17 ergocalciferol (vitamin D2) [Vitamin D2] 50,000 unit PO FR 12/20/17 nortriptyline 75 mg PO DINNER 09/27/20 omeprazole 20 mg PO DAILY 09/27/20 sumatriptan succinate 25 mg PO DAILY PRN PRN 09/27/20 lisinopril 10 mg PO DAILY #90 tab 10/05/20 valacyclovir [Valtrex] 1,000 mg PO TID #20 tab 10/05/20 Hospital Course Summary of Care Provided Minutes Spent on Discharge: 35 Hospital Course: Patient is a 65-year-old presented with falls and generalized weakness. Patient was also found to be encephalopathic on admission patient has since been managed as a case of acute encephalitis following lumbar puncture. Viral cultures were sent results still pending. 1. Acute infectious encephalopathy ?Secondary to suspected viral encephalitis. Patient underwent EEG without epileptiform discharges. Patient has since been managed with acyclovir. Patient underwent lumbar puncture following recommendations from [facility] neurology. Results of lumbar puncture reviewed. - 10/05/2020; Patient seen per nursing staff had episodic confusion however appears to be back to baseline. Notes from infectious disease reviewed. Patient will be discharged home on Valtrex pending CSF HSV and VZV result 2. Dyslipidemia -Patient is on statin therapy, continued at home dose 3. Hypertension - Blood pressure controlled, home medications continued with dose adjustment as needed 4. Morbid obesity - With a BMI of 41.5 patient was counseled on weight reduction 5. GERD ?On PPI 6. DVT prophylaxis - On enoxaparin Physical Exam Const alert General Appearance: cooperative HEENT head/scalp atraumatic Eyes conjunctivae normal Resp normal respiratory effort and no use of accessory muscles Cardio regular rate and regular rhythm GI normal to inspection, nondistended, normoactive bowel sounds Extremity no clubbing, cyanosis or edema Neuro no focal motor deficits Sensorium / Orientation: oriented to person Psych affect normal ABG / Lab / Microbiology Data Result Diagrams: 10/05/20 06:06 10/05/20 06:06 Laboratory: Laboratory Results - last 24 hr 09/30/20 10/05/20 10/05/20 08:48 06:06 06:06 WBC 9.0 RBC 4.21 Hgb 11.6 L Hct 38.6 MCV 91.7 MCH 27.6 MCHC 30.1 L RDW Std Deviation 44.2 H RDW Coeff of Crissy 13.2 Plt Count 228 MPV 9.8 Immature Gran % (Auto) 0.600 Neut % (Auto) 56.5 Lymph % (Auto) 29.3 [place] % (Auto) 8.6 Eos % (Auto) 4.2 Baso % (Auto) 0.8 Absolute Neuts (auto) 5.1 Absolute Lymphs (auto) 2.65 Nucleated RBC % 0 Sodium 139 Potassium 4.4 Chloride 107 Carbon Dioxide 29.0 Anion Gap 3 L BUN 15 Creatinine 0.88 Estim Creat Clear Calc 58.88 Est GFR (MDRD) Af Amer 83 Est GFR (MDRD) Non-Af 69 BUN/Creatinine Ratio 17.0 Glucose 98 Calcium 8.5 Magnesium 2.5 Miscellaneous Cytology SEE PATHOLOGY REPORT Microbiology: Microbiology 09/30/20 08:48 Csf, Spinal Fluid Gram Stain - Final 09/30/20 08:48 Csf, Spinal Fluid CSF Culture - Final No growth in 72 hours. D/C Instructions Discharge Diet: No restrictions Discharge Activity: Return to Normal Activity Call your doctor if you observe: Fever of 101 or Higher, Shortness of breath, Fainting spells, Chest pain and Uncontrolled pain Meaningful Use Info Meaningful Use Diagnoses (Choose all that apply): None applicable Discharge Plan Admission Admit Date/Time: 09/30/20 11:59 Primary Reason for Your Visit: Acute metabolic encephalopathy secondary to suspected viral encephalitis Attending Provider: Magdiel Frausto Primary Care Provider: Cedric Mcnally Consulting Providers: Cedric Carr Instructions Patient Instructions: ED Encephalitis, Viral Discharge Orders/Prescriptions Prescriptions: New lisinopril 10 mg Tablet 10 mg PO DAILY Qty: 90 RF: 0 valacyclovir [Valtrex] 1 gram tablet 1,000 mg PO TID Qty: 20 RF: 0 Continued aspirin 81 MG tablet,chewable 1 tab PO QHS RF: 0 ergocalciferol (vitamin D2) [Vitamin D2] 50,000 UNIT capsule 50,000 unit PO FR RF: 0 sumatriptan succinate 25 mg tablet 25 mg PO DAILY PRN PRN (Reason: Migraine Headache) RF: 0 nortriptyline 75 mg capsule 75 mg PO DINNER RF: 0 omeprazole 20 mg capsule,delayed release(DR/EC) 20 mg PO DAILY RF: 0 Referrals / Follow Up: Cedric Carr MD [STAFF PHYSICIAN] - Within 2 Weeks Cedric Mcnally DO [Primary Care Provider] - In 1 Week Disposition Disposition (needs filled in before D/C Order can be placed): Home, self care Visit Charges Inpatient E&M: [id number] [facility]
[2020-10-05 08:27] VITALS: BP 119/57; PULSE 95; RESP 18; TEMP 36.4; O2SAT 96
[2020-10-05] MEDS: Lisinopril 10 MG Tablet PO (08:41)
[2020-10-05] MEDS: Enoxaparin 40 MG/0.4 ML Syringe SC (08:41)
[2020-10-05] MEDS: Pantoprazole Sodium 20 MG Tablet PO (08:41)
--- NOTE | 2020-10-05 09:40 | PHA.DC.MC ---
Pharmacy Service has performed discharge medication reconciliation and counseling for this patient. 1. LISINOPRIL 10MG PO DAILY 2. VALACYCLOVIR 1000MG PO TID X 7 DAYS The patient's discharge medication list was reviewed for discrepancies and discrepancies were resolved. Home Medications aspirin 1 tab PO QHS 07/19/17 ergocalciferol (vitamin D2) [Vitamin D2] 50,000 unit PO FR 12/20/17 nortriptyline 75 mg PO DINNER 09/27/20 omeprazole 20 mg PO DAILY 09/27/20 sumatriptan succinate 25 mg PO DAILY PRN PRN 09/27/20 lisinopril 10 mg PO DAILY #90 tab 10/05/20 valacyclovir [Valtrex] 1,000 mg PO TID #20 tab 10/05/20 The patient was counseled on the following discharge medications and changes in medications for homegoing were reviewed. The Reason for Use, instructions for use, and potential side effects were reviewed for all new medications. The patient's questions regarding all of their medications were answered. The patient was able to verbally demonstrate an understanding of their discharge medications. Patient counseled by pharmacy manager
--- NOTE | 2020-10-05 10:27 | NURSING ---
Addendum entered and electronically signed by Adrienne Gusman 10/05/20 10:50: 1042- Return call from Maryann at [facility] and confirmed received fax. States can accept patient if patient has a SN need, order amended to add SN for Medication reconciliation/education and vital sign check. Updated order faxed to [facility]. Per Maryann [facility] might not be tomorrow but will be by the end of this week. Primary nurse updated and aware to relay above information to patient. SIMI Joy Original Note: Called [facility] [phone], s/w Maryann and states that she did not have a VM and her special effects person did not have a VM. States received no referral. Verified fax number [phone] is correct. This ghost writer faxed referral for [facility] and will await review for acceptance. Patient to [facility] home today. SIMI Joy
[2020-10-05 12:59] VITALS: BP 115/77; PULSE 103; RESP 18; TEMP 37.3; O2SAT 94
--- NOTE | 2020-10-05 13:32 | NURSING ---
1310 picc line removed. pressure applied for 5 min. and pressure drsg applied. [place]. well.
[2020-10-15 03:07] LABS: HSV 1 By PCR Negative (Negative)
[2020-10-15 08:28] LABS: Enterovirus By PCR Negative (Negative); HSV 2 By PCR Negative (Negative); West Nile Virus Qual by PCR Negative (.)
== END 2020-10-05 14:08 | disposition home health service (06) | DRG 50 ==
LOC: ED 19:03 → PCU 22:45 → MS3 10-04 20:42
PROVIDERS: Nurse Practitioner Family; Admitting Provider Family Medicine; Emergency Provider Emergency Medicine; PCP Family Medicine; Visit Provider Internal Medicine
DX: A86 Unspecified viral encephalitis (principal); G93.49 Other encephalopathy; E78.5 Hyperlipidemia, unspecified; F32.9 Major depressive disorder, single episode, unspecified; F41.9 Anxiety disorder, unspecified; K21.9 Gastro-esophageal reflux disease without esophagitis; I10 Essential (primary) hypertension; G43.909 Migraine, unspecified, not intractable, without status migrainosus; E66.01 Morbid (severe) obesity due to excess calories; Z68.41 Body mass index [BMI] 40.0-44.9, adult; Z86.73 Personal history of transient ischemic attack (TIA), and cerebral infarction without residual deficits; Z91.81 History of falling
CPT/HCPCS: 36415; 36569; 36600; 62270; 70450; 70551; 71045; 77003; 80048; 80061; 80307; 81001; 82140; 82803; 82945; 82962; 83735; 84157; 84443; 84484; 85025; 85610; 85730; 87070; 87205; 87498; 87529; 87635; 87798; 88108; 88313; 89050; 89051; 92507; 92526; 93005; 94762; 95819; 97110; 97116; 97162; 97167; 97530; 97535; 99285; J7030; J7040; J7050; A4216; J0696; J2405; U0002

== ENCOUNTER 2021-03-06 15:41 | Inpatient (IN) | payer MEDICAID, SELFPAY ==
[2021-03-06] VITALS (20 sets, daily range): BP systolic 89–120; BP diastolic 52–67; PULSE 87–121; RESP 12–52; TEMP 35.7–37.2; O2SAT 91–100; BMI 37.8; BMI 35.6
--- NOTE | 2021-03-06 15:48 | EKG12_ITS ---
Test Reason : SOB Blood Pressure : / mmHG Vent. Rate : 118 BPM Atrial Rate : 118 BPM P-R Int : 142 ms QRS Dur : 136 ms QT Int : 352 ms P-R-T Axes : 051 007 038 degrees QTc Int : 493 ms Sinus tachycardia Left bundle branch block Abnormal ECG Confirmed by CHESTER DOUGLAS, AGNIESZKA ([id number]), field map editor PK TAPIA ([id number]) on 03/08/2021 9:19:04 AM Referred By: TANVI Confirmed By:AGNIESZKA BRIGGS MD
--- NOTE | 2021-03-06 15:51 | ED.VIS.DYS ---
HPI History of Present Illness Chief Complaint: Shortness of Breath Informant: patient and EMS Narrative Narrative: Patient brought in by EMS reported dyspnea as the complaint on arrival. Reported she pulse ox in the 50s on room air placed on a nonrebreather in the 70s reported she was hypotensive with systolic blood pressure in the 60s. Patient seen immediately on arrival. Discussion with the patient is alert and oriented x3, symptoms started 2 days ago with cough dyspnea mild productive. Denies fevers myalgias. Mild headache. No diarrhea. States vomited x1 yesterday. Patient is not Covid vaccinated. 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 Patient denies asthma or COPD or tobacco history. She does have history of CVA. Denies any residual deficits. Reviewing medicines, patient on baby aspirin, lisinopril, omeprazole, nortriptyline. Discussion with patient invasive intervention if needed. Patient states she would not want CPR or intubation. She states this has been discussed with her sister. Prior similar symptoms: No PFSH PFSH Medical History Encephalitis Home Medications aspirin 1 tab PO QHS 07/19/17 [History Last Taken 09/26/20] nortriptyline 75 mg PO DINNER 09/27/20 [History Last Taken 09/26/20] omeprazole 20 mg PO DAILY 09/27/20 [History Last Taken 09/26/20] lisinopril 10 mg PO DAILY #90 tab 10/05/20 [Rx Last Taken Unknown] escitalopram oxalate 10 mg PO DAILY 03/06/21 [History Last Taken Unknown] Allergy/AdvReac Type Severity Reaction Status Date / Time No Known Allergies Allergy Verified 03/06/21 15:53 Surgical History History of ankle surgery Social History Smoking Status: Never smoker ROS ROS ED Constitutional Constitutional ED: Denies chills, fever(s) or sweats Eyes Eyes: Denies change in vision ENT ENT ED: Denies dysphagia or sore throat Cardiovascular Cardiovascular: Denies chest pain, leg edema, palpitations or racing heartbeat Respiratory/Chest Respiratory/Chest: Reports cough and dyspnea; Denies dyspnea on exertion Gastrointestinal Gastrointestinal: Reports nausea and vomiting; Denies abdominal pain or diarrhea Genitourinary Genitourinary ED: Denies dysuria, hematuria or urinary frequency Musculoskeletal Musculoskeletal: Denies back pain, extremity pain or neck pain Integumentary Denies rash or wounds Neurologic Neurologic: Denies headache(s), paresthesias or weakness EXAM Physical Exam Const Vital Signs: 03/06/21 15:42 03/06/21 15:49 03/06/21 15:58 Temperature 96.3 F L 96.3 F L Temperature Source Temporal Temporal Pulse Rate 118 H 121 H Respiratory Rate 52 H 34 H Respiratory Effort Respiratory Depth Respiratory Pattern Blood Pressure 120/65 120/65 Blood Pressure Mean 83 83 Pulse Ox 100 98 Oxygen Delivery Method Bi-pap Bi-pap Fraction of Inspired Oxygen (FIO2) 100 90 03/06/21 16:04 03/06/21 16:12 03/06/21 16:28 Temperature Temperature Source Pulse Rate 115 H Respiratory Rate 41 H Respiratory Effort Short of Breath Labored Accessory Muscle Use Nasal Flaring Respiratory Depth Shallow Respiratory Pattern Tachypnea Blood Pressure Blood Pressure Mean Pulse Ox 95 95 Oxygen Delivery Method Bi-pap Bi-pap Bi-pap Fraction of Inspired Oxygen (FIO2) 90 03/06/21 16:43 Temperature 98 F Temperature Source Temporal Pulse Rate 113 H Respiratory Rate 34 H Respiratory Effort Respiratory Depth Respiratory Pattern Blood Pressure 96/67 Blood Pressure Mean 76 Pulse Ox 96 Oxygen Delivery Method Bi-pap Fraction of Inspired Oxygen (FIO2) Positive well nourished and well developed Constitutional Narrative: Transitioning over to a BiPAP, speaking in short sentences. General Appearance ED: well developed and NAD HEENT Reports moist mucous membranes normocephalic and atraumatic Eyes PERRL, EOMs intact bilaterally and conjunctivae normal General Eye ED: Yes normal appearance of both eyes Neck no lymphadenopathy and supple General: Negative for tenderness Chest Wall Chest: Negative for tenderness Resp normal air movement Effort and Inspection: symmetric chest movement; Negative for respiratory distress Auscultation: diminished lung sounds Cardio regular rhythm and no murmurs Rate: tachycardic Peripheral Pulses: pulses 2+ throughout GI normal to inspection, nondistended, normoactive bowel sounds and non-tender Palpation: Negative for guarding or rebound tenderness present Back/Spine no CVA tenderness and no thoracic nor lumbar tenderness Extremity normal to inspection General Extremety ED: Negative for edema or tenderness General Extremity: Negative for edema Neuro oriented x3 and no sensory deficits noted Sensorium / Orientation: awake and alert Skin no rashes or lesions noted and no wounds MDM MDM MDM Narrative Medical decision making narrative: Patient maintained on BiPAP, sepsis labs were ordered. Covid testing returned positive. She started on Decadron. Patient sister in the room, discussed patient's wishes with DNR Comfort Care arrest, patient acknowledges patient's wishes. DNR forms were filled out with sister signing the forms per patient's request. EKG sinus tachycardia left bundle branch block. Similar changes from September 2020. White count at 10.5 hemoglobin 14.5. D-dimer about 2.46. Patient creatinine returned at 1.8 with creatinine clearance of 30. Elevated CRP. Troponin at 243. She denied any chest pains. Lactic acid 3.0. Procalcitonin 2.63. Patient meeting severe sepsis secondary to Covid pneumonia with chest x-ray findings. I spoke with hospitalist Dr. Godfrey, requests Lovenox therapeutic dose x1 for coverage. She is given rectal aspirin due to elevated troponin. I spoke with business applications manager Dr. John updated on patient's presentation and findings. Patient admitted to ICU. Lab Data Attestation: I reviewed the patient's lab results. Labs: Laboratory Results - last 24 hr 03/06/21 03/06/21 03/06/21 15:40 15:40 15:40 WBC 10.5 RBC 5.09 Hgb 14.5 Hct 45.8 MCV 90.0 MCH 28.5 MCHC 31.7 L RDW Std Deviation 48.7 H RDW Coeff of Crissy 14.6 Plt Count 258 MPV 10.7 Immature Gran % (Auto) 0.500 Neut % (Auto) 91.5 H Lymph % (Auto) 4.9 L [place] % (Auto) 3.0 Eos % (Auto) 0.0 Baso % (Auto) 0.1 Absolute Neuts (auto) 9.6 H Absolute Lymphs (auto) 0.51 L Nucleated RBC % 0 Platelet Estimate ADEQUATE RBC Morphology NORM C+C D-Dimer Quant (PE/DVT) 2.46 H* Sodium 135 L Potassium 4.3 Chloride 100 Carbon Dioxide 25.0 Anion Gap 10 BUN 35 H Creatinine 1.81 H Estim Creat Clear Calc 28.63 Est GFR (MDRD) Af Amer 36 L Est GFR (MDRD) Non-Af 30 L BUN/Creatinine Ratio 19.3 Glucose 131 H Lactic Acid Calcium 9.0 Total Bilirubin 0.60 AST 59 H ALT 21 Alkaline Phosphatase 96 Troponin I High Sens 243 H* C-React Prot Ext Range 293.00 H Total Protein 8.5 H Albumin 3.0 L Globulin 5.5 H Albumin/Globulin Ratio 0.5 L Procalcitonin 03/06/21 03/06/21 15:40 15:55 WBC RBC Hgb Hct MCV MCH MCHC RDW Std Deviation RDW Coeff of Crissy Plt Count MPV Immature Gran % (Auto) Neut % (Auto) Lymph % (Auto) [place] % (Auto) Eos % (Auto) Baso % (Auto) Absolute Neuts (auto) Absolute Lymphs (auto) Nucleated RBC % Platelet Estimate RBC Morphology D-Dimer Quant (PE/DVT) Sodium Potassium Chloride Carbon Dioxide Anion Gap BUN Creatinine Estim Creat Clear Calc Est GFR (MDRD) Af Amer Est GFR (MDRD) Non-Af BUN/Creatinine Ratio Glucose Lactic Acid 3.0 H* Calcium Total Bilirubin AST ALT Alkaline Phosphatase Troponin I High Sens C-React Prot Ext Range Total Protein Albumin Globulin Albumin/Globulin Ratio Procalcitonin 2.63 H ABG Data ABG results: ABG 03/06/21 16:18 Specimen Type LUIS E VBG pH 7.36 VBG pO2 13 L* VBG HCO3 27 H VBG Total CO2 28 VBG O2 Sat (Calc) 14 L VBG Base Excess 2 POC Mix VBG pCO2 Pt Tmp 47.4 O2 Delivery Device BiPAP Crit Call To/Read Back Yes Clinical Comments 19*10 Radiography Chest X-Ray - ED: 1 View, Read by ED Physician and Read by Radiologist Diagnostic Testing: Clinical Impression(s) from Imaging Studies Chest X-Ray 03/06/21 16:08 IMPRESSION: Severe bilateral pneumonia. Moderate cardiomegaly. No pulmonary edema. Electronically Signed: Martha Wyatt MD at 16:44 EDT Tel , Service support , EKG Initial EKG: Attestation: I personally reviewed and interpreted this EKG as follows: Comments: Sinus tachycardia rate of 118, no ST changes. Left bundle branch block noted. Critical Care Time Critical Care Time: Yes Critical care time (excluding procedures): 30-74 minutes, Discussing w/Patient &/or Family/Photograph Finisher, Discussing w/Consultants, Arranging Admission or Transfer, Performing Direct Patient Care at Bedside and - (50 minutes) Discharge Plan Dx/Rx/DC Orders Clinical Impression: Pneumonia due to 2019-nCoV, ADAM (acute kidney injury), Hypoxemia, Respiratory failure, Non-ST elevation ME (NSTEMI), DNR (do not resuscitate) Disposition Disposition: Acute Care Hospital [facility] Discharge Date/Time: 03/06/21 17:25
[2021-03-06] MEDS: Ondansetron 4 MG/2 ML Vial IV (15:57)
--- NOTE | 2021-03-06 15:58 | CPS ---
decreased FiO2 to 90%. DR and RN aware.
[2021-03-06 16:01] LABS: Absolute Lymphocyte Count 0.51 X10^3/uL (0.83-4.51); Absolute Neutrophil Count 9.6 X10^3/uL (2.0-7.7); Basophil# 0.01 X10^3/uL; Basophil% 0.1 % (0-1); Hematocrit 45.8 % (37-47); Hemoglobin 14.5 g/dL (12.0-15.0); Lymphocyte # 0.51 X10^3/ul (0.83-4.51); Lymphocyte % 4.9 % (19-41); Mean Corp Hgb Conc 31.7 g/dL (32-36); Mean Corpuscular Hgb 28.5 pg (27.0-32.0); Mean Platelet Vol. 10.7 fl (6.2-12.0); Monocyte# 0.31 X10^3/uL; NRBC Flagged by Analyzer 0 % (0-5); Neutrophil # 9.57 X10^3/uL (2.7-7.7); Neutrophil % 91.5 % (47-70); POSITIVE DIFFERENTIAL YES; Platelet Count 258 K/mm3 (150-450); RBC Distribution Width CV 14.6 % (11.6-14.6); RBC Distribution Width SD 48.7 fl (35.1-43.9); Red Blood Count 5.09 M/mm3 (4.2-5.4); White Blood Count 10.5 K/mm3 (4.4-11.0)
[2021-03-06 16:02] LABS: Differential Indicated SCAN CRITERIA MET
[2021-03-06] MEDS: LORazepam 2 MG/ML Syringe 0.5 MG IV (16:03)
--- NOTE | 2021-03-06 16:08 | RAD_ITS ---
STUDY: X-RAY CHEST REASON FOR EXAM: Female, 65 years old. cough TECHNIQUE: Frontal portable view of the chest COMPARISON: 01 Oct 2020 FINDINGS: There is severe bilateral pneumonia. There is no pneumothorax, pulmonary edema or pleural effusions. The heart is moderately enlarged. RAD/Chest 1 View (Portable) IMPRESSION: Severe bilateral pneumonia. Moderate cardiomegaly. No pulmonary edema. Electronically Signed: Martha Wyatt MD at 16:44 EDT Tel , Service support ,
[2021-03-06 16:14] LABS: D-Dimer Quantitative (DVT/PE) 2.46 FEU/ug/m (0.27-0.49)
--- NOTE | 2021-03-06 16:16 | ED.RN ---
CRITICAL RECIEVED FROM LAB, D-DIMER 2.46, DR. MOSES
[2021-03-06] MEDS: 0.9% Normal Saline 1,000 ML 125 ML IV (16:18)
[2021-03-06 16:25] LABS: Blood Gas Specimen Type VEN; O2 Delivery Device BiPAP; VBG BASE EXCESS 2 mmol/L (-1.0-3.5); VBG Bicarbonate 27 mmol/L (22-26); VBG PO2 13 mmHg (25-40); VBG SO2 14 % (50-70); VBG TCO2 28 mmol/L (23-33); VBG pCO2 47.4 mmHg (41-51); VBG pH 7.36 (7.32-7.42)
--- NOTE | 2021-03-06 16:25 | CPS ---
Critical venous blood gas results handed to Dr. Pineda and Dr Godfrey at this time.
[2021-03-06 16:27] LABS: ALB/GLOB Ratio 0.5 RATIO (0.9-2.4); AST(SGOT) 59 U/L (15-37); Alanine Aminotransfer ALT/SGPT 21 U/L (13-56); Alkaline Phosphatase 96 U/L (45-117); Anion Gap 10 (5-15); BUN 35 mg/dL (7-18); BUN/Creat Ratio 19.3 RATIO (10-20); Chloride 100 mmol/L (98-107); Creatinine, Serum 1.81 mg/dL (0.55-1.02); EST Glomerular Filtration Rate 30 mL/min (>60); Est Glom Filt Rate - Afr Amer 36 mL/min (>60); Estimated Creatinine Clearance 28.63 ml/min; Globulin 5.5 g/dL (2.2-4.2); Glucose 131 mg/dL (74-106); Potassium 4.3 mmol/L (3.5-5.1); Protein, Total 8.5 g/dL (6.4-8.2); Sodium Level 135 mmol/L (136-145); Troponin-I HS 243 pg/mL (3.0-54.0)
[2021-03-06] MEDS: dexAMETHasone 4 MG/ML Vial 6 MG IV (16:27)
[2021-03-06 16:31] LABS: Procalcitonin 2.63 ng/mL (0.00-0.09)
[2021-03-06 16:42] LABS: Platelet Estimate ADEQUATE (ADEQ)
[2021-03-06 16:43] LABS: Red Cell Morphology NORM C+C NORMAL (NORM C&C)
[2021-03-06] MEDS: Enoxaparin 120 MG/0.8 ML Syringe SC (17:02)
[2021-03-06] MEDS: Aspirin 300 MG Suppository RC (17:02)
--- NOTE | 2021-03-06 17:47 | HP.PCM.HOS_ITS ---
HPI - General General Date of Admission: 03/06/21 Date of Service: 03/06/21 Chief Complaint: Shortness of breath today HPI Narrative JANEY DE OLIVEIRA, is a 65 F with multiple comorbidities was brought to ER by EMS for acute shortness of breath today. Patient is not feeling good since last Sunday about 2 days ago, starting with vomiting in afternoon and then feeling generalized weakness, no energy with chills. Then she started having dry cough and today she felt very short of breath. EMS vitals shows hypertension blood pressure 76/55, respiratory rate 24 to 28/min, end-tidal CO2 28 and tachycardia heart rate 127/m. Patient was put on high flow oxygen nonrebreather and brought to ER. 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 In ED she is still tachycardic, tachypneic and on BiPAP 90% FiO2 with high IPAP/EPAP. Chest x-ray shows bilateral pneumonia. She has elevated creatinine 1.81 with baseline 0.8-1.0 in September 2020, lactic acidosis, high troponin, procalcitonin 2.63. D-dimer 2.46. WBC 10.5 thousand, ALC 0.5 thousand, lymphopenia She got IV fluid resuscitation, IV dexamethasone and she is further admitted in ICU. [facility] Medical History Depression Encephalitis GERD (gastroesophageal reflux disease) Hypertension Home Medications aspirin 1 tab PO QHS 07/19/17 [History Last Taken 09/26/20] nortriptyline 75 mg PO DINNER 09/27/20 [History Last Taken 09/26/20] omeprazole 20 mg PO DAILY 09/27/20 [History Last Taken 09/26/20] lisinopril 10 mg PO DAILY #90 tab 10/05/20 [Rx Last Taken Unknown] escitalopram oxalate 10 mg PO DAILY 03/06/21 [History Last Taken Unknown] Allergy/AdvReac Type Severity Reaction Status Date / Time No Known Allergies Allergy Verified 03/06/21 15:53 Surgical History History of ankle surgery Social History Smoking Status: Never smoker ROS ROS Narrative ROS limited as patient is on BiPAP and very short of breath, dyspneic therefore mainly taken from patient's sister near the bedside. Constitutional: Reports fatigue and weakness, no energy. Loss of appetite HEENT: Reports systems reviewed and no addt'l complaints, except as documented Respiratory/Chest: Denies chest pain/pressure. Gastrointestinal: Vomiting and nausea. Denies coffee ground emesis, hematemesis. Genitourinary: Urine dark yellow color. Denies burning urination or new urinary tract symptoms Musculoskeletal: Diffuse myalgia. Denies joint pain and limited range of motion Neurologic: Denies seizure-like activity skin: No ulcer. No rash Endocrinology: Reports systems reviewed and no addt'l complaints, except as documented Hematologic/Lymphatic: Reports systems reviewed and no addt'l complaints, except as documented Rest 12 ROS are negative except as mentioned in HPI Vital Signs Vital Signs Vital Signs: 03/06/21 15:42 03/06/21 15:49 03/06/21 15:58 Temperature 96.3 F L 96.3 F L Temperature Source Temporal Temporal Pulse Rate 118 H 121 H Respiratory Rate 52 H 34 H Respiratory Effort Respiratory Depth Respiratory Pattern Blood Pressure 120/65 120/65 Blood Pressure Mean 83 83 Pulse Ox 100 98 Oxygen Delivery Method Bi-pap Bi-pap Fraction of Inspired Oxygen (FIO2) 100 90 03/06/21 16:04 03/06/21 16:12 03/06/21 16:28 Temperature Temperature Source Pulse Rate 115 H Respiratory Rate 41 H Respiratory Effort Short of Breath Labored Accessory Muscle Use Nasal Flaring Respiratory Depth Shallow Respiratory Pattern Tachypnea Blood Pressure Blood Pressure Mean Pulse Ox 95 95 Oxygen Delivery Method Bi-pap Bi-pap Bi-pap Fraction of Inspired Oxygen (FIO2) 90 03/06/21 16:43 03/06/21 16:55 Temperature 98 F 98 F Temperature Source Temporal Temporal Pulse Rate 113 H 113 H Respiratory Rate 34 H 34 H Respiratory Effort Respiratory Depth Respiratory Pattern Blood Pressure 96/67 96/67 Blood Pressure Mean 76 76 Pulse Ox 96 96 Oxygen Delivery Method Bi-pap Bi-pap Fraction of Inspired Oxygen (FIO2) 90 Weight Weight: 227 lb 8.273 oz Body Mass Index (BMI) 37.8 Physical Exam Narrative General: Lethargic. Short of breath, very sick HEENT: Atraumatic, PERRLA, EOMI, Normocephalic Oral: On BiPAP. Neck: Supple, No JVD, Negative Carotid Bruits Lungs: 90% FiO2 BiPAP. Bilateral lower lungs crepitations present. Tachypneic and hypoxic. Cardiovascular: Sinus tachycardia, Normal S1, Normal S2, No murmurs Abdomen: Bowel Sounds Present, Soft, Non Tender, Non-Distended : No renal angle tenderness. No suprapubic tenderness. Extremities: No edema, Capillary Refill Less than 3 Seconds Skin: No rashes, No breakdown Musculoskeletal: No Tenderness to Palpation of Joints or Extremities Neurological: Cranial nerves II-XII grossly intact, no focal deficit Psych/Mental Status: Flat affect. Results Lab / Micro Data Result Diagrams: 03/06/21 15:40 03/06/21 15:40 Labs: Laboratory Results - last 24 hr 03/06/21 15:40: D-Dimer Quant (PE/DVT) 2.46 H* 03/06/21 15:40: Sodium 135 L, Potassium 4.3, Chloride 100, Carbon Dioxide 25.0, Anion Gap 10, BUN 35 H, Creatinine 1.81 H, Estim Creat Clear Calc 28.63, Est GFR (MDRD) Af Amer 36 L, Est GFR (MDRD) Non-Af 30 L, BUN/Creatinine Ratio 19.3, Glucose 131 H, Calcium 9.0, Total Bilirubin 0.60, AST 59 H, ALT 21, Alkaline Phosphatase 96, Troponin I High Sens 243 H*, C-React Prot Ext Range 293.00 H, Total Protein 8.5 H, Albumin 3.0 L, Globulin 5.5 H, Albumin/Globulin Ratio 0.5 L 03/06/21 15:40: WBC 10.5, RBC 5.09, Hgb 14.5, Hct 45.8, MCV 90.0, MCH 28.5, MCHC 31.7 L, RDW Std Deviation 48.7 H, RDW Coeff of Crissy 14.6, Plt Count 258, MPV 10.7, Immature Gran % (Auto) 0.500, Neut % (Auto) 91.5 H, Lymph % (Auto) 4.9 L, [place] % (Auto) 3.0, Eos % (Auto) 0.0, Baso % (Auto) 0.1, Absolute Neuts (auto) 9.6 H, Absolute Lymphs (auto) 0.51 L, Nucleated RBC % 0, Platelet Estimate ADEQ UATE, RBC Morphology NORM C+C 03/06/21 15:40: Lactic Acid 3.0 H* 03/06/21 15:55: Procalcitonin 2.63 H Micro: Microbiology 03/06/21 15:45 Nasal Secretion SARS-CoV-2 Antigen (Rapid) - Final ABG Data ABG results: ABG 03/06/21 16:18 Specimen Type LUIS E VBG pH 7.36 VBG pO2 13 L* VBG HCO3 27 H VBG Total CO2 28 VBG O2 Sat (Calc) 14 L VBG Base Excess 2 POC Mix VBG pCO2 Pt Tmp 47.4 O2 Delivery Device BiPAP Crit Call To/Read Back Yes Clinical Comments 19*10 Radiology Impression Chest X-Ray 03/06/21 16:08 IMPRESSION: Severe bilateral pneumonia. Moderate cardiomegaly. No pulmonary edema. Electronically Signed: Martha Wyatt MD at 16:44 EDT Tel , Service support , Assessment & Plan Assessment/Plan (1) Pneumonia due to 2019-nCoV: (2) ADAM (acute kidney injury): PLAN: 1. Acute hypoxic respiratory failure secondary to severe bilateral COVID-19 pneumonia: Patient is being admitted in ICU. On IV fluid resuscitation. BiPAP support. [employer] Consultant and ID are consulted. Started on dexamethasone. ID called for baricitinib. Her creatinine clearance is less than 30 mils per minute therefore, I would not restart remdesivir. Pneumonia work-up with a sputum culture, urinary antigens and blood culture. Prone positioning. Bronchopulmonary hygiene with incentive spirometry Pep and Mucinex D. 2. Severe sepsis (sinus tachycardia, tachypnea, hypoxia, lactic acidosis, lymphopenia) due to COVID-19 pneumonia: Restricted IV fluid resuscitation because of COVID-19 pneumonia and acute respiratory failure. Patient is DNR CC arrest with no intubation. Avoid pulmonary edema/fluid overload. Procalcitonin elevated. 3. Acute kidney injury probably due to ATN, sepsis: BUN/creatinine 35/1.81. Previous creatinine during previous admission in September 2020 was normal 0.88. 4. Dyslipidemia: Continue statin home dose. 3. currently hypotensive: History of hypertension. Hold patient's antihypertensive medication. 4. Morbid obesity: Patient BMI during last admission was 41.5, currently 37.9 kg/m?. 5. GERD: On PPI 6. DVT prophylaxis with high D-dimer: D-dimer elevated probably due to severe sepsis. With acute kidney injury patient not candidate for IV contrast therefore VQ scan and venous duplex was ordered for tomorrow. Till then, Lovenox 1 mg/kg body weight daily adjusted to creatinine clearance. First dose given in the ED by ED physician. Living will/advanced directive/end of life care: Patient does not have living will or advanced directive. Her younger sister present at the bedside is next to kin. After discussion of benefits/risks procedures involved with full code, DNR CC arrest and DNR CC, the patient and her sister opted for DNR-CC Arrest with no intubation Patient does not want artificial life support including intubation, tube feed, ventilator and/chest compression, central venous catheter, vasopressor and DC shock if needed Total time spent in [id number] encounter in discussion of advanced directive 16 minutes. Charges/Coding Visit Charges Inpatient E&M: 39783 Init Hosp L3 Procedures Hospitalists Procedures: 17231 Advncd Care Plan 30 Min
--- NOTE | 2021-03-06 17:53 | VDLE_ITS ---
Reason For Study: elevated D-Dimer RIGHT LEFT GSV is normal. GSV is normal. CFV is compressible. CFV is compressible. FV is compressible. FV is compressible. POP V is compressible. POP V is compressible. T/P Trunk is compressible. T/P Trunk is compressible. PTV is compressible. PTV is compressible. RT PerV is compressible. LT PerV is compressible. Procedure This is a venous duplex using B-mode, color flow and spectral Doppler. Exam performed portable in ICU/CCU. The exam was abbreviated due to the COVID 19 protocol. The exam was diagnostic. A preliminary report was called and/or faxed to the pt's RN. VL/Venous Duplex US - Saad Extrem Interpretation Summary No evidence for acute deep venous thrombosis bilateral lower extremities with p atent and compressible bilateral great saphenous veins. Abbreviated COVID-19 protocol uti lized Ordering Physician: Munir Godfrey Performed By: Jose Aguila RVRadha
[2021-03-06 18:09] LABS: Fibrinogen > 900 mg/dl (203-444); International Normalized Ratio 1.1; Prothrombin Time (Protime)PT. 13.6 SECONDS (11.7-14.9)
[2021-03-06 18:18] LABS: CPK Total, Creatine Kinase 319 U/L (26-192); LDH 635 U/L (84-246); Magnesium 2.4 mg/dL (1.6-2.6)
[2021-03-06] MEDS: Lactated Ringers 1,000 ML 100 ML IV (19:26)
--- NOTE | 2021-03-06 19:31 | PCS.PANDOC ---
PANDEMIC DOCUMENTATION INITIATED: Date: 01/03/2021 Time: 190
[2021-03-06] MEDS: Escitalopram Oxalate 10 MG Tablet PO (19:39)
[2021-03-06 19:55] LABS: Reflex Lactate? Y
[2021-03-06] MEDS: Acetaminophen 325 MG Tablet 650 MG PO (19:59)
[2021-03-06] MEDS: Aspirin 81 MG TAB.CHEW PO (19:59)
[2021-03-06] MEDS: 0.9% Saline Lock 10 ML Syringe IV ×2 (19:59→21:34)
[2021-03-06 20:07] LABS: Troponin-I HS 1080 pg/mL (3.0-54.0)
[2021-03-06 20:43] LABS: Lactic Acid 1.3 mmol/L (0.4-1.9)
--- NOTE | 2021-03-06 21:06 | PCM.PN.BLA ---
Progress Note Notify the patient's troponin has increased into the thousands. Patient on aspirin and on therapeutic dose of Lovenox adjusted by creatinine clearance. Will add high intensity statin to regimen. Of note liver biochemistry is only slightly elevated. Consult cardiology.
[2021-03-06] MEDS: Atorvastatin Calcium 40 MG Tablet PO (21:34)
[2021-03-06 22:06] LABS: Troponin-I HS 1336 pg/mL (3.0-54.0)
[2021-03-07] VITALS (52 sets, daily range): BP systolic 50–164; BP diastolic 31–76; PULSE 72–102; RESP 12–44; TEMP 35.5–36.5; O2SAT 82–98
[2021-03-07 03:19] LABS: Absolute Lymphocyte Count 0.68 X10^3/uL (0.83-4.51); Absolute Neutrophil Count 5.8 X10^3/uL (2.0-7.7); Basophil# 0.01 X10^3/uL; Basophil% 0.1 % (0-1); Hematocrit 39.7 % (37-47); Hemoglobin 12.4 g/dL (12.0-15.0); Lymphocyte # 0.68 X10^3/ul (0.83-4.51); Mean Corp Hgb Conc 31.2 g/dL (32-36); Mean Corpuscular Hgb 28.3 pg (27.0-32.0); Mean Corpuscular Volume 90.6 fL (81-99); Mean Platelet Vol. 10.6 fl (6.2-12.0); Monocyte# 0.26 X10^3/uL; Monocyte% 3.8 % (0-10); NRBC Flagged by Analyzer 0 % (0-5); Neutrophil % 85.7 % (47-70); Platelet Count 210 K/mm3 (150-450); RBC Distribution Width CV 14.6 % (11.6-14.6); Red Blood Count 4.38 M/mm3 (4.2-5.4); White Blood Count 6.8 K/mm3 (4.4-11.0)
[2021-03-07 03:38] LABS: ALB/GLOB Ratio 0.5 RATIO (0.9-2.4); AST(SGOT) 48 U/L (15-37); Alanine Aminotransfer ALT/SGPT 21 U/L (13-56); Albumin, Serum 2.4 g/dL (3.2-5.0); Alkaline Phosphatase 77 U/L (45-117); Anion Gap 6 (5-15); BUN 44 mg/dL (7-18); BUN/Creat Ratio 24.2 RATIO (10-20); Calcium,Total 8.6 mg/dL (8.5-10.1); Chloride 104 mmol/L (98-107); Creatinine, Serum 1.82 mg/dL (0.55-1.02); EST Glomerular Filtration Rate 30 mL/min (>60); Est Glom Filt Rate - Afr Amer 36 mL/min (>60); Estimated Creatinine Clearance 29.62 ml/min; Globulin 4.6 g/dL (2.2-4.2); Glucose 120 mg/dL (74-106); Potassium 4.6 mmol/L (3.5-5.1); Sodium Level 138 mmol/L (136-145)
[2021-03-07] MEDS: 0.9% Saline Lock 10 ML Syringe IV (05:18)
--- NOTE | 2021-03-07 06:39 | EX.PCM.CONCC ---
Assessment & Plan Assessment/Plan (1) Acute hypoxemic respiratory failure: (2) Pneumonia due to 2019-nCoV: PLAN: RECOMMENDATIONS: 1. Continue BiPAP support and wean FiO2 to maintain oxygen saturations at or above 90%. 2. Continue Decadron and baricitinib as ordered. 3. Continue Lovenox. 4. Awake prone positioning was encouraged. 5. Check strep and urine Legionella antigens, along with respiratory viral panel and MRSA screen. 6. Low threshold for the initiation of antimicrobials, if the patient continues to decompensate clinically. IMPRESSIONS: 1. Acute hypoxemic respiratory failure secondary to COVID-19 pneumonia The patient initially presented to the hospital with approximately 3 days of symptoms. CTA chest was unable to be performed due to underlying renal insufficiency. The patient was subsequently placed on Lovenox, Decadron and baricitinib. The patient will be continued on BiPAP support with FiO2 weaned, as tolerated, to maintain saturations at or above 90%. Prone positioning was encouraged. Unable to diurese, given underlying renal insufficiency. Check strep and urine Legionella antigens along with respiratory viral panel and MRSA screen. The patient is at high risk for further clinical decompensation and need for intubation. She will remain n.p.o. for now. 2. Acute kidney injury Unclear precipitating etiology. If creatinine does not begin to improve, will obtain renal ultrasound. However, for now, we will continue to monitor urine output. No current indication for renal replacement therapy. Avoid nephrotoxic medications. 3. Troponin elevation Likely secondary to demand ischemia in the setting of #1. Continue Lovenox as ordered. Obtain echocardiogram. 4. Obesity/depression/hypertension/GERD Complicates care, management, recovery and prognosis. Continue home medications as indicated. CODE status: Discussed CODE status at length including difference between FULL code, DNR-CCA and DNR-CC status. Following discussions about the differences in these status, patient and family requested DNR CCA with intubation CODE STATUS. TIME: 35 minutes of critical care time, inclusive of procedures, was spent addressing the patient's acute hypoxemic respiratory failure secondary to COVID-19 pneumonia, acute kidney injury, troponin elevation, review of all data and collaboration with the care team. ([id number], [id number]) HPI Consult Data Date of Consult: 03/08/21 HPI Narrative Reason for Consultation: Acute hypoxemic respiratory failure secondary to COVID-19 pneumonia HPI Narrative: The patient is a 65-year-old female, with a history as outlined below, who presented to the emergency department on March 06 with reported shortness of breath, hypotension and hypoxemia. The patient's symptoms initially began 3 days ago. The patient is unvaccinated and was recently exposed to a Covid positive individual. On presentation to the emergency department, the patient was noted to be afebrile and hemodynamically stable. She was, nevertheless, notably tachycardic and tachypneic. She was immediately placed on BiPAP therapy. Laboratory evaluation revealed no evidence of a leukocytosis. Coagulation profile revealed a D-dimer of 2.46. Chemistry profile was notable for a sodium of 135, BUN of 35 and creatinine of 1.81. Lactate was elevated at 3.0. Initial troponin was increased to 243. CRP was elevated to 293. BNP was increased to 311. Procalcitonin was noted to be 2.63. Chest imaging demonstrated severe bilateral airspace disease. Rapid coronavirus antigen testing was positive. The patient did receive supplemental IV fluid hydration. She was started on Lovenox, Decadron and baricitinib. She was admitted to the medical intensive care unit for further management. The patient was initially being maintained on BiPAP therapy this morning. However, she remained hypoxemic with low return volumes. Therefore, the patient was transitioned to AVAPS. Despite this, over the course of several hours, the patient remained hypoxemic despite being on high pressure support and FiO2 at 100%. Due to ongoing, persistent hypoxemia, the decision was made to proceed with intubation. Intubation Indication: Respiratory failure Consent was obtained from: Patient and patient's sister The patient was placed in the appropriate sniffing position. Preoxygenated sedation via BiPAP was provided for a minimum of 3 minutes. The patient had continuous cardiac as well as pulse oximetry monitoring during the procedure. Procedure sedation was provided by the administration of 4 mg of Versed, 20 mg of etomidate and 100 mg of succinylcholine. Direct laryngoscopy was then performed using a number 3 MAC blade, which revealed a grade 1 view. A 7.5 mm endotracheal tube was visualized advancing between the cords to the level of 23 cm at the lip. The stylette was then removed and discarded. Tube placement was confirmed by fogging in the tube along with equal and bilateral breath sounds. Colorimetric change was visualized on the CO2 meter. The cuff was then inflated and the tube secured using a commercially available device. A good pulse oximetry waveform was seen on the monitor throughout the procedure. A portable chest x-ray has been ordered to confirm appropriate placement. The patient tolerated the procedure well. [facility] Medical History Depression Encephalitis GERD (gastroesophageal reflux disease) Hypertension Home Medications aspirin 1 tab PO QHS 07/19/17 [History Last Taken 09/26/20] nortriptyline 75 mg PO DINNER 09/27/20 [History Last Taken 09/26/20] omeprazole 20 mg PO DAILY 09/27/20 [History Last Taken 09/26/20] lisinopril 10 mg PO DAILY #90 tab 10/05/20 [Rx Last Taken Unknown] escitalopram oxalate 10 mg PO DAILY 03/06/21 [History Last Taken Unknown] Allergy/AdvReac Type Severity Reaction Status Date / Time No Known Allergies Allergy Verified 03/06/21 15:53 Surgical History History of ankle surgery Social History Smoking Status: Never smoker ROS Constitutional Constitutional: Reports body ache(s), chills, fatigue, fever(s) and headache(s) Eyes Eyes: Denies blurry vision or change in vision ENT HEENT: Reports headache(s); Denies dizziness, dysphagia or epistaxis Cardiovascular Cardiovascular: Reports dyspnea; Denies chest pain, claudication or dizziness Respiratory/Chest Respiratory/Chest: Reports cough and dyspnea Gastrointestinal Gastrointestinal: Denies abdominal pain, diarrhea, nausea or vomiting Genitourinary Genitourinary: Denies difficulty urinating Musculoskeletal Musculoskeletal: Reports myalgias; Denies arthralgias Integumentary Integumentary: Denies lesions, rash or skin ulcer Neurologic Neurologic: Denies abnormal gait or abnormal speech Psychiatric Psychiatric: Denies anxiety or depression Endocrine Endocrinology: Reports fatigue Hematologic/Lymphatic Hematologic/Lymphatic: Denies easy bleeding or easy bruising Physical Exam Const alert General Appearance: well developed, ill appearing and on BiPAP Nutritional Appearance: obese HEENT normocephalic and head/scalp atraumatic Eyes PERRL Neck supple General: trachea midline Chest inspection of chest normal Resp Effort and Inspection: tachypneic Auscultation: diminished lung sounds; Negative for rales, rhonchi or wheezes Cardio regular rate and regular rhythm GI normal to inspection, nondistended, normoactive bowel sounds Extremity no clubbing, cyanosis or edema Skin no rashes or lesions noted Neuro moves all extremities and no focal motor deficits Psych cooperative and affect normal Lab / Micro Data Result Diagrams: 03/08/21 04:30 03/08/21 04:30 Labs: Laboratory Results - last 24 hr 03/06/21 15:40: D-Dimer Quant (PE/DVT) 2.46 H* 03/06/21 15:40: Sodium 135 L, Potassium 4.3, Chloride 100, Carbon Dioxide 25.0, Anion Gap 10, BUN 35 H, Creatinine 1.81 H, Estim Creat Clear Calc 28.63, Est GFR (MDRD) Af Amer 36 L, Est GFR (MDRD) Non-Af 30 L, BUN/Creatinine Ratio 19.3, Glucose 131 H, Calcium 9.0, Total Bilirubin 0.60, AST 59 H, ALT 21, Alkaline Phosphatase 96, Troponin I High Sens 243 H*, C-React Prot Ext Range 293.00 H, Total Protein 8.5 H, Albumin 3.0 L, Globulin 5.5 H, Albumin/Globulin Ratio 0.5 L 03/06/21 15:40: WBC 10.5, RBC 5.09, Hgb 14.5, Hct 45.8, MCV 90.0, MCH 28.5, MCHC 31.7 L, RDW Std Deviation 48.7 H, RDW Coeff of Crissy 14.6, Plt Count 258, MPV 10.7, Immature Gran % (Auto) 0.500, Neut % (Auto) 91.5 H, Lymph % (Auto) 4.9 L, [place] % (Auto) 3.0, Eos % (Auto) 0.0, Baso % (Auto) 0.1, Absolute Neuts (auto) 9.6 H, Absolute Lymphs (auto) 0.51 L, Nucleated RBC % 0, Platelet Estimate ADEQUATE, RBC Morphology NORM C+C 03/06/21 15:40: Lactic Acid 3.0 H* 03/06/21 15:40: PT 13.6, INR 1.1, Fibrinogen > 900 H 03/06/21 15:40: Lactate Dehydrogenase 635 H, Total Creatine Kinase 319 H 03/06/21 15:40: B-Natriuretic Peptide 311.0 H 03/06/21 15:40: Magnesium 2.4 03/06/21 15:55: Procalcitonin 2.63 H 03/06/21 19:30: Troponin I High Sens 1080 H* 03/06/21 20:05: Lactic Acid 1.3 03/06/21 21:30: Troponin I High Sens 1336 H* 03/07/21 03:10: WBC 6.8, RBC 4.38, Hgb 12.4, Hct 39.7, MCV 90.6, MCH 28.3, MCHC 31.2 L, RDW Std Deviation 49.0 H, RDW Coeff of Crissy 14.6, Plt Count 210, MPV 10.6, Immature Gran % (Auto) 0.400, Neut % (Auto) 85.7 H, Lymph % (Auto) 10.0 L, [place] % (Auto) 3.8, Eos % (Auto) 0.0, Baso % (Auto) 0.1, Absolute Neuts (auto) 5.8, Absolute Lymphs (auto) 0.68 L, Nucleated RBC % 0 03/07/21 03:10: Sodium 138, Potassium 4.6, Chloride 104, Carbon Dioxide 28.0, Anion Gap 6, BUN 44 H, Creatinine 1.82 H, Estim Creat Clear Calc 29.62, Est GFR (MDRD) Af Amer 36 L, Est GFR (MDRD) Non-Af 30 L, BUN/Creatinine Ratio 24.2 H, Glucose 120 H, Calcium 8.6, Total Bilirubin 0.50, AST 48 H, ALT 21, Alkaline Phosphatase 77, Total Protein 7.0, Albumin 2.4 L, Globulin 4.6 H, Albumin/Globulin Ratio 0.5 L Micro: Microbiology 03/06/21 15:45 Nasal Secretion SARS-CoV-2 Antigen (Rapid) - Final ABG Data ABG results: ABG 03/06/21 16:18 Specimen Type LUIS E VBG pH 7.36 VBG pO2 13 L* VBG HCO3 27 H VBG Total CO2 28 VBG O2 Sat (Calc) 14 L VBG Base Excess 2 POC Mix VBG pCO2 Pt Tmp 47.4 O2 Delivery Device BiPAP Crit Call To/Read Back Yes Clinical Comments 19*10 Radiology Impression Chest X-Ray 03/06/21 16:08 IMPRESSION: Severe bilateral pneumonia. Moderate cardiomegaly. No pulmonary edema. Electronically Signed: Martha Wyatt MD at 16:44 EDT Tel , Service support , Charges/Coding Procedures Hospitalists Procedures: [id number] Critial Care 1st Hr
--- NOTE | 2021-03-07 07:27 | ECHOD_ITS ---
Reason For Study: CAD, SOB Procedure This was a 2D Doppler, Color Flow transthoracic echocardiogram. Exam performed portable in ICU/CCU. The exam was abbreviated due to the COVID 19 protocol. Left Ventricle Mildly dilated left ventricle. The estimated ejection fraction is 20 %. Severe segmental systolic dysfunction (see wall motion). [place] : Akinetic. Mid-anteroseptal : Akinetic. The rest of the wall segments are hypokinetic. Right Ventricle Normal RV size. Normal systolic function. Atria Normal left atrium. Normal right atrium. Mitral Valve Normal mitral valve. Tricuspid Valve Normal tricuspid valve. Mild tricuspid valve insufficiency. Aortic Valve Trisinus/trileaflet aortic valve. Pulmonic Valve Normal pulmonic valve. Great Vessels Normal aortic root. The pulmonary artery is normal size. No collapse of the inferior vena cava. Pericardium/Pleural No pericardial effusion. MMode/2D Measurements & Calculations LVIDd: 5.7 cm IVSd: 1.1 cm Ao root diam: 3.5 cm LVIDs: 4.9 cm LVPWd: 1.2 cm RVDd: 3.0 cm FS: 13.1 % LAV(MOD-bp): 32.9 ml LA A4 area: 13.4 cm2 LA dimension(2D): 2.5 cm LAV(MOD-bp) Indexed: 15.7 ml/m2 LAV(MOD-sp2): 33.3 ml LAV(MOD-sp4): 32.8 ml RA A4 area: 12.0 cm2 Doppler Measurements & Calculations Ao V2 max: 160.8 cm/sec LV V1 max: 92.6 cm/sec TR max maxwell: 197.4 cm/sec Ao max P.3 mmHg LV V1 max P.4 mmHg TR max P.6 mmHg ECHO/Echo Complete Interpretation Summary Mildly dilated left ventricle. The estimated ejection fraction is 20 %. Severe segmental systolic dysfunction (see wall motion). Mid-anteroseptal : Akinetic. [place] : Akinetic. Ordering Physician: Tara Mooney Referring Physician: Cedric Mcnally Performed By: Gabrielle Roper RDCS
[2021-03-07] MEDS: Escitalopram Oxalate 10 MG Tablet PO (08:15)
[2021-03-07] MEDS: Pantoprazole Sodium 40 MG Tablet PO (08:15)
[2021-03-07] MEDS: dexAMETHasone 10 MG/ML Vial 6 MG IV (08:16)
[2021-03-07 11:17] LABS: Mucous, Urine 0 SEEN /hpf (<or=2+)
[2021-03-07 11:19] LABS: Color, Urine Yellow (Yellow); Glucose, Dipstick Normal (Normal); Ketone-Dipstick Negative (Negative); Leukocyte Esterase-Dipstick 25 /ul (Negative); Nitrite-Dipstick Negative (Negative); Occult Blood-Urine 50 /ul (Negative); Protein-Dipstick 100 mg/dl (Negative); Urine Bilirubin Dipstick Negative (Negative); Urine Clarity Sl. Cloudy (Clear); Urine Urobilinogen 1 mg/dl (Normal)
[2021-03-07 11:25] LABS: Bacteria 2+ /hpf (None Seen); Red Blood Cells-Urine 0-5 SEEN /hpf (0-5); Squamous Epithelial Cells - UA 0-5 SEEN /hpf (5-10); White Blood Cells 0-5 SEEN /hpf (0-5)
--- NOTE | 2021-03-07 13:30 | CASEMGMT ---
RN CM called sister Isha for initial transition planning/care coordination assessment as patient in on continuous BiPap and unable to participate in assessment at this time. RN SHREYA introduced self and role at [facility]. willing to participate in assessment and is able to answer all questions appropriately. Care providers, pharmacy, and demographics verified. wishes for patient to discharge home, will monitor for need for HHC and home oxygen pending course of treatment. Sister states she has no further needs or concerns at this time. CM to follow for discharge planning needs that may arise. PCP: Uli Specialists: none [facility]erred [facility]acy[facility] Insurance: [facility] Community plan Prescription Benefit: yes Living Will/HPOA: none LNOK: Sister Living Arrangements: Patient lives alone in a first floor apartment with no steps to enter Patient was independent at home prior to hospitalization. Transportation: self, DME/HHC: Patient has cane and grab bars at home. No preferences for DME at discharge. Will monitor for home oxygen and HHC at discharge. Patient has previously been to [facility] and has had [facility] in the past. Disposition Plan: TBD by course of treatment and progress with therapy. Adrienne MONSIVAIS, RN, CM
[2021-03-07] MEDS: Midazolam 2 MG/2 ML Syringe 4 MG IV (13:33)
[2021-03-07] MEDS: Etomidate 20 MG/10 ML Vial IV (13:34)
[2021-03-07] MEDS: Propofol 10MG/Ml 1,000 MG/100 ML Bottle 6.1 MG CONT INF (13:40)
--- NOTE | 2021-03-07 13:40 | NURSING ---
Intubated at [address] Michelle, positive color change and b/l breath sounds heard. See MAR and vitals charting for further documentation.
--- NOTE | 2021-03-07 13:45 | RAD_ITS ---
STUDY: X-RAY CHEST REASON FOR EXAM: Female, 65 years old. Intubation -- ETT and OG placement TECHNIQUE: Single AP portable view of the chest. COMPARISON: Comparison is made with prior study dated over 2020. FINDINGS: An endotracheal tube has been placed. The tip is at 2.1 cm proximal to the karen. An orogastric tube is visualized. The tip is in the mid body of the stomach. Persistent airspace disease in the left lower lobe with patchy infiltrates in the right lung. This is essentially unchanged. There is no demonstrated pleural abnormality. Normal size heart. Normal mediastinum and emma. Normal visualized pulmonary arteries. There is atherosclerotic calcification of the aortic arch with tortuosity. Normal visualized thoracic spine. Normal visualized ribs, clavicles, and shoulders. There is no demonstrated abnormality of the visualized soft tissue structures of the upper abdomen. RAD/CXR for Line Placement IMPRESSION: The tip of the endotracheal tube is at 2.1 cm proximal to the karen. The tip of the orogastric tube is in the mid portion of the body of the stomach. Stable bilateral pulmonary infiltrates worse at the left lung base. Electronically Signed: Juni Herrera MD at 14:32 EDT , Service support ,
[2021-03-07] MEDS: Phenylephrine 10 MG/ML Vial IV (14:00)
--- NOTE | 2021-03-07 14:14 | PCM.CONS.GEN ---
Assessment & Plan Assessment/Plan (1) Acute hypoxemic respiratory failure: (2) Pneumonia due to 2019-nCoV: PLAN: Sx started around 03/02/21. Isolate for 20 days. Unvaccinated. Intubation planned. On dex, baricitinib. Holding off on remdesivir due to ADAM. Will follow, thank you, d/w Dr. Michelle (3) ADAM (acute kidney injury): HPI Consult Data Date of Consult: 03/07/21 HPI Narrative HPI Narrative: JANEY DE OLIVEIRA, is a 65 F who presented with sx starting 03/02. Recently transported [place] person now admitted with covid. She c/o cough, dyspnea, n/v. Unvaccinated. Came to ED with sats in the 50s on RA. Admitted on dex, baricitinib. Plan is for intubation this afternoon. Full ROS performed and neg except as noted above. [facility] Medical History Depression Encephalitis GERD (gastroesophageal reflux disease) Hypertension Home Medications aspirin 1 tab PO QHS 07/19/17 [History Last Taken 09/26/20] nortriptyline 75 mg PO DINNER 09/27/20 [History Last Taken 09/26/20] omeprazole 20 mg PO DAILY 09/27/20 [History Last Taken 09/26/20] lisinopril 10 mg PO DAILY #90 tab 10/05/20 [Rx Last Taken Unknown] escitalopram oxalate 10 mg PO DAILY 03/06/21 [History Last Taken Unknown] Allergy/AdvReac Type Severity Reaction Status Date / Time No Known Allergies Allergy Verified 03/06/21 15:53 Surgical History History of ankle surgery Social History Smoking Status: Never smoker Physical Exam Const alert Constitutional Narrative: ill appearing General Appearance: cooperative Exam Limitations: no limitations HEENT normocephalic and head/scalp atraumatic Eyes PERRL and EOMs intact bilaterally Neck supple and No nodes Resp Auscultation: diminished lung sounds Cardio Rate: tachycardic GI normal to inspection, nondistended, normoactive bowel sounds Extremity no clubbing, cyanosis or edema Skin no rashes or lesions noted Neuro CN's II-XII intact bilaterally Lab / Micro Data Result Diagrams: 03/07/21 03:10 03/07/21 03:10 Labs: Laboratory Results - last 24 hr 03/06/21 15:40: D-Dimer Quant (PE/DVT) 2.46 H* 03/06/21 15:40: Sodium 135 L, Potassium 4.3, Chloride 100, Carbon Dioxide 25.0, Anion Gap 10, BUN 35 H, Creatinine 1.81 H, Estim Creat Clear Calc 28.63, Est GFR (MDRD) Af Amer 36 L, Est GFR (MDRD) Non-Af 30 L, BUN/Creatinine Ratio 19.3, Glucose 131 H, Calcium 9.0, Total Bilirubin 0.60, AST 59 H, ALT 21, Alkaline Phosphatase 96, Troponin I High Sens 243 H*, C-React Prot Ext Range 293.00 H, Total Protein 8.5 H, Albumin 3.0 L, Globulin 5.5 H, Albumin/Globulin Ratio 0.5 L 03/06/21 15:40: WBC 10.5, RBC 5.09, Hgb 14.5, Hct 45.8, MCV 90.0, MCH 28.5, MCHC 31.7 L, RDW Std Deviation 48.7 H, RDW Coeff of Crissy 14.6, Plt Count 258, MPV 10.7, Immature Gran % (Auto) 0.500, Neut % (Auto) 91.5 H, Lymph % (Auto) 4.9 L, [place] % (Auto) 3.0, Eos % (Auto) 0.0, Baso % (Auto) 0.1, Absolute Neuts (auto) 9.6 H, Absolute Lymphs (auto) 0.51 L, Nucleated RBC % 0, Platelet Estimate ADEQUATE, RBC Morphology NORM C+C 03/06/21 15:40: Lactic Acid 3.0 H* 03/06/21 15:40: PT 13.6, INR 1.1, Fibrinogen > 900 H 03/06/21 15:40: Lactate Dehydrogenase 635 H, Total Creatine Kinase 319 H 03/06/21 15:40: B-Natriuretic Peptide 311.0 H 03/06/21 15:40: Magnesium 2.4 03/06/21 15:55: Procalcitonin 2.63 H 03/06/21 19:30: Troponin I High Sens 1080 H* 03/06/21 20:05: Lactic Acid 1.3 03/06/21 21:30: Troponin I High Sens 1336 H* 03/07/21 03:10: WBC 6.8, RBC 4.38, Hgb 12.4, Hct 39.7, MCV 90.6, MCH 28.3, MCHC 31.2 L, RDW Std Deviation 49.0 H, RDW Coeff of Crissy 14.6, Plt Count 210, MPV 10.6, Immature Gran % (Auto) 0.400, Neut % (Auto) 85.7 H, Lymph % (Auto) 10.0 L, [place] % (Auto) 3.8, Eos % (Auto) 0.0, Baso % (Auto) 0.1, Absolute Neuts (auto) 5.8, Absolute Lymphs (auto) 0.68 L, Nucleated RBC % 0 03/07/21 03:10: Sodium 138, Potassium 4.6, Chloride 104, Carbon Dioxide 28.0, Anion Gap 6, BUN 44 H, Creatinine 1.82 H, Estim Creat Clear Calc 29.62, Est GFR (MDRD) Af Amer 36 L, Est GFR (MDRD) Non-Af 30 L, BUN/Creatinine Ratio 24.2 H, Glucose 120 H, Calcium 8.6, Total Bilirubin 0.50, AST 48 H, ALT 21, Alkaline Phosphatase 77, Total Protein 7.0, Albumin 2.4 L, Globulin 4.6 H, Albumin/Globulin Ratio 0.5 L 03/07/21 11:00: Urine Color Yellow, Urine Clarity Sl. Cloudy, Urine pH 5.0, Ur Specific [place] 1.020, Urine Protein 100 H, Urine Glucose (UA) Normal, Urine Ketones Negative, Urine Occult Blood 50 H, Urine Nitrite Negative, Urine Bilirubin Negative, Urine Urobilinogen 1 H, Ur Leukocyte Esterase 25 H, Urine RBC 0-5 SEEN, Urine WBC 0-5 SEEN, Ur Squamous Epith Cells 0-5 SEEN, Urine Bacteria 2+, Urine Mucus 0 SEEN Micro: Microbiology 03/07/21 11:00 Urine Catheter - Saxena Legionella Antigen - Final 03/07/21 11:00 Urine Catheter - Saxena Streptococcus pneumoniae Antigen (M - Final 03/06/21 15:45 Nasal Secretion SARS-CoV-2 Antigen (Rapid) - Final ABG Data ABG results: ABG 03/06/21 16:18 Specimen Type LUIS E VBG pH 7.36 VBG pO2 13 L* VBG HCO3 27 H VBG Total CO2 28 VBG O2 Sat (Calc) 14 L VBG Base Excess 2 POC Mix VBG pCO2 Pt Tmp 47.4 O2 Delivery Device BiPAP Crit Call To/Read Back Yes Clinical Comments 19*10 Radiology Impression Chest X-Ray 03/06/21 16:08 IMPRESSION: Severe bilateral pneumonia. Moderate cardiomegaly. No pulmonary edema. Electronically Signed: Martha Wyatt MD at 16:44 EDT Tel , Service support ,
[2021-03-07 14:51] LABS: Blood Gas Specimen Type VEN; O2 Delivery Device Adult Vent; PEEP 15; RR 14; SITE R Brach; VBG BASE EXCESS 0 mmol/L (-1.0-3.5); VBG Bicarbonate 27 mmol/L (22-26); VBG PO2 52 mmHg (25-40); VBG SO2 80 % (50-70); VBG TCO2 29 mmol/L (23-33); VBG pCO2 59.1 mmHg (41-51); VBG pH 7.27 (7.32-7.42)
--- NOTE | 2021-03-07 15:33 | PN.HOSP_ITS ---
Subjective Subjective Patient was admitted late yesterday for worsening shortness of breath and was found to be Covid positive. She required admission to the ICU and needed BiPAP at 100% this morning. She has declined to the point where she is required intubation. Initially she was a DNR without intubation but per discussion with the patient she wanted her sister to decide and per the sister she was intubated. Currently on 100% FiO2 with a PEEP of 15. Nursing is at the bedside initiating paralytics. Objective Data Objective Data Vital Signs: Vital Signs Temp Pulse Resp BP Pulse Ox 96.0 F L 82 14 71/55 L 96 03/07/21 08:00 03/07/21 14:45 03/07/21 14:26 03/07/21 14:45 03/07/21 14:26 Oxygen Flow Rate (L/min) 100 Oxygen Delivery Method Mechanical Ventilator Weight: 100.9 kg Body Mass Index (BMI) 35.6 Intake & Output: Intake and Output for Last 24 Hours 03/05/21 03/06/21 03/07/21 23:59 23:59 23:59 Intake Total 519.58 / 519.58 1065.33 / 1065.33 Output Total 0 / 0 300 / 300 Balance 519.58 / 519.58 765.33 / 765.33 Lab / Micro Data Result Diagrams: 03/07/21 03:10 03/07/21 03:10 Labs: Laboratory Results - last 24 hr 03/06/21 15:40: D-Dimer Quant (PE/DVT) 2.46 H* 03/06/21 15:40: Sodium 135 L, Potassium 4.3, Chloride 100, Carbon Dioxide 25.0, Anion Gap 10, BUN 35 H, Creatinine 1.81 H, Estim Creat Clear Calc 28.63, Est GFR (MDRD) Af Amer 36 L, Est GFR (MDRD) Non-Af 30 L, BUN/Creatinine Ratio 19.3, Glucose 131 H, Calcium 9.0, Total Bilirubin 0.60, AST 59 H, ALT 21, Alkaline Phosphatase 96, Troponin I High Sens 243 H*, C-React Prot Ext Range 293.00 H, Total Protein 8.5 H, Albumin 3.0 L, Globulin 5.5 H, Albumin/Globulin Ratio 0.5 L 03/06/21 15:40: WBC 10.5, RBC 5.09, Hgb 14.5, Hct 45.8, MCV 90.0, MCH 28.5, MCHC 31.7 L, RDW Std Deviation 48.7 H, RDW Coeff of Crissy 14.6, Plt Count 258, MPV 10. 7, Immature Gran % (Auto) 0.500, Neut % (Auto) 91.5 H, Lymph % (Auto) 4.9 L, [place] % (Auto) 3.0, Eos % (Auto) 0.0, Baso % (Auto) 0.1, Absolute Neuts (auto) 9.6 H, Absolute Lymphs (auto) 0.51 L, Nucleated RBC % 0, Platelet Estimate ADEQUATE, RBC Morphology NORM C+C 03/06/21 15:40: Lactic Acid 3.0 H* 03/06/21 15:40: PT 13.6, INR 1.1, Fibrinogen > 900 H 03/06/21 15:40: Lactate Dehydrogenase 635 H, Total Creatine Kinase 319 H 03/06/21 15:40: B-Natriuretic Peptide 311.0 H 03/06/21 15:40: Magnesium 2.4 03/06/21 15:55: Procalcitonin 2.63 H 03/06/21 19:30: Troponin I High Sens 1080 H* 03/06/21 20:05: Lactic Acid 1.3 03/06/21 21:30: Troponin I High Sens 1336 H* 03/07/21 03:10: WBC 6.8, RBC 4.38, Hgb 12.4, Hct 39.7, MCV 90.6, MCH 28.3, MCHC 31.2 L, RDW Std Deviation 49.0 H, RDW Coeff of Crissy 14.6, Plt Count 210, MPV 10.6, Immature Gran % (Auto) 0.400, Neut % (Auto) 85.7 H, Lymph % (Auto) 10.0 L, [place] % (Auto) 3.8, Eos % (Auto) 0.0, Baso % (Auto) 0.1, Absolute Neuts (auto) 5.8, Absolute Lymphs (auto) 0.68 L, Nucleated RBC % 0 03/07/21 03:10: Sodium 138, Potassium 4.6, Chloride 104, Carbon Dioxide 28.0, Anion Gap 6, BUN 44 H, Creatinine 1.82 H, Estim Creat Clear Calc 29.62, Est GFR (MDRD) Af Amer 36 L, Est GFR (MDRD) Non-Af 30 L, BUN/Creatinine Ratio 24.2 H, Glucose 120 H, Calcium 8.6, Total Bilirubin 0.50, AST 48 H, ALT 21, Alkaline Phosphatase 77, Total Protein 7.0, Albumin 2.4 L, Globulin 4.6 H, Albumin/Globulin Ratio 0.5 L 03/07/21 11:00: Urine Color Yellow, Urine Clarity Sl. Cloudy, Urine pH 5.0, Ur Specific [place] 1.020, Urine Protein 100 H, Urine Glucose (UA) Normal, Urine Ketones Negative, Urine Occult Blood 50 H, Urine Nitrite Negative, Urine Bilirubin Negative, Urine Urobilinogen 1 H, Ur Leukocyte Esterase 25 H, Urine RBC 0-5 SEEN, Urine WBC 0-5 SEEN, Ur Squamous Epith Cells 0-5 SEEN, Urine Bacteria 2+, Urine Mucus 0 SEEN Micro: Microbiology 03/06/21 15:45 Nasal Secretion SARS-CoV-2 Antigen (Rapid) - Final SARS-CoV-2 (COVID 19) 03/07/21 11:00 Urine Catheter - Saxena Legionella Antigen - Final 03/07/21 11:00 Urine Catheter - Saxena Streptococcus pneumoniae Antigen (M - Final ABG Data ABG results: ABG 03/06/21 03/07/21 16:18 14:46 Specimen Type LUIS E LUIS E Sample Site R Brach VBG pH 7.36 7.27 L VBG pO2 13 L* 52 H VBG HCO3 27 H 27 H VBG Total CO2 28 29 VBG O2 Sat (Calc) 14 L 80 H VBG Base Excess 2 0 POC Mix VBG pCO2 Pt Tmp 47.4 59.1 H Respiration Rate 14 O2 Delivery Device BiPAP Adult Vent POC PEEP 15 Crit Call To/Read Back Yes Clinical Comments 19*10 Radiography Diagnostic Testing: Radiology Impression Chest X-Ray 03/06/21 16:08 IMPRESSION: Severe bilateral pneumonia. Moderate cardiomegaly. No pulmonary edema. Electronically Signed: Martha Wyatt MD at 16:44 EDT Tel , Service support , Chest X-Ray 03/07/21 13:45 IMPRESSION: The tip of the endotracheal tube is at 2.1 cm proximal to the karen. The tip of the orogastric tube is in the mid portion of the body of the stomach. Stable bilateral pulmonary infiltrates worse at the left lung base. Electronically Signed: Juni Herrera MD at 14:32 EDT , Service support , Physical Exam Const Constitutional Narrative: Upper middle-aged white female who appears much older than stated age lying in bed intubated, currently moves all 4 extremities spo ntaneously prior to paralytic being initiated Nutritional Appearance: obese HEENT head/scalp atraumatic and moist oral mucous membranes Head and Scalp: normocephalic Resp normal respiratory effort, no retractions, no use of accessory muscles and clear to auscultation bilaterally Resp Narrative: Diffusely diminished but clear Auscultation: Negative for crackles, rales, rhonchi or wheezes Cardio regular rate, regular rhythm, S1 normal heart sound, S2 normal heart sound, no murmurs, no rub, no gallops, no clicks and no JVD GI normal to inspection, nondistended, normoactive bowel sounds, soft to palpation, non-tender and non-distended; Negative for hepatosplenomegaly Extremity no clubbing, cyanosis or edema Peripheral Pulses: Yes pulses 2+ throughout Skin no rashes or lesions noted, no wounds, skin turgor normal, no jaundice, no petechiae and no mottling Neuro Neuro Narrative: Patient is intubated and sedated, moves extremities spontaneously at this point prior to paralytics being initiated Psych Psych Narrative: Unable to assess Assessment & Plan Assessment/Plan (1) Acute hypoxemic respiratory failure: (2) Non-ST elevation NM (NSTEMI): (3) COVID-19: (4) ADAM (acute kidney injury): (5) D-dimer, elevated: PLAN: Acute hypoxemic respiratory failure secondary to COVID-19 infection -Patient required mechanical intubation today 03/07/2021 -Continue support and wean PEEP and oxygen as able -Requiring paralytic to maintain oxygen saturations -Continue baricitinib 2 of 14 doses and Decadron 2 of 10 doses -Patient is unable to receive remdesivir secondary to ADAM severity -Sputum cultures pending -Respiratory viral panel is pending -Strep pneumo and Legionella antigens are negative -Blood cultures are pending -As needed diuretics as renal function allows -Full dose Lovenox with 100 mg daily -Overall prognosis is poor given rapidity of decline in need for mechanical ventilation -Pulmonary following-appreciate input Shock -Etiology unclear at this time -Cultures pending but no specific bacterial infection noted -Recent intubation secondary to COVID-19 -Continue pressors and wean as able ADAM -Current serum creatinine is 1.82 -Baseline serum creatinine is 0.85-1 -Hold hydration at this time -Avoid nephrotoxins -Maintain renal perfusion -Repeat BMP in a.m. NSTEMI -Unclear if this is type I or type II at this time -Continue aspirin -Continue statin -Cardiology has been consulted -Echo pending D-dimer elevation -We will continue to treat as if she has PE at this time is unable to get a CTA with creatinine elevation -VQ scan will not be helpful in her case given the fact that she has underlying pulmonary issues from her COVID-19 infection -Bilateral lower extremity duplex pending GERD -Continue Protonix Hypertension -Hold lisinopril -Monitor blood pressure as patient is currently hypotensive on pressors -Could start as needed medications if pressure begins to rise History of stroke -Continue aspirin History of stroke -Continue aspirin DVT prophylaxis -Continue full dose enoxaparin CODE STATUS -DNR CCA with intubation Charges/Coding Visit Charges Inpatient E&M: 26106 Subs Hosp L2
[2021-03-07 16:04] LABS: CPK Total, Creatine Kinase 263 U/L (26-192); Triglycerides 189 mg/dL
[2021-03-07] MEDS: Propofol 10MG/Ml 1,000 MG/100 ML Bottle 21.2 MG CONT INF ×2 (16:48→20:45)
[2021-03-07 17:04] LABS: Probe Check PASS; Specimen Processing Control PASS
[2021-03-07 17:06] LABS: M R Staph aureus DNA By PCR POSITIVE (Negative)
[2021-03-07 17:20] LABS: Base Excess -2 mmol/L (-2 to +2); Blood Gas Specimen Type ART; FI02 85; Mode AC; O2 Delivery Device Adult Vent; PEEP 15; PO2 105 mmHG (75-100); RR 14; SITE L Radial; SO2 97 % (95-99); Total Carbon Dioxide 27 mmol/L; Vt 400; pCO2 53.1 mmHg (35-45); pH 7.28 (7.35-7.45)
--- NOTE | 2021-03-07 17:58 | CON.PCM.CA_ITS ---
Assessment & Plan Assessment/Plan (1) Non-ST elevation ME (NSTEMI): PLAN: Patient has a non-ST elevation myocardial infarction likely secondary to demand ischemia from his significant Covid infection. At this time we will continue with expectant management with anticoagulation and rate control as appropriate. We will continue to treat the underlying Covid infection. * Echocardiogram performed to assess ventricular function and help guide therapy. Depending on the findings further recommendations will be made. * Would recommend holding the TOPHER inhibitor at this time * * Thank you for allowing me to participate in the care of your patient. Please don't hesitate to call if any issues arise. HPI Consult Data Date of Consult: 03/07/21 HPI Narrative HPI Narrative: JANEY DE OLIVEIRA, is a 65 F who presents to the emergency room with shortness of breath, hypotension and low oxygen saturation. She says that this condition started about 3 to 5 days ago. She apparently is unvaccinated and was recently exposed to a Covid positive individual. No other history was obtained due to current intubated status. She apparently On presentation to the emergency department, the patient was noted to be afebrile and hemodynamically stable. She was, nevertheless, notably tachycardic and tachypneic. She was immediately placed on BiPAP therapy. Laboratory evaluation revealed no evidence of a leukocytosis. Coagulation profile revealed a D-dimer of 2.46. Chemistry profile was notable for a sodium of 135, BUN of 35 and creatinine of 1.81. Lactate was elevated at 3.0. Initial troponin was increased to 243. CRP was elevated to 293. BNP was increased to 311. Procalcitonin was noted to be 2.63. Chest imaging demonstrated severe bilateral airspace disease. Rapid coronavirus antigen testing was positive. The patient did receive supplemental IV fluid hydration. She was started on Lovenox, Decadron and baricitinib. She was admitted to the medical intensive care unit for further management. She was seen in the ICU. No acute EKG changes were noted but her troponins continue to be markedly elevated. [facility] Medical History Depression Encephalitis GERD (gastroesophageal reflux disease) Hypertension Home Medications aspirin 1 tab PO QHS 07/19/17 [History Last Taken 09/26/20] nortriptyline 75 mg PO DINNER 09/27/20 [History Last Taken 09/26/20] omeprazole 20 mg PO DAILY 09/27/20 [History Last Taken 09/26/20] lisinopril 10 mg PO DAILY #90 tab 10/05/20 [Rx Last Taken Unknown] escitalopram oxalate 10 mg PO DAILY 03/06/21 [History Last Taken Unknown] Allergy/AdvReac Type Severity Reaction Status Date / Time No Known Allergies Allergy Verified 03/06/21 15:53 Surgical History History of ankle surgery Social History Smoking Status: Never smoker ROS Constitutional Constitutional: Denies fever(s) or weight loss Eyes Eyes: Reports systems reviewed and no addt'l complaints, except as documented ENT HEENT: Reports systems reviewed and no addt'l complaints, except as documented Cardiovascular Cardiovascular: Denies chest pain at rest, chest pain with activity, dyspnea at rest, dyspnea on exertion, edema, palpitations or paroxysmal nocturnal dyspnea Respiratory/Chest Respiratory/Chest: Reports dyspnea on exertion, shortness of breath at rest and shortness of breath with exertion; Denies productive cough Gastrointestinal Gastrointestinal: Denies change in bowel habits, nausea, vomiting or weight changes Genitourinary Genitourinary: Denies difficulty urinating Musculoskeletal Musculoskeletal: Denies joint stiffness or muscle weakness Integumentary Integumentary: Denies lesions Neurologic Neurologic: Denies dizziness or syncope Psychiatric Psychiatric: Denies anxiety Endocrine Endocrinology: Denies excessive sweating or fatigue Hematologic/Lymphatic Hematologic/Lymphatic: Denies anemia Allergic/Immunologic Allergic/Immunologic: Denies seasonal rhinorrhea Objective Data Vital Signs: Vital Signs Temp Pulse Resp BP Pulse Ox 96.6 F L 81 14 109/51 L 97 03/07/21 17:00 03/07/21 17:00 03/07/21 17:00 03/07/21 17:00 03/07/21 17:00 Oxygen Flow Rate (L/min) 100 Oxygen Delivery Method Mechanical Ventilator Weight: 222 lb 7.143 oz Body Mass Index (BMI) 35.6 Intake & Output: Intake and Output for Last 24 Hours 03/05/21 03/06/21 03/07/21 23:59 23:59 23:59 Intake Total 519.58 / 519.58 1267.87 / 1267.87 Output Total 0 / 0 300 / 300 Balance 519.58 / 519.58 967.87 / 967.87 Lab / Micro Data Result Diagrams: 03/07/21 03:10 03/07/21 03:10 Labs: Laboratory Results - last 24 hr 03/06/21 15:40: PT 13.6, INR 1.1, Fibrinogen > 900 H 03/06/21 15:40: Lactate Dehydrogenase 635 H, Total Creatine Kinase 319 H 03/06/21 15:40: B-Natriuretic Peptide 311.0 H 03/06/21 15:40: Magnesium 2.4 03/06/21 19:30: Troponin I High Sens 1080 H* 03/06/21 20:05: Lactic Acid 1.3 03/06/21 21:30: Troponin I High Sens 1336 H* 03/07/21 03:10: WBC 6.8, RBC 4.38, Hgb 12.4, Hct 39.7, MCV 90.6, MCH 28.3, MCHC 31.2 L, RDW Std Deviation 49.0 H, RDW Coeff of Crissy 14.6, Plt Count 210, MPV 10.6, Immature Gran % (Auto) 0.400, Neut % (Auto) 85.7 H, Lymph % (Auto) 10.0 L, [place] % (Auto) 3.8, Eos % (Auto) 0.0, Baso % (Auto) 0.1, Absolute Neuts (auto) 5.8, Absolute Lymphs (auto) 0.68 L, Nucleated RBC % 0 03/07/21 03:10: Sodium 138, Potassium 4.6, Chloride 104, Carbon Dioxide 28.0, Anion Gap 6, BUN 44 H, Creatinine 1.82 H, Estim Creat Clear Calc 29.62, Est GFR (MDRD) Af Amer 36 L, Est GFR (MDRD) Non-Af 30 L, BUN/Creatinine Ratio 24.2 H, Glucose 120 H, Calcium 8.6, Total Bilirubin 0.50, AST 48 H, ALT 21, Alkaline Phosphatase 77, Total Protein 7.0, Albumin 2.4 L, Globulin 4.6 H, Albumin/Globulin Ratio 0.5 L 03/07/21 03:10: Total Creatine Kinase 263 H, Triglycerides 189 03/07/21 11:00: Urine Color Yellow, Urine Clarity Sl. Cloudy, Urine pH 5.0, Ur Specific [place] 1.020, Urine Protein 100 H, Urine Glucose (UA) Normal, Urine Ketones Negative, Urine Occult Blood 50 H, Urine Nitrite Negative, Urine Bilirubin Negative, Urine Urobilinogen 1 H, Ur Leukocyte Esterase 25 H, Urine RBC 0-5 SEEN, Urine WBC 0-5 SEEN, Ur Squamous Epith Cells 0-5 SEEN, Urine Bacteria 2+, Urine Mucus 0 SEEN Micro: Microbiology 03/07/21 14:10 Mucosa - Nasopharyngeal Respiratory Panel (PCR) - Final 03/06/21 15:45 Nasal Secretion SARS-CoV-2 Antigen (Rapid) - Final SARS-CoV-2 (COVID 19) 03/07/21 11:00 Urine Catheter - Saxena Legionella Antigen - Final 03/07/21 11:00 Urine Catheter - Saxena Streptococcus pneumoniae Antigen (M - Final ABG Data ABG results: ABG 03/07/21 03/07/21 14:46 17:13 Specimen Type LUIS E ART Sample Site R Brach L Radial pH 7.28 L Bicarbonate Actual 25.0 Total CO2 27 Base Excess -2 O2 Saturation 97 O2 % 85 ABG pCO2 53.1 H ABG pO2 105 H Jewel Test N/A VBG pH 7.27 L VBG pO2 52 H VBG HCO3 27 H VBG Total CO2 29 VBG O2 Sat (Calc) 80 H VBG Base Excess 0 POC Mix VBG pCO2 Pt Tmp 59.1 H Respiration Rate 14 14 O2 Delivery Device Adult Vent Adult Vent Vent Mode AC Tidal Volume 400 POC PEEP 15 15 Cardiology Labs/Tests 03/06/21 15:40: PT 13.6, INR 1.1 03/06/21 15:40: B-Natriuretic Peptide 311.0 H 03/06/21 15:40: Magnesium 2.4 03/06/21 20:05: Lactic Acid 1.3 03/07/21 03:10: WBC 6.8, RBC 4.38, Hgb 12.4, Hct 39.7, MCV 90.6, MCH 28.3, MCHC 31.2 L, Plt Count 210, MPV 10.6, Immature Gran % (Auto) 0.400, Neut % (Auto) 85.7 H, Lymph % (Auto) 10.0 L, [place] % (Auto) 3.8, Eos % (Auto) 0.0, Baso % (Auto) 0.1, Absolute Neuts (auto) 5.8, Nucleated RBC % 0 03/07/21 03:10: Sodium 138, Potassium 4.6, Chloride 104, Carbon Dioxide 28.0, Anion Gap 6, BUN 44 H, Creatinine 1.82 H, Est GFR (MDRD) Af Amer 36 L, Est GFR (MDRD) Non-Af 30 L, BUN/Creatinine Ratio 24.2 H, Glucose 120 H, Calcium 8.6, Total Bilirubin 0.50 03/07/21 03:10: Triglycerides 189 03/07/21 11:00: Urine Color Yellow, Urine Clarity Sl. Cloudy, Urine pH 5.0, Ur Specific [place] 1.020, Urine Protein 100 H, Urine Glucose (UA) Normal, Urine Ketones Negative, Urine Occult Blood 50 H, Urine Nitrite Negative, Urine Bilirubin Negative, Urine Urobilinogen 1 H, Ur Leukocyte Esterase 25 H, Urine RBC 0-5 SEEN, Urine WBC 0-5 SEEN 03/07/21 14:46: VBG pH 7.27 L, VBG pO2 52 H, VBG HCO3 27 H, VBG O2 Sat (Calc) 80 H, VBG Base Excess 0 03/07/21 17:13: pH 7.28 L, Bicarbonate Actual 25.0, Base Excess -2, O2 Saturation 97, ABG pCO2 53.1 H, ABG pO2 105 H, Jewel Test N/A Rhythm: EKG: ECHO: Stress Test: Cardiac Cath: PCI: CT Surgery: Holter monitor: EPS: PPM: CXR: Chest CT Scan: Radiography Diagnostic Testing: Radiology Impression Chest X-Ray 03/07/21 13:45 IMPRESSION: The tip of the endotracheal tube is at 2.1 cm proximal to the karen. The tip of the orogastric tube is in the mid portion of the body of the stomach. Stable bilateral pulmonary infiltrates worse at the left lung base. Electronically Signed: Juni Herrera MD at 14:32 EDT , Service support ,
--- NOTE | 2021-03-07 19:04 | RAD_ITS ---
STUDY: X-RAY CHEST REASON FOR EXAM: Female, 65 years old. PICC line placement TECHNIQUE: Single AP portable view of the chest. COMPARISON: 1:53 PM. FINDINGS: ET tube terminates 3 cm above the karen. NG tube in the stomach. Terminus is excluded from the [id number]. PICC line terminates in the superior vena cava. No pleural effusion. Bilateral airspace disease suspicious for pneumonia. Normal size heart. Normal mediastinum and emma. Normal visualized pulmonary arteries. Normal visualized aortic arch and descending thoracic aorta. Normal visualized thoracic spine. Normal visualized ribs, clavicles, and shoulders. There is no demonstrated abnormality of the visualized soft tissue structures of the upper abdomen. RAD/CXR for Line Placement IMPRESSION: Bilateral airspace disease suspicious for pneumonia. Electronically Signed: Mera Gonzalez MD at 21:40 EDT Tel , Service support ,
[2021-03-07] MEDS: Mupirocin Ointment 22gm Tube 1 APPLIC NASAL (21:15)
[2021-03-07] MEDS: Enoxaparin 40 MG/0.4 ML Syringe SC (21:16)
[2021-03-07] MEDS: Atorvastatin Calcium 40 MG Tablet PO (21:17)
[2021-03-07] MEDS: Aspirin 81 MG TAB.CHEW PO (21:17)
[2021-03-08] VITALS (52 sets, daily range): BP systolic 90–133; BP diastolic 41–84; PULSE 72–88; RESP 12–14; TEMP 35.7–36.7; O2SAT 91–98
[2021-03-08] MEDS: Propofol 10MG/Ml 1,000 MG/100 ML Bottle 6.1 MG CONT INF (02:30)
[2021-03-08 04:51] LABS: Absolute Lymphocyte Count 0.95 X10^3/uL (0.83-4.51); Absolute Neutrophil Count 9.5 X10^3/uL (2.0-7.7); Basophil# 0.01 X10^3/uL; Basophil% 0.1 % (0-1); Hematocrit 37.9 % (37-47); Hemoglobin 12.2 g/dL (12.0-15.0); Lymphocyte # 0.95 X10^3/ul (0.83-4.51); Lymphocyte % 8.5 % (19-41); Mean Corp Hgb Conc 32.2 g/dL (32-36); Mean Corpuscular Hgb 29.6 pg (27.0-32.0); Mean Platelet Vol. 10.3 fl (6.2-12.0); Monocyte# 0.59 X10^3/uL; Monocyte% 5.3 % (0-10); NRBC Flagged by Analyzer 0 % (0-5); Neutrophil # 9.51 X10^3/uL (2.7-7.7); Neutrophil % 85.5 % (47-70); Platelet Count 260 K/mm3 (150-450); RBC Distribution Width CV 14.9 % (11.6-14.6); RBC Distribution Width SD 50.5 fl (35.1-43.9); Red Blood Count 4.12 M/mm3 (4.2-5.4); White Blood Count 11.1 K/mm3 (4.4-11.0)
[2021-03-08 05:09] LABS: ALB/GLOB Ratio 0.5 RATIO (0.9-2.4); AST(SGOT) 33 U/L (15-37); Alanine Aminotransfer ALT/SGPT 16 U/L (13-56); Albumin, Serum 2.1 g/dL (3.2-5.0); Alkaline Phosphatase 71 U/L (45-117); Anion Gap 7 (5-15); BUN 52 mg/dL (7-18); BUN/Creat Ratio 27.4 RATIO (10-20); Calcium,Total 8.2 mg/dL (8.5-10.1); Chloride 105 mmol/L (98-107); EST Glomerular Filtration Rate 28 mL/min (>60); Est Glom Filt Rate - Afr Amer 34 mL/min (>60); Globulin 4.4 g/dL (2.2-4.2); Glucose 120 mg/dL (74-106); Potassium 4.5 mmol/L (3.5-5.1); Protein, Total 6.5 g/dL (6.4-8.2); Sodium Level 139 mmol/L (136-145)
[2021-03-08] MEDS: TITRATION PARAMETER CHANGE 1 EACH IV ×2 (05:29→13:59)
--- NOTE | 2021-03-08 06:43 | PN.CC_ITS ---
Assessment & Plan Assessment/Plan (1) Acute hypoxemic respiratory failure: (2) Pneumonia due to 2019-nCoV: PLAN: RECOMMENDATIONS: 1. Continue to wean FiO2 and PEEP to maintain oxygen saturations at or above 90%. 2. Continue patient on current sedation regimen, along with cis atracurium for at least 24 additional hours. 3. Continue PPI therapy. 4. Increase to therapeutic Lovenox dosing. 5. Continue Levophed to maintain a mean arterial pressure at or above 65 mmHg. 6. Continue Decadron to complete 10 days of therapy. 7. Continue baricitinib as ordered. IMPRESSIONS: 1. Acute hypoxemic respiratory failure secondary to COVID-19 pneumonia The patient initially presented to the hospital with approximately 3 days of symptoms. CTA chest was unable to be performed due to underlying renal insufficiency. The patient was subsequently placed on Lovenox, Decadron and baricitinib. Although the patient was initially placed on BiPAP therapy, she continued to decompensate from a respiratory perspective, ultimately requiring intubation on March 07. The patient will be continued on her current sedation regimen along with cis atracurium, for at least 24 additional hours. 2. Acute kidney injury Unclear precipitating etiology. If creatinine does not begin to improve, will obtain renal ultrasound. However, for now, we will continue to monitor urine output. No current indication for renal replacement therapy. Avoid nephrotoxic medications. 3. Distributive shock Secondary to sedative medication utilization. Given underlying systolic dysfunction, recommend avoidance of fluids. Continue Levophed to maintain a mean arterial pressure at or above 65 mmHg. 4. Troponin elevation/acute systolic heart failure Echocardiogram demonstrated severe LV systolic dysfunction and an ejection fraction of 20%. Cardiology is currently following to assist with medical management. 5. Obesity/depression/hypertension/GERD Complicates care, management, recovery and prognosis. Continue home medications as indicated. CODE status: Discussed CODE status at length including difference between FULL code, DNR-CCA and DNR-CC status. Following discussions about the differences in these status, patient and family requested DNR CCA with intubation CODE STATUS. TIME: 38 minutes of critical care time, inclusive of procedures, was spent addressing the patient's acute hypoxemic respiratory failure secondary to COVID-19 pneumonia, acute kidney injury, distributive shock, troponin elevation, review of all data and collaboration with the care team. ([id number]) Subjective Subjective The patient was seen and examined at the bedside this morning. Events from the last 24 hours have been reviewed. The patient is currently afebrile. The patient did develop hypotension after sedative medications were initiated yesterday, which required Levophed support. She is currently on Levophed at 5 mcg/min to maintain hemodynamic stability. The patient remains on assist control mode of mechanical ventilation with an FiO2 requirement of 70% and PEEP of 15. She is sedated on propofol and fentanyl and currently pharmacologically paralyzed on cis atracurium. She is documented to be overall net +2 L for the hospital admission. She remains on Lovenox, Decadron and baricitinib. Her creatinine is up a bit this morning to 1.9. Liver function is within normal limits. Objective Data Objective Data The patient's most recent lab work, culture data and imaging studies have all been personally reviewed. Surface echocardiogram revealed severe segmental systolic dysfunction with an ejection fraction of 20%. Rapid coronavirus antigen testing was positive on March 06. Strep and urine Legionella antigens were negative. Respiratory viral panel was negative. Blood cultures have demonstrated no growth to date. Sputum culture is pending. Vital Signs: Vital Signs Temp Pulse Resp BP Pulse Ox 97.3 F L 83 14 127/84 H 97 03/08/21 05:00 03/08/21 06:30 03/08/21 06:00 03/08/21 06:30 03/08/21 06:00 Oxygen Flow Rate (L/min) 100 Oxygen Delivery Method Mechanical Ventilator Weight: 102.8 kg Body Mass Index (BMI) 35.6 Intake & Output: Intake and Output for Last 24 Hours 03/06/21 03/07/21 03/08/21 23:59 23:59 23:59 Intake Total 519.58 / 519.58 1855.36 / 1904.36 270.95 / 270.95 Output Total 0 / 0 400 / 475 200 / 200 Balance 519.58 / 519.58 1455.36 / 1429.36 70.95 / 70.95 Lab / Micro Data Attestation: I reviewed the patient's lab results. Result Diagrams: 03/08/21 04:30 03/08/21 04:30 Labs: Laboratory Results - last 24 hr 03/07/21 03:10: Total Creatine Kinase 263 H, Triglycerides 189 03/07/21 11:00: Urine Color Yellow, Urine Clarity Sl. Cloudy, Urine pH 5.0, Ur Specific [place] 1.020, Urine Protein 100 H, Urine Glucose (UA) Normal, Urine Ketones Negative, Urine Occult Blood 50 H, Urine Nitrite Negative, Urine Bilirubin Negative, Urine Urobilinogen 1 H, Ur Leukocyte Esterase 25 H, Urine RBC 0-5 SEEN, Urine WBC 0-5 SEEN, Ur Squamous Epith Cells 0-5 SEEN, Urine Bacteria 2+, Urine Mucus 0 SEEN 03/08/21 04:30: WBC 11.1 H, RBC 4.12 L, Hgb 12.2, Hct 37.9, MCV 92.0, MCH 29.6, MCHC 32.2, RDW Std Deviation 50.5 H, RDW Coeff of Crissy 14.9 H, Plt Count 260, MPV 10.3, Immature Gran % (Auto) 0.600, Neut % (Auto) 85.5 H, Lymph % (Auto) 8.5 L, [place] % (Auto) 5.3, Eos % (Auto) 0.0, Baso % (Auto) 0.1, Absolute Neuts (auto) 9.5 H, Absolute Lymphs (auto) 0.95, Nucleated RBC % 0 03/08/21 04:30: Sodium 139, Potassium 4.5, Chloride 105, Carbon Dioxide 27.0, Anion Gap 7, BUN 52 H, Creatinine 1.90 H, Estim Creat Clear Calc 28.00, Est GFR (MDRD) Af Amer 34 L, Est GFR (MDRD) Non-Af 28 L, BUN/Creatinine Ratio 27.4 H, Glucose 120 H, Calcium 8.2 L, Total Bilirubin 0.30, AST 33, ALT 16, Alkaline Phosphatase 71, Total Protein 6.5, Albumin 2.1 L, Globulin 4.4 H, Albumin/Globulin Ratio 0.5 L Micro: Microbiology 03/07/21 14:10 Mucosa - Nasopharyngeal Respiratory Panel (PCR) - Final 03/06/21 15:45 Nasal Secretion SARS-CoV-2 Antigen (Rapid) - Final SARS-CoV-2 (COVID 19) 03/07/21 11:00 Urine Catheter - Saxena Legionella Antigen - Final 03/07/21 11:00 Urine Catheter - Saxena Streptococcus pneumoniae Antigen (M - Final ABG Data ABG results: ABG 03/07/21 03/07/21 14:46 17:13 Specimen Type LUIS E ART Sample Site R Brach L Radial pH 7.28 L Bicarbonate Actual 25.0 Total CO2 27 Base Excess -2 O2 Saturation 97 O2 % 85 ABG pCO2 53.1 H ABG pO2 105 H Jewel Test N/A VBG pH 7.27 L VBG pO2 52 H VBG HCO3 27 H VBG Total CO2 29 VBG O2 Sat (Calc) 80 H VBG Base Excess 0 POC Mix VBG pCO2 Pt Tmp 59.1 H Respiration Rate 14 14 O2 Delivery Device Adult Vent Adult Vent Vent Mode AC Tidal Volume 400 POC PEEP 15 15 Radiography Diagnostic Testing: Radiology Impression Venous Doppler Study 03/06/21 17:53 Interpretation Summary No evidence for acute deep venous thrombosis bilateral lower extremities with patent and compressible bilateral great saphenous veins. Abbreviated COVID-19 protocol utilized Ordering Physician: Munir Godfrey Performed By: Jose Aguila T Chest X-Ray 03/07/21 13:45 IMPRESSION: The tip of the endotracheal tube is at 2.1 cm proximal to the karen. The tip of the orogastric tube is in the mid portion of the body of the stomach. Stable bilateral pulmonary infiltrates worse at the left lung base. Electronically Signed: Juni Herrera MD at 14:32 EDT , Service support , Chest X-Ray 03/07/21 19:04 IMPRESSION: Bilateral airspace disease suspicious for pneumonia. Electronically Signed: Mera Gonzalez MD at 21:40 EDT Tel , Service support , Physical Exam Const no apparent distress General Appearance: ill appearing, intubated and patient mechanically ventilated Nutritional Appearance: obese HEENT normocephalic and head/scalp atraumatic Mouth: endotracheal tube in place and OG tube in place Eyes conjunctivae normal Neck supple General: trachea midline Chest inspection of chest normal Resp Effort and Inspection: Negative for labored Auscultation: diminished lung sounds; Negative for rales, rhonchi or wheezes Cardio regular rate and regular rhythm GI normal to inspection, nondistended, normoactive bowel sounds Extremity no clubbing, cyanosis or edema Skin no rashes or lesions noted Neuro Sensorium / Orientation: sedated on vent Charges/Coding Procedures Hospitalists Procedures: 38133 Critial Care 1st Hr
[2021-03-08] MEDS: Mupirocin Ointment 22gm Tube 1 APPLIC NASAL ×2 (08:22→21:55)
[2021-03-08] MEDS: Enoxaparin 40 MG/0.4 ML Syringe SC (08:23)
[2021-03-08] MEDS: dexAMETHasone 10 MG/ML Vial 6 MG IV (08:23)
[2021-03-08] MEDS: 0.9% Saline Lock 10 ML Syringe IV (08:23)
--- NOTE | 2021-03-08 08:50 | PN.CARD_ITS ---
Subjective Subjective Patient seen and evaluated. Still intubated. Objective Data Vital Signs: Vital Signs Temp Pulse Resp BP Pulse Ox 97.3 F L 88 14 122/48 H 96 03/08/21 05:00 03/08/21 07:37 03/08/21 07:37 03/08/21 07:00 03/08/21 07:37 Oxygen Flow Rate (L/min) 100 Oxygen Delivery Method Mechanical Ventilator Weight: 226 lb 10.163 oz Body Mass Index (BMI) 35.6 Intake & Output: Intake and Output for Last 24 Hours 03/06/21 03/07/21 03/08/21 23:59 23:59 23:59 Intake Total 519.58 / 519.58 1855.36 / 1904.36 363.33 / 363.33 Output Total 0 / 0 400 / 475 300 / 300 Balance 519.58 / 519.58 1455.36 / 1429.36 63.33 / 63.33 Lab / Micro Data Result Diagrams: 03/08/21 04:30 03/08/21 04:30 Labs: Laboratory Results - last 24 hr 03/07/21 03:10: Total Creatine Kinase 263 H, Triglycerides 189 03/07/21 11:00: Urine Color Yellow, Urine Clarity Sl. Cloudy, Urine pH 5.0, Ur Specific [place] 1.020, Urine Protein 100 H, Urine Glucose (UA) Normal, Urine Ketones Negative, Urine Occult Blood 50 H, Urine Nitrite Negative, Urine Bilirubin Negative, Urine Urobilinogen 1 H, Ur Leukocyte Esterase 25 H, Urine RBC 0-5 SEEN, Urine WBC 0-5 SEEN, Ur Squamous Epith Cells 0-5 SEEN, Urine Bacteria 2+, Urine Mucus 0 SEEN 03/08/21 04:30: WBC 11.1 H, RBC 4.12 L, Hgb 12.2, Hct 37.9, MCV 92.0, MCH 29.6, MCHC 32.2, RDW Std Deviation 50.5 H, RDW Coeff of Crissy 14.9 H, Plt Count 260, MPV 10.3, Immature Gran % (Auto) 0.600, Neut % (Auto) 85.5 H, Lymph % (Auto) 8.5 L, [place] % (Auto) 5.3, Eos % (Auto) 0.0, Baso % (Auto) 0.1, Absolute Neuts (auto) 9.5 H, Absolute Lymphs (auto) 0.95, Nucleated RBC % 0 03/08/21 04:30: Sodium 139, Potassium 4.5, Chloride 105, Carbon Dioxide 27.0, Anion Gap 7, BUN 52 H, Creatinine 1.90 H, Estim Creat Clear Calc 28.00, Est GFR (MDRD) Af Amer 34 L, Est GFR (MDRD) Non-Af 28 L, BUN/Creatinine Ratio 27.4 H, Glucose 120 H, Calcium 8.2 L, Total Bilirubin 0.30, AST 33, ALT 16, Alkaline Phosphatase 71, Total Protein 6.5, Albumin 2.1 L, Globulin 4.4 H, Albumin/Globulin Ratio 0.5 L Micro: Microbiology 03/07/21 14:10 Mucosa - Nasopharyngeal Respiratory Panel (PCR) - Final 03/06/21 15:45 Nasal Secretion SARS-CoV-2 Antigen (Rapid) - Final SARS-CoV-2 (COVID 19) 03/07/21 11:00 Urine Catheter - Saxena Legionella Antigen - Final 03/07/21 11:00 Urine Catheter - Saxena Streptococcus pneumoniae Antigen (M - Final ABG Data ABG results: ABG 03/07/21 03/07/21 14:46 17:13 Specimen Type LUIS E ART Sample Site R Brach L Radial pH 7.28 L Bicarbonate Actual 25.0 Total CO2 27 Base Excess -2 O2 Saturation 97 O2 % 85 ABG pCO2 53.1 H ABG pO2 105 H Jewel Test N/A VBG pH 7.27 L VBG pO2 52 H VBG HCO3 27 H VBG Total CO2 29 VBG O2 Sat (Calc) 80 H VBG Base Excess 0 POC Mix VBG pCO2 Pt Tmp 59.1 H Respiration Rate 14 14 O2 Delivery Device Adult Vent Adult Vent Vent Mode AC Tidal Volume 400 POC PEEP 15 15 Cardiology Labs/Tests 03/07/21 03:10: Triglycerides 189 03/07/21 11:00: Urine Color Yellow, Urine Clarity Sl. Cloudy, Urine pH 5.0, Ur Specific [place] 1.020, Urine Protein 100 H, Urine Glucose (UA) Normal, Urine Ketones Negative, Urine Occult Blood 50 H, Urine Nitrite Negative, Urine Bilirubin Negative, Urine Urobilinogen 1 H, Ur Leukocyte Esterase 25 H, Urine RBC 0-5 SEEN, Urine WBC 0-5 SEEN 03/07/21 14:46: VBG pH 7.27 L, VBG pO2 52 H, VBG HCO3 27 H, VBG O2 Sat (Calc) 80 H, VBG Base Excess 0 03/07/21 17:13: pH 7.28 L, Bicarbonate Actual 25.0, Base Excess -2, O2 Saturation 97, ABG pCO2 53.1 H, ABG pO2 105 H, Jewel Test N/A 03/08/21 04:30: WBC 11.1 H, RBC 4.12 L, Hgb 12.2, Hct 37.9, MCV 92.0, MCH 29.6, MCHC 32.2, Plt Count 260, MPV 10.3, Immature Gran % (Auto) 0.600, Neut % (Auto) 85.5 H, Lymph % (Auto) 8.5 L, [place] % (Auto) 5.3, Eos % (Auto) 0.0, Baso % (Auto) 0.1, Absolute Neuts (auto) 9.5 H, Nucleated RBC % 0 03/08/21 04:30: Sodium 139, Potassium 4.5, Chloride 105, Carbon Dioxide 27.0, Anion Gap 7, BUN 52 H, Creatinine 1.90 H, Est GFR (MDRD) Af Amer 34 L, Est GFR (MDRD) Non-Af 28 L, BUN/Creatinine Ratio 27.4 H, Glucose 120 H, Calcium 8.2 L, Total Bilirubin 0.30 Rhythm: EKG: ECHO: Stress Test: Cardiac Cath: PCI: CT Surgery: Holter monitor: EPS: PPM: CXR: Chest CT Scan: Radiography Diagnostic Testing: Radiology Impression Venous Doppler Study 03/06/21 17:53 Interpretation Summary No evidence for acute deep venous thrombosis bilateral lower extremities with patent and compressible bilateral great saphenous veins. Abbreviated COVID-19 protocol utilized Ordering Physician: Munir Godfrey Performed By: Jose Aguila, RVT Echocardiogram 03/07/21 07:27 Interpretation Summary Mildly dilated left ventricle. The estimated ejection fraction is 20 %. Severe segmental systolic dysfunction (see wall motion). Mid-anteroseptal : Akinetic. [place] : Akinetic. Ordering Physician: Tara Mooney Referring Physician: Cedric Mcnally Performed By: Gabrielle Roper, AYAN Chest X-Ray 03/07/21 13:45 IMPRESSION: The tip of the endotracheal tube is at 2.1 cm proximal to the karen. The tip of the orogastric tube is in the mid portion of the body of the stomach. Stable bilateral pulmonary infiltrates worse at the left lung base. Electronically Signed: Juni Herrera MD at 14:32 EDT , Service support , Chest X-Ray 03/07/21 19:04 IMPRESSION: Bilateral airspace disease suspicious for pneumonia. Electronically Signed: Mera Gonzalez MD at 21:40 EDT Tel , Service support , Risk Stratification Risk Stratification Applicable: Yes Age >/= 65: No >/= 3 CAD Risk Factors (HTN, HLD, DM, family hx of CAD, or current smoker): No Aspirin Use in the Past 7 Days: No Severe Angina (>/= episodes in 24 hours): No EKG ST Changes >/= 0.5mm: No Positive Cardiac Marker: Yes KAREL Risk Stratification Score: 1 KAREL % Risk: 5% Risk Assessment & Plan Assessment/Plan (1) Non-ST elevation MS (NSTEMI): PLAN: Patient has a non-ST elevation myocardial infarction likely secondary to demand ischemia from his significant Covid infection but cannot completely exclude underlying coronary artery disease. At this time we will continue with expectant management with anticoagulation and rate control as appropriate. We will continue to treat the underlying Covid infection. * Echocardiogram demonstrates severe left ventricular systolic dysfunction with nearly akinetic distal anteroseptal wall and apex suggesting obstructive coronary disease * Further recommendations will depend on the recovery from the underlying Covid infection * Continue supportive care for now * Will hold off on TOPHER inhibitor at this time, and due to patient being on pressors will hold off on beta-blockers but will resume as soon as feasible. * Thank you for allowing me to participate in the care of your patient. Please don't hesitate to call if any issues arise.
--- NOTE | 2021-03-08 09:23 | RAD_ITS ---
STUDY: X-RAY - ABDOMEN/PELVIS REASON FOR EXAM: Female, 66 years old. OG placement TECHNIQUE: Single AP view of the abdomen / pelvis. COMPARISON: None. FINDINGS: A normal gastric tube has been placed with the tip in the distal portion of the stomach. There is an unremarkable bowel gas pattern. The visualized liver, spleen and kidneys are grossly normal in size and morphology. Normal soft tissue structures. Normal visualized osseous structures. RAD/Abdomen Single View (Portable) IMPRESSION: The tip of the orogastric tube is in the distal portion of the stomach. Electronically Signed: Juni Hrerera MD at 9:58 EDT , Service support ,
[2021-03-08] MEDS: CHLORHEXIDINE GLUC 2% CLOTH 1 EACH TOWELETTE TOPICAL (10:32)
[2021-03-08] MEDS: Escitalopram Oxalate 10 MG Tablet PO (10:32)
[2021-03-08] MEDS: Chlorhexidine 15 ML PO ×2 (10:32→19:55)
[2021-03-08 11:13] LABS: Urine Sodium 29 mmol/L (Not Establ.)
[2021-03-08] MEDS: Enoxaparin 60 MG/0.6 ML Syringe SC (12:05)
[2021-03-08] MEDS: Propofol 10MG/Ml 1,000 MG/100 ML Bottle 6.2 MG CONT INF ×2 (14:36→21:18)
--- NOTE | 2021-03-08 15:14 | PN.HOSP_ITS ---
Subjective Subjective Patient remains intubated, paralyzed, sedated. We have been able to wean her oxygen some. Patient remains on 15 of PEEP. Patient remains on Levophed at 7.5. Objective Data Objective Data Vital Signs: Vital Signs Temp Pulse Resp BP Pulse Ox 96.7 F L 85 14 119/50 L 93 03/08/21 12:00 03/08/21 14:53 03/08/21 14:53 03/08/21 14:30 03/08/21 14:53 Oxygen Flow Rate (L/min) 100 Oxygen Delivery Method Mechanical Ventilator Weight: 102.8 kg Body Mass Index (BMI) 35.6 Intake & Output: Intake and Output for Last 24 Hours 03/06/21 03/07/21 03/08/21 23:59 23:59 23:59 Intake Total 519.58 / 519.58 1855.36 / 1904.36 772.81 / 772.81 Output Total 0 / 0 400 / 475 435 / 435 Balance 519.58 / 519.58 1455.36 / 1429.36 337.81 / 337.81 Lab / Micro Data Result Diagrams: 03/08/21 04:30 03/08/21 04:30 Labs: Laboratory Results - last 24 hr 03/07/21 03:10: Total Creatine Kinase 263 H, Triglycerides 189 03/07/21 14:45: MRSA (PCR) POSITIVE H 03/08/21 04:30: WBC 11.1 H, RBC 4.12 L, Hgb 12.2, Hct 37.9, MCV 92.0, MCH 29.6, MCHC 32.2, RDW Std Deviation 50.5 H, RDW Coeff of Crissy 14.9 H, Plt Count 260, MPV 10.3, Immature Gran % (Auto) 0.600, Neut % (Auto) 85.5 H, Lymph % (Auto) 8.5 L, [place] % (Auto) 5.3, Eos % (Auto) 0.0, Baso % (Auto) 0.1, Absolute Neuts (auto) 9.5 H, Absolute Lymphs (auto) 0.95, Nucleated RBC % 0 03/08/21 04:30: Sodium 139, Potassium 4.5, Chloride 105, Carbon Dioxide 27.0, Anion Gap 7, BUN 52 H, Creatinine 1.90 H, Estim Creat Clear Calc 28.00, Est GFR (MDRD) Af Amer 34 L, Est GFR (MDRD) Non-Af 28 L, BUN/Creatinine Ratio 27.4 H, Glucose 120 H, Calcium 8.2 L, Total Bilirubin 0.30, AST 33, ALT 16, Alkaline Phosphatase 71, Total Protein 6.5, Albumin 2.1 L, Globulin 4.4 H, Albumin/Globulin Ratio 0.5 L 03/08/21 10:35: Ur Random Sodium 29, Urine Creatinine 112.00 Micro: Microbiology 03/07/21 14:10 Sputum, Induced/Lukens Gram Stain - Final 03/06/21 15:50 Blood Culture (Wb) - Left Wrist Blood Culture - Preliminary No growth in 48 hours. 03/06/21 15:40 Blood Culture (Wb) - Anticubital Left Blood Culture - Preliminary No growth in 48 hours. 03/07/21 14:10 Mucosa - Nasopharyngeal Respiratory Panel (PCR) - Final 03/06/21 15:45 Nasal Secretion SARS-CoV-2 Antigen (Rapid) - Final SARS-CoV-2 (COVID 19) 03/07/21 11:00 Urine Catheter - Saxena Legionella Antigen - Final 03/07/21 11:00 Urine Catheter - Saxena Streptococcus pneumoniae Antigen (M - Final ABG Data ABG results: ABG 03/07/21 17:13 Specimen Type ART Sample Site L Radial pH 7.28 L Bicarbonate Actual 25.0 Total CO2 27 Base Excess -2 O2 Saturation 97 O2 % 85 ABG pCO2 53.1 H ABG pO2 105 H Jewel Test N/A Respiration Rate 14 O2 Delivery Device Adult Vent Vent Mode AC Tidal Volume 400 POC PEEP 15 Radiography Diagnostic Testing: Radiology Impression Venous Doppler Study 03/06/21 17:53 Interpretation Summary No evidence for acute deep venous thrombosis bilateral lower extremities with patent and compressible bilateral great saphenous veins. Abbreviated COVID-19 protocol utilized Ordering Physician: Munir Godfrey Performed By: Jose Aguila, RVT Echocardiogram 03/07/21 07:27 Interpretation Summary Mildly dilated left ventricle. The estimated ejection fraction is 20 %. Severe segmental systolic dysfunction (see wall motion). Mid-anteroseptal : Akinetic. [place] : Akinetic. Ordering Physician: Tara Mooney Referring Physician: Cedric Mcnally Performed By: Gabrielle Roper, [facility] Chest X-Ray 03/07/21 19:04 IMPRESSION: Bilateral airspace disease suspicious for pneumonia. Electronically Signed: Mera Gonzalez MD at 21:40 EDT Tel , Service support , KUB X-Ray 03/08/21 09:23 IMPRESSION: The tip of the orogastric tube is in the distal portion of the stomach. Electronically Signed: Juni Herrera MD at 9:58 EDT , Service support , Physical Exam Const Constitutional Narrative: Upper middle-aged white female who appears much older than stated age lying in bed intubated, no spontaneous movement as patient is paralyzed, [id number] on her forehead Nutritional Appearance: obese HEENT head/scalp atraumatic and moist oral mucous membranes Head and Scalp: normocephalic Resp normal respiratory effort, no retractions, no use of accessory muscles and clear to auscultation bilaterally Resp Narrative: Diffusely diminished but clear Auscultation: Negative for crackles, rales, rhonchi or wheezes Cardio regular rate, regular rhythm, S1 normal heart sound, S2 normal heart sound, no murmurs, no rub, no gallops, no clicks and no JVD GI normal to inspection, nondistended, normoactive bowel sounds, soft to palpation, non-tender and non-distended; Negative for hepatosplenomegaly Extremity no clubbing, cyanosis or edema Peripheral Pulses: Yes pulses 2+ throughout Skin no rashes or lesions noted, no wounds, skin turgor normal, no jaundice, no petechiae and no mottling Neuro Neuro Narrative: Patient is intubated and sedated Psych Psych Narrative: Unable to assess Assessment & Plan Assessment/Plan (1) Acute hypoxemic respiratory failure: (2) Non-ST elevation [place] (NSTEMI): (3) COVID-19: (4) ADAM (acute kidney injury): (5) D-dimer, elevated: PLAN: Acute hypoxemic respiratory failure secondary to COVID-19 infection -Patient required mechanical intubation 03/07/2021 -Remains intubated, sedated, paralyzed -Continue support and wean PEEP and oxygen as able -FiO2 has been weaned to 60% PEEP is still at 15 -Requiring paralytic to maintain oxygen saturations -Continue baricitinib 3 of 14 doses and Decadron 3 of 10 doses -Patient is unable to receive remdesivir secondary to ADAM severity -Sputum cultures negative -Respiratory viral panel is negative -Strep pneumo and Legionella antigens are negative -Blood cultures with no growth to date -As needed diuretics as renal function allows -Full therapeutic Lovenox dosing -Continue PPI while patient is intubated on a ventilator and full dose Lovenox -Overall prognosis is poor given rapidity of decline in need for mechanical ventilation -Pulmonary following-appreciate input Shock -Etiology unclear at this time but suspect distributive and COVID-19 infection -Cultures negative -Recent intubation secondary to COVID-19 -Continue pressors and wean as able -MRSA nasal swab was positive and intranasal Bactroban was initiated ADAM -Current serum creatinine relatively stable at 1.9 -Baseline serum creatinine is 0.85-1 -Avoid nephrotoxins -Maintain renal perfusion -Repeat BMP in a.m. -FeNa is 0.35 -Will discuss with critical care medicine a 1 L bolus over 4 hours given poor EF with FeNa, increased pressor needs, and worsening serum creatinine NSTEMI type II -Echo done 03/08/2021 shows an EF of 20% with severe segmental systolic dysfunction and an akinetic mid anterior septal wall and an akinetic apex -Continue aspirin -Continue statin -Cardiology is following and patient will need further work-up once she is more clinically stable from a COVID-19 infection standpoint D-dimer elevation -We will continue to treat as if she has PE at this time is unable to get a CTA with creatinine elevation -VQ scan will not be helpful in her case given the fact that she has underlying pulmonary issues from her COVID-19 infection -Bilateral lower extremity duplex negative for clot GERD -Continue Protonix Hypertension -Hold lisinopril -Monitor blood pressure as patient is currently hypotensive on pressors -Could start as needed medications if pressure begins to rise and renal function normalizes History of stroke -Continue aspirin DVT prophylaxis -Continue full dose enoxaparin CODE STATUS -DNR CCA with intubation Charges/Coding Visit Charges Inpatient E&M: 73838 Subs Hosp L2
[2021-03-08] MEDS: 0.9% Normal Saline 1,000 ML 250 ML IV (16:57)
[2021-03-08] MEDS: Nortriptyline 25 MG Capsule 75 MG PO (17:31)
[2021-03-08] MEDS: Senna/Docusate Sodium 1 Tablet 2 TABLET PO (17:31)
[2021-03-08] MEDS: Aspirin 81 MG TAB.CHEW PO (19:49)
[2021-03-08] MEDS: Atorvastatin Calcium 40 MG Tablet PO (19:49)
[2021-03-08] MEDS: Enoxaparin 100 MG/ML Syringe SC (19:50)
[2021-03-09] VITALS (52 sets, daily range): BP systolic 80–133; BP diastolic 42–63; PULSE 53–92; RESP 12–19; TEMP 36.1–36.4; O2SAT 89–98
[2021-03-09] MEDS: CHLORHEXIDINE GLUC 2% CLOTH 1 EACH TOWELETTE TOPICAL (04:07)
[2021-03-09 06:23] LABS: Absolute Lymphocyte Count 0.78 X10^3/uL (0.83-4.51); Basophil# 0.03 X10^3/uL; Basophil% 0.2 % (0-1); Hematocrit 38.7 % (37-47); Hemoglobin 11.6 g/dL (12.0-15.0); Lymphocyte # 0.78 X10^3/ul (0.83-4.51); Lymphocyte % 5.7 % (19-41); Mean Corpuscular Hgb 27.9 pg (27.0-32.0); Mean Platelet Vol. 10.7 fl (6.2-12.0); Monocyte# 0.71 X10^3/uL; Monocyte% 5.2 % (0-10); NRBC Flagged by Analyzer 0.1 % (0-5); Neutrophil # 11.99 X10^3/uL (2.7-7.7); Platelet Count 281 K/mm3 (150-450); RBC Distribution Width CV 14.7 % (11.6-14.6); RBC Distribution Width SD 50.8 fl (35.1-43.9); Red Blood Count 4.16 M/mm3 (4.2-5.4); White Blood Count 13.8 K/mm3 (4.4-11.0)
--- NOTE | 2021-03-09 06:31 | PN.CC_ITS ---
Assessment & Plan Assessment/Plan (1) Acute hypoxemic respiratory failure: (2) Pneumonia due to 2019-nCoV: PLAN: RECOMMENDATIONS: 1. Continue to wean FiO2 and PEEP to maintain oxygen saturations at or above 90%. 2. Wean the patient off of cis atracurium this morning. 3. Continue patient on current sedation regimen. Okay to maintain a RASS of - 3. 4. Continue PPI therapy. 5. Continue Lovenox as ordered. 6. Continue Levophed to maintain a mean arterial pressure at or above 65 mmHg. 7. Continue Decadron to complete 10 days of therapy. 8. Continue baricitinib as ordered. 9. Start vancomycin and Zosyn, pending sputum culture sensitivities. IMPRESSIONS: 1. Acute hypoxemic respiratory failure secondary to COVID-19 and staphylococcal pneumonia The patient initially presented to the hospital with approximately 3 days of symptoms. CTA chest was unable to be performed due to underlying renal insufficiency. The patient was subsequently placed on Lovenox, Decadron and baricitinib. Although the patient was initially placed on BiPAP therapy, she continued to decompensate from a respiratory perspective, ultimately requiring intubation on March 07. The patient will be continued on assist control mode of mechanical ventilation. FiO2 and PEEP will be weaned to maintain saturations at or above 90%. The patient's cis atracurium will be weaned off today. She will be continued on propofol and fentanyl with a goal to maintain a RASS of -3 for now. In addition to the aforementioned, the patient's sputum culture is al so growing staph aureus. Therefore, she will be started on vancomycin and Zosyn, pending sensitivities. 2. Acute kidney injury Improved. Likely prerenal in etiology. We will continue to monitor urine output. No current indication for renal replacement therapy. Avoid nephrotoxic medications. 3. Distributive shock Secondary to sedative medication utilization. Given underlying systolic dysfunction, recommend avoidance of fluids. Continue Levophed to maintain a mean arterial pressure at or above 65 mmHg. 4. Troponin elevation/acute systolic heart failure Echocardiogram demonstrated severe LV systolic dysfunction and an ejection fraction of 20%. Cardiology is currently following to assist with medical ma nagement. 5. Obesity/depression/hypertension/GERD Complicates care, management, recovery and prognosis. Continue home medications as indicated. CODE status: Discussed CODE status at length including difference between FULL code, DNR-CCA and DNR-CC status. Following discussions about the differences in these status, patient and family requested DNR CCA with intubation CODE STATUS. TIME: 35 minutes of critical care time, inclusive of procedures, was spent addressing the patient's acute hypoxemic respiratory failure secondary to COVID-19 pneumonia, acute kidney injury, distributive shock, troponin elevation, review of all data and collaboration with the care team. ([id number]) Subjective Subjective The patient was seen and examined at the bedside this morning. Events from the last 24 hours have been reviewed. The patient is currently afebrile. She is still requiring Levophed at 1 mcg/min to maintain hemodynamic stability. There have been no bloody secretions noted overnight, after increasing the patient back to therapeutic Lovenox dosing. The patient remains sedated on propofol and fentanyl. She remains pharmacologically paralyzed on cis atracurium. The patient remains on assist control mode of mechanical ventilation with an FiO2 requirement of 55% and PEEP of 13. She is currently documented to be overall net +2.8 L for the hospitalization. She remains on Lovenox, Decadron and baricitinib. Liver function is within normal limits. Creatinine has improved to 1.49 this morning. Objective Data Objective Data The patient's most recent lab work, culture data and imaging studies have all been personally reviewed. Surface echocardiogram revealed severe segmental s ystolic dysfunction with an ejection fraction of 20%. Rapid coronavirus antigen testing was positive on March 06. Strep and urine Legionella antigens were negative. Respiratory viral panel was negative. Blood cultures have demonstrated no growth to date. Sputum culture is positive for staph aureus. Vital Signs: Vital Signs Temp Pulse Resp BP Pulse Ox 97.4 F L 63 14 99/58 L 92 03/09/21 06:00 03/09/21 06:00 03/09/21 06:00 03/09/21 06:00 03/09/21 06:00 Oxygen Flow Rate (L/min) 100 Oxygen Delivery Method Mechanical Ventilator Weight: 103.5 kg Body Mass Index (BMI) 35.6 Intake & Output: Intake and Output for Last 24 Hours 03/07/21 03/08/21 03/09/21 23:59 23:59 23:59 Intake Total 1855.36 / 1904.36 2217.12 / 2256.57 248.86 / 248.86 Output Total 400 / 475 1060 / 1060 550 / 550 Balance 1455.36 / 1429.36 1157.12 / 1196.57 -301.14 / -301.14 Lab / Micro Data Result Diagrams: 03/09/21 04:06 03/09/21 04:06 Labs: Laboratory Results - last 24 hr 03/07/21 14:45: MRSA (PCR) POSITIVE H 03/08/21 10:35: Ur Random Sodium 29, Urine Creatinine 112.00 03/09/21 04:06: WBC 13.8 H, RBC 4.16 L, Hgb 11.6 L, Hct 38.7, MCV 93.0, MCH 27.9, MCHC 30.0 L D, RDW Std Deviation 50.8 H, RDW Coeff of Crissy 14.7 H, Plt Count 281, MPV 10.7, Immature Gran % (Auto) 1.900 H, Neut % (Auto) 87.0 H, Lymph % (Auto) 5.7 L, [place] % (Auto) 5.2, Eos % (Auto) 0.0, Baso % (Auto) 0.2, Absolute Neuts (auto) 12.0 H, Absolute Lymphs (auto) 0.78 L, Nucleated RBC % 0.1 Micro: Microbiology 03/07/21 14:10 Sputum, Induced/Lukens Gram Stain - Final 03/06/21 15:50 Blood Culture (Wb) - Left Wrist Blood Culture - Preliminary No growth in 48 hours. 03/06/21 15:40 Blood Culture (Wb) - Anticubital Left Blood Culture - Preliminary No growth in 48 hours. 03/07/21 14:10 Mucosa - Nasopharyngeal Respiratory Panel (PCR) - Final 03/06/21 15:45 Nasal Secretion SARS-CoV-2 Antigen (Rapid) - Final SARS-CoV-2 (COVID 19) 03/07/21 11:00 Urine Catheter - Saxena Legionella Antigen - Final 03/07/21 11:00 Urine Catheter - Saxena Streptococcus pneumoniae Antigen (M - Final Radiography Diagnostic Testing: Radiology Impression Echocardiogram 03/07/21 07:27 Interpretation Summary Mildly dilated left ventricle. The estimated ejection fraction is 20 %. Severe segmental systolic dysfunction (see wall motion). Mid-anteroseptal : Akinetic. [place] : Akinetic. __ Ordering Physician: Tara Mooney Referring Physician: Cedric Mcnally Performed By: Gabrielle Roper RDCS X-Ray 03/08/21 09:23 IMPRESSION: The tip of the orogastric tube is in the distal portion of the stomach. Electronically Signed: Juni Herrera MD at 9:58 EDT , Service support , Physical Exam Const no apparent distress Constitutional Narrative: No ventilator dyssynchrony. General Appearance: ill appearing, intubated and patient mechanically ventilated Nutritional Appearance: obese HEENT normocephalic and head/scalp atraumatic Mouth: endotracheal tube in place and OG tube in place Eyes conjunctivae normal Neck supple General: trachea midline Chest inspection of chest normal Resp Effort and Inspection: Negative for labored Auscultation: diminished lung sounds; Negative for rales, rhonchi or wheezes Cardio regular rate and regular rhythm GI normal to inspection, nondistended, normoactive bowel sounds Extremity no clubbing, cyanosis or edema Skin no rashes or lesions noted Neuro Sensorium / Orientation: sedated on vent Charges/Coding Procedures Hospitalists Procedures: [id number] Critial Care 1st Hr
[2021-03-09 06:43] LABS: ALB/GLOB Ratio 0.4 RATIO (0.9-2.4); AST(SGOT) 26 U/L (15-37); Alanine Aminotransfer ALT/SGPT 15 U/L (13-56); Alkaline Phosphatase 75 U/L (45-117); Anion Gap 6 (5-15); BUN 44 mg/dL (7-18); BUN/Creat Ratio 29.5 RATIO (10-20); Calcium,Total 8.6 mg/dL (8.5-10.1); Chloride 107 mmol/L (98-107); Creatinine, Serum 1.49 mg/dL (0.55-1.02); EST Glomerular Filtration Rate 37 mL/min (>60); Est Glom Filt Rate - Afr Amer 45 mL/min (>60); Estimated Creatinine Clearance 35.71 ml/min; Globulin 4.6 g/dL (2.2-4.2); Glucose 109 mg/dL (74-106); Protein, Total 6.6 g/dL (6.4-8.2); Sodium Level 141 mmol/L (136-145)
[2021-03-09] MEDS: 0.9% Saline Lock 10 ML Syringe IV (08:03)
[2021-03-09] MEDS: dexAMETHasone 10 MG/ML Vial 6 MG IV (08:03)
[2021-03-09] MEDS: Escitalopram Oxalate 10 MG Tablet PO (08:03)
[2021-03-09] MEDS: Enoxaparin 100 MG/ML Syringe SC ×2 (08:03→20:03)
[2021-03-09] MEDS: Mupirocin Ointment 22gm Tube 1 APPLIC NASAL ×2 (08:03→22:50)
[2021-03-09] MEDS: Chlorhexidine 15 ML PO ×2 (08:04→22:50)
[2021-03-09] MEDS: TITRATION PARAMETER CHANGE 1 EACH IV (10:01)
--- NOTE | 2021-03-09 10:32 | PCM.RX.CS ---
Consult Pharmacy has been consulted to manage selected antiobiotic: Vancomycin Type of Consult: New start Suspected Infection: Pneumonia Labs: Sodium 141 mmol/L (136-145) 03/09/21 04:06 Potassium 5.0 mmol/L (3.5-5.1) 03/09/21 04:06 Chloride 107 mmol/L (98-107) 03/09/21 04:06 Carbon Dioxide 28.0 mmol/L (21.0-32.0) 03/09/21 04:06 Anion Gap 6 (5-15) 03/09/21 04:06 BUN 44 mg/dL (7-18) H 03/09/21 04:06 Creatinine 1.49 mg/dL (0.55-1.02) H 03/09/21 04:06 Est GFR (MDRD) Af Amer 45 mL/min (>60) L 03/09/21 04:06 Est GFR (MDRD) Non-Af 37 mL/min (>60) L 03/09/21 04:06 BUN/Creatinine Ratio 29.5 RATIO (-20) H 03/09/21 04:06 Glucose 109 mg/dL (74-106) H 03/09/21 04:06 Microbiology: Microbiology 03/07/21 14:10 Sputum, Induced/Lukens Gram Stain - Final 03/07/21 14:10 Sputum, Induced/Lukens Respiratory Culture - Preliminary Staphylococcus aureus 03/06/21 15:50 Blood Culture (Wb) - Left Wrist Blood Culture - Preliminary No growth in 48 hours. 03/06/21 15:40 Blood Culture (Wb) - Anticubital Left Blood Culture - Preliminary No growth in 48 hours. 03/07/21 14:10 Mucosa - Nasopharyngeal Respiratory Panel (PCR) - Final 03/06/21 15:45 Nasal Secretion SARS-CoV-2 Antigen (Rapid) - Final SARS-CoV-2 (COVID 19) 03/07/21 11:00 Urine Catheter - Saxena Legionella Antigen - Final 03/07/21 11:00 Urine Catheter - Saxena Streptococcus pneumoniae Antigen (M - Final Goal Trough: 15-20 mcg/mL Pharmacy Plan for Drug Dosing: NEW START IV VANCOMYCIN Consulting Physician: MEGHAN Indication: PNEUMONIA Goal Trough: 15-20 MG/DL SrCr: 1.49 MG/DL (03/09) CrCl: 46.4 MG/DL (USING ADJUSTED BW OF 77KG) Comments: RESPIRATORY CULTURE WITH STAPH AUREUS. LOADING DOSE OF 2000MG GIVEN 03/09 @ 1002 Vancomycin Dose: WILL START 750MG Q12H TONIGHT 03/09 @ 2200 BASED ON WEIGHT AND CRCL. WILL DRAW A TROUGH PRIOR TO THE 4TH TOTAL DOSE. Pending Level: 03/10/21 @ 2130 Pharmacy Service will continue to monitor and adjust dosing as required.
[2021-03-09] MEDS: Propofol 10MG/Ml 1,000 MG/100 ML Bottle 30.8 MG CONT INF ×2 (10:46→13:45)
--- NOTE | 2021-03-09 13:35 | PN.HOSP_ITS ---
Subjective Subjective Patient remains intubated. Paralytics have been discontinued and patient remains in deep sedation with RASS of -3. Levophed has been weaned to 2 mics. She remains on high PEEP and FiO2. Objective Data Objective Data Vital Signs: Vital Signs Temp Pulse Resp BP Pulse Ox 97.6 F L 64 16 102/56 L 93 03/09/21 12:00 03/09/21 12:00 03/09/21 12:00 03/09/21 12:00 03/09/21 12:00 Oxygen Flow Rate (L/min) 100 Oxygen Delivery Method Mechanical Ventilator Weight: 103.5 kg Body Mass Index (BMI) 35.6 Intake & Output: Intake and Output for Last 24 Hours 03/07/21 03/08/21 03/09/21 23:59 23:59 23:59 Intake Total 1855.36 / 1904.36 2217.12 / 2256.57 1246.17 / 1246.17 Output Total 400 / 475 1060 / 1060 1240 / 1240 Balance 1455.36 / 1429.36 1157.12 / 1196.57 6.17 / 6.17 Lab / Micro Data Result Diagrams: 03/09/21 04:06 03/09/21 04:06 Labs: Laboratory Results - last 24 hr 03/09/21 04:06: WBC 13.8 H, RBC 4.16 L, Hgb 11.6 L, Hct 38.7, MCV 93.0, MCH 27.9, MCHC 30.0 L D, RDW Std Deviation 50.8 H, RDW Coeff of Crissy 14.7 H, Plt Count 281, MPV 10.7, Immature Gran % (Auto) 1.900 H, Neut % (Auto) 87.0 H, Lymph % (Auto) 5.7 L, [place] % (Auto) 5.2, Eos % (Auto) 0.0, Baso % (Auto) 0.2, Absolute Neuts (auto) 12.0 H, Absolute Lymphs (auto) 0.78 L, Nucleated RBC % 0.1 03/09/21 04:06: Sodium 141, Potassium 5.0, Chloride 107, Carbon Dioxide 28.0, A nion Gap 6, BUN 44 H, Creatinine 1.49 H, Estim Creat Clear Calc 35.71, Est GFR (MDRD) Af Amer 45 L, Est GFR (MDRD) Non-Af 37 L, BUN/Creatinine Ratio 29.5 H, Glucose 109 H, Calcium 8.6, Total Bilirubin 0.50, AST 26, ALT 15, Alkaline Phosphatase 75, Total Protein 6.6, Albumin 2.0 L, Globulin 4.6 H, Albumi n/Globulin Ratio 0.4 L Micro: Microbiology 03/07/21 14:10 Sputum, Induced/Lukens Gram Stain - Final 03/07/21 14:10 Sputum, Induced/Lukens Respiratory Culture - Preliminary Staphylococcus aureus 03/06/21 15:50 Blood Culture (Wb) - Left Wrist Blood Culture - Preliminary No growth in 48 hours. 03/06/21 15:40 Blood Culture (Wb) - Anticubital Left Blood Culture - Preliminary No growth in 48 hours. 03/07/21 14:10 Mucosa - Nasopharyngeal Respiratory Panel (PCR) - Final 03/06/21 15:45 Nasal Secretion SARS-CoV-2 Antigen (Rapid) - Final SARS-CoV-2 (COVID 19) 03/07/21 11:00 Urine Catheter - Saxena Legionella Antigen - Final 03/07/21 11:00 Urine Catheter - Saxena Streptococcus pneumoniae Antigen (M - Final Physical Exam Const Constitutional Narrative: Upper middle-aged white female who appears much older than stated age lying in bed intubated and sedated with deep sedation Nutritional Appearance: obese HEENT head/scalp atraumatic and moist oral mucous membranes Head and Scalp: normocephalic Eyes PERRL Resp normal respiratory effort, no retractions, no use of accessory muscles and clear to auscultation bilaterally Resp Narrative: Diffusely diminished but clear Auscultation: Negative for crackles, rales, rhonchi or wheezes Cardio regular rate, regular rhythm, S1 normal heart sound, S2 normal heart sound, no murmurs, no rub, no gallops, no clicks and no JVD GI normal to inspection, nondistended, normoactive bowel sounds, soft to palpation, non-tender and non-distended; Negative for hepatosplenomegaly Extremity no clubbing, cyanosis or edema Neuro Neuro Narrative: Patient is intubated and sedated Psych Psych Narrative: Unable to assess Assessment & Plan Assessment/Plan (1) Acute hypoxemic respiratory failure: (2) Non-ST elevation [place] (NSTEMI): (3) COVID-19: (4) ADAM (acute kidney injury): (5) D-dimer, elevated: PLAN: Acute hypoxemic respiratory failure secondary to COVID-19 infection -Patient required mechanical intubation 03/07/2021 -Remains intubated, sedated -Continue support and wean PEEP and oxygen as able -FiO2 remains at 60% PEEP is at 12 -Continue baricitinib 4 of 14 doses and Decadron 4 of 10 doses -Patient is unable to receive remdesivir secondary to ADAM severity -Sputum cultures with staph aureus growth -Respiratory viral panel is negative -Strep pneumo and Legionella antigens are negative -Blood cultures with no growth to date -As needed diuretics as renal function allows -Continue full therapeutic Lovenox dosing -Continue PPI while patient is intubated on a ventilator and full dose Lovenox -Overall prognosis is poor given rapidity of decline in need for mechanical ventilation -Pulmonary following-appreciate input Staph aureus pneumonia -Sensitivities are pending -Empiric Vanco and Zosyn initiated -Narrow antibiotics as able -Antibiotics day 1 of 7 Septic shock secondary to COVID-19 and staph aureus pneumonia -Sputum culture with staph aureus growth--> sensitivities pending -Continue pressors and wean as able -Now down to 2.5 mics -MRSA nasal swab was positive and intranasal Bactroban was initiated ADAM -Current serum creatinine did improve with a fluid bolus yesterday--> 1.49 -Baseline serum creatinine is 0.85-1 -Avoid nephrotoxins -Maintain renal perfusion -FeNa was 0.35 and a 1 L bolus was given on 03/08/2021 -We will hold on any further boluses given poor EF and Covid diagnosis and repeat BMP tomorrow NSTEMI type II -Echo done 03/08/2021 shows an EF of 20% with severe segmental systolic dysfunction and an akinetic mid anterior septal wall and an akinetic apex -Continue aspirin -Continue statin -No beta-jona TOPHER inhibitor due to hypotension at this time -Cardiology is following and patient will need further work-up once she is more clinically stable from a COVID-19 infection standpoint D-dimer elevation -We will continue to treat as if she has PE at this time is unable to get a CTA with creatinine elevation -VQ scan will not be helpful in her case given the fact that she has underlying pulmonary issues from her COVID-19 infection -Bilateral lower extremity duplex negative for clot GERD -Continue Protonix Hypertension -Hold lisinopril -Monitor blood pressure as patient is currently hypotensive on pressors -Could start as needed medications if pressure begins to rise and renal function normalizes History of stroke -Continue aspirin DVT prophylaxis -Continue full dose enoxaparin CODE STATUS -DNR CCA with intubation Charges/Coding Visit Charges Inpatient E&M: 85963 Subs Hosp L2
--- NOTE | 2021-03-09 13:48 | PCM.PN.ID ---
Physical Exam Narrative On vent, no fever Const no apparent distress Resp Auscultation: diminished lung sounds Cardio regular rate and regular rhythm GI normal to inspection, nondistended, normoactive bowel sounds Skin no rashes or lesions noted ID ID: Route of nutrition/ use of supplements: [] Nutritional Intake: [] IV Site: [] Saxena Catheter: [] Assessment & Plan Assessment/Plan (1) Acute hypoxemic respiratory failure: (2) Pneumonia due to 2019-nCoV: PLAN: Sx started around 03/02/21. Isolate for 20 days. Unvaccinated. Intubated. On dex, baricitinib. Did not give remdesivir due to ADAM. On empiric vanc/zosyn. On pressor. Sputum with staph aureus. Will follow (3) ADAM (acute kidney injury):
[2021-03-09] MEDS: Nortriptyline 25 MG Capsule 75 MG PO (16:42)
[2021-03-09] MEDS: Senna/Docusate Sodium 1 Tablet 2 TABLET PO (16:42)
--- NOTE | 2021-03-09 18:17 | NURSING ---
O2 sats dropped to 67 on monitor, 100% FiO2 delivered, saline lavage ETT with large mucoid plugs resulted, patient recovered after several minutes.
[2021-03-09] MEDS: Propofol 10MG/Ml 1,000 MG/100 ML Bottle 18.5 MG CONT INF (18:38)
[2021-03-09] MEDS: Aspirin 81 MG TAB.CHEW PO (20:03)
[2021-03-09] MEDS: Atorvastatin Calcium 40 MG Tablet PO (20:03)
[2021-03-09] MEDS: Propofol 10MG/Ml 1,000 MG/100 ML Bottle 12.3 MG CONT INF (23:45)
[2021-03-10] VITALS (52 sets, daily range): BP systolic 62–128; BP diastolic 16–84; PULSE 56–97; RESP 14–18; TEMP 35.9–36.7; O2SAT 89–96
[2021-03-10] MEDS: Propofol 10MG/Ml 1,000 MG/100 ML Bottle 12.3 MG CONT INF (03:00)
[2021-03-10] MEDS: CHLORHEXIDINE GLUC 2% CLOTH 1 EACH TOWELETTE TOPICAL (05:23)
--- NOTE | 2021-03-10 05:31 | PN.CC_ITS ---
Assessment & Plan Assessment/Plan (1) Acute hypoxemic respiratory failure: (2) Pneumonia due to 2019-nCoV: PLAN: RECOMMENDATIONS: 1. Continue to wean FiO2 and PEEP to maintain oxygen saturations at or above 90%. 2. Continue patient on current sedation regimen. Okay to maintain a RASS of - 3. 3. Continue PPI therapy. 4. Continue Lovenox as ordered. 5. Continue Levophed to maintain a mean arterial pressure at or above 65 mmHg. 6. Continue Decadron to complete 10 days of therapy. 7. Continue baricitinib as ordered. 8. Continue broad-spectrum antimicrobials, pending sputum culture sensitivities. 9. Okay to start tube feeds today. IMPRESSIONS: 1. Acute hypoxemic respiratory failure secondary to COVID-19 and MRSA pneumonia The patient initially presented to the hospital with approximately 3 days of symptoms. CTA chest was unable to be performed due to underlying renal insufficiency. The patient was subsequently placed on Lovenox, Decadron and baricitinib. Although the patient was initially placed on BiPAP therapy, she continued to decompensate from a respiratory perspective, ultimately requiring intubation on March 07. The patient will be continued on assist control mode of mechanical ventilation. FiO2 and PEEP will be weaned to maintain saturations at or above 90%. She will be continued on propofol and fentanyl with a goal to maintain a RASS of -3 for now. In addition to the aforementioned, the patient's sputum culture is also growing staph aureus. Therefore, she will be started on vancomycin and Zosyn, pending sensitivities. Tube feeds will be initiated today. 2. Acute kidney injury Improved. Likely prerenal in etiology. We will continue to monitor urine output. No current indication for renal replacement therapy. Avoid nephrotoxic medications. 3. Distributive shock Secondary to sedative medication utilization. Given underlying systolic dysfunction, recommend avoidance of fluids. Continue Levophed to maintain a mean arterial pressure at or above 65 mmHg. 4. Troponin elevation/acute systolic heart failure Echocardiogram demonstrated severe LV systolic dysfunction and an ejection fraction of 20%. Cardiology is currently following to assist with medical management. 5. Obesity/depression/hypertension/GERD Complicates care, management, recovery and prognosis. Continue home medications as indicated. CODE status: Discussed CODE status at length including difference between FULL code, DNR-CCA and DNR-CC status. Following discussions about the differences in these status, patient and family requested DNR CCA with intubation CODE STATUS. TIME: 32 minutes of critical care time, inclusive of procedures, was spent addressing the patient's acute hypoxemic respiratory failure secondary to COVID-19 pneumonia, acute kidney injury, distributive shock, troponin elevation, review of all data and collaboration with the care team. ([id number]) Subjective Subjective The patient was seen and examined at the bedside this morning. Events from the last 24 hours have been reviewed. The patient is currently afebrile. She is still requiring Levophed at 2 mcg/min to maintain hemodynamic stability. The patient remains sedated on propofol and fentanyl. The patient remains on assist control mode of mechanical ventilation with an FiO2 requirement of 70% and PEEP of 13. She is currently documented to be overall net +3.9 L for the hospitalization. She remains on Lovenox, Decadron and baricitinib. Creatinine has improved to 1.23 this morning. The patient is no longer pharmacologically paralyzed. Objective Data Objective Data The patient's most recent lab work, culture data and imaging studies have all been personally reviewed. Surface echocardiogram revealed severe segmental systolic dysfunction with an ejection fraction of 20%. Rapid coronavirus antigen testing was positive on March 06. Strep and urine Legionella antigens were negative. Respiratory viral panel was negative. Blood cultures have demonstrated no growth to date. Sputum culture is positive for staph aureus. Vital Signs: Vital Signs Temp Pulse Resp BP Pulse Ox 97.5 F L 59 L 14 123/58 H 92 03/10/21 02:00 03/10/21 04:18 03/10/21 04:18 03/10/21 02:00 03/10/21 04:18 Oxygen Flow Rate (L/min) 100 Oxygen Delivery Method Mechanical Ventilator Weight: 103.5 kg Body Mass Index (BMI) 35.6 Intake & Output: Intake and Output for Last 24 Hours 03/08/21 03/09/21 03/10/21 23:59 23:59 23:59 Intake Total 2217.12 / 2256.57 2134.94 / 2176.00 181.88 / 181.88 Output Total 1060 / 1060 1440 / 1490 85 / 85 Balance 1157.12 / 1196.57 694.94 / 686.00 96.88 / 96.88 Lab / Micro Data Attestation: I reviewed the patient's lab results. Result Diagrams: 03/09/21 04:06 03/10/21 05:40 Labs: Laboratory Results - last 24 hr 03/09/21 04:06: WBC 13.8 H, RBC 4.16 L, Hgb 11.6 L, Hct 38.7, MCV 93.0, MCH 27.9, MCHC 30.0 L D, RDW Std Deviation 50.8 H, RDW Coeff of Crissy 14.7 H, Plt Count 281, MPV 10.7, Immature Gran % (Auto) 1.900 H, Neut % (Auto) 87.0 H, Lymph % (Auto) 5.7 L, Creek % (Auto) 5.2, Eos % (Auto) 0.0, Baso % (Auto) 0.2, Absolute Neuts (auto) 12.0 H, Absolute Lymphs (auto) 0.78 L, Nucleated RBC % 0.1 03/09/21 04:06: Sodium 141, Potassium 5.0, Chloride 107, Carbon Dioxide 28.0, Anion Gap 6, BUN 44 H, Creatinine 1.49 H, Estim Creat Clear Calc 35.71, Est GFR (MDRD) Af Amer 45 L, Est GFR (MDRD) Non-Af 37 L, BUN/Creatinine Ratio 29.5 H, Glucose 109 H, Calcium 8.6, Total Bilirubin 0.50, AST 26, ALT 15, Alkaline Phosphatase 75, Total Protein 6.6, Albumin 2.0 L, Globulin 4.6 H, Albumin/Globulin Ratio 0.4 L Micro: Microbiology 03/07/21 14:10 Sputum, Induced/Lukens Gram Stain - Final 03/07/21 14:10 Sputum, Induced/Lukens Respiratory Culture - Preliminary Staphylococcus aureus 03/06/21 15:50 Blood Culture (Wb) - Left Wrist Blood Culture - Preliminary No growth in 48 hours. 03/06/21 15:40 Blood Culture (Wb) - Anticubital Left Blood Culture - Preliminary No growth in 48 hours. 03/07/21 14:10 Mucosa - Nasopharyngeal Respiratory Panel (PCR) - Final 03/06/21 15:45 Nasal Secretion SARS-CoV-2 Antigen (Rapid) - Final SARS-CoV-2 (COVID 19) 03/07/21 11:00 Urine Catheter - Saxena Legionella Antigen - Final 03/07/21 11:00 Urine Catheter - Saxena Streptococcus pneumoniae Antigen (M - Final Physical Exam Const no apparent distress Constitutional Narrative: No ventilator dyssynchrony. General Appearance: ill appearing, intubated and patient mechanically ventilated Nutritional Appearance: obese HEENT normocephalic and head/scalp atraumatic Mouth: endotracheal tube in place and OG tube in place Eyes conjunctivae normal Neck supple General: trachea midline Chest inspection of chest normal Resp Effort and Inspection: Negative for labored Auscultation: diminished lung sounds; Negative for rales, rhonchi or wheezes Cardio regular rate and regular rhythm GI normal to inspection, nondistended, normoactive bowel sounds Extremity no clubbing, cyanosis or edema Skin no rashes or lesions noted Neuro Sensorium / Orientation: sedated on vent Charges/Coding Procedures Hospitalists Procedures: [id number] Critial Care 1st Hr
[2021-03-10 06:09] LABS: ALB/GLOB Ratio 0.4 RATIO (0.9-2.4); AST(SGOT) 29 U/L (15-37); Alanine Aminotransfer ALT/SGPT 16 U/L (13-56); Albumin, Serum 1.8 g/dL (3.2-5.0); Alkaline Phosphatase 80 U/L (45-117); Anion Gap 6 (5-15); BUN 33 mg/dL (7-18); BUN/Creat Ratio 26.8 RATIO (10-20); Calcium,Total 8.6 mg/dL (8.5-10.1); Chloride 108 mmol/L (98-107); Creatinine, Serum 1.23 mg/dL (0.55-1.02); EST Glomerular Filtration Rate 47 mL/min (>60); Est Glom Filt Rate - Afr Amer 57 mL/min (>60); Estimated Creatinine Clearance 43.26 ml/min; Globulin 4.3 g/dL (2.2-4.2); Glucose 101 mg/dL (74-106); Potassium 4.9 mmol/L (3.5-5.1); Protein, Total 6.1 g/dL (6.4-8.2); Sodium Level 141 mmol/L (136-145)
--- NOTE | 2021-03-10 08:20 | RAD_ITS ---
HISTORY: OG placement. TECHNIQUE: XR Chest 1 View. EXAM TIME: 2021-03-10 08:10. # of images incl. paperwork: 1. COMPARISON:03/07/2021. FINDINGS: LINES/DEVICES: Right PICC and endotracheal tube again seen. Nasogastric tube tip extends to the level of the descending duodenum in the right upper quadrant. CARDIOMEDIASTINAL BORDERS: Obscured. LUNGS: Low lung volumes with increased severe alveolar opacities. PLEURA: Probable mild pleural effusions. RAD/Chest 1 View (Portable) IMPRESSION: Increased severe bilateral pneumonia or ARDS. Orogastric tube tip extending to the proximal duodenum. at 0841 Reported and signed by: Elizabeth Fishman MD Electronically Signed: Elizabeth Fishman MD at 8:40 EDT Tel , Service support ,
[2021-03-10] MEDS: Propofol 10MG/Ml 1,000 MG/100 ML Bottle 15.6 MG CONT INF ×3 (10:47→18:23)
[2021-03-10] MEDS: Mupirocin Ointment 22gm Tube 1 APPLIC NASAL ×2 (12:34→20:11)
[2021-03-10] MEDS: Chlorhexidine 15 ML PO ×2 (12:34→20:12)
[2021-03-10] MEDS: dexAMETHasone 10 MG/ML Vial 6 MG IV (12:35)
[2021-03-10] MEDS: Escitalopram Oxalate 10 MG Tablet PO (12:36)
[2021-03-10] MEDS: TITRATION PARAMETER CHANGE 1 EACH IV (12:38)
[2021-03-10] MEDS: Enoxaparin 100 MG/ML Syringe SC ×2 (12:38→20:11)
[2021-03-10] MEDS: Vital AF 1.2 Cal Liquid 1,000 ML 60 ML GT (15:14)
--- NOTE | 2021-03-10 16:38 | PCM.PN.HOSP ---
Subjective Subjective Patient remains intubated and sedated with significant amount of support. She is currently on Levophed at 2 mics. No significant events overnight. Tube feeds have been initiated and patient is tolerating well. Objective Data Objective Data Vital Signs: Vital Signs Temp Pulse Resp BP Pulse Ox 96.8 F L 69 14 127/57 H 91 03/10/21 16:00 03/10/21 16:00 03/10/21 16:00 03/10/21 16:00 03/10/21 16:00 Oxygen Flow Rate (L/min) 100 Oxygen Delivery Method Mechanical Ventilator Weight: 104.2 kg Body Mass Index (BMI) 35.6 Intake & Output: Intake and Output for Last 24 Hours 03/08/21 03/09/21 03/10/21 23:59 23:59 23:59 Intake Total 2217.12 / 2256.57 2134.94 / 2176.00 1120.95 / 1120.95 Output Total 1060 / 1060 1440 / 1490 395 / 395 Balance 1157.12 / 1196.57 694.94 / 686.00 725.95 / 725.95 Lab / Micro Data Result Diagrams: 03/09/21 04:06 03/10/21 05:40 Labs: Laboratory Results - last 24 hr 03/10/21 05:40: Sodium 141, Potassium 4.9, Chloride 108 H, Carbon Dioxide 27.0, Anion Gap 6, BUN 33 H, Creatinine 1.23 H, Estim Creat Clear Calc 43.26, Est GFR (MDRD) Af Amer 57 L, Est GFR (MDRD) Non-Af 47 L, BUN/Creatinine Ratio 26.8 H, Glucose 101, Calcium 8.6, Total Bilirubin 0.90, AST 29, ALT 16, Alkaline Phosphatase 80, Total Protein 6.1 L, Albumin 1.8 L, Globulin 4.3 H, Albumin/Globulin Ratio 0.4 L Micro: Microbiology 03/07/21 14:10 Sputum, Induced/Lukens Gram Stain - Final 03/07/21 14:10 Sputum, Induced/Lukens Respiratory Culture - Final Meth. resistant Staph. aureus 03/06/21 15:50 Blood Culture (Wb) - Left Wrist Blood Culture - Preliminary No growth in 48 hours. 03/06/21 15:40 Blood Culture (Wb) - Anticubital Left Blood Culture - Preliminary No growth in 48 hours. 03/07/21 14:10 Mucosa - Nasopharyngeal Respiratory Panel (PCR) - Final 03/06/21 15:45 Nasal Secretion SARS-CoV-2 Antigen (Rapid) - Final SARS-CoV-2 (COVID 19) 03/07/21 11:00 Urine Catheter - Saxena Legionella Antigen - Final 03/07/21 11:00 Urine Catheter - Saxena Streptococcus pneumoniae Antigen (M - Final Radiography Diagnostic Testing: Radiology Impression Chest X-Ray 03/10/21 08:20 IMPRESSION: Increased severe bilateral pneumonia or ARDS. Orogastric tube tip extending to the proximal duodenum. at 0841 Reported and signed by: Elizabeth Fishman MD Electronically Signed: Elizabeth Fishman MD at 8:40 EDT Tel , Service support , Physical Exam Const Constitutional Narrative: Upper middle-aged white female who appears much older than stated age lying in bed intubated and sedated with deep sedation Nutritional Appearance: obese HEENT head/scalp atraumatic and moist oral mucous membranes Head and Scalp: normocephalic Resp normal respiratory effort, no retractions, no use of accessory muscles and clear to auscultation bilaterally Resp Narrative: Diffusely diminished but clear Auscultation: Negative for crackles, rales, rhonchi or wheezes Cardio regular rate, regular rhythm, S1 normal heart sound, S2 normal heart sound, no murmurs, no rub, no gallops, no clicks and no JVD GI normal to inspection, nondistended, normoactive bowel sounds, soft to palpation, non-tender and non-distended; Negative for hepatosplenomegaly Extremity no clubbing, cyanosis or edema Peripheral Pulses: Yes pulses 2+ throughout Skin no rashes or lesions noted, no wounds, skin turgor normal, no jaundice, no petechiae and no mottling Neuro Neuro Narrative: Patient is intubated and sedated Psych Psych Narrative: Unable to assess Assessment & Plan Assessment/Plan (1) Acute hypoxemic respiratory failure: (2) Non-ST elevation ND (NSTEMI): (3) COVID-19: (4) ADAM (acute kidney injury): (5) D-dimer, elevated: PLAN: Acute hypoxemic respiratory failure secondary to COVID-19 infection -Patient required mechanical intubation 03/07/2021 -Remains intubated, sedated -Continue support and wean PEEP and oxygen as able -FiO2 remains at 70% PEEP is at 13 -Continue baricitinib 5 of 14 doses and Decadron 5 of 10 doses -Patient is unable to receive remdesivir secondary to ADAM severity -Sputum cultures with staph aureus growth -Respiratory viral panel is negative -Strep pneumo and Legionella antigens are negative -Blood cultures with no growth to date -As needed diuretics as renal function allows -Continue full therapeutic Lovenox dosing -Continue PPI while patient is intubated on a ventilator and full dose Lovenox -Overall prognosis is poor given rapidity of decline in need for mechanical ventilation -Pulmonary following-appreciate input MRSA pneumonia -Sensitivities are pending -Continue vancomycin and will discuss with critical care medicine tomorrow about narrowing antibiotics if cultures remain negative otherwise -Narrow antibiotics as able -Antibiotics day 2 of 7 Septic shock secondary to COVID-19 and staph aureus pneumonia -Sputum culture with staph aureus growth--> sensitivities pending -Patient does remain on pressors -Able -Now down to 2 mics -MRSA nasal swab was positive and intranasal Bactroban was initiated ADAM -Current serum creatinine did improve with a fluid bolus 03/08/2021--> 1.23 today -Baseline serum creatinine is 0.85-1 -Avoid nephrotoxins -Maintain renal perfusion -FeNa was 0.35 and a 1 L bolus was given on 03/08/2021 -We will hold on any further boluses given poor EF and Covid diagnosis and repeat BMP tomorrow NSTEMI type II -Echo done 03/08/2021 shows an EF of 20% with severe segmental systolic dysfunction and an akinetic mid anterior septal wall and an akinetic apex -Continue aspirin -Continue statin -No beta-jona TOPHER inhibitor due to hypotension at this time -Cardiology is following and patient will need further work-up once she is more clinically stable from a COVID-19 infection standpoint D-dimer elevation -We will continue to treat as if she has PE at this time is unable to get a CTA with creatinine elevation -VQ scan will not be helpful in her case given the fact that she has underlying pulmonary issues from her COVID-19 infection -Bilateral lower extremity duplex negative for clot GERD -Continue Protonix Hypertension -Hold lisinopril -Monitor blood pressure as patient is currently hypotensive on pressors -Could start as needed medications if pressure begins to rise and renal function normalizes History of stroke -Continue aspirin DVT prophylaxis -Continue full dose enoxaparin CODE STATUS -DNR CCA with intubation Charges/Coding Visit Charges Inpatient E&M: 98949 Subs Hosp L2
[2021-03-10] MEDS: Nortriptyline 25 MG Capsule 75 MG PO (18:29)
[2021-03-10] MEDS: Aspirin 81 MG TAB.CHEW PO (20:11)
[2021-03-10] MEDS: Atorvastatin Calcium 40 MG Tablet PO (20:11)
[2021-03-10 21:40] LABS: Vancomycin, Trough Level 21.5 ug/mL (5.0-15.0)
[2021-03-11] VITALS (43 sets, daily range): BP systolic 79–128; BP diastolic 44–64; PULSE 53–80; RESP 14; TEMP 35.5–36.2; O2SAT 89–97
[2021-03-11] MEDS: Propofol 10MG/Ml 1,000 MG/100 ML Bottle 18.8 MG CONT INF ×2 (00:30→06:30)
--- NOTE | 2021-03-11 01:19 | PCM.RX.CS ---
Consult Pharmacy has been consulted to manage selected antiobiotic: Vancomycin Type of Consult: Follow-up Labs: Sodium 141 mmol/L (136-145) 03/10/21 05:40 Potassium 4.9 mmol/L (3.5-5.1) 03/10/21 05:40 Chloride 108 mmol/L (98-107) H 03/10/21 05:40 Carbon Dioxide 27.0 mmol/L (21.0-32.0) 03/10/21 05:40 Anion Gap 6 (5-15) 03/10/21 05:40 BUN 33 mg/dL (7-18) H 03/10/21 05:40 Creatinine 1.23 mg/dL (0.55-1.02) H 03/10/21 05:40 Est GFR (MDRD) Af Amer 57 mL/min (>60) L 03/10/21 05:40 Est GFR (MDRD) Non-Af 47 mL/min (>60) L 03/10/21 05:40 BUN/Creatinine Ratio 26.8 RATIO (10-20) H 03/10/21 05:40 Glucose 101 mg/dL (74-106) 03/10/21 05:40 Vancomycin Trough 21.5 ug/mL (5.0-15.0) H 03/10/21 20:30 Microbiology: Microbiology 03/07/21 14:10 Sputum, Induced/Lukens Gram Stain - Final 03/07/21 14:10 Sputum, Induced/Lukens Respiratory Culture - Final Meth. resistant Staph. aureus 03/06/21 15:50 Blood Culture (Wb) - Left Wrist Blood Culture - Preliminary No growth in 48 hours. 03/06/21 15:40 Blood Culture (Wb) - Anticubital Left Blood Culture - Preliminary No growth in 48 hours. 03/07/21 14:10 Mucosa - Nasopharyngeal Respiratory Panel (PCR) - Final 03/06/21 15:45 Nasal Secretion SARS-CoV-2 Antigen (Rapid) - Final SARS-CoV-2 (COVID 19) 03/07/21 11:00 Urine Catheter - Saxena Legionella Antigen - Final 03/07/21 11:00 Urine Catheter - Saxena Streptococcus pneumoniae Antigen (M - Final Goal Trough: 15-20 mcg/mL Pharmacy Plan for Drug Dosing: Pharmacy Service will continue to monitor and adjust dosing as required. TROUGH 21.5 AT 8 HRS, LAST DOSE HUNG LATE AND TROUGH DRAWN EARLY. NO CHANGES NOW, RECHECK TROUGH WITH NEXT DOSE Follow-Up Labs: Trough Vancomycin Labs to be done on [date and time ordered]: 03/11 @ [id number]
--- NOTE | 2021-03-11 01:20 | NURSING ---
Addendum entered by Celestino Hayden 03/11/21 06:32: Notified Dr. Michelle of this event. States no need for KUB/CXR. No new orders at this time. Original Note: Pt's oxygen sats dipping to 86%, this nurse enters room to assess pt. Pt begins vomiting tube feed. Pt thoroughly suctioned and tube feed turned off. OG now hooked up to LIWS. Pt's oxygen sats stabilized at 92%. Will obtain KUB this a.m.
[2021-03-11 03:22] LABS: Hematocrit 36.6 % (37-47); Hemoglobin 11.3 g/dL (12.0-15.0); Mean Corp Hgb Conc 30.9 g/dL (32-36); Mean Corpuscular Hgb 28.3 pg (27.0-32.0); Mean Corpuscular Volume 91.7 fL (81-99); Mean Platelet Vol. 10.5 fl (6.2-12.0); POSITIVE COUNT YES; POSITIVE MORPHOLOGY YES; Platelet Count 303 K/mm3 (150-450); RBC Distribution Width CV 14.8 % (11.6-14.6); RBC Distribution Width SD 49.8 fl (35.1-43.9); Red Blood Count 3.99 M/mm3 (4.2-5.4)
[2021-03-11 03:36] LABS: Anion Gap 5 (5-15); BUN 26 mg/dL (7-18); BUN/Creat Ratio 22.4 RATIO (10-20); Chloride 106 mmol/L (98-107); Creatinine, Serum 1.16 mg/dL (0.55-1.02); EST Glomerular Filtration Rate 50 mL/min (>60); Est Glom Filt Rate - Afr Amer 61 mL/min (>60); Estimated Creatinine Clearance 45.87 ml/min; Glucose 105 mg/dL (74-106); Sodium Level 138 mmol/L (136-145)
[2021-03-11 03:39] LABS: Anisocytosis 1+; Differential Indicated MANUAL DIFF
[2021-03-11 03:46] LABS: Absolute Lymphocyte Count 0.76 X10^3/uL (0.83-4.51); Blast 1 % (0-0); Lymphocyte 4 % (19-41); Monocyte 3 % (0-10); Myelocyte 5 % (0-0); Neutrophil-Segmented 84 % (47-70); Platelet Estimate ADEQUATE (ADEQ); Promyelocyte 3 % (0-0)
[2021-03-11 03:48] LABS: Red Cell Morphology NORM C+C NORMAL (NORM C&C)
--- NOTE | 2021-03-11 05:42 | PCM.PN.INT ---
Assessment & Plan Assessment/Plan (1) Acute hypoxemic respiratory failure: (2) Pneumonia due to 2019-nCoV: PLAN: RECOMMENDATIONS: 1. Continue to wean FiO2 and PEEP to maintain oxygen saturations at or above 90%. 2. Continue patient on current sedation regimen. Okay to maintain a RASS of -3. 3. Continue PPI therapy. 4. Continue Lovenox as ordered. 5. Continue Levophed to maintain a mean arterial pressure at or above 65 mmHg. 6. Continue Decadron to complete 10 days of therapy. 7. Continue baricitinib as ordered. 8. Continue vancomycin given MRSA isolated from sputum. Unasyn added for aspiration coverage. 9. Start scheduled Lasix today. IMPRESSIONS: 1. Acute hypoxemic respiratory failure secondary to COVID-19 and MRSA pneumonia The patient initially presented to the hospital with approximately 3 days of symptoms. CTA chest was unable to be performed due to underlying renal insufficiency. The patient was subsequently placed on Lovenox, Decadron and baricitinib. Although the patient was initially placed on BiPAP therapy, she continued to decompensate from a respiratory perspective, ultimately requiring intubation on March 07. The patient will be continued on assist control mode of mechanical ventilation. FiO2 and PEEP will be weaned to maintain saturations at or above 90%. She will be continued on propofol and fentanyl with a goal to maintain a RASS of -3 for now. In addition to the aforementioned, the patient's sputum culture is also growing MRSA. Therefore, she will be started on vancomycin. The patient was also noted to have vomited tube feeds on March 11. Accordingly, Unasyn was added for additional coverage. 2. Acute kidney injury Improved. Likely prerenal in etiology. We will continue to monitor urine output. No current indication for renal replacement therapy. Avoid nephrotoxic medications. 3. Distributive shock Secondary to sedative medication utilization. Given underlying systolic dysfunction, recommend avoidance of fluids. Continue Levophed to maintain a mean arterial pressure at or above 65 mmHg. 4. Troponin elevation/acute systolic heart failure Echocardiogram demonstrated severe LV systolic dysfunction and an ejection fraction of 20%. Cardiology is currently following to assist with medical management. 5. Obesity/depression/hypertension/GERD Complicates care, management, recovery and prognosis. Continue home medications as indicated. CODE status: Discussed CODE status at length including difference between FULL code, DNR-CCA and DNR-CC status. Following discussions about the differences in these status, patient and family requested DNR CCA with intubation CODE STATUS. TIME: 33 minutes of critical care time, inclusive of procedures, was spent addressing the patient's acute hypoxemic respiratory failure secondary to COVID-19 pneumonia, acute kidney injury, distributive shock, troponin elevation, review of all data and collaboration with the care team. ([id number]) Subjective Subjective The patient was seen and examined at the bedside this morning. Events from the last 24 hours have been reviewed. The patient is currently afebrile. She is still requiring Levophed at 3 mcg/min to maintain hemodynamic stability. The patient remains sedated on propofol and fentanyl. The patient remains on assist control mode of mechanical ventilation with an FiO2 requirement of 80% and PEEP of 13. She is currently documented to be overall net +5.2 L for the hospitalization. She remains on Lovenox, Decadron and baricitinib. Creatinine has improved to 1.16 this morning. Per nursing report, the patient did vomit a large amount of tube feeds overnight. Objective Data Objective Data The patient's most recent lab work, culture data and imaging studies have all been personally reviewed. Surface echocardiogram revealed severe segmental systolic dysfunction with an ejection fraction of 20%. Rapid coronavirus antigen testing was positive on March 06. Strep and urine Legionella antigens were negative. Respiratory viral panel was negative. Blood cultures have demonstrated no growth to date. Sputum culture is positive for MRSA. Vital Signs: Vital Signs Temp Pulse Resp BP Pulse Ox 97.2 F L 71 14 108/50 L 92 03/11/21 04:00 03/11/21 05:03 03/11/21 05:03 03/11/21 05:00 03/11/21 05:03 Oxygen Flow Rate (L/min) 100 Oxygen Delivery Method Mechanical Ventilator Weight: 104.2 kg Body Mass Index (BMI) 35.6 Intake & Output: Intake and Output for Last 24 Hours 03/09/21 03/10/21 03/11/21 23:59 23:59 23:59 Intake Total 2134.94 / 2176.00 2059.86 / 2290.76 485.48 / 485.48 Output Total 1440 / 1490 695 / 945 400 / 400 Balance 694.94 / 686.00 1364.86 / 1345.76 85.48 / 85.48 Lab / Micro Data Attestation: I reviewed the patient's lab results. Result Diagrams: 03/11/21 03:15 03/11/21 03:15 Labs: Laboratory Results - last 24 hr 03/10/21 05:40: Sodium 141, Potassium 4.9, Chloride 108 H, Carbon Dioxide 27.0, Anion Gap 6, BUN 33 H, Creatinine 1.23 H, Estim Creat Clear Calc 43.26, Est GFR (MDRD) Af Amer 57 L, Est GFR (MDRD) Non-Af 47 L, BUN/Creatinine Ratio 26.8 H, Glucose 101, Calcium 8.6, Total Bilirubin 0.90, AST 29, ALT 16, Alkaline Phosphatase 80, Total Protein 6.1 L, Albumin 1.8 L, Globulin 4.3 H, Albumin/Globulin Ratio 0.4 L 03/10/21 20:30: Vancomycin Trough 21.5 H 03/11/21 03:15: WBC 19.0 H, RBC 3.99 L, Hgb 11.3 L, Hct 36.6 L, MCV 91.7, MCH 28.3, MCHC 30.9 L, RDW Std Deviation 49.8 H, RDW Coeff of Crissy 14.8 H, Plt Count 303, MPV 10.5, Neut % (Auto) Not Reportable, Absolute Neuts (auto) 16.0 H, Absolute Lymphs (auto) 0.76 L, Neutrophils % (Manual) 84 H, Lymphocytes % (Manual) 4 L, Monocytes % (Manual) 3, Myelocytes % 5 H, Promyelocytes % 3 H, Blast Cells % 1 H*, Diff Path Review September, Platelet Estimate ADEQUATE, RBC Morphology NORM C+C, Anisocytosis 1+ 03/11/21 03:15: Sodium 138, Potassium 5.0, Chloride 106, Carbon Dioxide 27.0, Anion Gap 5, BUN 26 H, Creatinine 1.16 H, Estim Creat Clear Calc 45.87, Est GFR (MDRD) Af Amer 61, Est GFR (MDRD) Non-Af 50 L, BUN/Creatinine Ratio 22.4 H, Glucose 105, Calcium 8.0 L Micro: Microbiology 03/07/21 14:10 Sputum, Induced/Lukens Gram Stain - Final 03/07/21 14:10 Sputum, Induced/Lukens Respiratory Culture - Final Meth. resistant Staph. aureus 03/06/21 15:50 Blood Culture (Wb) - Left Wrist Blood Culture - Preliminary No growth in 48 hours. 03/06/21 15:40 Blood Culture (Wb) - Anticubital Left Blood Culture - Preliminary No growth in 48 hours. 03/07/21 14:10 Mucosa - Nasopharyngeal Respiratory Panel (PCR) - Final 03/06/21 15:45 Nasal Secretion SARS-CoV-2 Antigen (Rapid) - Final SARS-CoV-2 (COVID 19) 03/07/21 11:00 Urine Catheter - Saxena Legionella Antigen - Final 03/07/21 11:00 Urine Catheter - Saxena Streptococcus pneumoniae Antigen (M - Final Radiography Diagnostic Testing: Radiology Impression Chest X-Ray 03/10/21 08:20 IMPRESSION: Increased severe bilateral pneumonia or ARDS. Orogastric tube tip extending to the proximal duodenum. at 0841 Reported and signed by: Elizabeth Fishman MD Electronically Signed: Elizabeth Fishman MD at 8:40 EDT Tel , Service support , Physical Exam Const no apparent distress Constitutional Narrative: No ventilator dyssynchrony. General Appearance: ill appearing, intubated and patient mechanically ventilated Nutritional Appearance: obese HEENT normocephalic and head/scalp atraumatic Mouth: endotracheal tube in place and OG tube in place Eyes conjunctivae normal Neck supple General: trachea midline Chest inspection of chest normal Resp Effort and Inspection: Negative for labored Auscultation: diminished lung sounds; Negative for rales, rhonchi or wheezes Cardio regular rate and regular rhythm GI normal to inspection, nondistended, normoactive bowel sounds Extremity no clubbing, cyanosis or edema Skin no rashes or lesions noted Neuro Sensorium / Orientation: sedated on vent Charges/Coding Procedures Hospitalists Procedures: [id number] Critial Care 1st Hr
--- NOTE | 2021-03-11 06:31 | NURSING ---
MAR shows that propofol ended at 0600 and restarted at 0630, this is incorrect. Infusion of propofol was never interupted during this time.
[2021-03-11] MEDS: TITRATION PARAMETER CHANGE 1 EACH IV (06:33)
[2021-03-11] MEDS: Mupirocin Ointment 22gm Tube 1 APPLIC NASAL ×2 (09:26→20:24)
[2021-03-11] MEDS: Chlorhexidine 15 ML PO ×2 (09:27→20:25)
[2021-03-11] MEDS: Enoxaparin 100 MG/ML Syringe SC ×2 (09:28→20:24)
[2021-03-11] MEDS: dexAMETHasone 10 MG/ML Vial 6 MG IV (09:29)
[2021-03-11] MEDS: Furosemide 40 MG/4 ML Vial IV ×2 (09:29→18:38)
[2021-03-11] MEDS: Escitalopram Oxalate 10 MG Tablet PO (09:29)
[2021-03-11] MEDS: Propofol 10MG/Ml 1,000 MG/100 ML Bottle 19.1 MG CONT INF ×4 (10:58→21:38)
--- NOTE | 2021-03-11 11:11 | CASEMGMT ---
SW participated in ICU rounds this morning. SW called pt's sister, Isha Moralez, support offered. SW remains available for support to family. GELA Hernandez
--- NOTE | 2021-03-11 11:31 | PCM.RX.CS ---
Consult Pharmacy has been consulted to manage selected antiobiotic: Vancomycin Type of Consult: Follow-up Suspected Infection: Pneumonia Prior Doses of Antibiotics Received/Current Regimen: 750mg iv q12h Labs: Sodium 138 mmol/L (136-145) 03/11/21 03:15 Potassium 5.0 mmol/L (3.5-5.1) 03/11/21 03:15 Chloride 106 mmol/L (98-107) 03/11/21 03:15 Carbon Dioxide 27.0 mmol/L (21.0-32.0) 03/11/21 03:15 Anion Gap 5 (5-15) 03/11/21 03:15 BUN 26 mg/dL (7-18) H 03/11/21 03:15 Creatinine 1.16 mg/dL (0.55-1.02) H 03/11/21 03:15 Est GFR (MDRD) Af Amer 61 mL/min (>60) 03/11/21 03:15 Est GFR (MDRD) Non-Af 50 mL/min (>60) L 03/11/21 03:15 BUN/Creatinine Ratio 22.4 RATIO (10-20) H 03/11/21 03:15 Glucose 105 mg/dL (74-106) 03/11/21 03:15 Vancomycin Trough 21.5 ug/mL (5.0-15.0) H 03/10/21 20:30 Microbiology: Microbiology 03/07/21 14:10 Sputum, Induced/Lukens Gram Stain - Final 03/07/21 14:10 Sputum, Induced/Lukens Respiratory Culture - Final Meth. resistant Staph. aureus 03/06/21 15:50 Blood Culture (Wb) - Left Wrist Blood Culture - Preliminary No growth in 48 hours. 03/06/21 15:40 Blood Culture (Wb) - Anticubital Left Blood Culture - Preliminary No growth in 48 hours. 03/07/21 14:10 Mucosa - Nasopharyngeal Respiratory Panel (PCR) - Final 03/06/21 15:45 Nasal Secretion SARS-CoV-2 Antigen (Rapid) - Final SARS-CoV-2 (COVID 19) 03/07/21 11:00 Urine Catheter - Saxena Legionella Antigen - Final 03/07/21 11:00 Urine Catheter - Saxena Streptococcus pneumoniae Antigen (M - Final Weight used for dosin kg Estimated Creatinine Clearance: 60 ml/min Goal Trough: 15-20 mcg/mL Pharmacy Plan for Drug Dosing: Trough level 21.5 in PM 03.10.21. Trough not drawn 03.11.21 in AM. Will hold further dosing for now. Trough level ordered for 03.12.21 in AM. Pharmacy Service will continue to monitor and adjust dosing as required. Follow-Up Labs: Trough Vancomycin - 03.12.21 @0900
[2021-03-11] MEDS: Senna/Docusate Sodium 1 Tablet 2 TABLET PO ×2 (11:50→20:23)
--- NOTE | 2021-03-11 13:13 | PN.HOSP_ITS ---
Subjective Subjective Patient remains intubated and ventilated. She is on FiO2 of 80% with a PEEP of 13. Respiratory status remains about the same. She remains on vasopressors and these are currently running at 3 mcg/h. No significant overnight issues reported. Objective Data Objective Data Vital Signs: Vital Signs Temp Pulse Resp BP Pulse Ox 96.7 F L 69 14 108/46 L 94 03/11/21 08:00 03/11/21 12:00 03/11/21 12:00 03/11/21 12:00 03/11/21 12:00 Oxygen Flow Rate (L/min) 100 Oxygen Delivery Method Mechanical Ventilator Weight: 105.9 kg Body Mass Index (BMI) 35.6 Intake & Output: Intake and Output for Last 24 Hours 03/09/21 03/10/21 03/11/21 23:59 23:59 23:59 Intake Total 2134.94 / 2176.00 2059.86 / 2290.76 1314.94 / 1314.94 Output Total 1440 / 1490 695 / 945 800 / 800 Balance 694.94 / 686.00 1364.86 / 1345.76 514.94 / 514.94 Lab / Micro Data Result Diagrams: 03/11/21 03:15 03/11/21 03:15 Labs: Laboratory Results - last 24 hr 03/10/21 20:30: Vancomycin Trough 21.5 H 03/11/21 03:15: WBC 19.0 H, RBC 3.99 L, Hgb 11.3 L, Hct 36.6 L, MCV 91.7, MCH 28.3, MCHC 30.9 L, RDW Std Deviation 49.8 H, RDW Coeff of Crissy 14.8 H, Plt Count 303, MPV 10.5, Neut % (Auto) Not Reportable, Absolute Neuts (auto) 16.0 H, Absolute Lymphs (auto) 0.76 L, Neutrophils % (Manual) 84 H, Lymphocytes % (Manual) 4 L, Monocytes % (Manual) 3, Myelocytes % 5 H, Promyelocytes % 3 H, Blast Cells % 1 H*, Diff Path Review May , Platelet Estimate ADEQUATE, RBC Morphology NORM C+C, Anisocytosis 1+ 03/11/21 03:15: Sodium 138, Potassium 5.0, Chloride 106, Carbon Dioxide 27.0, Anion Gap 5, BUN 26 H, Creatinine 1.16 H, Estim Creat Clear Calc 45.87, Est GFR (MDRD) Af Amer 61, Est GFR (MDRD) Non-Af 50 L, BUN/Creatinine Ratio 22.4 H, Glucose 105, Calcium 8.0 L Micro: Microbiology 03/07/21 14:10 Sputum, Induced/Lukens Gram Stain - Final 03/07/21 14:10 Sputum, Induced/Lukens Respiratory Culture - Final Meth. resistant Staph. aureus 03/06/21 15:50 Blood Culture (Wb) - Left Wrist Blood Culture - Preliminary No growth in 48 hours. 03/06/21 15:40 Blood Culture (Wb) - Anticubital Left Blood Culture - P reliminary No growth in 48 hours. 03/07/21 14:10 Mucosa - Nasopharyngeal Respiratory Panel (PCR) - Final 03/06/21 15:45 Nasal Secretion SARS-CoV-2 Antigen (Rapid) - Final SARS-CoV-2 (COVID 19) 03/07/21 11:00 Urine Catheter - Saxena Legionella Antigen - Final 03/07/21 11:00 Urine Catheter - Saxena Streptococcus pneumoniae Antigen (M - Final Physical Exam Const Constitutional Narrative: Upper middle-aged white female who appears much older than stated age lying in bed intubated and sedated with deep sedation Nutritional Appearance: obese HEENT head/scalp atraumatic and moist oral mucous membranes Head and Scalp: normocephalic Eyes PERRL Resp normal respiratory effort, no retractions, no use of accessory muscles and clear to auscultation bilaterally Resp Narrative: Diffusely diminished but clear Auscultation: Negative for crackles, rales, rhonchi or wheezes Cardio regular rate, regular rhythm, S1 normal heart sound, S2 normal heart sound, no murmurs, no rub, no gallops, no clicks and no JVD GI normal to inspection, nondistended, normoactive bowel sounds, soft to palpation, non-tender and non-distended; Negative for hepatosplenomegaly Extremity no clubbing, cyanosis or edema Peripheral Pulses: Yes pulses 2+ throughout Neuro Neuro Narrative: Patient is intubated and sedated Psych Psych Narrative: Unable to assess Assessment & Plan Assessment/Plan (1) Acute hypoxemic respiratory failure: (2) Non-ST elevation [place] (NSTEMI): (3) COVID-19: (4) ADAM (acute kidney injury): (5) D-dimer, elevated: PLAN: Acute hypoxemic respiratory failure secondary to COVID-19 infection/MRSA Pna -Patient required mechanical intubation 03/07/2021 -Remains intubated, sedated -Continue support and wean PEEP and oxygen as able -FiO2 remains at 80% PEEP is at 13 -Continue baricitinib 6 of 14 doses and Decadron 6 of 10 doses -Patient was unable to receive remdesivir secondary to ADAM severity -Respiratory viral panel is negative -Strep pneumo and Legionella antigens are negative -Blood cultures with no growth to date -As needed diuretics as renal function/BP allow -Continue full therapeutic Lovenox dosing -Continue PPI while patient is intubated on a ventilator and full dose Lovenox -Overall prognosis is poor given rapidity of decline in need for mechanical ventilation -Pulmonary following-appreciate input MRSA pneumonia -Sensitivities are pending -Continue vancomycin and will discuss with critical care medicine tomorrow about narrowing antibiotics if cultures remain negative otherwise -Narrow antibiotics as able -Antibiotics day 3 of 7 -ID following Septic shock secondary to COVID-19 and MRSA pneumonia -Patient does remain on pressors -wean as able -at 3 mics -MRSA nasal swab was positive and intranasal Bactroban was initiated Leukocytosis -suspect this is related to being on steroids as well as infection -Continue to monitor -19,000 today ADAM -Current serum creatinine did improve with a fluid bolus 03/08/2021--> 1.16 today and appears to have stabilized -Baseline serum creatinine is 0.85-1 -Avoid nephrotoxins -Maintain renal perfusion -FeNa was 0.35 and a 1 L bolus was given on 03/08/2021 NSTEMI type II -Echo done 03/08/2021 shows an EF of 20% with severe segmental systolic dysfunction and an akinetic mid anterior septal wall and an akinetic apex -Continue aspirin -Continue statin -No beta-jona TOPHER inhibitor due to hypotension at this time -Cardiology is following and patient will need further work-up once she is more clinically stable from a COVID-19 infection standpoint D-dimer elevation -We will continue to treat as if she has PE at this time is unable to get a CTA with creatinine elevation -VQ scan will not be helpful in her case given the fact that she has underlying pulmonary issues from her COVID-19 infection -Bilateral lower extremity duplex negative for clot GERD -Continue Protonix Hypertension -Hold lisinopril -Monitor blood pressure as patient is currently hypotensive on pressors -Could start as needed medications if pressure begins to rise and renal function normalizes History of stroke -Continue aspirin DVT prophylaxis -Continue full dose enoxaparin CODE STATUS -DNR CCA with intubation Charges/Coding Visit Charges Inpatient E&M: 23577 Subs Hosp L2
--- NOTE | 2021-03-11 15:04 | PCM.PN.ID ---
Physical Exam Narrative On vent no fever Const no apparent distress Resp clear to auscultation bilaterally Auscultation: diminished lung sounds Cardio regular rate and regular rhythm GI normal to inspection, nondistended, normoactive bowel sounds Skin no rashes or lesions noted ID ID: Route of nutrition/ use of supplements: [] Nutritional Intake: [] IV Site: [] Saxena Catheter: [] Assessment & Plan Assessment/Plan (1) Acute hypoxemic respiratory failure: (2) Pneumonia due to 2019-nCoV: PLAN: Sx started around 03/02/21. Isolate for 20 days. Unvaccinated. Intubated. On dex, baricitinib. Did not give remdesivir due to ADAM. On vanc/unasyn. On pressor. Sputum with MRSA Will follow (3) ADAM (acute kidney injury):
[2021-03-11 15:40] LABS: Pathologist Review Reviewed
[2021-03-11] MEDS: Nortriptyline 25 MG Capsule 75 MG PO (18:38)
[2021-03-11] MEDS: Aspirin 81 MG TAB.CHEW PO (20:23)
[2021-03-11] MEDS: Atorvastatin Calcium 40 MG Tablet PO (20:23)
[2021-03-12] VITALS (38 sets, daily range): BP systolic 66–127; BP diastolic 24–69; PULSE 58–106; RESP 14–17; TEMP 35.5–36.3; O2SAT 88–98
[2021-03-12] MEDS: CHLORHEXIDINE GLUC 2% CLOTH 1 EACH TOWELETTE TOPICAL (02:10)
[2021-03-12] MEDS: Propofol 10MG/Ml 1,000 MG/100 ML Bottle 19.1 MG CONT INF (02:24)
[2021-03-12] MEDS: TITRATION PARAMETER CHANGE 1 EACH IV (03:10)
[2021-03-12 03:55] LABS: Hematocrit 39.3 % (37-47); Hemoglobin 12.5 g/dL (12.0-15.0); Mean Corp Hgb Conc 31.8 g/dL (32-36); Mean Corpuscular Hgb 28.7 pg (27.0-32.0); Mean Corpuscular Volume 90.1 fL (81-99); Mean Platelet Vol. 10.2 fl (6.2-12.0); POSITIVE COUNT YES; POSITIVE MORPHOLOGY YES; Platelet Count 344 K/mm3 (150-450); RBC Distribution Width CV 14.7 % (11.6-14.6); RBC Distribution Width SD 48.9 fl (35.1-43.9); Red Blood Count 4.36 M/mm3 (4.2-5.4); White Blood Count 21.7 K/mm3 (4.4-11.0)
[2021-03-12 04:03] LABS: Differential Indicated MANUAL DIFF
[2021-03-12] MEDS: Propofol 10MG/Ml 1,000 MG/100 ML Bottle 18.3 MG CONT INF (04:49)
[2021-03-12 04:55] LABS: Lymphocyte 2 % (19-41); Metamyelocyte 11 % (0-1); Myelocyte 8 % (0-0); Neutrophil-Band 2 % (0-5); Neutrophil-Segmented 77 % (47-70); Total Cells Counted 100 (MANUAL DIFF)
[2021-03-12 04:57] LABS: Absolute Lymphocyte Count 0.43 X10^3/uL (0.83-4.51); Absolute Neutrophil Count 21.2 X10^3/uL (2.0-7.7); Differential Comment MANUAL DIFF; Platelet Estimate ADEQUATE (ADEQ)
[2021-03-12 04:58] LABS: Anion Gap 10 (5-15); BUN 26 mg/dL (7-18); BUN/Creat Ratio 20.2 RATIO (10-20); Calcium,Total 8.3 mg/dL (8.5-10.1); Chloride 97 mmol/L (98-107); Creatinine, Serum 1.29 mg/dL (0.55-1.02); EST Glomerular Filtration Rate 44 mL/min (>60); Est Glom Filt Rate - Afr Amer 54 mL/min (>60); Estimated Creatinine Clearance 41.24 ml/min; Glucose 89 mg/dL (74-106); Potassium 4.4 mmol/L (3.5-5.1); Red Cell Morphology NORM C+C NORMAL (NORM C&C); Sodium Level 138 mmol/L (136-145)
--- NOTE | 2021-03-12 05:50 | PN.CC_ITS ---
Assessment & Plan Assessment/Plan (1) Acute hypoxemic respiratory failure: (2) Pneumonia due to 2019-nCoV: PLAN: RECOMMENDATIONS: 1. Continue to wean FiO2 and PEEP to maintain oxygen saturations at or above 90%. 2. Continue patient on current sedation regimen. 3. Continue PPI therapy. 4. Continue Lovenox as ordered. 5. Continue Levophed to maintain a mean arterial pressure at or above 65 mmHg. 6. Continue Decadron to complete 10 days of therapy. 7. Continue baricitinib as ordered. 8. Continue antimicrobials as ordered. 9. Continue Lasix as tolerated by renal function. Decrease dosing to once daily. 10. Attempt to restart tube feeds today. IMPRESSIONS: 1. Acute hypoxemic respiratory failure secondary to COVID-19 and MRSA pneumonia The patient initially presented to the hospital with approximately 3 days of symptoms. CTA chest was unable to be performed due to underlying renal insufficiency. The patient was subsequently placed on Lovenox, Decadron and baricitinib. Although the patient was initially placed on BiPAP therapy, she continued to decompensate from a respiratory perspective, ultimately requiring intubation on March 07. The patient will be continued on assist control mode of mechanical ventilation. FiO2 and PEEP will be weaned to maintain saturations at or above 90%. She will be continued on propofol and fentanyl. In addition to the aforementioned, the patient's sputum culture is also growing MRSA. Therefore, she will be started on vancomycin. The patient was also noted to have vomited tube feeds on March 11. Accordingly, Unasyn was added for additional coverage. 2. Acute kidney injury Improved. Likely prerenal in etiology. We will continue to monitor urine output. No current indication for renal replacement therapy. Avoid nephrotoxic medications. 3. Distributive shock Secondary to sedative medication utilization. Given underlying systolic dysfunction, recommend avoidance of fluids. Continue Levophed to maintain a mean arterial pressure at or above 65 mmHg. 4. Troponin elevation/acute systolic heart failure Echocardiogram demonstrated severe LV systolic dysfunction and an ejection fraction of 20%. Cardiology is currently following to assist with medical management. 5. Obesity/depression/hypertension/GERD Complicates care, management, recovery and prognosis. Continue home medications as indicated. CODE status: Discussed CODE status at length including difference between FULL code, DNR-CCA and DNR-CC status. Following discussions about the differences in these status, patient and family requested DNR CCA with intubation CODE STATUS. TIME: 32 minutes of critical care time, inclusive of procedures, was spent addressing the patient's acute hypoxemic respiratory failure secondary to COVID-19 pneumonia, acute kidney injury, distributive shock, troponin elevation, review of all data and collaboration with the care team. ([id number]) Subjective Subjective The patient was seen and examined at the bedside this morning. Events from the last 24 hours have been reviewed. The patient is currently afebrile. She is still requiring Levophed at 3 mcg/min to maintain hemodynamic stability. The patient remains sedated on propofol and fentanyl. The patient remains on assist control mode of mechanical ventilation with an FiO2 requirement of 60% and PEEP of 13. She is currently documented to be overall net +250mL for the hospitalization. The patient remains on therapeutic Lovenox, Decadron, baricitinib and scheduled IV Lasix. She remains on antimicrobials as well to address her MRSA isolated from her sputum and to cover for potential gram- negative's given possible aspiration event on March 11. Creatinine is relatively stable at 1.29. Tube feeds are still on hold. Objective Data Objective Data The patient's most recent lab work, culture data and imaging studies have all been personally reviewed. Surface echocardiogram revealed severe segmental sy stolic dysfunction with an ejection fraction of 20%. Rapid coronavirus antigen testing was positive on March 06. Strep and urine Legionella antigens were negative. Respiratory viral panel was negative. Blood cultures have demonstrated no growth to date. Sputum culture is positive for MRSA. Vital Signs: Vital Signs Temp Pulse Resp BP Pulse Ox 96 F L 92 14 120/69 91 03/12/21 04:00 03/12/21 05:00 03/12/21 05:00 03/12/21 05:00 03/12/21 05:00 Oxygen Flow Rate (L/min) 100 Oxygen Delivery Method Mechanical Ventilator Weight: 101.9 kg Body Mass Index (BMI) 35.6 Intake & Output: Intake and Output for Last 24 Hours 03/10/21 03/11/21 03/12/21 23:59 23:59 23:59 Intake Total 2059.86 / 2290.76 1873.12 / 1897.50 345.78 / 345.78 Output Total 695 / 945 6875 / 6875 450 / 450 Balance 1364.86 / 1345.76 -5001.88 / -4977.50 -104.22 / -104.22 Lab / Micro Data Attestation: I reviewed the patient's lab results. Result Diagrams: 03/12/21 03:45 03/12/21 03:45 Labs: Laboratory Results - last 24 hr 03/11/21 03:15: Diff Path Review Reviewed 03/12/21 03:45: WBC 21.7 H, RBC 4.36, Hgb 12.5, Hct 39.3, MCV 90.1, MCH 28.7, MCHC 31.8 L, RDW Std Deviation 48.9 H, RDW Coeff of Crissy 14.7 H, Plt Count 344, MPV 10.2, Neut % (Auto) Not Reportable, Absolute Neuts (auto) 21.2 H, Absolute Lymphs (auto) 0.43 L, Total Counted 100, Neutrophils % (Manual) 77 H, Band Neutrophils % 2, Lymphocytes % (Manual) 2 L, Metamyelocytes % 11 H, Myelocytes % 8 H, Differential Comment MANUAL DIFF, Diff Path Review May foll, Platelet Estimate ADEQUATE, RBC Morphology NORM C+C 03/12/21 03:45: Sodium 138, Potassium 4.4, Chloride 97 L, Carbon Dioxide 31.0, Anion Gap 10, BUN 26 H, Creatinine 1.29 H, Estim Creat Clear Calc 41.24, Est GFR (MDRD) Af Amer 54 L, Est GFR (MDRD) Non-Af 44 L, BUN/Creatinine Ratio 20.2 H, Glucose 89, Calcium 8.3 L Micro: Microbiology 03/07/21 14:10 Sputum, Induced/Lukens Gram Stain - Final 03/07/21 14:10 Sputum, Induced/Lukens Respiratory Culture - Final Meth. resistant Staph. aureus 03/06/21 15:50 Blood Culture (Wb) - Left Wrist Blood Culture - Preliminary No growth in 48 hours. 03/06/21 15:40 Blood Culture (Wb) - Anticubital Left Blood Culture - Preliminary No growth in 48 hours. 03/07/21 14:10 Mucosa - Nasopharyngeal Respiratory Panel (PCR) - Final 03/06/21 15:45 Nasal Secretion SARS-CoV-2 Antigen (Rapid) - Final SARS-CoV-2 (COVID 19) 03/07/21 11:00 Urine Catheter - Saxena Legionella Antigen - Final 03/07/21 11:00 Urine Catheter - Saxena Streptococcus pneumoniae Antigen (M - Final Physical Exam Const no apparent distress Constitutional Narrative: No ventilator dyssynchrony. General Appearance: ill appearing, intubated and patient mechanically ventilated Nutritional Appearance: obese HEENT normocephalic and head/scalp atraumatic Mouth: endotracheal tube in place and OG tube in place Eyes conjunctivae normal Neck supple General: trachea midline Chest inspection of chest normal Resp Effort and Inspection: Negative for labored Auscultation: diminished lung sounds; Negative for rales, rhonchi or wheezes Cardio regular rate and regular rhythm GI normal to inspection, nondistended, normoactive bowel sounds Extremity no clubbing, cyanosis or edema Skin no rashes or lesions noted Neuro Sensorium / Orientation: sedated on vent Charges/Coding Procedures Hospitalists Procedures: 54217 Critial Care 1st Hr
[2021-03-12] MEDS: Propofol 10MG/Ml 1,000 MG/100 ML Bottle 15.3 MG CONT INF (09:46)
--- NOTE | 2021-03-12 10:06 | PN.CARD_ITS ---
Subjective Subjective Patient seen Objective Data Vital Signs: Vital Signs Temp Pulse Resp BP Pulse Ox 96.6 F L 105 H 16 99/56 L 94 03/12/21 08:00 03/12/21 09:30 03/12/21 09:30 03/12/21 09:00 03/12/21 09:30 Oxygen Flow Rate (L/min) 100 Oxygen Delivery Method Mechanical Ventilator Weight: 224 lb 10.417 oz Body Mass Index (BMI) 35.6 Intake & Output: Intake and Output for Last 24 Hours 03/10/21 03/11/21 03/12/21 23:59 23:59 23:59 Intake Total 2059.86 / 2290.76 1873.12 / 1897.50 618.90 / 618.90 Output Total 695 / 945 6875 / 6875 600 / 600 Balance 1364.86 / 1345.76 -5001.88 / -4977.50 18.90 / 18.90 Lab / Micro Data Result Diagrams: 03/12/21 03:45 03/12/21 03:45 Labs: Laboratory Results - last 24 hr 03/11/21 03:15: Diff Path Review Reviewed 03/12/21 03:45: WBC 21.7 H, RBC 4.36, Hgb 12.5, Hct 39.3, MCV 90.1, MCH 28.7, MCHC 31.8 L, RDW Std Deviation 48.9 H, RDW Coeff of Crissy 14.7 H, Plt Count 344, MPV 10.2, Neut % (Auto) Not Reportable, Absolute Neuts (auto) 21.2 H, Absolute Lymphs (auto) 0.43 L, Total Counted 100, Neutrophils % (Manual) 77 H, Band Neutrophils % 2, Lymphocytes % (Manual) 2 L, Metamyelocytes % 11 H, Myelocytes % 8 H, Differential Comment MANUAL DIFF, Diff Path Review May foll, Platelet Estimate ADEQUATE, RBC Morphology NORM C+C 03/12/21 03:45: Sodium 138, Potassium 4.4, Chloride 97 L, Carbon Dioxide 31.0, Anion Gap 10, BUN 26 H, Creatinine 1.29 H, Estim Creat Clear Calc 41.24, Est GFR (MDRD) Af Amer 54 L, Est GFR (MDRD) Non-Af 44 L, BUN/Creatinine Ratio 20.2 H, Glucose 89, Calcium 8.3 L Micro: Microbiology 03/06/21 15:50 Blood Culture (Wb) - Left Wrist Blood Culture - Final No growth in 5 days. 03/06/21 15:40 Blood Culture (Wb) - Anticubital Left Blood Culture - Final No growth in 5 days. Cardiology Labs/Tests 03/12/21 03:45: WBC 21.7 H, RBC 4.36, Hgb 12.5, Hct 39.3, MCV 90.1, MCH 28.7, MCHC 31.8 L, Plt Count 344, MPV 10.2, Neut % (Auto) Not Reportable, Absolute Neuts (auto) 21.2 H, Total Counted 100, Neutrophils % (Manual) 77 H, Band Neutrophils % 2, Lymphocytes % (Manual) 2 L, Metamyelocytes % 11 H, Myelocytes % 8 H 03/12/21 03:45: Sodium 138, Potassium 4.4, Chloride 97 L, Carbon Dioxide 31.0, Anion Gap 10, BUN 26 H, Creatinine 1.29 H, Est GFR (MDRD) Af Amer 54 L, Est GFR (MDRD) Non-Af 44 L, BUN/Creatinine Ratio 20.2 H, Glucose 89, Calcium 8.3 L Rhythm: EKG: ECHO: Stress Test: Cardiac Cath: PCI: CT Surgery: Holter monitor: EPS: PPM: CXR: Chest CT Scan: Assessment & Plan Assessment/Plan (1) Non-ST elevation PR (NSTEMI): PLAN: Patient has a non-ST elevation myocardial infarction likely secondary to demand ischemia from his significant Covid infection but cannot completely exclude underlying coronary artery disease. At this time we will continue with expectant management with anticoagulation and rate control as appropriate. We will continue to treat the underlying Covid infection. * Echocardiogram demonstrates severe left ventricular systolic dysfunction with nearly akinetic distal anteroseptal wall and apex suggesting obstructive coronary disease * Further recommendations will depend on the recovery from the underlying Covid infection * Continue supportive care for now * Will hold off on TOPHER inhibitor at this time, and due to patient being on pressors will hold off on beta-blockers but will resume as soon as feasible. * Thank you for allowing me to participate in the care of your patient. Please don't hesitate to call if any issues arise.
[2021-03-12] MEDS: Chlorhexidine 15 ML PO ×2 (10:43→20:09)
[2021-03-12] MEDS: dexAMETHasone 10 MG/ML Vial 6 MG IV (10:43)
[2021-03-12] MEDS: Senna/Docusate Sodium 1 Tablet 2 TABLET PO ×2 (10:43→20:11)
[2021-03-12] MEDS: Escitalopram Oxalate 10 MG Tablet PO (10:43)
[2021-03-12] MEDS: Furosemide 40 MG/4 ML Vial IV (10:43)
[2021-03-12] MEDS: Enoxaparin 100 MG/ML Syringe SC ×2 (10:44→20:11)
[2021-03-12] MEDS: Mupirocin Ointment 22gm Tube 1 APPLIC NASAL (10:44)
[2021-03-12 12:29] LABS: Vancomycin, Random Level 19.8 ug/mL (0.0-15.0)
[2021-03-12] MEDS: Vital AF 1.2 Cal Liquid 1,000 ML 60 ML GT (13:03)
--- NOTE | 2021-03-12 13:14 | PCM.PN.HOSP ---
Subjective Subjective Patient remains on Levophed which is now at 6 mcg/min to maintain hemodynamic stability. We have been able to wean her FiO2 to 50% and she remains on PEEP of 13. She had an emesis yesterday for which tube feeds were placed on hold. We are trying to restart these this afternoon. No bowel movement in several days and bowel regimen was initiated. Objective Data Objective Data Vital Signs: Vital Signs Temp Pulse Resp BP Pulse Ox 96.7 F L 99 15 119/44 L 93 03/12/21 12:00 03/12/21 12:15 03/12/21 12:00 03/12/21 12:15 03/12/21 12:00 Oxygen Flow Rate (L/min) 100 Oxygen Delivery Method Mechanical Ventilator Weight: 101.9 kg Body Mass Index (BMI) 35.6 Intake & Output: Intake and Output for Last 24 Hours 03/10/21 03/11/21 03/12/21 23:59 23:59 23:59 Intake Total 2059.86 / 2290.76 1873.12 / 1897.50 883.78 / 883.78 Output Total 695 / 945 6875 / 6875 1250 / 1250 Balance 1364.86 / 1345.76 -5001.88 / -4977.50 -366.22 / -366.22 Lab / Micro Data Result Diagrams: 03/12/21 03:45 03/12/21 03:45 Labs: Laboratory Results - last 24 hr 03/11/21 03:15: Diff Path Review Reviewed 03/12/21 03:45: WBC 21.7 H, RBC 4.36, Hgb 12.5, Hct 39.3, MCV 90.1, MCH 28.7, MCHC 31.8 L, RDW Std Deviation 48.9 H, RDW Coeff of Crissy 14.7 H, Plt Count 344, MPV 10.2, Neut % (Auto) Not Reportable, Absolute Neuts (auto) 21.2 H, Absolute Lymphs (auto) 0.43 L, Total Counted 100, Neutrophils % (Manual) 77 H, Band Neutrophils % 2, Lymphocytes % (Manual) 2 L, Metamyelocytes % 11 H, Myelocytes % 8 H, Differential Comment MANUAL DIFF, Diff Path Review May foll, Platelet Estimate ADEQUATE, RBC Morphology NORM C+C 03/12/21 03:45: Sodium 138, Potassium 4.4, Chloride 97 L, Carbon Dioxide 31.0, Anion Gap 10, BUN 26 H, Creatinine 1.29 H, Estim Creat Clear Calc 41.24, Est GFR (MDRD) Af Amer 54 L, Est GFR (MDRD) Non-Af 44 L, BUN/Creatinine Ratio 20.2 H, Glucose 89, Calcium 8.3 L 03/12/21 11:40: Random Vancomycin 19.8 H Micro: Microbiology 03/06/21 15:50 Blood Culture (Wb) - Left Wrist Blood Culture - Final No growth in 5 days. 03/06/21 15:40 Blood Culture (Wb) - Anticubital Left Blood Culture - Final No growth in 5 days. 03/07/21 14:10 Sputum, Induced/Lukens Gram Stain - Final 03/07/21 14:10 Sputum, Induced/Lukens Respiratory Culture - Final Meth. resistant Staph. aureus 03/07/21 14:10 Mucosa - Nasopharyngeal Respiratory Panel (PCR) - Final 03/06/21 15:45 Nasal Secretion SARS-CoV-2 Antigen (Rapid) - Final SARS-CoV-2 (COVID 19) 03/07/21 11:00 Urine Catheter - Saxena Legionella Antigen - Final 03/07/21 11:00 Urine Catheter - Saxena Streptococcus pneumoniae Antigen (M - Final Physical Exam Const Constitutional Narrative: Upper middle-aged white female who appears much older than stated age lying in bed intubated and sedated with deep sedation Nutritional Appearance: obese HEENT head/scalp atraumatic and moist oral mucous membranes Head and Scalp: normocephalic Resp normal respiratory effort, no retractions, no use of accessory muscles and clear to auscultation bilaterally Resp Narrative: Diffusely diminished but clear Auscultation: Negative for crackles, rales, rhonchi or wheezes Cardio regular rhythm, S1 normal heart sound, S2 normal heart sound, no murmurs, no rub, no gallops, no clicks and no JVD Cardio Narrative: Very mild tachycardia GI normal to inspection, nondistended, normoactive bowel sounds, soft to palpation, non-tender and non-distended; Negative for hepatosplenomegaly Extremity no clubbing, cyanosis or edema Peripheral Pulses: Yes pulses 2+ throughout Skin no rashes or lesions noted, no wounds, skin turgor normal, no jaundice, no petechiae and no mottling Neuro Neuro Narrative: Patient is intubated and sedated Psych Psych Narrative: Unable to assess Assessment & Plan Assessment/Plan (1) Acute hypoxemic respiratory failure: (2) Non-ST elevation NV (NSTEMI): (3) COVID-19: (4) ADAM (acute kidney injury): (5) D-dimer, elevated: PLAN: Acute hypoxemic respiratory failure secondary to COVID-19 infection/MRSA Pna -Patient required mechanical intubation 03/07/2021 -Remains intubated, sedated -Continue support and wean PEEP and oxygen as able -FiO2 down to 50% PEEP remains at 13 -Continue baricitinib 7 of 14 doses and Decadron 7 of 10 doses -Patient was unable to receive remdesivir secondary to ADAM severity -Respiratory viral panel is negative -Strep pneumo and Legionella antigens are negative -Blood cultures with no growth to date -As needed diuretics as renal function/BP allow -Continue full therapeutic Lovenox dosing -Continue PPI while patient is intubated on a ventilator and full dose Lovenox -Overall prognosis is poor given rapidity of decline in need for mechanical ventilation -Pulmonary following-appreciate input MRSA pneumonia -Continue vancomycin/Unasyn added secondary to emesis -Narrow antibiotics as able -Antibiotics day 4 of 7 -ID following Septic shock secondary to COVID-19 and MRSA pneumonia -Patient does remain on pressors -wean as able -at 6 mics -MRSA nasal swab was positive and intranasal Bactroban was initiated Constipation -Bowel regimen initiated -Patient had some intolerance of tube feeds and they were held secondary to emesis--> tube feeds reinitiated and assess for tolerance Leukocytosis -suspect this is related to being on steroids as well as infection -Continue to monitor -21,000 today ADAM -Current serum creatinine did improve with a fluid bolus 03/08/2021--> 1.29 today and appears to have stabilized -Baseline serum creatinine is 0.85-1 -Avoid nephrotoxins -Maintain renal perfusion -FeNa was 0.35 and a 1 L bolus was given on 03/08/2021 NSTEMI type II -Echo done 03/08/2021 shows an EF of 20% with severe segmental systolic dysfunction and an akinetic mid anterior septal wall and an akinetic apex -Continue aspirin -Continue statin -No beta-jona TOPHER inhibitor due to hypotension at this time -Cardiology is following and patient will need further work-up once she is more clinically stable from a COVID-19 infection standpoint D-dimer elevation -We will continue to treat as if she has PE at this time is unable to get a CTA with creatinine elevation -VQ scan will not be helpful in her case given the fact that she has underlying pulmonary issues from her COVID-19 infection -Bilateral lower extremity duplex negative for clot GERD -Continue Protonix Hypertension -Hold lisinopril -Monitor blood pressure as patient is currently hypotensive on pressors -Could start as needed medications if pressure begins to rise and renal function normalizes History of stroke -Continue aspirin DVT prophylaxis -Continue full dose enoxaparin CODE STATUS -DNR CCA with intubation
[2021-03-12] MEDS: Vancomycin IV 1,000 MG/200 ML BAG 200 MG IV (14:42)
--- NOTE | 2021-03-12 14:59 | PCM.RX.CS ---
Consult Pharmacy has been consulted to manage selected antiobiotic: Vancomycin Type of Consult: Follow-up Suspected Infection: Pneumonia Prior Doses of Antibiotics Received/Current Regimen: the patient had been on vanc 750mg IV q12h but that has been held since yesterday morning (last dose 03/11/21 09:30) due to a high trough Labs: Sodium 138 mmol/L (136-145) 03/12/21 03:45 Potassium 4.4 mmol/L (3.5-5.1) 03/12/21 03:45 Chloride 97 mmol/L (98-107) L 03/12/21 03:45 Carbon Dioxide 31.0 mmol/L (21.0-32.0) 03/12/21 03:45 Anion Gap 10 (5-15) 03/12/21 03:45 BUN 26 mg/dL (7-18) H 03/12/21 03:45 Creatinine 1.29 mg/dL (0.55-1.02) H 03/12/21 03:45 Est GFR (MDRD) Af Amer 54 mL/min (>60) L 03/12/21 03:45 Est GFR (MDRD) Non-Af 44 mL/min (>60) L 03/12/21 03:45 BUN/Creatinine Ratio 20.2 RATIO (10-20) H 03/12/21 03:45 Glucose 89 mg/dL (74-106) 03/12/21 03:45 Vancomycin Trough 21.5 ug/mL (5.0-15.0) H 03/10/21 20:30 Random Vancomycin 19.8 ug/mL (0.0-15.0) H 03/12/21 11:40 Microbiology: Microbiology 03/06/21 15:50 Blood Culture (Wb) - Left Wrist Blood Culture - Final No growth in 5 days. 03/06/21 15:40 Blood Culture (Wb) - Anticubital Left Blood Culture - Final No growth in 5 days. 03/07/21 14:10 Sputum, Induced/Lukens Gram Stain - Final 03/07/21 14:10 Sputum, Induced/Lukens Respiratory Culture - Final Meth. resistant Staph. aureus 03/07/21 14:10 Mucosa - Nasopharyngeal Respiratory Panel (PCR) - Final 03/06/21 15:45 Nasal Secretion SARS-CoV-2 Antigen (Rapid) - Final SARS-CoV-2 (COVID 19) 03/07/21 11:00 Urine Catheter - Saxena Legionella Antigen - Final 03/07/21 11:00 Urine Catheter - Saxena Streptococcus pneumoniae Antigen (M - Final Weight used for dosin kg Estimated Creatinine Clearance: 53ml/min Goal Trough: 15-20 mcg/mL Pharmacy Plan for Drug Dosing: The vanc random level drawn this morning at 11:40 came back as 19.8 (drawn about 26 hours after the last 750mg dose). Since this is back below 20, dosing can be resumed. Since q12h dosing resulted in a high trough, will change to 1000mg IV q24h and recheck a trough level before the 3rd dose of 1000mg. The patient's CrCl of 53ml/min was calculated using an adjusted body weight of 76.4kg. Pharmacy Service will continue to monitor and adjust dosing as required. Follow-Up Labs: Trough Vancomycin Labs to be done on [date and time ordered]: 03/14/21 14:30
[2021-03-12] MEDS: Propofol 10MG/Ml 1,000 MG/100 ML Bottle 12.2 MG CONT INF (17:02)
[2021-03-12] MEDS: Nortriptyline 25 MG Capsule 75 MG PO (17:18)
[2021-03-12] MEDS: Menthol/Lanolin/Calamine/Znox 113 GM Tube 1 APPLIC TOPICAL ×2 (17:20→20:12)
[2021-03-12] MEDS: 0.9% Saline Lock 10 ML Syringe IV (20:10)
[2021-03-12] MEDS: Aspirin 81 MG TAB.CHEW PO (20:11)
[2021-03-12] MEDS: Atorvastatin Calcium 40 MG Tablet PO (20:11)
[2021-03-12] MEDS: Propofol 10MG/Ml 1,000 MG/100 ML Bottle 9.2 MG CONT INF (22:38)
[2021-03-13] VITALS (47 sets, daily range): BP systolic 88–139; BP diastolic 45–81; PULSE 80–110; RESP 14–19; TEMP 35.9–36.5; O2SAT 88–98
[2021-03-13] MEDS: TITRATION PARAMETER CHANGE 1 EACH IV (05:19)
--- NOTE | 2021-03-13 05:30 | PN.CC_ITS ---
Assessment & Plan Assessment/Plan (1) Acute hypoxemic respiratory failure: (2) Pneumonia due to 2019-nCoV: PLAN: RECOMMENDATIONS: 1. Continue to wean FiO2 and PEEP to maintain oxygen saturations at or above 90%. 2. Continue patient on current sedation regimen. 3. Continue PPI therapy. 4. Continue Lovenox as ordered. 5. Continue Levophed to maintain a mean arterial pressure at or above 65 mmHg. 6. Continue Decadron to complete 10 days of therapy. 7. Continue baricitinib as ordered. 8. Continue antimicrobials as ordered. 9. Stop Lasix given bump in creatinine. 10. Continue tube feeds as tolerated. IMPRESSIONS: 1. Acute hypoxemic respiratory failure secondary to COVID-19 and MRSA pneumonia The patient initially presented to the hospital with approximately 3 days of symptoms. CTA chest was unable to be performed due to underlying renal insufficiency. The patient was subsequently placed on Lovenox, Decadron and ba ricitinib. Although the patient was initially placed on BiPAP therapy, she continued to decompensate from a respiratory perspective, ultimately requiring intubation on March 07. The patient will be continued on assist control mode of mechanical ventilation. FiO2 and PEEP will be weaned to maintain saturations at or above 90%. She will be continued on propofol and fentanyl. In addition to the aforementioned, the patient's sputum culture is also growing MRSA. Therefore, she will be continued on vancomycin. The patient was also noted to have vomited tube feeds on March 11. Accordingly, Unasyn was added for additional coverage. 2. Acute kidney injury Improved. Likely prerenal in etiology. We will continue to monitor urine output. No current indication for renal replacement therapy. Avoid nephrotoxic medications. 3. Distributive shock Secondary to sedative medication utilization. Given underlying systolic dysfunction, recommend avoidance of fluids. Continue Levophed to maintain a mean arterial pressure at or above 65 mmHg. 4. Troponin elevation/acute systolic heart failure Echocardiogram demonstrated severe LV systolic dysfunction and an ejection fraction of 20%. Cardiology is currently following to assist with medical management. 5. Obesity/depression/hypertension/GERD Complicates care, management, recovery and prognosis. Continue home medications as indicated. CODE status: Discussed CODE status at length including difference between FULL code, DNR-CCA and DNR-CC status. Following discussions about the differences in these status, patient and family requested DNR CCA with intubation CODE STATUS. TIME: 33 minutes of critical care time, inclusive of procedures, was spent addressing the patient's acute hypoxemic respiratory failure secondary to COVID-19 pneumonia, acute kidney injury, distributive shock, troponin elevation, review of all data and collaboration with the care team. ([id number]) Subjective Subjective The patient was seen and examined at the bedside this morning. Events from the last 24 hours have been reviewed. The patient is currently afebrile. She is still requiring Levophed at 6 mcg/min to maintain hemodynamic stability. The patient remains sedated on propofol and fentanyl. The patient remains on assist control mode of mechanical ventilation with an FiO2 requirement of 70% and PEEP of 13. She is currently documented to be overall net +1.4L for the hospitalization. The patient remains on therapeutic Lovenox, Decadron, baricitinib and scheduled IV Lasix. She remains on antimicrobials as well to address her MRSA isolated from her sputum and to cover for potential gram- negative's given possible aspiration event on March 11. She is currently tolerating tube feeds. White count remains elevated at 20,000. Creatinine is increased to 1.4 this morning. Objective Data Objective Data The patient's most recent lab work, culture data and imaging studies have all been personally reviewed. Surface echocardiogram revealed severe segmental systolic dysfunction with an ejection fraction of 20%. Rapid coronavirus antigen testing was positive on March 06. Strep and urine Legionella antigens were negative. Respiratory viral panel was negative. Blood cultures have demonstrated no growth to date. Sputum culture is positive for MRSA. Vital Signs: Vital Signs Temp Pulse Resp BP Pulse Ox 96.9 F L 85 16 94/51 L 91 03/13/21 00:00 03/13/21 04:39 03/13/21 04:39 03/13/21 03:00 03/13/21 04:39 Oxygen Flow Rate (L/min) 100 Oxygen Delivery Method Mechanical Ventilator Weight: 102.6 kg Body Mass Index (BMI) 35.6 Intake & Output: Intake and Output for Last 24 Hours 03/11/21 03/12/21 03/13/21 23:59 23:59 23:59 Intake Total 1873.12 / 1897.50 2207.22 / 2602.72 897.02 / 897.02 Output Total 6875 / 6875 1950 / 2125 175 / 175 Balance -5001.88 / -4977.50 257.22 / 477.72 722.02 / 722.02 Lab / Micro Data Attestation: I reviewed the patient's lab results. Result Diagrams: 03/13/21 05:10 03/13/21 05:10 Labs: Laboratory Results - last 24 hr 03/12/21 11:40: Random Vancomycin 19.8 H Micro: Microbiology 03/06/21 15:50 Blood Culture (Wb) - Left Wrist Blood Culture - Final No growth in 5 days. 03/06/21 15:40 Blood Culture (Wb) - Anticubital Left Blood Culture - Final No growth in 5 days. 03/07/21 14:10 Sputum, Induced/Lukens Gram Stain - Final 03/07/21 14:10 Sputum, Induced/Lukens Respiratory Culture - Final Meth. resistant Staph. aureus 03/07/21 14:10 Mucosa - Nasopharyngeal Respiratory Panel (PCR) - Final 03/06/21 15:45 Nasal Secretion SARS-CoV-2 Antigen (Rapid) - Final SARS-CoV-2 (COVID 19) 03/07/21 11:00 Urine Catheter - Saxena Legionella Antigen - Final 03/07/21 11:00 Urine Catheter - Saxena Streptococcus pneumoniae Antigen (M - Final Physical Exam Const no apparent distress Constitutional Narrative: No ventilator dyssynchrony. General Appearance: ill appearing, intubated and patient mechanically ventilated Nutritional Appearance: obese HEENT normocephalic and head/scalp atraumatic Mouth: endotracheal tube in place and OG tube in place Eyes conjunctivae normal Neck supple General: trachea midline Chest inspection of chest normal Resp Effort and Inspection: Negative for labored Auscultation: diminished lung sounds; Negative for rales, rhonchi or wheezes Cardio regular rate and regular rhythm GI normal to inspection, nondistended, normoactive bowel sounds Extremity no clubbing, cyanosis or edema Skin no rashes or lesions noted Neuro Sensorium / Orientation: sedated on vent Charges/Coding Procedures Hospitalists Procedures: [id number] Critial Care 1st Hr
[2021-03-13 05:38] LABS: Hematocrit 36.1 % (37-47); Hemoglobin 11.3 g/dL (12.0-15.0); Mean Corp Hgb Conc 31.3 g/dL (32-36); Mean Corpuscular Hgb 27.9 pg (27.0-32.0); Mean Corpuscular Volume 89.1 fL (81-99); Mean Platelet Vol. 10.5 fl (6.2-12.0); POSITIVE COUNT YES; POSITIVE MORPHOLOGY YES; Platelet Count 313 K/mm3 (150-450); RBC Distribution Width CV 14.6 % (11.6-14.6); RBC Distribution Width SD 47.3 fl (35.1-43.9); Red Blood Count 4.05 M/mm3 (4.2-5.4); White Blood Count 20.8 K/mm3 (4.4-11.0)
[2021-03-13 05:40] LABS: Differential Indicated MANUAL DIFF
[2021-03-13 05:56] LABS: Anion Gap 8 (5-15); BUN 36 mg/dL (7-18); BUN/Creat Ratio 25.5 RATIO (10-20); Calcium,Total 8.4 mg/dL (8.5-10.1); Chloride 100 mmol/L (98-107); Creatinine, Serum 1.41 mg/dL (0.55-1.02); EST Glomerular Filtration Rate 40 mL/min (>60); Est Glom Filt Rate - Afr Amer 48 mL/min (>60); Estimated Creatinine Clearance 37.73 ml/min; Glucose 115 mg/dL (74-106); Sodium Level 141 mmol/L (136-145)
[2021-03-13] MEDS: CHLORHEXIDINE GLUC 2% CLOTH 1 EACH TOWELETTE TOPICAL (06:00)
[2021-03-13 06:31] LABS: Total Cells Counted 100 (MANUAL DIFF)
[2021-03-13 06:35] LABS: Eosinophil 1 % (0-5); Lymphocyte 5 % (19-41); Metamyelocyte 2 % (0-1); Monocyte 4 % (0-10); Myelocyte 9 % (0-0); Neutrophil-Band 1 % (0-5); Neutrophil-Segmented 77 % (47-70); Platelet Estimate ADEQUATE (ADEQ); Promyelocyte 1 % (0-0)
[2021-03-13 06:36] LABS: Absolute Neutrophil Count 16.3 X10^3/uL (2.0-7.7); Neutrophil # 16.25 X10^3/uL (2.7-7.7); Red Cell Morphology NORM C+C NORMAL (NORM C&C)
[2021-03-13 06:37] LABS: Absolute Lymphocyte Count 1.04 X10^3/uL (0.83-4.51); Lymphocyte # 1.04 X10^3/ul (0.83-4.51)
[2021-03-13] MEDS: Propofol 10MG/Ml 1,000 MG/100 ML Bottle 12.3 MG CONT INF (09:05)
[2021-03-13] MEDS: Menthol/Lanolin/Calamine/Znox 113 GM Tube 1 APPLIC TOPICAL ×2 (09:54→22:37)
[2021-03-13] MEDS: Chlorhexidine 15 ML PO ×2 (09:55→22:44)
[2021-03-13] MEDS: Escitalopram Oxalate 10 MG Tablet PO (09:55)
[2021-03-13] MEDS: Enoxaparin 100 MG/ML Syringe SC ×2 (09:55→22:36)
[2021-03-13] MEDS: Senna/Docusate Sodium 1 Tablet 2 TABLET PO ×2 (09:56→22:36)
[2021-03-13] MEDS: dexAMETHasone 10 MG/ML Vial 6 MG IV (09:56)
[2021-03-13] MEDS: Vital AF 1.2 Cal Liquid 1,000 ML 60 ML GT (14:22)
--- NOTE | 2021-03-13 14:31 | PN.HOSP_ITS ---
Subjective Subjective FiO2 has been weaned down to 55% but patient was in the process of getting cleaned up and her leg was moved and she desatted into the 50s. FiO2 had to be increased to 80%. PEEP remains the same. She is tolerating tube feed. Pressors are still at 5. Objective Data Objective Data Vital Signs: Vital Signs Temp Pulse Resp BP Pulse Ox 97.6 F L 89 14 131/67 H 92 03/13/21 12:00 03/13/21 14:00 03/13/21 14:00 03/13/21 14:00 03/13/21 14:00 Oxygen Flow Rate (L/min) 100 Oxygen Delivery Method Mechanical Ventilator Weight: 102.6 kg Body Mass Index (BMI) 35.6 Intake & Output: Intake and Output for Last 24 Hours 03/11/21 03/12/21 03/13/21 23:59 23:59 23:59 Intake Total 1873.12 / 1897.50 2207.22 / 2602.72 1901.38 / 1901.38 Output Total 6875 / 6875 1950 / 2125 475 / 475 Balance -5001.88 / -4977.50 257.22 / 477.72 1426.38 / 1426.38 Lab / Micro Data Result Diagrams: 03/13/21 05:10 03/13/21 05:10 Labs: Laboratory Results - last 24 hr 03/13/21 05:10: WBC 20.8 H, RBC 4.05 L, Hgb 11.3 L, Hct 36.1 L, MCV 89.1, MCH 2 7.9, MCHC 31.3 L, RDW Std Deviation 47.3 H, RDW Coeff of Crissy 14.6, Plt Count 313, MPV 10.5, Neut % (Auto) Not Reportable, Absolute Neuts (auto) 16.3 H, Absolute Lymphs (auto) 1.04, Total Counted 100, Neutrophils % (Manual) 77 H, Band Neutrophils % 1, Lymphocytes % (Manual) 5 L, Monocytes % (Manual) 4, Eosinophils % (Manual) 1, Metamyelocytes % 2 H, Myelocytes % 9 H, Promyelocytes % 1 H, Diff Path Review May , Platelet Estimate ADEQUATE, RBC Morphology NORM C+C 03/13/21 05:10: Sodium 141, Potassium 4.0, Chloride 100, Carbon Dioxide 33.0 H, Anion Gap 8, BUN 36 H, Creatinine 1.41 H, Estim Creat Clear Calc 37.73, Est GFR (MDRD) Af Amer 48 L, Est GFR (MDRD) Non-Af 40 L, BUN/Creatinine Ratio 25.5 H, Glucose 115 H, Calcium 8.4 L Micro: Microbiology 03/06/21 15:50 Blood Culture (Wb) - Left Wrist Blood Culture - Final No growth in 5 days. 03/06/21 15:40 Blood Culture (Wb) - Anticubital Left Blood Culture - Final No growth in 5 days. 03/07/21 14:10 Sputum, Induced/Lukens Gram Stain - Final 03/07/21 14:10 Sputum, Induced/Lukens Respiratory Culture - Final Meth. resistant Staph. aureus 03/07/21 14:10 Mucosa - Nasopharyngeal Respiratory Panel (PCR) - Final 03/06/21 15:45 Nasal Secretion SARS-CoV-2 Antigen (Rapid) - Final SARS-CoV-2 (COVID 19) 03/07/21 11:00 Urine Catheter - Saxena Legionella Antigen - Final 03/07/21 11:00 Urine Catheter - Saxena Streptococcus pneumoniae Antigen (M - Final Physical Exam Const Constitutional Narrative: Upper middle-aged white female who appears much older than stated age lying in bed intubated and sedated with deep sedation although sedation seems a bit less right now Nutritional Appearance: obese HEENT head/scalp atraumatic and moist oral mucous membranes Eyes PERRL Resp normal respiratory effort, no retractions, no use of accessory muscles and clear to auscultation bilaterally Resp Narrative: Diffusely diminished but clear Auscultation: Negative for crackles, rales, rhonchi or wheezes Cardio regular rhythm, S1 normal heart sound, S2 normal heart sound, no murmurs, no rub, no gallops, no clicks and no JVD Cardio Narrative: Very mild tachycardia GI normal to inspection, nondistended, normoactive bowel sounds, soft to palpation, non-tender and non-distended; Negative for hepatosplenomegaly Extremity no clubbing, cyanosis or edema Neuro Neuro Narrative: Patient is intubated and sedated Psych Psych Narrative: Unable to assess Assessment & Plan Assessment/Plan (1) Acute hypoxemic respiratory failure: (2) Non-ST elevation [place] (NSTEMI): (3) COVID-19: (4) ADAM (acute kidney injury): (5) D-dimer, elevated: PLAN: Acute hypoxemic respiratory failure secondary to COVID-19 infection/MRSA Pna -Patient required mechanical intubation 03/07/2021 -Remains intubated, sedated -Continue support and wean PEEP and oxygen as able -FiO2 back up to 80 % PEEP remains at 13 -Continue baricitinib 8 of 14 doses and Decadron 8 of 10 doses -Patient was unable to receive remdesivir secondary to ADAM severity -Respiratory viral panel is negative -Strep pneumo and Legionella antigens are negative -Blood cultures with no growth to date -Diuretics discontinued secondary to bump in serum creatinine -Continue full therapeutic Lovenox dosing -Continue PPI while patient is intubated on a ventilator and full dose Lovenox -Overall prognosis is poor given rapidity of decline in need for mechanical ventilation -Pulmonary following-appreciate input MRSA pneumonia -Continue vancomycin/Unasyn added secondary to emesis -Narrow antibiotics as able -Antibiotics day 5 of 7 -ID following Septic shock secondary to COVID-19 and MRSA pneumonia -Patient does remain on pressors -wean as able -at 5 mics -MRSA nasal swab was positive and intranasal Bactroban was initiated Constipation -Bowel regimen initiated -Patient had some intolerance of tube feeds and they were held secondary to emesis--> tube feeds reinitiated and assess for tolerance Leukocytosis -suspect this is related to being on steroids as well as infection -Continue to monitor - remain elevated but appears that they have plateaued ADAM -Current serum creatinine 1.41 -Diuretics discontinued -Baseline serum creatinine is 0.85-1 -Avoid nephrotoxins -Maintain renal perfusion NSTEMI type II -Echo done 03/08/2021 shows an EF of 20% with severe segmental systolic dysfunction and an akinetic mid anterior septal wall and an akinetic apex -Continue aspirin -Continue statin -No beta-jona TOPHER inhibitor due to hypotension at this time -Cardiology is following and patient will need further work-up once she is more clinically stable from a COVID-19 infection standpoint D-dimer elevation -We will continue to treat as if she has PE at this time is unable to get a CTA with creatinine elevation -VQ scan will not be helpful in her case given the fact that she has underlying pulmonary issues from her COVID-19 infection -Bilateral lower extremity duplex negative for clot GERD -Continue Protonix Hypertension -Hold lisinopril -Monitor blood pressure as patient is currently hypotensive on pressors -Could start as needed medications if pressure begins to rise and renal function normalizes History of stroke -Continue aspirin DVT prophylaxis -Continue full dose enoxaparin CODE STATUS -DNR CCA with intubation -Overall prognosis is poor Charges/Coding Visit Charges Inpatient E&M: 05531 Subs Hosp L2
[2021-03-13] MEDS: Vancomycin IV 1,000 MG/200 ML BAG 200 MG IV (14:48)
[2021-03-13] MEDS: Propofol 10MG/Ml 1,000 MG/100 ML Bottle 15.4 MG CONT INF ×2 (16:31→20:00)
[2021-03-13] MEDS: Nortriptyline 25 MG Capsule 75 MG PO (16:52)
[2021-03-13] MEDS: 0.9% Saline Lock 10 ML Syringe IV (22:34)
[2021-03-13] MEDS: Aspirin 81 MG TAB.CHEW PO (22:36)
[2021-03-13] MEDS: Atorvastatin Calcium 40 MG Tablet PO (22:36)
[2021-03-14] VITALS (52 sets, daily range): BP systolic 40–151; BP diastolic 27–81; PULSE 70–139; RESP 14–35; TEMP 35.7–37.2; O2SAT 89–96
[2021-03-14] MEDS: Propofol 10MG/Ml 1,000 MG/100 ML Bottle 15.4 MG CONT INF ×2 (02:30→06:55)
[2021-03-14] MEDS: CHLORHEXIDINE GLUC 2% CLOTH 1 EACH TOWELETTE TOPICAL (03:00)
[2021-03-14 04:26] LABS: Hematocrit 28.9 % (37-47); Hemoglobin 9.5 g/dL (12.0-15.0); Mean Corp Hgb Conc 32.9 g/dL (32-36); Mean Corpuscular Hgb 29.8 pg (27.0-32.0); Mean Corpuscular Volume 90.6 fL (81-99); Mean Platelet Vol. 11.2 fl (6.2-12.0); POSITIVE COUNT YES; POSITIVE MORPHOLOGY YES; Platelet Count 258 K/mm3 (150-450); RBC Distribution Width CV 14.5 % (11.6-14.6); RBC Distribution Width SD 48.3 fl (35.1-43.9); Red Blood Count 3.19 M/mm3 (4.2-5.4); White Blood Count 18.1 K/mm3 (4.4-11.0)
[2021-03-14 04:29] LABS: Differential Indicated MANUAL DIFF
[2021-03-14 04:58] LABS: Anion Gap 5 (5-15); BUN 36 mg/dL (7-18); BUN/Creat Ratio 28.8 RATIO (10-20); Calcium,Total 7.7 mg/dL (8.5-10.1); Chloride 98 mmol/L (98-107); Creatinine, Serum 1.25 mg/dL (0.55-1.02); EST Glomerular Filtration Rate 46 mL/min (>60); Est Glom Filt Rate - Afr Amer 56 mL/min (>60); Estimated Creatinine Clearance 42.56 ml/min; Glucose 105 mg/dL (74-106); Sodium Level 136 mmol/L (136-145)
[2021-03-14 05:14] LABS: CPK Total, Creatine Kinase 47 U/L (26-192); Triglycerides 744 mg/dL
[2021-03-14 05:23] LABS: Absolute Lymphocyte Count 1.26 X10^3/uL (0.83-4.51); Absolute Neutrophil Count 16.1 X10^3/uL (2.0-7.7); Myelocyte 3 % (0-0); Neutrophil-Band 2 % (0-5); Neutrophil-Segmented 87 % (47-70)
[2021-03-14 05:24] LABS: Lymphocyte 7 % (19-41); Monocyte 1 % (0-10); Platelet Estimate ADEQUATE (ADEQ); Red Cell Morphology NORM C+C NORMAL (NORM C&C)
[2021-03-14] MEDS: TITRATION PARAMETER CHANGE 1 EACH IV (06:30)
[2021-03-14 06:39] LABS: Magnesium 2.3 mg/dL (1.6-2.6); Phosphorus 3.2 mg/dL (2.5-4.9)
--- NOTE | 2021-03-14 07:22 | PN.CC_ITS ---
Assessment & Plan Assessment/Plan (1) Acute hypoxemic respiratory failure: (2) Pneumonia due to 2019-nCoV: PLAN: RECOMMENDATIONS: 1. Continue to wean FiO2 and PEEP to maintain oxygen saturations at or above 90%. 2. Continue patient on current sedation regimen. 3. Continue PPI, Lovenox, tube feeds and antimicrobial therapy as ordered. 4. Continue Lovenox as ordered. 5. Continue Levophed to maintain a mean arterial pressure at or above 65 mmHg. 6. Continue Decadron to complete 10 days of therapy. 7. Continue baricitinib as ordered. 8. Challenge with Lasix IMPRESSIONS: 1. Acute hypoxemic respiratory failure secondary to COVID-19 and MRSA pneumonia The patient initially presented to the hospital with approximately 3 days of symptoms. CTA chest was unable to be performed due to underlying renal insufficiency. The patient was subsequently placed on Lovenox, Decadron and baricitinib. Although the patient was initially placed on BiPAP therapy, she continued to decompensate from a respiratory perspective, ultimately requiring intubation on March 07. The patient will be continued on assist control mode of mechanical ventilation. FiO2 and PEEP will be weaned to maintain saturations at or above 90%. She will be continued on propofol and fentanyl. May need to transition to Precedex in the near future given elevated triglycerides. In addition to the aforementioned, the patient's sputum culture is also growing MRSA. Therefore, she will be continued on vancomycin. The patient was also noted to have vomited tube feeds on March 11. Accordingly, Unasyn was added for additional coverage. 2. Acute kidney injury Improved. Likely prerenal in etiology. We will continue to monitor urine output. No current indication for renal replacement therapy. Avoid nephrotoxic medications. We will challenge with Lasix 3. Distributive shock Secondary to sedative medication utilization. Given underlying systolic dysfunction, recommend avoidance of fluids. Continue Levophed to maintain a mean arterial pressure at or above 65 mmHg. This is also complicated by patient's depressed systolic function. 4. Troponin elevation/acute systolic heart failure Echocardiogram demonstrated severe LV systolic dysfunction and an ejection fraction of 20%. Cardiology is currently following to assist with medical man agement. Patient has had some intermittent ST depression noted on telemetry. 5. Obesity/depression/hypertension/GERD Complicates care, management, recovery and prognosis. Continue home medications as indicated. CODE status: Discussed CODE status at length including difference between FULL code, DNR-CCA and DNR-CC status. Following discussions about the differences in these status, patient and family requested DNR CCA with intubation CODE STATUS. TIME: 33 minutes of critical care time, inclusive of procedures, was spent addressing the patient's acute hypoxemic respiratory failure secondary to COVID- 19 pneumonia, acute kidney injury, distributive shock, troponin elevation, review of all data and collaboration with the care team. (6:15 AM to 7:15 AM) Subjective Subjective Patient did okay overnight. Patient did have some desaturation requiring an increase in PEEP. Patient also continues to require Levophed and nursing/respiratory had reported some mild blood on suctioning through endotracheal tube. Patient remains on propofol. Objective Data Objective Data Vital Signs: Vital Signs Temp Pulse Resp BP Pulse Ox 36.0 C L 109 H 14 76/63 L 89 03/14/21 04:00 03/14/21 07:09 03/14/21 07:09 03/14/21 07:00 03/14/21 07:09 Oxygen Flow Rate (L/min) 100 Oxygen Delivery Method Mechanical Ventilator Weight: 103.7 kg Body Mass Index (BMI) 35.6 Intake & Output: Intake and Output for Last 24 Hours 03/12/21 03/13/21 03/14/21 23:59 23:59 23:59 Intake Total 2207.22 / 2602.72 3551.30 / 3994.20 1373.72 / 1373.72 Output Total 1950 / 2125 775 / 975 400 / 400 Balance 257.22 / 477.72 2776.30 / 3019.20 973.72 / 973.72 Lab / Micro Data Result Diagrams: 03/14/21 03:40 03/14/21 03:40 Labs: Laboratory Results - last 24 hr 03/14/21 03:40: WBC 18.1 H, RBC 3.19 L, Hgb 9.5 L, Hct 28.9 L, MCV 90.6, MCH 29.8, MCHC 32.9 D, RDW Std Deviation 48.3 H, RDW Coeff of Crissy 14.5, Plt Count 258, MPV 11.2, Neut % (Auto) Not Reportable, Absolute Neuts (auto) 16.1 H, Absolute Lymphs (auto) 1.26, Neutrophils % (Manual) 87 H, Band Neutrophils % 2, Lymphocytes % (Manual) 7 L, Monocytes % (Manual) 1, Myelocytes % 3 H, Diff Path Review May foll, Platelet Estimate ADEQUATE, RBC Morphology NORM C+C 03/14/21 03:40: Sodium 136, Potassium 4.0, Chloride 98, Carbon Dioxide 33.0 H, Anion Gap 5, BUN 36 H, Creatinine 1.25 H, Estim Creat Clear Calc 42.56, Est GFR (MDRD) Af Amer 56 L, Est GFR (MDRD) Non-Af 46 L, BUN/Creatinine Ratio 28.8 H, Glucose 105, Calcium 7.7 L 03/14/21 03:40: Total Creatine Kinase 47, Triglycerides 744 H 03/14/21 03:40: Phosphorus 3.2, Magnesium 2.3 Micro: Microbiology 03/06/21 15:50 Blood Culture (Wb) - Left Wrist Blood Culture - Final No growth in 5 days. 03/06/21 15:40 Blood Culture (Wb) - Anticubital Left Blood Culture - Final No growth in 5 days. 03/07/21 14:10 Sputum, Induced/Lukens Gram Stain - Final 03/07/21 14:10 Sputum, Induced/Lukens Respiratory Culture - Final Meth. resistant Staph. aureus 03/07/21 14:10 Mucosa - Nasopharyngeal Respiratory Panel (PCR) - Final 03/06/21 15:45 Nasal Secretion SARS-CoV-2 Antigen (Rapid) - Final SARS-CoV-2 (COVID 19) 03/07/21 11:00 Urine Catheter - Saxena Legionella Antigen - Final 03/07/21 11:00 Urine Catheter - Saxena Streptococcus pneumoniae Antigen (M - Final Physical Exam Const no apparent distress Constitutional Narrative: No ventilator dyssynchrony. RASS -2 General Appearance: ill appearing, intubated and patient mechanically ventilated Nutritional Appearance: obese HEENT normocephalic and head/scalp atraumatic Mouth: endotracheal tube in place and OG tube in place Eyes conjunctivae normal Neck supple General: trachea midline Chest inspection of chest normal Chest: symmetrical chest wall rise; Negative for crepitus Resp Effort and Inspection: Negative for labored Auscultation: diminished lung sounds; Negative for rales, rhonchi or wheezes Cardio regular rate and regular rhythm GI normal to inspection, nondistended, normoactive bowel sounds Extremity no clubbing, cyanosis or edema Skin no rashes or lesions noted Neuro Sensorium / Orientation: sedated on vent Charges/Coding Procedures Hospitalists Procedures: [id number] Critial Care 1st Hr
[2021-03-14] MEDS: Senna/Docusate Sodium 1 Tablet 2 TABLET PO ×2 (08:06→22:04)
[2021-03-14] MEDS: Furosemide 40 MG/4 ML Vial IV (08:07)
[2021-03-14] MEDS: dexAMETHasone 10 MG/ML Vial 6 MG IV (08:07)
[2021-03-14] MEDS: Menthol/Lanolin/Calamine/Znox 113 GM Tube 1 APPLIC TOPICAL ×2 (08:07→21:26)
[2021-03-14] MEDS: Escitalopram Oxalate 10 MG Tablet PO (08:07)
[2021-03-14] MEDS: Chlorhexidine 15 ML PO ×2 (08:07→22:03)
[2021-03-14] MEDS: Enoxaparin 100 MG/ML Syringe SC ×2 (08:08→22:03)
--- NOTE | 2021-03-14 08:11 | PN.CARD_ITS ---
Subjective Subjective Patient seen and evaluated. Still on the vent. With worsening oxygen requirements as well as blood pressure augmentation requirements Objective Data Vital Signs: Vital Signs Temp Pulse Resp BP Pulse Ox 96.8 F L 105 H 14 85/42 L 90 03/14/21 04:00 03/14/21 07:45 03/14/21 07:45 03/14/21 07:45 03/14/21 07:45 Oxygen Flow Rate (L/min) 100 Oxygen Delivery Method Mechanical Ventilator Weight: 228 lb 9.91 oz Body Mass Index (BMI) 35.6 Intake & Output: Intake and Output for Last 24 Hours 03/12/21 03/13/21 03/14/21 23:59 23:59 23:59 Intake Total 2207.22 / 2602.72 3551.30 / 3994.20 1502.97 / 1502.97 Output Total 1950 / 2125 775 / 975 400 / 400 Balance 257.22 / 477.72 2776.30 / 3019.20 1102.97 / 1102.97 Lab / Micro Data Result Diagrams: 03/14/21 03:40 03/14/21 03:40 Labs: Laboratory Results - last 24 hr 03/14/21 03:40: WBC 18.1 H, RBC 3.19 L, Hgb 9.5 L, Hct 28.9 L, MCV 90.6, MCH 29.8, MCHC 32.9 D, RDW Std Deviation 48.3 H, RDW Coeff of Crissy 14.5, Plt Count 258, MPV 11.2, Neut % (Auto) Not Reportable, Absolute Neuts (auto) 16.1 H, Absolute Lymphs (auto) 1.26, Neutrophils % (Manual) 87 H, Band Neutrophils % 2, Lymphocytes % (Manual) 7 L, Monocytes % (Manual) 1, Myelocytes % 3 H, Diff Path Review May foll, Platelet Estimate ADEQUATE, RBC Morphology NORM C+C 03/14/21 03:40: Sodium 136, Potassium 4.0, Chloride 98, Carbon Dioxide 33.0 H, Anion Gap 5, BUN 36 H, Creatinine 1.25 H, Estim Creat Clear Calc 42.56, Est GFR (MDRD) Af Amer 56 L, Est GFR (MDRD) Non-Af 46 L, BUN/Creatinine Ratio 28.8 H, Glucose 105, Calcium 7.7 L 03/14/21 03:40: Total Creatine Kinase 47, Triglycerides 744 H 03/14/21 03:40: Phosphorus 3.2, Magnesium 2.3 Cardiology Labs/Tests 03/14/21 03:40: WBC 18.1 H, RBC 3.19 L, Hgb 9.5 L, Hct 28.9 L, MCV 90.6, MCH 29.8, MCHC 32.9 D, Plt Count 258, MPV 11.2, Neut % (Auto) Not Reportable, Absolute Neuts (auto) 16.1 H, Neutrophils % (Manual) 87 H, Band Neutrophils % 2, Lymphocytes % (Manual) 7 L, Monocytes % (Manual) 1, Myelocytes % 3 H 03/14/21 03:40: Sodium 136, Potassium 4.0, Chloride 98, Carbon Dioxide 33.0 H, Anion Gap 5, BUN 36 H, Creatinine 1.25 H, Est GFR (MDRD) Af Amer 56 L, Est GFR (MDRD) Non-Af 46 L, BUN/Creatinine Ratio 28.8 H, Glucose 105, Calcium 7.7 L 03/14/21 03:40: Triglycerides 744 H 03/14/21 03:40: Phosphorus 3.2, Magnesium 2.3 Rhythm: EKG: ECHO: Stress Test: Cardiac Cath: PCI: CT Surgery: Holter monitor: EPS: PPM: CXR: Chest CT Scan: Assessment & Plan Assessment/Plan (1) Non-ST elevation [place] (NSTEMI): PLAN: Patient has a non-ST elevation myocardial infarction likely secondary to demand ischemia from his significant Covid infection but cannot c ompletely exclude underlying coronary artery disease. At this time we will continue with expectant management with anticoagulation and rate control as appropriate. We will continue to treat the underlying Covid infection. * Echocardiogram demonstrates severe left ventricular systolic dysfunction with nearly akinetic distal anteroseptal wall and apex suggesting obstructive coronary disease * Further recommendations will depend on the recovery from the underlying Covid infection * Continue supportive care for now, it appears that the patient requires higher doses of pressors as well as oxygen. * Will hold off on TOPHER inhibitor at this time, and due to patient being on pressors will hold off on beta-blockers but will resume as soon as feasible. * Thank you for allowing me to participate in the care of your patient. Above discussed with the nursing charge. Please don't hesitate to call if any i ssues arise.
--- NOTE | 2021-03-14 10:38 | PN.HOSP_ITS ---
Subjective Subjective Follow-up on acute hypoxic respiratory failure secondary to acute COVID-19 pneumonia/MRSA pneumonia: Patient was seen and examined. She is intubated. On mechanical ventilator. On pressors and sedated. Her oxygen requirements has worsened - FiO2 100%, PEEP is 14. Objective Data Objective Data Vital Signs: Vital Signs Temp Pulse Resp BP Pulse Ox 96.8 F L 129 H 21 H 151/77 H 92 03/14/21 08:00 03/14/21 10:02 03/14/21 10:02 03/14/21 10:02 03/14/21 10:02 Oxygen Flow Rate (L/min) 100 Oxygen Delivery Method Mechanical Ventilator Weight: 103.7 kg Body Mass Index (BMI) 35.6 Intake & Output: Intake and Output for Last 24 Hours 03/12/21 03/13/21 03/14/21 23:59 23:59 23:59 Intake Total 2207.22 / 2602.72 3551.30 / 3994.20 1738.66 / 1738.66 Output Total 1950 / 2125 775 / 975 400 / 400 Balance 257.22 / 477.72 2776.30 / 3019.20 1338.66 / 1338.66 Lab / Micro Data Result Diagrams: 03/14/21 03:40 03/14/21 03:40 Labs: Laboratory Results - last 24 hr 03/14/21 03:40: WBC 18.1 H, RBC 3.19 L, Hgb 9.5 L, Hct 28.9 L, MCV 90.6, MCH 29.8, MCHC 32.9 D, RDW Std Deviation 48.3 H, RDW Coeff of Crissy 14.5, Plt Count 258, MPV 11.2, Neut % (Auto) Not Reportable, Absolute Neuts (auto) 16.1 H, Absolute Lymphs (auto) 1.26, Neutrophils % (Manual) 87 H, Band Neutrophils % 2, Lymphocytes % (Manual) 7 L, Monocytes % (Manual) 1, Myelocytes % 3 H, Diff Path Review May foll, Platelet Estimate ADEQUATE, RBC Morphology NORM C+C 03/14/21 03:40: Sodium 136, Potassium 4.0, Chloride 98, Carbon Dioxide 33.0 H, Anion Gap 5, BUN 36 H, Creatinine 1.25 H, Estim Creat Clear Calc 42.56, Est GFR (MDRD) Af Amer 56 L, Est GFR (MDRD) Non-Af 46 L, BUN/Creatinine Ratio 28.8 H, Glucose 105, Calcium 7.7 L 03/14/21 03:40: Total Creatine Kinase 47, Triglycerides 744 H 03/14/21 03:40: Phosphorus 3.2, Magnesium 2.3 Micro: Microbiology 03/06/21 15:50 Blood Culture (Wb) - Left Wrist Blood Culture - Final No growth in 5 days. 03/06/21 15:40 Blood Culture (Wb) - Anticubital Left Blood Culture - Final No growth in 5 days. 03/07/21 14:10 Sputum, Induced/Lukens Gram Stain - Final 03/07/21 14:10 Sputum, Induced/Lukens Respiratory Culture - Final Meth. resistant Staph. aureus 03/07/21 14:10 Mucosa - Nasopharyngeal Respiratory Panel (PCR) - Final 03/06/21 15:45 Nasal Secretion SARS-CoV-2 Antigen (Rapid) - Final SARS-CoV-2 (COVID 19) 03/07/21 11:00 Urine Catheter - Saxena Legionella Antigen - Final 03/07/21 11:00 Urine Catheter - Saxena Streptococcus pneumoniae Antigen (M - Final Physical Exam Narrative Physical exam: General: Sedated, intubated, HEENT: Atraumatic Oral: Moist Mucosa, OG tube in Neck: Supple Lungs: Diminished to auscultation Cardiovascular: HS I+II, regular, no murmurs Abdomen: Bowel Sounds Present, Soft, Non Tender Extremities: No edema Const Constitutional Narrative: Upper middle-aged white female who appears much older than stated age lying in bed intubated and sedated with deep sedation although sedation seems a bit less right now Nutritional Appearance: obese HEENT head/scalp atraumatic and moist oral mucous membranes Eyes PERRL Resp normal respiratory effort, no retractions, no use of accessory muscles and clear to auscultation bilaterally Resp Narrative: Diffusely diminished but clear Auscultation: Negative for crackles, rales, rhonchi or wheezes Cardio regular rhythm, S1 normal heart sound, S2 normal heart sound, no murmurs, no rub, no gallops, no clicks and no JVD Cardio Narrative: Very mild tachycardia GI normal to inspection, nondistended, normoactive bowel sounds, soft to palpation, non-tender and non-distended; Negative for hepatosplenomegaly Extremity no clubbing, cyanosis or edema Skin no rashes or lesions noted, no wounds, skin turgor normal, no jaundice, no sami chiae and no mottling Neuro Neuro Narrative: Patient is intubated and sedated Psych Psych Narrative: Unable to assess Assessment & Plan Assessment/Plan (1) Acute hypoxemic respiratory failure: (2) Non-ST elevation HI (NSTEMI): (3) COVID-19: (4) ADAM (acute kidney injury): (5) D-dimer, elevated: PLAN: 1. Acute hypoxemic respiratory failure secondary to COVID-19 infect ion/MRSA Pneumonia Intubated on 03/07/21. 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 MRSA pneumonia/possible aspiration pneumonia WBC count slightly improved to 18.1 from 20.8 Continue on IV vancomycin and Unasyn ID following 3. Septic shock secondary to #1 and 2, blood pressures have been tenuous Currently on Levophed 4. ADAM, pre-renal, Cr remains above baseline; 1.25 Baseline serum creatinine is 0.85-1 5. NSTEMI type II, EF of 20% with severe segmental systolic dysfunction and an akinetic mid anterior septal wall and an akinetic apex(03/08/21) Continue statin, aspirin, off beta-blockers and TOPHRE meters on account of shock Cardiology following 6. Elevated D-dimer, unable to do CTA or VQ scan. Bilateral lower extremity duplex is negative Treating empirically for acute PE 7. Rest of her chronic medical conditions including GERD/hypertension, history of CVA -remain stable for now Patient is off antihypertensives on account of ADAM and shock Home meds reviewed Charges/Coding Visit Charges Inpatient E&M: 31474 Subs Hosp L3
[2021-03-14 12:16] LABS: AST(SGOT) 47 U/L (15-37); Alanine Aminotransfer ALT/SGPT 22 U/L (13-56); Albumin, Serum 1.4 g/dL (3.2-5.0); Alkaline Phosphatase 89 U/L (45-117); Bilirubin, Direct 0.37 mg/dL (0.00-0.30); Globulin 4.5 g/dL (2.2-4.2); Protein, Total 5.9 g/dL (6.4-8.2)
--- NOTE | 2021-03-14 12:42 | CASEMGMT ---
SW participated in ICU rounds this morning. Family is here now, SW spoke w/pt's brother, [id number], and nephew, support offered. SW remains available for support to family. GELA Hernandez
[2021-03-14 13:34] LABS: Pathologist Review Reviewed
[2021-03-14 13:39] LABS: Pathologist Review Reviewed
[2021-03-14 13:40] LABS: Pathologist Review Reviewed
--- NOTE | 2021-03-14 14:00 | RAD_ITS ---
STUDY: X-RAY CHEST REASON FOR EXAM: Female, 66 years old. r/o pneumomediastinum TECHNIQUE: Single AP portable view of the chest. COMPARISON: Comparison is made with prior examination dated 03/10/2021. FINDINGS: An endotracheal tube is in situ. The tip is at 3.6 cm proximal to the karen. An orogastric tube is seen with the tip in the body of the stomach. A right-sided PICC line catheter is seen with the tip at the junction of superior vena cava and right atrium. There is evidence of subcutaneous emphysema overlying the inferior aspect of the right side of the neck. There is evidence of a small right apical pneumothorax. There is also evidence of a pneumomediastinum. Bibasilar pulmonary infiltrates worse on the left side. There is no demonstrated pleural abnormality. Normal size heart. Normal mediastinum and emma. Normal visualized pulmonary arteries. There is atherosclerotic calcification of the aortic arch with tortuosity. Normal visualized thoracic spine. Normal visualized ribs, clavicles, and shoulders. There is no demonstrated abnormality of the visualized soft tissue structures of the upper abdomen. RAD/Chest 1 View (Portable) IMPRESSION: All the support tubes are in good position. Small right apical pneumothorax. Subcutaneous emphysema overlying the inferior aspect of the left-sided neck. Small pneumomediastinum. Electronically Signed: Juni Herrera MD at 14:23 EDT , Service support ,
--- NOTE | 2021-03-14 15:15 | PCM.PN.ID ---
Physical Exam Narrative On 100% fiO2 on vent. No fever. Const Constitutional Narrative: ill appearing Resp Effort and Inspection: mechanically ventilated Auscultation: diminished lung sounds Cardio Rate: tachycardic GI normal to inspection, nondistended, normoactive bowel sounds Skin no rashes or lesions noted ID ID: Route of nutrition/ use of supplements: [] Nutritional Intake: [] IV Site: [] Saxean Catheter: [] Assessment & Plan Assessment/Plan (1) Acute hypoxemic respiratory failure: (2) Pneumonia due to 2019-nCoV: PLAN: Sx started around 03/02/21. Isolate for 20 days. Unvaccinated. Intubated. On dex, baricitinib. Did not give remdesivir due to ADAM. On vanc/unasyn. On pressor. Sputum with MRSA. Will follow (3) ADAM (acute kidney injury):
--- NOTE | 2021-03-14 15:37 | CHAPLAIN ---
Type of Pastoral Visit _x__ Initial Visit ___ Follow-up Visit ___ On-call Visit ___ General Patient Visit ___ Spiritual Assessment ___ Family Conference ___ Bereavement ___ Rapid Response ___ Code Blue ___ Other (describe below) Pastoral Care Referral From ___ Patient _x__ Family ___ Nurse ___ Physician ___ Design Teacher ___ Computer Compositor ___ Other (describe below) Sacrament/Intervention ___ Active listening ___ Anointing ___ Scientologist ___ Bereavement ___ Communion ___ Dacia exploration ___ ___ Life review ___ Prayer ___ Reconciliation ___ Sacrament of Sick _x__ Supportive presence ___ Wedding _x__ Other (describe below) Pastoral Comments met family members in waiting area as they were waiting to see patient; offered support and availability as needed; family is not expecting pt to survive and are appropriate in their emotions; pt is member of a local [employer] per her family
[2021-03-14] MEDS: Vancomycin IV 1,000 MG/200 ML BAG 200 MG IV (15:55)
[2021-03-14] MEDS: Vital AF 1.2 Cal Liquid 1,000 ML 60 ML GT (15:57)
[2021-03-14 16:18] LABS: Vancomycin, Trough Level 19.1 ug/mL (5.0-15.0)
--- NOTE | 2021-03-14 16:36 | PCM.RX.CS ---
Consult Pharmacy has been consulted to manage selected antiobiotic: Vancomycin Type of Consult: Follow-up Suspected Infection: Pneumonia Prior Doses of Antibiotics Received/Current Regimen: Currently on 1gm iv q24h. Labs: Sodium 136 mmol/L (136-145) 03/14/21 03:40 Potassium 4.0 mmol/L (3.5-5.1) 03/14/21 03:40 Chloride 98 mmol/L (98-107) 03/14/21 03:40 Carbon Dioxide 33.0 mmol/L (21.0-32.0) H 03/14/21 03:40 Anion Gap 5 (5-15) 03/14/21 03:40 BUN 36 mg/dL (7-18) H 03/14/21 03:40 Creatinine 1.25 mg/dL (0.55-1.02) H 03/14/21 03:40 Est GFR (MDRD) Af Amer 56 mL/min (>60) L 03/14/21 03:40 Est GFR (MDRD) Non-Af 46 mL/min (>60) L 03/14/21 03:40 BUN/Creatinine Ratio 28.8 RATIO (10-20) H 03/14/21 03:40 Glucose 105 mg/dL (74-106) 03/14/21 03:40 Vancomycin Trough 19.1 ug/mL (5.0-15.0) H 03/14/21 15:30 Random Vancomycin 19.8 ug/mL (0.0-15.0) H 03/12/21 11:40 Microbiology: Microbiology 03/06/21 15:50 Blood Culture (Wb) - Left Wrist Blood Culture - Final No growth in 5 days. 03/06/21 15:40 Blood Culture (Wb) - Anticubital Left Blood Culture - Final No growth in 5 days. 03/07/21 14:10 Sputum, Induced/Lukens Gram Stain - Final 03/07/21 14:10 Sputum, Induced/Lukens Respiratory Culture - Final Meth. resistant Staph. aureus 03/07/21 14:10 Mucosa - Nasopharyngeal Respiratory Panel (PCR) - Final 03/06/21 15:45 Nasal Secretion SARS-CoV-2 Antigen (Rapid) - Final SARS-CoV-2 (COVID 19) 03/07/21 11:00 Urine Catheter - Saxena Legionella Antigen - Final 03/07/21 11:00 Urine Catheter - Saxena Streptococcus pneumoniae Antigen (M - Final Weight used for dosin.7 kg Estimated Creatinine Clearance: 55ml/min Goal Trough: 15-20 mcg/mL Pharmacy Plan for Drug Dosing: Trough level today was 19.1 (goal range 15-20mcg/ml) ~24.5 hrs post last dose. Renal function of CrCl ~55ml/min calculated using adjusted body weight of 76.8kg. Will continue same dose and repeat trough level on 03.16.21. Pharmacy Service will continue to monitor and adjust dosing as required. Follow-Up Labs: Trough Vancomycin - 03.16.21 @1430 before 1500 dose
[2021-03-14] MEDS: Polyethylene Glycol 3350 17 GM PACKET PO (18:08)
[2021-03-14] MEDS: Nortriptyline 25 MG Capsule 75 MG PO (18:08)
[2021-03-14] MEDS: 0.9% Saline Lock 10 ML Syringe IV (21:24)
[2021-03-14] MEDS: Aspirin 81 MG TAB.CHEW PO (22:04)
[2021-03-14] MEDS: Atorvastatin Calcium 40 MG Tablet PO (22:04)
[2021-03-15] VITALS (17 sets, daily range): BP systolic 43–131; BP diastolic 22–86; PULSE 111–144; RESP 14–37; TEMP 35.7–35.9; O2SAT 78–92
[2021-03-15] MEDS: CHLORHEXIDINE GLUC 2% CLOTH 1 EACH TOWELETTE TOPICAL
[2021-03-15 04:35] LABS: Mean Corp Hgb Conc 31.1 g/dL (32-36); Mean Corpuscular Hgb 28.1 pg (27.0-32.0); Mean Corpuscular Volume 90.5 fL (81-99); Mean Platelet Vol. 11.6 fl (6.2-12.0); POSITIVE COUNT YES; POSITIVE DIFFERENTIAL YES; POSITIVE MORPHOLOGY YES; Platelet Count 297 K/mm3 (150-450); RBC Distribution Width CV 14.9 % (11.6-14.6); RBC Distribution Width SD 49.1 fl (35.1-43.9); Red Blood Count 1.99 M/mm3 (4.2-5.4); White Blood Count 29.4 K/mm3 (4.4-11.0)
[2021-03-15 04:43] LABS: Differential Indicated MANUAL DIFF; Hemoglobin 5.6 g/dL (12.0-15.0)
[2021-03-15 04:55] LABS: ALB/GLOB Ratio 0.3 RATIO (0.9-2.4); AST(SGOT) 782 U/L (15-37); Alanine Aminotransfer ALT/SGPT 453 U/L (13-56); Alkaline Phosphatase 92 U/L (45-117); Anion Gap 12 (5-15); BUN 59 mg/dL (7-18); BUN/Creat Ratio 20.8 RATIO (10-20); Calcium,Total 6.8 mg/dL (8.5-10.1); Chloride 109 mmol/L (98-107); Creatinine, Serum 2.84 mg/dL (0.55-1.02); EST Glomerular Filtration Rate 18 mL/min (>60); Est Glom Filt Rate - Afr Amer 22 mL/min (>60); Estimated Creatinine Clearance 18.73 ml/min; Globulin 3.8 g/dL (2.2-4.2); Glucose 146 mg/dL (74-106); Potassium 4.9 mmol/L (3.5-5.1); Protein, Total 4.8 g/dL (6.4-8.2); Sodium Level 143 mmol/L (136-145)
[2021-03-15 05:02] LABS: Metamyelocyte 2 % (0-1); Neutrophil-Band 4 % (0-5); Neutrophil-Segmented 74 % (47-70); Total Cells Counted 100 (MANUAL DIFF)
[2021-03-15 05:03] LABS: Eosinophil 1 % (0-5); Lymphocyte 11 % (19-41); Monocyte 3 % (0-10); Myelocyte 4 % (0-0); Platelet Estimate ADEQUATE (ADEQ); Promyelocyte 1 % (0-0)
[2021-03-15 05:04] LABS: Red Cell Morphology N CYTIC NORMAL (NORM C&C)
[2021-03-15 05:05] LABS: Absolute Lymphocyte Count 3.24 X10^3/uL (0.83-4.51); Hypochromasia 2+; Lymphocyte # 3.24 X10^3/ul (0.83-4.51); Neutrophil # 22.97 X10^3/uL (2.7-7.7)
--- NOTE | 2021-03-15 05:43 | PCM.PN.INT ---
Assessment & Plan Assessment/Plan (1) Acute hypoxemic respiratory failure: (2) Pneumonia due to 2019-nCoV: PLAN: RECOMMENDATIONS: 1. Discontinue nonessential medications 2. Palliative medications will be ordered 3. Discontinue ventilatory support 4. Change status to DNR comfort care only IMPRESSIONS: 1. Acute hypoxemic respiratory failure secondary to COVID-19 and MRSA pneumonia Respiratory status complicated by the development of pneumomediastinum yesterday. Patient with extensive subcutaneous emphysema. Patient also with marginal saturations on pulse oximetry. However, given vasopressor support this may be inaccurate. Attempts at an ABG will be discontinued given goals of therapy. 2. Acute kidney injury Worsened. Family is not interested in hemodialysis measures. 3. Distributive shock/acute blood loss anemia Patient in refractory shock at this time. 3 pressors are currently being used. These will be discontinued given goals of therapy. 4. Troponin elevation/acute systolic heart failure Echocardiogram demonstrated severe LV systolic dysfunction and an ejection fraction of 20%. Cardiology is currently following to assist with medical management. Patient has had some intermittent ST depression noted on telemetry. 5. Obesity/depression/hypertension/GERD Complicates care, management, recovery and prognosis. Continue home medications as indicated. CODE status: Discussed CODE status at length including difference between FULL code, DNR-CCA and DNR-CC status. 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 TIME: 31 minutes of critical care time, inclusive of procedures, was spent addressing the patient's acute hypoxemic respiratory failure secondary to COVID-19 pneumonia, acute kidney injury, distributive shock, troponin elevation, review of all data and collaboration with the care team. (5:10 AM to 5:45 AM) Subjective Subjective Patient with significant decompensation overnight. Patient currently on 3 pressors, tachycardic with worsening subcutaneous emphysema. Patient also has multiple hematomas noted on the abdomen and thighs. Blood counts were low this morning, so family was called. After update of the situation, they have requested palliative measures. An attempted an ABG to verify pulse oximetry was discontinued. Objective Data Objective Data Vital Signs: Vital Signs Temp Pulse Resp BP Pulse Ox 35.9 C L 138 H 37 H 89/54 L 80 03/15/21 00:00 03/15/21 05:00 03/15/21 05:00 03/15/21 05:00 03/15/21 05:00 Oxygen Flow Rate (L/min) 100 Oxygen Delivery Method Mechanical Ventilator Weight: 107.275 kg Body Mass Index (BMI) 35.6 Intake & Output: Intake and Output for Last 24 Hours 03/13/21 03/14/21 03/15/21 23:59 23:59 23:59 Intake Total 3551.30 / 3994.20 3545.74 / 3968.54 1392.23 / 1392.23 Output Total 775 / 975 1050 / 1050 50 / 50 Balance 2776.30 / 3019.20 2495.74 / 2918.54 1342.23 / 1342.23 Lab / Micro Data Result Diagrams: 03/15/21 04:25 03/15/21 04:25 Labs: Laboratory Results - last 24 hr 03/12/21 03:45: Diff Path Review Reviewed 03/13/21 05:10: Diff Path Review Reviewed 03/14/21 03:40: Diff Path Review Reviewed 03/14/21 03:40: Phosphorus 3.2, Magnesium 2.3 03/14/21 03:40: Total Bilirubin 0.80, Direct Bilirubin 0.37 H, AST 47 H, ALT 22, Alkaline Phosphatase 89, Total Protein 5.9 L, Albumin 1.4 L, Globulin 4.5 H 03/14/21 15:30: Vancomycin Trough 19.1 H 03/15/21 04:25: WBC 29.4 H, RBC 1.99 L, Hgb 5.6 L*, Hct 18.0 L, MCV 90.5, MCH 28.1, MCHC 31.1 L D, RDW Std Deviation 49.1 H, RDW Coeff of Crissy 14.9 H, Plt Count 297, MPV 11.6, Neut % (Auto) Not Reportable, Absolute Neuts (auto) 23.0 H, Absolute Lymphs (auto) 3.24, Total Counted 100, Neutrophils % (Manual) 74 H, Band Neutrophils % 4, Lymphocytes % (Manual) 11 L, Monocytes % (Manual) 3, Eosinophils % (Manual) 1, Metamyelocytes % 2 H, Myelocytes % 4 H, Promyelocytes % 1 H, Diff Path Review May foll, Platelet Estimate ADEQUATE, RBC Morphology N CYTIC, Hypochromasia 2+ 03/15/21 04:25: Sodium 143, Potassium 4.9, Chloride 109 H, Carbon Dioxide 22.0, Anion Gap 12, BUN 59 H, Creatinine 2.84 H, Estim Creat Clear Calc 18.73, Est GFR (MDRD) Af Amer 22 L, Est GFR (MDRD) Non-Af 18 L, BUN/Creatinine Ratio 20.8 H, Glucose 146 H, Calcium 6.8 L, Total Bilirubin 0.50, AST 782 H, ALT 453 H, Alkaline Phosphatase 92, Total Protein 4.8 L, Albumin 1.0 L, Globulin 3.8, Albumin/Globulin Ratio 0.3 L Micro: Microbiology 03/06/21 15:50 Blood Culture (Wb) - Left Wrist Blood Culture - Final No growth in 5 days. 03/06/21 15:40 Blood Culture (Wb) - Anticubital Left Blood Culture - Final No growth in 5 days. 03/07/21 14:10 Sputum, Induced/Lukens Gram Stain - Final 03/07/21 14:10 Sputum, Induced/Lukens Respiratory Culture - Final Meth. resistant Staph. aureus 03/07/21 14:10 Mucosa - Nasopharyngeal Respiratory Panel (PCR) - Final 03/06/21 15:45 Nasal Secretion SARS-CoV-2 Antigen (Rapid) - Final SARS-CoV-2 (COVID 19) 03/07/21 11:00 Urine Catheter - Saxena Legionella Antigen - Final 03/07/21 11:00 Urine Catheter - Saxena Streptococcus pneumoniae Antigen (M - Final Radiography Diagnostic Testing: Radiology Impression Chest X-Ray 03/14/21 14:00 IMPRESSION: All the support tubes are in good position. Small right apical pneumothorax. Subcutaneous emphysema overlying the inferior aspect of the left-sided neck. Small pneumomediastinum. Electronically Signed: Juni Herrera MD at 14:23 EDT , Service support , Physical Exam Const no apparent distress Constitutional Narrative: No ventilator dyssynchrony. RASS -2 General Appearance: ill appearing, intubated and patient mechanically ventilated Nutritional Appearance: obese HEENT normocephalic and head/scalp atraumatic Mouth: endotracheal tube in place and OG tube in place Eyes conjunctivae normal Neck supple General: trachea midline Chest inspection of chest normal Chest: symmetrical chest wall rise and crepitus rib, clavicle, sternum and xiphoid process Resp Effort and Inspection: Negative for labored Auscultation: diminished lung sounds; Negative for rales, rhonchi or wheezes Cardio regular rhythm Rate: tachycardic GI normal to inspection, nondistended, normoactive bowel sounds Extremity no clubbing, cyanosis or edema Skin Skin Narrative: Extensive hematomas Neuro Sensorium / Orientation: sedated on vent Charges/Coding Procedures Hospitalists Procedures: 53779 Critial Care 1st Hr
--- NOTE | 2021-03-15 05:46 | NURSING ---
Verbal consent given to withdrawal care over the phone with second nurse verification by Valdez Jacobo RN. Dr. John notified of family wishes.
--- NOTE | 2021-03-15 08:26 | NURSING ---
03/15/21 Patient with restraints off at 0715. Verified by this RN and Valdez Jacobo RN.
--- NOTE | 2021-03-15 09:41 | PCM.DEATH ---
Preliminary Cause of Preliminary Cause of Preliminary Cause of : Acute hypoxic respiratory failure secondary to acute COVID-19 pneumonia/MRSA pneumonia Acute kidney injury Distributive shock Date of Admission: 03/06/21 Date of : 03/15/21 Principle Diagnosis Problem List: Active and Suspected Problems (Updated 03/07/21 @ 15:[address] Tara Mooney, DO) D-dimer, elevated (Acute) COVID-19 (Acute) Acute hypoxemic respiratory failure (Acute) ADAM (acute kidney injury) (Acute) Pneumonia due to 2019-nCoV (Acute) ADAM (acute kidney injury) (Acute) Hypoxemia (Acute) Respiratory failure (Acute) Non-ST elevation [place] (NSTEMI) (Acute) DNR (do not resuscitate) (Acute) Acute blood loss anemia Acute systolic CHF, EF 20% Hospital Course 65-year-old female with multiple comorbidities, who had recently transported an Christian person, who later was admitted with Covid. She came in with progressive shortness of breath ongoing for 2 days prior, generalized weakness, vomiting. She is unvaccinated Her blood pressure was low at 76/55 on admission, she was written a 24-28 cycles per minute and she was tachycardic. Her oxygen sat was in the 50s. She was started on a nonrebreather mask. A chest x-ray showed bilateral pneumonia. She had acute kidney injury with creatinine 1.81 compared to baseline 0.8-1.0. Her troponins were elevated. D-dimer was elevated. Patient received IV fluid resuscitation as well as she was started on IV dexamethasone. She did not receive remdesivir due to acute kidney injury. Infectious disease was consulted and patient received baricitinib. Her troponin trended up and she was maintained on aspirin and therapeutic Lovenox as well as statins. Cardiology was consulted. Patient got intubated on 03/07/21. She continued to have worsening oxygen requirement. 2D echo showed severe left ventricular systolic dysfunction with EF of 20%, nearly akinetic distal anteroseptal apex suggesting obstructive coronary disease. Patient was not put on TOPHER inhibitor or beta-jona because of shock. Sputum cultures grew MRSA. Her respiratory viral panel as well as strep pneumo and Legionella were negative. Blood cultures were negative. Patient was continued on vancomycin and Zosyn. Patient continued to do poorly, her family switch her CODE STATUS to DNR CC. She became more hypotensive, she was on 3 pressors, tachycardic, had developed pneumomediastinum noted on 03/14/21, with worsening subcutaneous emphysema. She had maxed out on oxygen requirement, she also developed severe anemia and evidence of bleeding from the NG tube. Family decided to withdraw care on 03/15/21. Time of : 7:15 am Assessment & Plan Assessment/Plan (1) D-dimer, elevated: (2) COVID-19: (3) Acute hypoxemic respiratory failure: (4) Encephalopathy: (5) GERD (gastroesophageal reflux disease): QUALIFIERS: Esophagitis presence: esophagitis presence not specified Qualified Code(s): K21.9 - Gastro-esophageal reflux disease without esophagitis (6) HLD (hyperlipidemia): QUALIFIERS: Hyperlipidemia type: unspecified Qualified Code(s): E78.5 - Hyperlipidemia, unspecified (7) Anxiety and depression: (8) ADAM (acute kidney injury): (9) ADAM (acute kidney injury): (10) Septic shock: Visit Charges Inpatient E&M: 30879 Disch Hosp
[2021-03-15 13:30] LABS: Pathologist Review Reviewed
== END 2021-03-15 07:15 | DRG 720 ==
LOC: ED 16:17 → ICU 19:05
PROVIDERS: Internal Medicine; Internal Medicine Critical Care Medicine; Admitting Provider Internal Medicine; Emergency Provider Emergency Medicine; PCP Family Medicine; Visit Provider Internal Medicine
DX: A41.89 Other specified sepsis (principal); B97.29 Other coronavirus as the cause of diseases classified elsewhere; U07.1 COVID-19; J12.82 Pneumonia due to coronavirus disease 2019; J15.212 Pneumonia due to Methicillin resistant Staphylococcus aureus; J96.01 Acute respiratory failure with hypoxia; N17.9 Acute kidney failure, unspecified; Z66 Do not resuscitate; J98.2 Interstitial emphysema; D62 Acute posthemorrhagic anemia; I50.21 Acute systolic (congestive) heart failure; I11.0 Hypertensive heart disease with heart failure; K21.9 Gastro-esophageal reflux disease without esophagitis; F32.A Depression, unspecified; K59.00 Constipation, unspecified; I21.A1 Myocardial infarction type 2; R65.21 Severe sepsis with septic shock; E78.5 Hyperlipidemia, unspecified; E66.01 Morbid (severe) obesity due to excess calories; F41.9 Anxiety disorder, unspecified; Z28.3 Underimmunization status; Z79.899 Other long term (current) drug therapy; Z79.82 Long term (current) use of aspirin; Z68.37 Body mass index [BMI] 37.0-37.9, adult
CPT/HCPCS: 31500; 31720; 36600; 71045; 74018; 80048; 80053; 80076; 80202; 81001; 82550; 82570; 82803; 83605; 83615; 83735; 83880; 84100; 84145; 84300; 84478; 84484; 85025; 85379; 85384; 85610; 86140; 87040; 87070; 87077; 87186; 87205; 87426; 87449; 87633; 87641; 93005; 93306; 93970; 94002; 94003; 97802; 99251; 99285; J7030; J7040; J7050; J7120; A4216; G0463; J0295; J1940; J2405; J3010; J3490